=== PATIENT | female | born 1970 | race Caucasian/White ===

== ENCOUNTER 2017-05-09 02:25 | Emergency (ER) | payer MEDICAID, SELFPAY ==
[2017-05-09 02:26] VITALS: BP 106/59; PULSE 81; RESP 16; TEMP 36.8; O2SAT 98; BMI 51.7
[2017-05-09] MEDS: 0.9% Normal Saline 1,000 ML 1000 ML IV (02:54)
[2017-05-09] MEDS: Ketorolac 30 MG/ML Syringe IV (02:54)
[2017-05-09] MEDS: Ondansetron 4 MG/2 ML Vial IV (02:55)
[2017-05-09 03:08] LABS: Color, Urine Amber (Yellow); Glucose, Dipstick Normal (Normal); Ketone-Dipstick 5 mg/dl (Negative); Leukocyte Esterase-Dipstick 100 /ul (Negative); Nitrite-Dipstick Negative (Negative); Occult Blood-Urine 250 /ul (Negative); Protein-Dipstick 100 mg/dl (Negative); Specific Gravity, Urine 1.025 (1.002-1.030); Urine Bilirubin Dipstick Negative (Negative); Urine Clarity Sl. Cloudy (Clear); Urine Urobilinogen Normal (Normal)
[2017-05-09 03:10] LABS: Absolute Neutrophil Count 11.7 X10^3/uL (2.0-7.7); Basophil# 0.01 X10^3/uL; Basophil% 0.1 % (0-1); Eosinophil# 0.24 X10^3/uL; Eosinophils% 1.7 % (0-5); Hematocrit 42.5 % (37-47); Hemoglobin 14.4 g/dl (12.0-15.0); Lymphocyte % 9.3 % (19-41); Mean Corp Hgb Conc 33.9 g/gl (32-36); Mean Corpuscular Hgb 28.7 pg (27.0-32.0); Mean Corpuscular Volume 84.8 fL (81-99); Mean Platelet Vol. 9.8 fl (6.2-12.0); Monocyte# 0.74 X10^3/uL; Monocyte% 5.3 % (0-10); Neutrophil # 11.66 X10^3/uL (2.7-7.7); Neutrophil % 83.5 % (47-70); POSITIVE COUNT NO; POSITIVE DIFFERENTIAL NO; POSITIVE MORPHOLOGY NO; Platelet Count 286 K/mm3 (150-450); RBC Distribution Width CV 14.3 % (11.6-14.6); RBC Distribution Width SD 43.4 fl (35.1-43.9); Red Blood Count 5.01 M/mm3 (4.2-5.4)
[2017-05-09 03:14] LABS: Bacteria RARE /hpf (None Seen); Mucous, Urine 1+ /hpf (<or=2+); Red Blood Cells-Urine 10-25 SEEN /hpf (0-5); Squamous Epithelial Cells - UA 5-10 SEEN /hpf (5-10); White Blood Cells 5-10 SEEN /hpf (0-5)
[2017-05-09 03:21] LABS: BUN 17 mg/dL (7-18); Calcium,Total 8.7 mg/dL (8.5-10.1); Creatinine, Serum 0.71 mg/dL (0.55-1.02); EST Glomerular Filtration Rate 95 mL/min (>60); Est Glom Filt Rate - Afr Amer 114 mL/min (>60); Estimated Creatinine Clearance 93.67 ml/min; Glucose 110 mg/dL (74-106)
[2017-05-09 03:22] LABS: Anion Gap 7 (5-15); Chloride 107 mmol/L (98-107); Potassium 3.9 mmol/L (3.5-5.1); Sodium Level 136 mmol/L (136-145)
--- NOTE | 2017-05-09 03:41 | ED.VISSUMM ---
- ER Visit Summary Date of Service: 05/09/17 Chief Complaint: Abdominal pain History of Present Illness: The patient is a [address] Renae. She reports that she has abdominal pain began approximately 12 hours ago. Sick cramping pain Zeta 10 at worst and 7 out of 10 currently. Is worsened by nothing. It is relieved by rocking back and forth. She reports she has been nausea and vomited twice. No blood or emesis. She had approximately 10 episodes of diarrhea. No blood in her stools or black tarry stools. No dysuria or frequency. She is on her menstrual period now. Patient denies sick contacts. Has not been camping out of the country. No possible bad food exposure. Does not drink well water. She reports that she was on antibiotics a few months ago for pyelonephritis.. Physical Examination: Vitals: Stable. Afebrile. General: Well-nourished and well-developed. Head: Normocephalic atraumatic. Neck: Supple, no lymphadenopathy. No JVD. Nontender. Cardiovascular: Regular rate and rhythm. No murmurs. Respiratory: No respiratory distress. Clear to auscultation bilaterally. Abdominal: Soft, mild suprapubic tenderness to palpation, nondistended, normal bowel sounds. No guarding, rebound, or peritoneal signs. Back: Nontender. Extremities: Nontender, no edema. Skin: Normal color, no rash. Neurologic: Alert and oriented ?3. Cranial nerves II through XII are intact. Normal strength and sensation. Psych: Normal affect. Test Results: Urinalysis shows 10-25 red blood cells, 5-10 white blood cells, and 5-10 epithelial cells. She is on her menses. I do not think that this is consistent with infection. Chem-7 is more for glucose 110, BUN/creatinine ratio of 24. CBC is marked for white count of 14.0 with 84 segmented neutrophils and 9 lymphocytes. test was negative. Emergency Department Course and Treatment: Patient had an IV placed. She was given a liter bolus of normal saline. She was given Toradol and Zofran IV. She has had no further vomiting or diarrhea while here. Treatment Plan: The patient will be discharged with Zofran and Bentyl. Instructed to follow-up with her primary care physician 1-2 days if not improving. Disposition: To home in improved and stable condition. Impression: 1. Abdominal pain. 2. Vomiting/diarrhea. This note was generated with [employer] dictation software. It may contain incorrect words, spelling, and punctuation that were not noted in review of the chart prior to signing ED Disposition - Plan for ED Patient: Chief Complaint: Nausea/Vomiting/Diarrhea Instructions: ED Vomiting Diarrhea Nonspecific Ad Prescriptions: Ondansetron [Zofran Odt] 4 mg PO Q8H PRN PRN #10 tablet PRN Reason: Nausea Dicyclomine HCl [Bentyl] 20 mg PO TIDAC #20 capsule Referrals: Amari Renae DO [Primary Care Provider] - 1-2 Days if not improving
[2017-05-09 04:17] VITALS: BP 107/73; PULSE 70; RESP 17; O2SAT 95
[2017-05-09 04:19] LABS: Pregnancy, Serum, hCG Quali. NEGATIVE Negative (0-9 Nonpreg)
== END 2017-05-09 04:17 | disposition home or self-care (01) ==
LOC: ED 03:19
PROVIDERS: Emergency Provider Emergency Medicine; Family Provider Family Medicine; PCP Family Medicine
DX: R10.30 Lower abdominal pain, unspecified (principal); R11.2 Nausea with vomiting, unspecified; R19.7 Diarrhea, unspecified; R68.83 Chills (without fever); E11.9 Type 2 diabetes mellitus without complications; I10 Essential (primary) hypertension; Z86.39 Personal history of other endocrine, nutritional and metabolic disease; D86.9 Sarcoidosis, unspecified; Z87.448 Personal history of other diseases of urinary system; Z87.442 Personal history of urinary calculi; Z79.84 Long term (current) use of oral hypoglycemic drugs; Z79.899 Other long term (current) drug therapy
CPT/HCPCS: 80048; 81001; 84703; 85025; 87086; 87088; 96361; 96374; 96375; 99285; J7030; A4216; J2405

== ENCOUNTER → 2017-10-01 12:48 | Outpatient (CLI) | payer MEDICAID, SELFPAY ==
[2017-10-01 18:24] LABS: Probe Check PASS; Sample Adequacy Control PASS; Specimen Processing Control PASS; Trichomonas Vag DNA by PCR Negative (Negative)
[2017-10-01 18:57] LABS: Chlamydia Trachomatis by PCR Negative (Negative); Neisserai gonorrhoeae by PCR Negative (Negative); Probe Check PASS; Sample Adequacy Control PASS; Specimen Processing Control PASS
== END ==
PROVIDERS: Family Provider Family Medicine; PCP Family Medicine; Visit Provider Family Medicine
DX: N89.8 Other specified noninflammatory disorders of vagina (principal)
CPT/HCPCS: 87210; 87491; 87591; 87661

== ENCOUNTER 2018-01-14 07:00 | Emergency (ER) | payer MEDICAID, SELFPAY ==
[2018-01-14 07:02] VITALS: BP 153/87; PULSE 80; RESP 16; TEMP 36.5; O2SAT 95; BMI 38.2
--- NOTE | 2018-01-14 07:26 | ED.DCSUM_ITS ---
- ER Visit Summary Date of Service: 01/14/18 Chief Complaint: Cough headache History of Present Illness: The patient is a [address] Renae. She reports that she has a headache that began 2 days ago. Is gradually gotten worse. It is over both temples. She describes as an aching pain. It is 10 out of 10 at worst and 3 out of 10 currently. Is worsened by nothing. Is relieved by butalbital. She reports she been nauseated and vomited 3 times. No blood in her emesis. She also has photophobia. She denies any recent injury to her head. Patient reports that she has had a cough for the past 3-4 days that is productive clear sputum without blood. She has had subjective fever, chills, and sweats. She denies sore throat or difficulty breathing. She did get a flu shot this year. Patient reports that she has diffuse abdominal pain that began yesterday. It is an aching pain that is 6 out of 10 at worst and currently. She reports that she is also had 3 episodes of diarrhea. No blood in her stools or black tarry stools. Patient denies sick contacts. Has not been camping out of the country. No possible bad food exposure. Does not drink well water. No recent antibiotic use. Physical Examination: Vitals: Stable. Afebrile. General: Well-nourished and well-developed. Head: Normocephalic atraumatic. Neck: Supple, no lymphadenopathy. No JVD. Nontender. Cardiovascular: Regular rate and rhythm. No murmurs. Respiratory: No respiratory distress. Clear to auscultation bilaterally. Abdominal: Soft, mild diffuse tenderness to palpation, nondistended, normal bowel sounds. No guarding, rebound, or peritoneal signs. Back: Nontender. Extremities: Nontender, no edema. Skin: Normal color, no rash. Neurologic: Alert and oriented ?3. Cranial nerves II through XII are intact. Normal strength and sensation. Psych: Normal affect. Test Results: Chest x-ray shows no acute disease. Influenza is negative. Emergency Department Course and Treatment: Patient had an IV placed. She was treated with Toradol, Benadryl, and Reglan IV. She is resting comfortably. Treatment Plan: Patient will be discharged with Zofran for her nausea. Symptomatic care for her URI. Instructed to follow-up with her primary care physician in 3-5 days if not improving. Return to the emergency department for any worsening symptoms. Disposition: To home in improved and stable condition. Impression: 1. Cephalgia. 2. URI. 3. Vomiting/diarrhea. This note was generated with [employer] dictation software. It may contain incorrect words, spelling, and punctuation that were not noted in review of the chart prior to signing ED Disposition - Plan for ED Patient: Chief Complaint: Nausea/Vomiting/Diarrhea Instructions: ED Upper Resp Infec No Abx Tx Prescriptions: Ondansetron [Zofran Odt] 4 mg PO Q8H PRN PRN #10 tablet PRN Reason: Nausea Referrals: Amari Renae DO [Primary Care Provider] - 3-5 Days if not improving
[2018-01-14] MEDS: 0.9% Normal Saline 1,000 ML 1000 ML IV (07:35)
[2018-01-14] MEDS: DiphenhydrAMINE 50 MG/ML Syringe IV (07:35)
[2018-01-14] MEDS: Ketorolac 30 MG/ML Syringe IV (07:35)
[2018-01-14] MEDS: Metoclopramide 10 MG/2 ML Vial IV (07:35)
--- NOTE | 2018-01-14 07:41 | RAD_ITS ---
STUDY: X-RAY CHEST REASON FOR EXAM: Female, 47 years old. 3 day history of cough and headaches. TECHNIQUE: PA and lateral views of the chest. COMPARISON: Comparison is made with prior study dated January 18, 2016. FINDINGS: The lungs are clear and expanded. There is no demonstrated pleural abnormality. Normal size heart. Normal mediastinum and harlan. Normal visualized pulmonary arteries. Normal visualized aortic arch and descending thoracic aorta. Normal visualized thoracic spine. Normal visualized ribs, clavicles, and shoulders. There is no demonstrated abnormality of the visualized soft tissue structures of the upper abdomen. RAD/Chest PA and Lateral IMPRESSION: Normal x-ray examination of the chest. Electronically Signed: Malcolm Quarles MD at 8:24 EST Tel [phone], Service support ,
== END 2018-01-14 09:23 | disposition home or self-care (01) ==
PROVIDERS: Emergency Provider Emergency Medicine; Family Provider Family Medicine; PCP Family Medicine
DX: R51 Headache (principal); J06.9 Acute upper respiratory infection, unspecified; R11.10 Vomiting, unspecified; R19.7 Diarrhea, unspecified; H53.149 Visual discomfort, unspecified; J44.9 Chronic obstructive pulmonary disease, unspecified; G43.909 Migraine, unspecified, not intractable, without status migrainosus; D86.9 Sarcoidosis, unspecified; Z79.899 Other long term (current) drug therapy; F17.200 Nicotine dependence, unspecified, uncomplicated
CPT/HCPCS: 71046; 87804; J7030; A4216

== ENCOUNTER 2018-01-14 23:17 | Observation (INO) | payer MEDICAID, SELFPAY ==
[2018-01-14 23:18] VITALS: BP 159/81; PULSE 57; RESP 16; TEMP 36.6; O2SAT 99; BMI 34.6
[2018-01-15] VITALS (9 sets, daily range): BP systolic 131–163; BP diastolic 77–88; PULSE 50–70; RESP 16–20; TEMP 36.7–37; O2SAT 94–100; BMI 37.4
[2018-01-15] MEDS: proMETHazine 25 MG/ML Syringe 12.5 MG IV (00:09)
[2018-01-15] MEDS: 0.9% Normal Saline 1,000 ML 1000 ML IV (00:09)
[2018-01-15 00:24] LABS: Absolute Lymphocyte Count 1.75 X10^3/ul (0.83-4.51); Absolute Neutrophil Count 7.2 X10^3/uL (2.0-7.7); Basophil# 0.02 X10^3/uL; Basophil% 0.2 % (0-1); Eosinophil# 0.23 X10^3/uL; Eosinophils% 2.3 % (0-5); Hematocrit 43.2 % (37-47); Hemoglobin 14.8 g/dl (12.0-15.0); Lymphocyte # 1.75 X10^3/ul (4.0); Lymphocyte % 17.8 % (19-41); Mean Corp Hgb Conc 34.3 g/gl (32-36); Mean Corpuscular Volume 87.6 fL (81-99); Mean Platelet Vol. 10.8 fl (6.2-12.0); Monocyte# 0.59 X10^3/uL; Neutrophil # 7.22 X10^3/uL (2.7-7.7); Neutrophil % 73.5 % (47-70); Platelet Count 246 K/mm3 (150-450); RBC Distribution Width CV 12.9 % (11.6-14.6); RBC Distribution Width SD 40.7 fl (35.1-43.9); Red Blood Count 4.93 M/mm3 (4.2-5.4); White Blood Count 9.8 K/mm3 (4.4-11.0)
[2018-01-15 00:29] LABS: ALB/GLOB Ratio 0.9 RATIO (0.9-2.4); AST(SGOT) 11 U/L (15-37); Alanine Aminotransfer ALT/SGPT 17 U/L (13-56); Albumin, Serum 3.7 g/dL (3.2-5.0); Alkaline Phosphatase 102 U/L (45-117); Anion Gap 8 (5-15); BUN 10 mg/dL (7-18); BUN/Creat Ratio 15.1 RATIO (10-20); Chloride 103 mmol/L (98-107); Creatinine, Serum 0.66 mg/dL (0.55-1.02); EST Glomerular Filtration Rate 102 mL/min (>60); Est Glom Filt Rate - Afr Amer 123 mL/min (>60); Estimated Creatinine Clearance 99.71 ml/min; Globulin 4.2 g/dL (2.2-4.2); Glucose 113 mg/dL (74-106); Lipase 567 U/L (73-393); Potassium 3.8 mmol/L (3.5-5.1); Protein, Total 7.9 g/dL (6.4-8.2); Sodium Level 137 mmol/L (136-145)
[2018-01-15 00:31] LABS: POSITIVE COUNT NO; POSITIVE DIFFERENTIAL NO; POSITIVE MORPHOLOGY NO
[2018-01-15] MEDS: Ondansetron 4 MG/2 ML Vial IV ×2 (00:40→11:40)
[2018-01-15] MEDS: Ketorolac 30 MG/ML Syringe IV ×4 (01:01→22:05)
--- NOTE | 2018-01-15 01:07 | CT_ITS ---
STUDY: CT ABDOMEN AND PELVIS WITHOUT CONTRAST REASON FOR EXAM: Female, 47 years old. Right flank pain. Nausea, vomiting, cold for 3 days. RADIATION DOSAGE (If Supplied By Facility): CTDIvol = ( 20.77 ) mGy, DLP = ( 1115.83 ) mGycm TECHNIQUE: Transaxial images were obtained from the dome of the diaphragm to the symphysis pubis without oral contrast, and without intravenous contrast. Sagittal and coronal images were reconstructed. Individualized dose optimization techniques were used for this CT. COMPARISON: January 03, 2017. FINDINGS: The visualized lung bases are unremarkable. The visualized portions of the heart are within normal limits. Normal liver. Normal gallbladder and extrahepatic biliary system. Normal spleen. Normal pancreas. Normal bilateral adrenal glands. 4.3 cm simple cyst right kidney. Minimal scattered 1 to 2 mm bilateral nonobstructing renal calculi. Postoperative changes of gastric bypass surgery. Normal small intestine. Normal colon. There is non-visualization of the appendix. No secondary signs of acute appendicitis. Normal abdominal aorta. Normal inferior vena cava. Normal retroperitoneum. No intra-abdominal free air. Normal urinary bladder. Uterus grossly normal. No adnexal masses. There is a small umbilical hernia containing fat. Multilevel degenerative changes of the lower thoracic spine. Degenerative changes lumbar spine primarily at L5-S1 where there is disc space narrowing, vacuum disc, endplate sclerosis and small marginal osteophytes. Mild convex-right lumbar curvature. CT/Abdomen/Pelvis without Cont IMPRESSION: No acute findings in the abdomen or pelvis. Scattered very small nonobstructing bilateral renal calculi. Stable simple right renal cyst. No evidence of bowel obstruction. Electronically Signed: Filiberto Broussard MD at 2:00 EST , Service support ,
[2018-01-15 01:58] LABS: Red Blood Cells-Urine 0 SEEN /hpf (0-5)
[2018-01-15 01:59] LABS: Color, Urine Yellow (Yellow); Glucose, Dipstick Normal (Normal); Ketone-Dipstick 15 mg/dl (Negative); Leukocyte Esterase-Dipstick 100 /ul (Negative); Nitrite-Dipstick Negative (Negative); Occult Blood-Urine 10 /ul (Negative); Protein-Dipstick Negative (Negative); Urine Bilirubin Dipstick Negative (Negative); Urine Clarity Clear (Clear); Urine Urobilinogen Normal (Normal)
[2018-01-15 02:02] LABS: Internal QC Validated? YES +Cl - CLEAR BKGD; Pregnancy, Urine Negative Negative
[2018-01-15 02:07] LABS: Bacteria 1+ /hpf (None Seen); Mucous, Urine 1+ /hpf (<or=2+); Squamous Epithelial Cells - UA 0-5 SEEN /hpf (5-10); White Blood Cells 5-10 SEEN /hpf (0-5)
--- NOTE | 2018-01-15 02:28 | ED.DCSUM_ITS ---
- ER Visit Summary Date of Service: 01/15/18 Chief Complaint: Vomiting History of Present Illness: The patient is a 47 F who presents with vomiting. She was seen this morning for nausea vomiting and diarrhea. She reports loose stools yesterday. However she has not really eaten or drank anything today so has had no diarrhea today. She was seen this morning and also had some upper respiratory symptoms including congestion and rhinorrhea. She had a chest x-ray and a flu swab which were unremarkable and she was discharged home on Zofran. She states she is continued to vomit despite this and is also developed right flank pain. No fevers or chills. Physical Examination: Afebrile vitals are normal Moist mucous membranes Heart regular rate and rhythm Lungs clear Abdomen soft no reproducible tenderness She does have right CVA tenderness Alert Test Results: CBC BMP hepatic function unremarkable. Lipase mildly elevated at 557. Urinalysis shows 5-10 WBCs 1+ bacteria and 0-[address] is negative[address] the abdomen pelvis shows no acute findings Emergency Department Course and Treatment: Workup as above. Patient may have a mild UTI. She was given IV Rocephin. She has mild elevation of her lipase and may have mild pancreatitis. Her symptoms are treated with Toradol. We discussed outpatient management. However this is her second ER visit and she was vomiting despite antiemetics so the decision was made to admit her. I did speak to the hospitalist and patient admitted. Treatment Plan: [] Disposition: Admit Impression: Elevated lipase Vomiting UTI This note was generated with [employer] dictation software. It may contain incorrect words, spelling, and punctuation that were not noted in review of the chart prior to signing ED Disposition - Plan for ED Patient: Chief Complaint: Nausea/Vomiting Referrals: Amari Renae DO [Primary Care Provider] -
[2018-01-15] MEDS: Ceftriaxone 1 GM/50 ML BAG IV (02:45)
--- NOTE | 2018-01-15 02:47 | PCM.HP.STD ---
Problem List (1) Viral syndrome Status: Acute History of Present Illness Date of Admission: 01/15/18 Chief Complaint: nausea, vomiting and diarrhea. The patient is a 47 year old F with a previous history of major depression; hypertension; prediabetes; COPD; major depression; and gastric bypass surgery who presented at the emergency department for the second time in the same day with same persisting symptoms.. Patient reports nausea, vomiting and diarrhea that started 2-3 days ago. The last time she had loose stools was the morning of her presentation. She thinks that her bowels have stopped moving since she had not eaten anything. Also associated with her symptoms is abdominal pain. She rates her abdominal pain as 4 out of 10. At her first emergency department visit she had only abdominal pain. On her second emergency department her abdomen pain had reduced but she had more pain at her right lower back. She rated the pain at the right lower back as 6 -7 out of 10. Upon further investigation patient stated that she has chronic right lower back pain and has been taking tramadol at home for this. However she reports that her right lower back pain increased on the day of presentation to the ED. At the emergency department she was found to have mildly elevated lipase of 567. Her urinalysis showed 5-10 white blood cells, 1+ bacteria and [address] of the abdomen and pelvis showed scattered very small nonobstructing bilateral renal calculi; and stable simple right renal cyst. At her first emergency department visits she had unremarkable chest x-ray and negative flu swab; and she was discharged home on Zofran. Past Medical History Past Medical History (Chronic Problems): Chronic Problems (Last Reviewed 01/15/18 @ 03:15 by Renzo Birch MD) Previous section (Chronic) Essential hypertension (Chronic) Gastroesophageal reflux disease (Chronic) Major depression (Chronic) Sarcoidosis (Chronic) Fatigue (Chronic) Vitamin D deficiency (Chronic) Cigarette nicotine dependence (Chronic) Prediabetes (Chronic) Onychomycosis (Chronic) Alopecia (Chronic) Skin rash (Chronic) Anxiety (Chronic) Fatty liver disease, nonalcoholic (Chronic) Peripheral edema (Chronic) Stage 1 mild COPD by GOLD classification (Chronic) Benign essential HTN (Chronic) Morbid obesity (Chronic) Tobacco user (Chronic) Obstructive sleep apnea (Chronic) Nephrolithiasis (Chronic) Noted history of recent stent placement. Medical History: Medical History (Last Reviewed 01/15/18 @ 03:15 by Renzo Birch MD) H/O: hysterectomy (Resolved) Z98.890, Z90.710 Essential hypertension (Chronic) I10 Gastroesophageal reflux disease (Chronic) K21.9 Major depression (Chronic) F32.9 Sarcoidosis (Chronic) D86.9 Fatigue (Chronic) R53.83 Vitamin D deficiency (Chronic) E55.9 Cigarette nicotine dependence (Chronic) F17.210 Prediabetes (Chronic) R73.03 Dysfunctional uterine bleeding (Resolved) N93.8 Onychomycosis (Chronic) B35.1 Chest pain (Resolved) R07.9 Alopecia (Chronic) L65.9 Skin rash (Chronic) R21 Anxiety (Chronic) F41.9 Fatty liver disease, nonalcoholic (Chronic) K76.0 Peripheral edema (Chronic) R60.9 Stage 1 mild COPD by GOLD classification (Chronic) J44.9 Benign essential HTN (Chronic) I10 Morbid obesity (Chronic) E66.01 Tobacco user (Chronic) Z72.0 Obstructive sleep apnea (Chronic) G47.33 COPD (chronic obstructive pulmonary disease) (Suspected) J44.9 Nephrolithiasis (Chronic) Noted history of recent stent placement. Allergies latex Allergy (Verified 01/14/18 23:23) Hives povidone-iodine [From Betadine] Allergy (Verified 01/14/18 23:23) Rash soap [From Betadine] Allergy (Verified 01/14/18 23:23) Rash Home Medications: Ambulatory Orders Medication Instructions Recorded busPIRone [Buspar] 15 mg PO BID 06/06/15 Albuterol IH (ProAir) [Proair Hfa] 1 - 2 puff INHALATION Q4H PRN PRN 01/18/16 traMADol [Ultram] 50 mg PO Q4H PRN PRN 01/18/16 Cholecalciferol (Vitamin D3) 4,000 unit PO DAILY 11/15/16 [Vitamin D3] Cyclobenzaprine [Flexeril] 10 mg PO TID PRN PRN #15 tab 11/15/16 Acyclovir 200 mg PO BID 01/03/17 Ondansetron [Zofran Odt] 4 mg PO Q8H PRN PRN #10 tab 05/09/17 budesonide-formoterol HFA 160 2 puff INHALATION Q12H #10.2 g 06/18/17 mcg-4.5 mcg/actuation aerosol inhaler Surgical History: Surgical History (Last Reviewed 01/15/18 @ 03:15 by Renzo Birch MD) History of gastric bypass (Resolved) Z98.84 History of lithotripsy (Resolved) Z98.890 Previous section (Chronic) Z98.891 History of carpal tunnel release of both wrists (Resolved) Z98.890 Surgical History: - Psychiatric History: Anxiety, Depression 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 Smoking Status: Current every day smoker - *Family History Maternal Family History: Family History (Last Reviewed 01/15/18 @ 03:15 by Renzo Birch MD) Father Hypertension Heart disease Diabetes CVA (cerebral vascular accident) Blood clotting disorder Pneumonia Grandfather Cancer Brother Diabetes Sister Asthma Sister Depression Anxiety Paternal Family History: Family History (Last Reviewed 01/15/18 @ 03:15 by Renzo Birch MD) Father Hypertension Heart disease Diabetes CVA (cerebral vascular accident) Blood clotting disorder Pneumonia Grandfather Cancer Brother Diabetes Sister Asthma Sister Depression Anxiety History Items: Diabetes, Hypertension Review of Systems Constitutional: Denies: Chills, Fever, Weight Change HEENT: Reports: Sinus Drainage. Denies: Head Aches, Sinus Congestion Cardiovascular: Denies: Chest Pain, Palpitations Respiratory: Reports: Cough, Sputum production - clear. Denies: Shortness of breath at rest Gastrointestinal: Reports: Abdominal Pain, Nausea, Vomiting Genitourinary: Denies: Dysuria Musculoskeletal: Denies: Joint Pain, Joint Tenderness Skin: Denies: Rash, Wounds Neurological: Denies: Numbness, Tingling, Focal weakness Psychiatric: Denies: Anxiety, Depression, Homicidal Ideations, Suicidal Ideations Hematologic/ Lymphatic: Denies: Easy Bruising, Easy Bleeding VTE Information - Inpt Only VTE Present on Admission: No VTE Mechan Device Prophylaxis: None VTE Pharm Prophylaxis ordered?: Yes Patient Problems: Active and Suspected Problems (Last Reviewed 01/15/18 @ 03:15 by Renzo Birch MD) Viral syndrome (Acute) - Physical Exam General: Alert, Oriented x3, Cooperative HEENT: Atraumatic, PERRLA, EOMI, Normocephalic Neck: Supple, No JVD, Negative Carotid Bruits Lungs: Clear to auscultation, Normal air movement Cardiovascular: Regular rate, No murmurs Abdomen: Bowel Sounds Present, Soft, Tender - mild., - - No CVA tenderness. Extremities: No edema, Capillary Refill Less than 3 Seconds Skin: No rashes, No breakdown Musculoskeletal: No Tenderness to Palpation of Joints or Extremities Neurological: Cranial nerves II-XII grossly intact Psych/Mental Status: Normal Affect, Appropriate Vital Signs Temp Pulse Resp BP Pulse Ox 97.9 F 50 L 16 156/82 H 94 01/14/18 23:18 01/15/18 01:53 01/15/18 01:53 01/15/18 01:53 01/15/18 01:53 Oxygen Delivery Method Room Air Weight: 97.4 kg Body Mass Index (BMI) 34.6 Laboratory Tests Past 24 Hrs 01/15/18 01/15/18 01/15/18 00:06 00:06 01:45 WBC 9.8 RBC 4.93 Hgb 14.8 Hct 43.2 MCV 87.6 MCH 30.0 MCHC 34.3 RDW 12.9 RDW Differential 40.7 Plt Count 246 MPV 10.8 Immature Gran % (Auto) 0.200 Neut % (Auto) 73.5 H Lymph % (Auto) 17.8 L [place] % (Auto) 6.0 Eos % (Auto) 2.3 Baso % (Auto) 0.2 Absolute Neuts (auto) 7.2 Absolute Lymphs (auto) 1.75 Total Counted Not Reportable Sodium 137 Potassium 3.8 Chloride 103 Carbon Dioxide 26.0 Anion Gap 8 BUN 10 Creatinine 0.66 Estim Creat Clear Calc 99.71 Est GFR (MDRD) Af Amer 123 Est GFR (MDRD) Non-Af 102 BUN/Creatinine Ratio 15.1 Glucose 113 H Calcium 9.0 Total Bilirubin 0.50 AST 11 L ALT 17 Alkaline Phosphatase 102 Total Protein 7.9 Albumin 3.7 Globulin 4.2 Albumin/Globulin Ratio 0.9 Lipase 567 H Urine Color Urine Clarity Urine pH Ur Specific [place] Urine Protein Urine Glucose (UA) Urine Ketones Urine Occult Blood Urine Nitrite Urine Bilirubin Urine Urobilinogen Ur Leukocyte Esterase Urine RBC Urine WBC Ur Squamous Epith Cells Urine Bacteria Urine Mucus Urine Test Negative 01/15/18 01:45 WBC RBC Hgb Hct MCV MCH MCHC RDW RDW Differential Plt Count MPV Immature Gran % (Auto) Neut % (Auto) Lymph % (Auto) [place] % (Auto) Eos % (Auto) Baso % (Auto) Absolute Neuts (auto) Absolute Lymphs (auto) Total Counted Sodium Potassium Chloride Carbon Dioxide Anion Gap BUN Creatinine Estim Creat Clear Calc Est GFR (MDRD) Af Amer Est GFR (MDRD) Non-Af BUN/Creatinine Ratio Glucose Calcium Total Bilirubin AST ALT Alkaline Phosphatase Total Protein Albumin Globulin Albumin/Globulin Ratio Lipase Urine Color Yellow Urine Clarity Clear Urine pH 7.0 Ur Specific [place] 1.010 Urine Protein Negative Urine Glucose (UA) Normal Urine Ketones 15 H Urine Occult Blood 10 H Urine Nitrite Negative Urine Bilirubin Negative Urine Urobilinogen Normal Ur Leukocyte Esterase 100 H Urine RBC 0 SEEN Urine WBC 5-10 SEEN Ur Squamous Epith Cells 0-5 SEEN Urine Bacteria 1+ Urine Mucus 1+ Urine Test Assessment/Plan All Active Problems (Last Reviewed 01/15/18 @ 03:15 by Renzo Birch MD) Viral syndrome (Acute) History of gastric bypass (Resolved) H/O: hysterectomy (Resolved) History of lithotripsy (Resolved) History of carpal tunnel release of both wrists (Resolved) Dysfunctional uterine bleeding (Resolved) Chest pain (Resolved) The patient is a 47 year old F with a previous history of major depression; hypertension; prediabetes; COPD; major depression; and gastric bypass surgery with nausea, vomiting and diarrhea; sneezing and running nose that made her come to the ED twice in the same day. Gastroenteritis Probably representing a viral syndrome because of associated sneezing and runny nose. Supportive treatment with IV normal saline; antiemetics with Zofran; and IV Toradol. Patient does not think she needs anything for runny nose. Clear liquids ordered. Hypertension Patient stated that her hypertension and prediabetes resolved with gastric bypass surgery for which reason her previous antihypertensive medications were resolved. Her blood pressure at this presentation is not within goal. Labetalol prn ordered Consider re-starting patient on po blood pressure meds for discharge COPD Stable Symbicort continued Albuterol as needed. Back pain Flexeril as needed if patient can tolerate p.o. Since patient has nausea and vomiting, tramadol is on hold.Toradol as needed. Tobacco abuse Patient smokes half pack per day since she was a teenager. Declined nicotine patch. Counseled on the risk of tobacco use. Asymptomatic bacteruria Received Ceftriaxone at the ED Urine cultures are pending Ceftriaxone not re-ordered Major Depression Buspirone continued HSV Reports HSV on vaginal area Home acyclovir continued. DVT Prophylaxis Subcutaneous Lovenox. Code Visit OBSV E&M: [id number] Initial observation care L3
[2018-01-15] MEDS: 0.9% Normal Saline 1,000 ML 150 ML IV ×2 (05:02→15:38)
[2018-01-15 05:59] LABS: Absolute Lymphocyte Count 1.35 X10^3/ul (0.83-4.51); Absolute Neutrophil Count 6.4 X10^3/uL (2.0-7.7); Basophil# 0.01 X10^3/uL; Basophil% 0.1 % (0-1); Eosinophil# 0.14 X10^3/uL; Eosinophils% 1.7 % (0-5); Hematocrit 41.1 % (37-47); Hemoglobin 13.5 g/dl (12.0-15.0); Lymphocyte # 1.35 X10^3/ul (4.0); Lymphocyte % 16.2 % (19-41); Mean Corp Hgb Conc 32.8 g/gl (32-36); Mean Corpuscular Hgb 29.4 pg (27.0-32.0); Mean Corpuscular Volume 89.5 fL (81-99); Monocyte# 0.44 X10^3/uL; Monocyte% 5.3 % (0-10); Neutrophil # 6.41 X10^3/uL (2.7-7.7); Neutrophil % 76.7 % (47-70); Platelet Count 197 K/mm3 (150-450); RBC Distribution Width SD 42.4 fl (35.1-43.9); Red Blood Count 4.59 M/mm3 (4.2-5.4); White Blood Count 8.4 K/mm3 (4.4-11.0)
[2018-01-15 06:06] LABS: POSITIVE COUNT NO; POSITIVE DIFFERENTIAL NO; POSITIVE MORPHOLOGY NO
[2018-01-15 06:19] LABS: Anion Gap 8 (5-15); BUN 8 mg/dL (7-18); BUN/Creat Ratio 15.6 RATIO (10-20); Calcium,Total 8.4 mg/dL (8.5-10.1); Chloride 107 mmol/L (98-107); Creatinine, Serum 0.51 mg/dL (0.55-1.02); EST Glomerular Filtration Rate 137 mL/min (>60); Est Glom Filt Rate - Afr Amer 165 mL/min (>60); Estimated Creatinine Clearance 129.03 ml/min; Glucose 108 mg/dL (74-106); Potassium 3.9 mmol/L (3.5-5.1); Sodium Level 138 mmol/L (136-145)
[2018-01-15] MEDS: Budesonide Respules 0.5 MG/2 ML AMPUL.NEB. INHALATION ×2 (06:43→18:42)
[2018-01-15] MEDS: Albuterol 2.5 MG/3 ML VIAL.NEB. INHALATION ×3 (06:43→18:42)
[2018-01-15] MEDS: busPIRone 15 MG TABLET PO ×2 (10:15→22:01)
[2018-01-15] MEDS: Acyclovir 200 MG Capsule PO ×2 (10:15→22:01)
[2018-01-15] MEDS: Enoxaparin 40 MG/0.4 ML Syringe SC (10:18)
[2018-01-15] MEDS: Morphine 2 MG/ML Syringe IV (10:40)
--- NOTE | 2018-01-15 20:06 | PCM.HOSP.N ---
Hospitalist Note Patient seen and examined today, she does not have any more abdominal pain, IV fluids were discontinued and her diet was advanced. I will repeat the patient's lipase tomorrow. Hopefully patient will be placed on a regular diet in the morning
[2018-01-15] MEDS: MELATONIN 3 MG TABLET PO (22:01)
[2018-01-16] MEDS: Acetaminophen 325 MG Tablet 650 MG PO ×2 (00:02→13:42)
[2018-01-16 04:30] VITALS: BP 156/90; PULSE 71; RESP 18; TEMP 36.9; O2SAT 96
[2018-01-16] MEDS: Ketorolac 30 MG/ML Syringe IV (04:48)
[2018-01-16 05:54] LABS: Lipase 90 U/L (73-393)
[2018-01-16 07:36] VITALS: PULSE 73; RESP 18; O2SAT 96
[2018-01-16] MEDS: Budesonide Respules 0.5 MG/2 ML AMPUL.NEB. INHALATION (07:36)
[2018-01-16] MEDS: Albuterol 2.5 MG/3 ML VIAL.NEB. INHALATION ×2 (07:36→13:29)
[2018-01-16] MEDS: Enoxaparin 40 MG/0.4 ML Syringe SC (09:50)
[2018-01-16] MEDS: busPIRone 15 MG TABLET PO (09:50)
[2018-01-16] MEDS: Acyclovir 200 MG Capsule PO (09:50)
[2018-01-16 10:26] VITALS: BP 150/85; PULSE 74; RESP 18; TEMP 36.8; O2SAT 95
[2018-01-16 13:36] VITALS: BP 138/77; PULSE 84; RESP 18; TEMP 36.8; O2SAT 98
--- NOTE | 2018-01-16 15:28 | DCINST_ITS ---
- Discharge Diagnoses Current Active Problems: Current Active and Chronic Problems (Last Reviewed 01/15/18 @ 03:15 by Renzo Birch MD) Viral syndrome (Acute) You will use the following diet at home:: No restrictions Your food should be the consistency of: Regular Your liquids should be the consistency of: Regular/Thin Discharge Activity: Return to Normal Activity Weight Bearing Status: Full weight bearing Allergies/Adverse Reactions: Allergies latex Allergy (Verified 01/14/18 23:23) Hives povidone-iodine [From Betadine] Allergy (Verified 01/14/18 23:23) Rash soap [From Betadine] Allergy (Verified 01/14/18 23:23) Rash Medications to take at Discharge busPIRone [Buspar] 15 mg PO BID 06/06/15 Albuterol IH (ProAir) [Proair Hfa] 1 - 2 puff INHALATION Q4H PRN PRN 01/18/16 traMADol [Ultram] 50 mg PO Q4H PRN PRN 01/18/16 Cholecalciferol (Vitamin D3) [Vitamin D3] 4,000 unit PO DAILY 11/15/16 Cyclobenzaprine [Flexeril] 10 mg PO TID PRN PRN #15 tab 11/15/16 Acyclovir 200 mg PO BID 01/03/17 Ondansetron [Zofran Odt] 4 mg PO Q8H PRN PRN #10 tab 05/09/17 budesonide-formoterol HFA 160 mcg-4.5 mcg/actuation aerosol inhaler 2 puff INHALATION Q12H #10.2 g 06/18/17 Primary Care Physician: Amari Renae DO [Primary Care Provider] - Please follow up with your Primary Care Physician in: at next visit Test Results: Test results from this visit will be discussed in further detail at your follow- up appointment, if applicable.
--- NOTE | 2018-01-17 10:09 | PCM.DC.SUM ---
Discharge Date and Diagnosis Date of Admission: 01/15/18 Date of Discharge: 01/16/18 - Primary Discharge Diagnosis #1 viral gastroenteritis #2 anxiety disorder #3 chronic obstructive pulmonary disease #4 elevated lipase secondary to #1 - Secondary Discharge Diagnosis Chronic Problems (Last Reviewed 01/15/18 @ 03:15 by Renzo Birch MD) Previous section (Chronic) Essential hypertension (Chronic) Gastroesophageal reflux disease (Chronic) Major depression (Chronic) Sarcoidosis (Chronic) Fatigue (Chronic) Vitamin D deficiency (Chronic) Cigarette nicotine dependence (Chronic) Prediabetes (Chronic) Onychomycosis (Chronic) Alopecia (Chronic) Skin rash (Chronic) Anxiety (Chronic) Fatty liver disease, nonalcoholic (Chronic) Peripheral edema (Chronic) Stage 1 mild COPD by GOLD classification (Chronic) Benign essential HTN (Chronic) Morbid obesity (Chronic) Tobacco user (Chronic) Obstructive sleep apnea (Chronic) Nephrolithiasis (Chronic) Noted history of recent stent placement. Hospital Course and Treatment Operations: None Procedures: None Summary of Care Provided: The patient is a 47 year old F who was seen in the emergency room at [facility] with chief complaint of vomiting and nausea. Patient also had an episode of diarrhea. Workup in the emergency room included a CBC and a BMP and liver profile which all were unremarkable. Lipase is mildly elevated at 557 but the patient had no abdominal tenderness on palpation and was not felt to have pancreatitis. Patient had small numbers of white cells in her urine and +1 bacteria but she had no symptoms of dysuria or urinary frequency. Patient was given IV Rocephin in the emergency room due to suspected cystitis, patient was given anti-emetics but had vomiting and was not felt to be stable for discharge and was placed into observation status on MedSurg 3. She was not felt to have a urinary tract infection by the admitting hospitalist and I agreed with this and she was not continued on IV antibiotics. I also did not feel the patient had pancreatitis, repeat lipase was normal. Patient had no more episodes of nausea and vomiting in the hospital, on 01/16/18, she was seen and examined and felt to be in stable condition for discharge home. Physical exam: On examination she appeared in good health and spirits. Vital signs as documented. Skin warm and dry and without overt rashes. Neck without JVD. Lungs clear. Heart exam notable for regular rhythm, normal sounds and absence of murmurs, rubs or gallops. Abdomen unremarkable and without evidence of organomegaly, masses, or abdominal aortic enlargement. Extremities nonedematous. Neuro: Cranial nerves II through XII are grossly intact, no focal motor deficits were noted. Psych: Patient is alert and oriented x3 and in no distress, she did not appear anxious or depressed. - Physical Exam Vital Signs Temp Pulse Resp BP Pulse Ox 98.3 F 84 18 138/77 H 98 01/16/18 13:36 01/16/18 13:36 01/16/18 13:36 01/16/18 13:36 01/16/18 13:36 Oxygen Delivery Method Room Air Weight: 105.233 kg Body Mass Index (BMI) 37.4 Intake and Output for Last 24 Hours 01/15/18 01/16/18 01/17/18 23:59 23:59 23:59 Intake Total 2946 / 2946 1364 / 1364 Output Total 1600 / 1600 1000 / 1000 Balance 1346 / 1346 364 / 364 Microbiology Past 72 Hours 01/15/18 01:45 Urine Culture - Final Urine, Clean Catch Escherichia coli Discharge Activity: Return to Normal Activity Weight Bearing Status: Full weight bearing Home Medications: Medications to take at Discharge busPIRone [Buspar] 15 mg PO BID 06/06/15 Albuterol IH (ProAir) [Proair Hfa] 1 - 2 puff INHALATION Q4H PRN PRN 01/18/16 traMADol [Ultram] 50 mg PO Q4H PRN PRN 01/18/16 Cholecalciferol (Vitamin D3) [Vitamin D3] 4,000 unit PO DAILY 11/15/16 Cyclobenzaprine [Flexeril] 10 mg PO TID PRN PRN #15 tab 11/15/16 Acyclovir 200 mg PO BID 01/03/17 Ondansetron [Zofran Odt] 4 mg PO Q8H PRN PRN #10 tab 05/09/17 budesonide-formoterol HFA 160 mcg-4.5 mcg/actuation aerosol inhaler 2 puff INHALATION Q12H #10.2 g 06/18/17 Primary Care Physician: Amari Renae DO [Primary Care Provider] - Please follow up with your Primary Care Physician in: at next visit Disposition: Home Minutes spent on discharge:: 31 Patient Condition:: Stable Medical Necessity - Tobacco Use Smoking Status: Current every day smoker Meaningful Use Info Meaningful Use Diagnoses (Choose all that apply): None applicable Code Visit OBSV E&M: 13943 Observation care discharge
== END 2018-01-16 15:27 | disposition home or self-care (01) ==
LOC: ED 23:50 → MS3 01-15 02:44
PROVIDERS: Admitting Provider Hospitalist; Emergency Provider Emergency Medicine; Family Provider Family Medicine; PCP Family Medicine; Visit Provider Internal Medicine
DX: A08.4 Viral intestinal infection, unspecified (principal); R74.8 Abnormal levels of other serum enzymes; J44.9 Chronic obstructive pulmonary disease, unspecified; F41.9 Anxiety disorder, unspecified; I10 Essential (primary) hypertension; K21.9 Gastro-esophageal reflux disease without esophagitis; N39.0 Urinary tract infection, site not specified; Z98.84 Bariatric surgery status; F32.9 Major depressive disorder, single episode, unspecified; R73.03 Prediabetes; E66.01 Morbid (severe) obesity due to excess calories; Z68.37 Body mass index [BMI] 37.0-37.9, adult; Z71.3 Dietary counseling and surveillance; G47.33 Obstructive sleep apnea (adult) (pediatric); E55.9 Vitamin D deficiency, unspecified; Z79.899 Other long term (current) drug therapy; A60.04 Herpesviral vulvovaginitis; F17.200 Nicotine dependence, unspecified, uncomplicated; R51 Headache; J06.9 Acute upper respiratory infection, unspecified; H53.149 Visual discomfort, unspecified; G43.909 Migraine, unspecified, not intractable, without status migrainosus; D86.9 Sarcoidosis, unspecified
CPT/HCPCS: 36415; 71046; 74176; 80048; 80053; 81001; 81025; 83690; 85025; 87086; 87186; 87804; 94640; 96361; 96365; 96372; 96374; 96375; 96376; 97802; 99218; 99283; 99285; 99406; J7030; A4216; G0378; J2405

== ENCOUNTER 2018-01-22 21:30 | Emergency (ER) | payer MEDICAID, SELFPAY ==
[2018-01-22 21:32] VITALS: BP 156/76; PULSE 106; RESP 18; TEMP 35.6; O2SAT 100; BMI 37.1
--- NOTE | 2018-01-22 22:01 | CT_ITS ---
STUDY: CT ABDOMEN AND PELVIS WITH CONTRAST REASON FOR EXAM: Female, 47 years old. Left upper quadrant abdominal pain. Gastric bypass RADIATION DOSAGE (If Supplied By Facility): CTDIvol = ( 15.41 ) mGy, DLP = ( 1323.22 ) mGycm TECHNIQUE: Transaxial images were obtained from the dome of the diaphragm to the symphysis pubis without oral contrast. 100 ml of Isovue 300 contrast was administered. Sagittal and coronal images were reconstructed. Individualized dose optimization techniques were used for this CT. COMPARISON: January 15, 2018 CT abdomen. FINDINGS: The visualized lung bases are unremarkable. The visualized portions of the heart are within normal limits. Normal liver. Gallbladder appears somewhat distended. No radiodense stones or gallbladder wall thickening. There is no pericholecystic fluid. A small amount of pneumoperitoneum is noted in the upper abdomen anteriorly. Normal spleen. Normal pancreas. Normal bilateral adrenal glands. 5 cm simple right renal cortical cyst. Punctate nonobstructing nephrolith on the left. Postsurgical changes consistent with gastric bypass. There is local pneumoperitoneum. Normal small intestine. Normal colon. Appendix not identified. Normal abdominal aorta. Normal inferior vena cava. Normal retroperitoneum. Normal urinary bladder. Uterus normal. Normal abdominal wall. Normal osseous structures. CT/Abdomen/Pelvis W IV Cont ONLY IMPRESSION: Pneumoperitoneum presumably due to recent (?less than approximately 1 week) gastric surgery but clinical correlation and surgical consultation recommended. Distended gallbladder but no radiodense gallstones identified. Nonobstructing nephrolith left kidney. Electronically Signed: Josesito Staples MD at 23:34 EST , Service support ,
--- NOTE | 2018-01-22 22:01 | RAD_ITS ---
STUDY: X-RAY - UNILATERAL RIBS ( LEFT ) WITH CHEST REASON FOR EXAM: Female, 47 years old. Left axillary rib pain after injury TECHNIQUE - RIBS: 4 view(s) of the ribs. TECHNIQUE - CHEST: Single frontal view of the chest. COMPARISON: January 14, 2018 FINDINGS - RIBS: Normal visualized ribs without a demonstrated fracture. FINDINGS - CHEST: Bilateral subdiaphragmatic air is noted. The lungs are clear and expanded. There is no demonstrated pleural abnormality. Normal size heart. Normal mediastinum and harlan. Normal visualized pulmonary arteries. Normal visualized aortic arch and descending thoracic aorta. Normal visualized thoracic spine. Normal visualized ribs, clavicles, and shoulders. There is no demonstrated abnormality of the visualized soft tissue structures of the upper abdomen. IMPRESSION: Pneumoperitoneum presumably due to recent surgery although clinical correlation is required. RIBS: Normal x-ray examination of the ribs. CHEST: Normal x-ray examination of the chest. Electronically Signed: Josesito Staples MD at 23:40 EST , Service support , RAD/Ribs Uni Min 3V w/PA Chest
--- NOTE | 2018-01-22 22:12 | ED.DCSUM_ITS ---
- ER Visit Summary Date of Service: 01/22/18 Chief Complaint: Left side pain History of Present Illness: The patient is a 47 F presents with pain on her left side. Patient states she was sleeping this morning and her 6-year-old grandson jumped on the bed and fell landing on her left side. She has had pain throughout the day. She tried Percocet at home. She was recently admitted 01/15-01/16 for gastroenteritis. She has a history of gastric bypass surgery in June. She was seen at [facility] ED on 01/20 for abdominal pain. She was started on multiple medications for constipation. She did have a bowel movement yesterday. She denies fever or other complaints. Physical Examination: Vitals are stable. Patient is afebrile. Alert no acute distress. HEENT exam is unremarkable. Neck is supple. Lungs are clear and equal bilaterally. Heart is regular rate and rhythm. Abdomen is soft left upper quadrant tenderness with no rebound or guarding Extremities are unremarkable. Skin is warm and dry. No focal neurologic deficit. Remainder of exam is unremarkable. Emergency Department Course and Treatment: Patient given morphine, Zofran IV. Left rib series shows normal x-ray examination of the ribs. Normal x-ray examination of the chest. CT abdomen with IV only contrast shows pneumoperitoneum presumably due to recent (?less than approximately 1 week) gastric surgery but clinical correlation and surgical consultation recommended. Distended gallbladder but no radiodense gallstones identified. Patient had gastric bypass surgery in June 2017 at [facility]. She has had no surgical procedures since that time. Labs are pending at this time. Discussed with [facility] for transfer. Disposition: Transfer [facility] Impression: Pneumoperitoneum This note was generated with Q[employer] Xiao[employer]er dictation software. It may contain incorrect words, spelling, and punctuation that were not noted in review of the chart prior to signing ED Disposition - Plan for ED Patient: Chief Complaint: Other, Pain/Inj Referrals: Amari Renae DO [Primary Care Provider] -
[2018-01-22] MEDS: Ondansetron 4 MG/2 ML Vial IV (22:30)
[2018-01-22] MEDS: Morphine 4 MG/ML Syringe IV (22:30)
[2018-01-23 00:05] LABS: Basophil% 0.1 % (0-1); Eosinophils% 0.8 % (0-5); Hematocrit 42.8 % (37-47); Hemoglobin 14.3 g/dl (12.0-15.0); Lymphocyte % 10.6 % (19-41); Mean Corp Hgb Conc 33.4 g/gl (32-36); Mean Corpuscular Hgb 29.7 pg (27.0-32.0); Mean Platelet Vol. 10.9 fl (6.2-12.0); Monocyte% 6.5 % (0-10); Neutrophil % 81.8 % (47-70); POSITIVE COUNT NO; POSITIVE DIFFERENTIAL NO; POSITIVE MORPHOLOGY NO; Platelet Count 284 K/mm3 (150-450); RBC Distribution Width SD 42.2 fl (35.1-43.9); Red Blood Count 4.81 M/mm3 (4.2-5.4); White Blood Count 15.5 K/mm3 (4.4-11.0)
[2018-01-23 00:13] LABS: Absolute Lymphocyte Count 1.64 X10^3/ul (0.83-4.51); Absolute Neutrophil Count 12.7 X10^3/uL (2.0-7.7); Basophil# 0.01 X10^3/uL; Eosinophil# 0.12 X10^3/uL; Lymphocyte # 1.64 X10^3/ul (4.0); Monocyte# 1.01 X10^3/uL
--- NOTE | 2018-01-23 00:14 | NURSING ---
ACCEPTED AT [facility] IS TO GO TO THEIR ER [phone] VALLADARES ACCEPTING
[2018-01-23 00:17] LABS: ALB/GLOB Ratio 0.8 RATIO (0.9-2.4); AST(SGOT) 16 U/L (15-37); Alanine Aminotransfer ALT/SGPT 33 U/L (13-56); Albumin, Serum 3.5 g/dL (3.2-5.0); Alkaline Phosphatase 82 U/L (45-117); Anion Gap 4 (5-15); BUN 11 mg/dL (7-18); BUN/Creat Ratio 19.4 RATIO (10-20); Calcium,Total 9.2 mg/dL (8.5-10.1); Chloride 100 mmol/L (98-107); Creatinine, Serum 0.57 mg/dL (0.55-1.02); EST Glomerular Filtration Rate 122 mL/min (>60); Est Glom Filt Rate - Afr Amer 147 mL/min (>60); Estimated Creatinine Clearance 115.45 ml/min; Globulin 4.6 g/dL (2.2-4.2); Glucose 115 mg/dL (74-106); Potassium 3.6 mmol/L (3.5-5.1); Protein, Total 8.1 g/dL (6.4-8.2); Sodium Level 134 mmol/L (136-145)
[2018-01-23 01:39] VITALS: RESP 18
== END 2018-01-23 01:41 | disposition short-term general hospital (02) ==
LOC: ED 22:49
PROVIDERS: Emergency Provider Emergency Medicine; Family Provider Family Medicine; PCP Family Medicine
DX: K66.8 Other specified disorders of peritoneum (principal); W50.0XXA Accidental hit or strike by another person, initial encounter; Y93.9 Activity, unspecified; Y92.9 Unspecified place or not applicable; K59.00 Constipation, unspecified; N20.0 Calculus of kidney; J44.9 Chronic obstructive pulmonary disease, unspecified; K21.9 Gastro-esophageal reflux disease without esophagitis; F32.9 Major depressive disorder, single episode, unspecified; Z87.19 Personal history of other diseases of the digestive system; Z98.84 Bariatric surgery status; Z79.899 Other long term (current) drug therapy; Z72.0 Tobacco use
CPT/HCPCS: 71101; 74177; 80053; 85025; 96374; 96375; 99284; Q9967; A4216; J2405

== ENCOUNTER 2018-02-23 09:43 | Emergency (ER) | payer MEDICAID, SELFPAY ==
[2018-02-23] VITALS (7 sets, daily range): BP systolic 155–171; BP diastolic 84–99; PULSE 55–72; RESP 14–18; TEMP 36.3–37.3; O2SAT 96–100; BMI 35.3
--- NOTE | 2018-02-23 10:03 | CT_ITS ---
STUDY: CT ABDOMEN AND PELVIS WITH CONTRAST REASON FOR EXAM: Female, 47 years old. Diffuse abdominal pain RADIATION DOSAGE (If Supplied By Facility): CTDIvol = ( 17.05 ) mGy, DLP = ( 1322.90 ) mGycm TECHNIQUE: Transaxial images were obtained from the dome of the diaphragm to the symphysis pubis with oral contrast. 100 ml of Isovue 300 contrast was administered. Sagittal and coronal images were reconstructed. Individualized dose optimization techniques were used for this CT. COMPARISON: None. FINDINGS: The visualized lung bases are unremarkable. The visualized portions of the heart are within normal limits. Normal liver. Normal gallbladder and extrahepatic biliary system. Normal spleen. Normal pancreas. Normal bilateral adrenal glands. Simple right renal cyst is stable. Left renal calculus is stable. Gastric Sofia-en-Y procedure similar since the prior study. Free passage of ingested oral contrast into the bowel beyond the distal anastomosis. No dilated loops of small bowel. The pneumoperitoneum seen previously has resolved. No colon wall thickening. There is non-visualization of the appendix. Normal abdominal aorta. Normal inferior vena cava. Normal retroperitoneum. Normal urinary bladder. Normal abdominal wall. Similar degenerative changes of the lumbosacral spine. CT/Abdomen/Pelvis WITH Contrast IMPRESSION: 1. No bowel wall thickening or obstruction. Resolution of pneumoperitoneum seen previously. 2. Sofia-en-Y procedure. 3. Simple right renal cyst. 4. Nonobstructing left renal calculus. Electronically Signed: Petey Victor MD at 13:28 EST , Service support ,
--- NOTE | 2018-02-23 10:18 | ED.DCSUM_ITS ---
- ER Visit Summary Date of Service: 02/23/18 Chief Complaint: [] Left side abdominal pain since yesterday History of Present Illness: The patient is a 47 F [] gastric bypass surgery by Dr. Fontana of [facility], and having pain and indicates suffered an unspecified complication requiring additional surgery around 2017 also done in [place], [facility] since then she has basically had some pain but the pain seemed to intensify yesterday, she has been vomiting she has had normal bowel habits, no fever no cough, urinary habits unremarkable she points to the left lower quadrant as the focus of her pain Physical Examination: [] 155/86, afebrile General, no distress resting comfortably HEENT is generally unremarkable The neck is supple no adenopathy Cardiovascular, regular rate and rhythm Lungs, clear bilateral Abdomen, soft there is some very nonspecific discomfort subjectively to the left side of the abdomen there is no obvious rebound or guarding no fullness the rest of the abdominal exams unremarkable her backs unremarkable Extremities, no clubbing cyanosis or edema Neurologic, awake alert answering questions appropriately moving all 4 extremities Test Results: [] Emergency Department Course and Treatment: [] Given her complaints and all the above screening labs CT IV fluids pain management Patient's lab studies UA are all generally unremarkable see those reports, her CT abdomen shows nothing acute see those reports, reevaluation she is resting comfortably she is feeling better we discussed inpatient versus outpatient management we have also discussed the option that I would provide her all of her records and CAT scan findings today and she can follow-up with her surgeons either today by going directly to [facility] to be evaluated or through the outpatient process, she is feeling better she wants to go home to follow-up with them and return for change in symptoms, I further explained her her ongoing pain management needs to be determined by her outpatient providers Treatment Plan: [] Disposition: [] Home stable Impression: [] left Sided abdominal pain, history of gastric bypass procedure for weight loss with postsurgical complication This note was generated with [employer] dictation software. It may contain incorrect words, spelling, and punctuation that were not noted in review of the chart prior to signing ED Disposition - Plan for ED Patient: Chief Complaint: Nausea/Vomiting Referrals: Amari Renae DO [Primary Care Provider] -
--- NOTE | 2018-02-23 11:01 | NURSING ---
UNSUCCESSFUL IV ATTEMPT THIS RN X2, EMT X2 AND COOK ROOM SUPERVISOR X3. MD STACK NOTIFIED,
[2018-02-23] MEDS: Ondansetron 4 MG/2 ML Vial IV (11:09)
[2018-02-23] MEDS: 0.9% Normal Saline 1,000 ML 1000 ML IV (11:09)
[2018-02-23] MEDS: morphine 8 MG/ML Syringe IV (11:09)
[2018-02-23 11:20] LABS: Absolute Lymphocyte Count 1.17 X10^3/ul (0.83-4.51); Absolute Neutrophil Count 7.5 X10^3/uL (2.0-7.7); Basophil# 0.01 X10^3/uL; Basophil% 0.1 % (0-1); Eosinophil# 0.04 X10^3/uL; Eosinophils% 0.4 % (0-5); Hematocrit 38.7 % (37-47); Hemoglobin 12.9 g/dl (12.0-15.0); Lymphocyte # 1.17 X10^3/ul (4.0); Lymphocyte % 12.8 % (19-41); Mean Corp Hgb Conc 33.3 g/gl (32-36); Mean Corpuscular Hgb 28.7 pg (27.0-32.0); Mean Corpuscular Volume 86.2 fL (81-99); Mean Platelet Vol. 10.6 fl (6.2-12.0); Monocyte# 0.42 X10^3/uL; Monocyte% 4.6 % (0-10); POSITIVE COUNT NO; POSITIVE DIFFERENTIAL NO; POSITIVE MORPHOLOGY NO; Platelet Count 246 K/mm3 (150-450); RBC Distribution Width SD 41.1 fl (35.1-43.9); Red Blood Count 4.49 M/mm3 (4.2-5.4); White Blood Count 9.2 K/mm3 (4.4-11.0)
[2018-02-23 11:37] LABS: AST(SGOT) 11 U/L (15-37); Alanine Aminotransfer ALT/SGPT 13 U/L (13-56); Albumin, Serum 3.7 g/dL (3.2-5.0); Alkaline Phosphatase 90 U/L (45-117); Anion Gap 9 (5-15); BUN 9 mg/dL (7-18); BUN/Creat Ratio 15.9 RATIO (10-20); Bilirubin, Direct 0.17 mg/dL (0.00-0.30); Calcium,Total 9.2 mg/dL (8.5-10.1); Chloride 105 mmol/L (98-107); Creatinine, Serum 0.56 mg/dL (0.55-1.02); EST Glomerular Filtration Rate 122 mL/min (>60); Est Glom Filt Rate - Afr Amer 148 mL/min (>60); Estimated Creatinine Clearance 117.51 ml/min; Globulin 3.8 g/dL (2.2-4.2); Glucose 98 mg/dL (74-106); Lipase 56 U/L (73-393); Potassium 3.6 mmol/L (3.5-5.1); Protein, Total 7.5 g/dL (6.4-8.2); Sodium Level 138 mmol/L (136-145)
[2018-02-23 12:13] LABS: Bacteria 0 SEEN /hpf (None Seen); Color, Urine Yellow (Yellow); Glucose, Dipstick Normal (Normal); Ketone-Dipstick 50 mg/dl (Negative); Leukocyte Esterase-Dipstick Negative /ul (Negative); Mucous, Urine 0 SEEN /hpf (<or=2+); Nitrite-Dipstick Negative (Negative); Occult Blood-Urine Negative /ul (Negative); Protein-Dipstick Negative (Negative); Red Blood Cells-Urine 0 SEEN /hpf (0-5); Specific Gravity, Urine 1.015 (1.002-1.030); Squamous Epithelial Cells - UA 0 SEEN /hpf (5-10); Urine Bilirubin Dipstick Negative (Negative); Urine Clarity Sl. Cloudy (Clear); Urine Urobilinogen Normal (Normal); White Blood Cells 0 SEEN /hpf (0-5)
[2018-02-23 12:19] LABS: Amorphous Sediment 2+
--- NOTE | 2018-02-23 14:05 | ED.DEP ---
ED Disposition - Plan for ED Patient: Chief Complaint: Nausea/Vomiting Instructions: ED Abdominal Pain Unkn Cause Referrals: Amari Renae DO [Primary Care Provider] - Additional Instructions: Follow-up with your outpatient providers as soon as possible, if not improved you can go directly to [facility] to be seen by your surgical subspecialists
== END 2018-02-23 14:31 | disposition home or self-care (01) ==
PROVIDERS: Emergency Provider Emergency Medicine; Family Provider Family Medicine; PCP Family Medicine
DX: R10.32 Left lower quadrant pain (principal); R11.10 Vomiting, unspecified; Z98.84 Bariatric surgery status
CPT/HCPCS: 74177; 80048; 80076; 81001; 83605; 83690; 85025; 96361; 96374; 96375; 99285; J7030; Q9967; A4216; J2405

== ENCOUNTER → 2018-03-07 14:46 | Outpatient (CLI) | payer MEDICAID, SELFPAY ==
[2018-02-23 09:44] VITALS: BMI 35.3
[2018-03-11 08:39] LABS: H. PYLORI STOOL AG Negative (Negative)
== END ==
PROVIDERS: Family Provider Family Medicine; PCP Family Medicine; Referring Provider Surgery; Visit Provider Surgery
DX: K27.9 Peptic ulcer, site unspecified, unspecified as acute or chronic, without hemorrhage or perforation (principal); B96.81 Helicobacter pylori [H. pylori] as the cause of diseases classified elsewhere

== ENCOUNTER 2018-03-31 09:52 | Emergency (ER) | payer MEDICAID, SELFPAY ==
[2018-02-23 09:44] VITALS: BMI 35.3
[2018-03-31 09:53] VITALS: BP 163/101; PULSE 81; RESP 16; TEMP 36.4; O2SAT 100; BMI 32.8
--- NOTE | 2018-03-31 10:14 | ED.VISSUMM ---
- ER Visit Summary Date of Service: 03/31/18 Chief Complaint: Nausea and vomiting History of Present Illness: The patient is a 47 F gastric bypass done by Dr. Fontana at [facility]. She developed a gastric ulcer and had a perforation and had to have repair done by Dr. Charles. Since that time in January she has had intermittent episodes of nausea and vomiting. She denies any hematemesis. She denies any fever. No diarrhea. No melena. She has had multiple episodes like this before. She was previously treated for H. pylori. Physical Examination: Middle-aged female. No acute distress. Actively vomiting into an emesis bag. Vital signs are stable and afebrile. H EENT exam by mucous membranes otherwise unremarkable. Neck nontender no lymphadenopathy. Lungs clear to auscultation bilaterally. Heart regular rhythm no murmur rate about 80. Abdomen is soft. Nondistended. Normal bowel sounds. No signs of obstruction. No hernias or masses. Extremities moves all 4. No edema. Neurologically awake alert with no focal motor deficits. Test Results: CBC shows white count 11.8. Hemoglobin 14. No bands. BMP shows potassium of 3.2. Normal gap and creatinine is 0.6. Emergency Department Course and Treatment: Patient treated with IV Phenergan, liter normal saline and IV Ativan. Repeat exam at 1139 patient is doing well. Abdomen is benign and nontender. She is no longer vomiting. If she passes a p.o. challenge she will be discharged to home with nausea medication as needed. Treatment Plan: Fluids and rest. Increase diet slowly. She has Phenergan at home she also be given a prescription for Zofran as needed. Disposition: Discharge Impression: Acute nausea and vomiting Acute dehydration Status post gastric bypass This note was generated with Ch[employer] dictation software. It may contain incorrect words, spelling, and punctuation that were not noted in review of the chart prior to signing ED Disposition - Plan for ED Patient: Chief Complaint: Nausea/Vomiting Referrals: Amari Renae DO [Primary Care Provider] -
[2018-03-31] MEDS: proMETHazine 25 MG/ML Syringe 12.5 MG IV (10:58)
[2018-03-31] MEDS: LORazepam 2 MG/ML Syringe 1 MG IV (10:58)
[2018-03-31] MEDS: 0.9% Normal Saline 1,000 ML 1000 ML IV (10:58)
[2018-03-31 11:04] LABS: Absolute Lymphocyte Count 1.52 X10^3/ul (0.83-4.51); Absolute Neutrophil Count 9.6 X10^3/uL (2.0-7.7); Basophil# 0.01 X10^3/uL; Basophil% 0.1 % (0-1); Eosinophil# 0.02 X10^3/uL; Eosinophils% 0.2 % (0-5); Hematocrit 41.8 % (37-47); Lymphocyte # 1.52 X10^3/ul (4.0); Lymphocyte % 12.9 % (19-41); Mean Corp Hgb Conc 33.5 g/gl (32-36); Mean Corpuscular Hgb 27.5 pg (27.0-32.0); Mean Corpuscular Volume 82.1 fL (81-99); Mean Platelet Vol. 10.6 fl (6.2-12.0); Monocyte# 0.63 X10^3/uL; Monocyte% 5.3 % (0-10); Neutrophil % 81.3 % (47-70); Platelet Count 316 K/mm3 (150-450); RBC Distribution Width CV 13.6 % (11.6-14.6); RBC Distribution Width SD 39.8 fl (35.1-43.9); Red Blood Count 5.09 M/mm3 (4.2-5.4); White Blood Count 11.8 K/mm3 (4.4-11.0)
[2018-03-31 11:06] LABS: POSITIVE COUNT NO; POSITIVE DIFFERENTIAL NO; POSITIVE MORPHOLOGY NO
[2018-03-31 11:19] LABS: Anion Gap 12 (5-15); BUN 6 mg/dL (7-18); BUN/Creat Ratio 9.2 RATIO (10-20); Calcium,Total 9.6 mg/dL (8.5-10.1); Chloride 104 mmol/L (98-107); Creatinine, Serum 0.65 mg/dL (0.55-1.02); EST Glomerular Filtration Rate 104 mL/min (>60); Est Glom Filt Rate - Afr Amer 126 mL/min (>60); Estimated Creatinine Clearance 105.17 ml/min; Glucose 107 mg/dL (74-106); Potassium 3.2 mmol/L (3.5-5.1); Sodium Level 138 mmol/L (136-145)
--- NOTE | 2018-03-31 11:42 | ED.DEP ---
ED Disposition - Plan for ED Patient: Disposition: Home or Assisted Living Chief Complaint: Nausea/Vomiting Instructions: ED Nausea Vomiting Prescriptions: Ondansetron [Zofran Odt] 4 mg PO Q8H PRN PRN #10 tab PRN Reason: Nausea Referrals: Amari Renae DO [Primary Care Provider] - As Needed Additional Instructions: Phenergan and/or Zofran as needed for nausea. Plenty of fluids and rest. Very bland diet and increase slowly as tolerated. Follow-up with your doctor. Return if unable to keep fluids down.
[2018-03-31 11:59] VITALS: BP 168/84; PULSE 69; RESP 16; O2SAT 99
== END 2018-03-31 12:08 | disposition home or self-care (01) ==
PROVIDERS: Emergency Provider Emergency Medicine; Family Provider Family Medicine; PCP Family Medicine
DX: R11.2 Nausea with vomiting, unspecified (principal); E86.0 Dehydration; Z98.84 Bariatric surgery status; Z87.19 Personal history of other diseases of the digestive system; Z72.0 Tobacco use
CPT/HCPCS: 80048; 85025; 96374; 96375; 99283; J7030; A4216

== ENCOUNTER 2018-04-13 20:56 | Emergency (ER) | payer MEDICAID, SELFPAY ==
[2018-04-13 20:58] VITALS: BP 143/87; PULSE 84; RESP 24; TEMP 36.6; O2SAT 100; BMI 33.5
[2018-04-13 21:17] VITALS: BP 144/75; PULSE 72; RESP 30; O2SAT 100
--- NOTE | 2018-04-13 21:20 | EKG12_ITS ---
Test Reason : CP Blood Pressure : / mmHG Vent. Rate : 075 BPM Atrial Rate : 075 BPM P-R Int : 156 ms QRS Dur : 090 ms QT Int : 398 ms P-R-T Axes : 028 036 044 degrees QTc Int : 444 ms Sinus rhythm with marked sinus arrhythmia Otherwise normal ECG Confirmed by SANTIAGO ZEPEDA, FRANKLYN ([id number]), content editor LENNY MAGAÑA ([id number]) on 04/18/2018 9:01:13 AM Referred By: DR DOUGLAS Confirmed By:FRANKLYN HENDERSON MD
--- NOTE | 2018-04-13 21:20 | RAD_ITS ---
HISTORY: CPChest Pain EXAM: XR Chest 1 View: COMPARISON: 01/14/18 CXR FINDINGS: # of images incl. paperwork: 1 LINES/DEVICES: None. LUNGS: Radiographically clear. No consolidation, edema or effusion. No pneumothorax. MEDIASTINUM AND CARDIOVASCULAR STRUCTURES: Cardiac silhouette not enlarged. Central airways and mediastinal contour are unremarkable. BONES AND SOFT TISSUES: Unremarkable. RAD/Chest 1 View (Portable) IMPRESSION: No radiographic evidence of acute cardiopulmonary disease. at 2241 Reported and signed by: Cornelius Nichols MD Electronically Signed: Cornelius Nichols, at 22:40 EST Tel , Service support ,
--- NOTE | 2018-04-13 21:21 | CT_ITS ---
HISTORY: ABD PAIN TECHNIQUE: Helically acquired images were obtained of the abdomen and pelvis following 100 cc Isovue-300 IV contrast. No oral contrast was administered. A radiation dose optimization technique was used for this scan. COMPARISON: 02/23/18 CT abdomen and pelvis. FINDINGS: # of images incl. paperwork: 420 Small amount of simple density fluid in the pelvis. No free air. Status post antecolic Sofia-en-Y gastric bypass. No obstruction or inflammation of the bowel. Mild atherosclerosis. Systemic and mesenteric veins are patent. The gallbladder is distended. No radiopaque gallstones or adjacent inflammation. No biliary ductal dilation. Liver, pancreas, spleen, adrenal glands unremarkable. Single punctate nonobstructing right renal stone. Several punctate nonobstructing stones of the left kidney. Incidental 5.4 cm diameter cyst lower pole right kidney. Uterus, ovaries, and urinary bladder are unremarkable. Prominent degenerative changes lower lumbar spine. No acute osseous abnormality. Lung bases clear. CT/Abdomen/Pelvis W IV Cont ONLY IMPRESSION: No bowel obstruction, no acute findings. Sofia-en-Y gastric bypass. Small amount of simple density fluid in the pelvis which is not necessarily pathologic in a female patient of this age. Punctate bilateral nonobstructing renal stones. Individualized dose optimization techniques were used for this CT. at 0213 Reported and signed by: Cornelius Nichols MD Electronically Signed: Cornelius Nichols, at 23:52 EST Tel , Service support ,
[2018-04-13 22:05] LABS: Absolute Lymphocyte Count 0.84 X10^3/ul (0.83-4.51); Absolute Neutrophil Count 8.6 X10^3/uL (2.0-7.7); Basophil# 0.02 X10^3/uL; Basophil% 0.2 % (0-1); Eosinophil# 0.05 X10^3/uL; Eosinophils% 0.5 % (0-5); Hematocrit 42.9 % (37-47); Lymphocyte # 0.84 X10^3/ul (4.0); Lymphocyte % 8.6 % (19-41); Mean Corp Hgb Conc 32.6 g/gl (32-36); Mean Corpuscular Hgb 27.1 pg (27.0-32.0); Mean Corpuscular Volume 83.1 fL (81-99); Mean Platelet Vol. 10.8 fl (6.2-12.0); Monocyte# 0.25 X10^3/uL; Monocyte% 2.6 % (0-10); Neutrophil # 8.62 X10^3/uL (2.7-7.7); Neutrophil % 87.9 % (47-70); Platelet Count 304 K/mm3 (150-450); RBC Distribution Width CV 14.1 % (11.6-14.6); Red Blood Count 5.16 M/mm3 (4.2-5.4); White Blood Count 9.8 K/mm3 (4.4-11.0)
[2018-04-13 22:08] LABS: POSITIVE COUNT NO; POSITIVE DIFFERENTIAL NO; POSITIVE MORPHOLOGY NO
[2018-04-13 22:16] VITALS: PULSE 83; RESP 20; O2SAT 97
[2018-04-13 22:19] VITALS: BP 141/79; PULSE 75; RESP 27; TEMP 36.4; O2SAT 100
[2018-04-13] MEDS: 0.9% Normal Saline 1,000 ML 1000 ML IV (22:19)
[2018-04-13] MEDS: Ondansetron 4 MG/2 ML Vial IV ×2 (22:19→23:47)
[2018-04-13 22:20] LABS: ALB/GLOB Ratio 0.9 RATIO (0.9-2.4); AST(SGOT) 14 U/L (15-37); Alanine Aminotransfer ALT/SGPT 17 U/L (13-56); Albumin, Serum 3.7 g/dL (3.2-5.0); Alkaline Phosphatase 91 U/L (45-117); Anion Gap 10 (5-15); BUN 8 mg/dL (7-18); BUN/Creat Ratio 10.9 RATIO (10-20); Calcium,Total 9.1 mg/dL (8.5-10.1); Chloride 107 mmol/L (98-107); Creatinine, Serum 0.74 mg/dL (0.55-1.02); EST Glomerular Filtration Rate 90 mL/min (>60); Est Glom Filt Rate - Afr Amer 109 mL/min (>60); Estimated Creatinine Clearance 88.93 ml/min; Globulin 4.3 g/dL (2.2-4.2); Glucose 127 mg/dL (74-106); Lipase 48 U/L (73-393); Potassium 3.3 mmol/L (3.5-5.1); Sodium Level 138 mmol/L (136-145)
[2018-04-13 22:29] LABS: Pregnancy, Serum, hCG Quali. NEGATIVE Negative (0-9 Nonpreg)
[2018-04-13 23:04] LABS: Red Blood Cells-Urine 0 SEEN /hpf (0-5)
[2018-04-13 23:10] LABS: Color, Urine Yellow (Yellow); Glucose, Dipstick Normal (Normal); Ketone-Dipstick 50 mg/dl (Negative); Leukocyte Esterase-Dipstick Negative /ul (Negative); Nitrite-Dipstick Negative (Negative); Occult Blood-Urine Negative /ul (Negative); Protein-Dipstick Negative (Negative); Urine Bilirubin Dipstick Negative (Negative); Urine Clarity Sl. Cloudy (Clear); Urine Urobilinogen Normal (Normal)
[2018-04-13 23:27] LABS: Mucous, Urine 1+ /hpf (<or=2+)
[2018-04-13 23:28] LABS: Amorphous Sediment 1+; Squamous Epithelial Cells - UA 0-5 SEEN /hpf (5-10)
[2018-04-13 23:29] LABS: Bacteria RARE /hpf (None Seen); White Blood Cells 0-5 SEEN /hpf (0-5)
[2018-04-13 23:49] VITALS: BP 140/78; PULSE 65; RESP 17; RESP 28; TEMP 36.6; O2SAT 100; O2SAT 98
[2018-04-13 23:52] LABS: Amphetamine Urine VISTA NEGATIVE (<1000 ng/mL); Barbiturate Urine VISTA NEGATIVE (< 200 ng/mL); Benzodiazepine Urine VISTA NEGATIVE (< 200 ng/mL); Cocaine Urine VISTA NEGATIVE (< 300 ng/mL); Ecstacy Urine VISTA NEGATIVE (< 500 ng/mL); Methadone Urine VISTA NEGATIVE (< 300 ng/mL); PCP Urine VISTA NEGATIVE (< 25 ng/mL); THC Urine VISTA POSITIVE (< 50 ng/mL); Vista UDS pH Range 7
--- NOTE | 2018-04-14 00:05 | ED.VISSUMM ---
- ER Visit Summary Date of Service: 04/14/18 Chief Complaint: Abdominal pain History of Present Illness: The patient is a 47 F with upper abdominal pain. Symptoms started today. They came on gradually. The patient also reports nausea vomiting and fast breathing. Was triaged for chest pain and shortness of breath, but on my history, the patient is denying chest pain or shortness of breath. She denies any history of coronary disease, PE, or dissection. She does have a history of COPD. Denies any other respiratory symptoms. She has a history of gastric bypass and follows with Dr. Fontana. Physical Examination: Afebrile and vital signs unremarkable except for her respiratory rate of 27. Patient is somnolent but awakens to voice. She is oriented but exhibits psychomotor slowing and a depressed mood. Heart regular rate and rhythm. Lungs clear. Abdomen soft and nontender. Skin appears normal. Test Results: EKG shows sinus rhythm at a rate of 75. Chest x-ray normal. CT abdomen and pelvis shows no acute findings. She has postoperative changes in pelvic free fluid. CBC normal. Potassium 3.3 and glucose 127. AST 14 and lipase normal. Urinalysis unremarkable. test negative. Tox screen positive for marijuana. Emergency Department Course and Treatment: Patient complains of abdominal pain with nausea and vomiting. She is status post gastric bypass. CBC, CMP, lipase unremarkable. Urinalysis unremarkable. CT abdomen and pelvis unremarkable. Patient received fluids, Zofran, famotidine, and Bentyl. On further reevaluation, patient was improved. Vitals stable. Respiratory rate is 14 when she is resting in the room on her own, but when her significant other or hospital staff entered the room, her respiratory rate increases to the 20s and 30s. Pulse ox is normal. I suspect she may have some anxiety secondary to her abdominal pain. The patient plans to follow-up with her surgeon, Dr. Fontana later in the month for endoscopy. At this time, I believe the patient is appropriate for outpatient follow-up. Return for any new or worsening issues. Follow-up with Dr. Fontana. Treatment Plan: Continue home medications. Will prescribe Bentyl. Disposition: Discharge Impression: 1. Upper abdominal pain This note was generated with [employer]gl[employer] Vision[employer] software. It may contain incorrect words, spelling, and punctuation that were not noted in review of the chart prior to signing ED Disposition - Plan for ED Patient: Referrals: Amari Renae DO [Primary Care Provider] -
--- NOTE | 2018-04-14 00:10 | ED.DEP ---
ED Disposition - Plan for ED Patient: Instructions: ED Abdominal Pain Unkn Cause Prescriptions: Dicyclomine HCl [Bentyl] 20 mg PO TIDAC #20 cap Additional Instructions: Follow up with your surgeon, Dr. Fontana
[2018-04-14 00:21] VITALS: O2SAT 100
[2018-04-14 00:44] VITALS: BP 148/86; PULSE 79; RESP 16; O2SAT 98
== END 2018-04-14 00:46 | disposition home or self-care (01) ==
PROVIDERS: Emergency Provider Emergency Medicine; Family Provider Family Medicine; PCP Family Medicine
DX: R10.10 Upper abdominal pain, unspecified (principal); R11.2 Nausea with vomiting, unspecified; M54.9 Dorsalgia, unspecified; J44.9 Chronic obstructive pulmonary disease, unspecified; K21.9 Gastro-esophageal reflux disease without esophagitis; G47.33 Obstructive sleep apnea (adult) (pediatric); Z98.84 Bariatric surgery status; F12.90 Cannabis use, unspecified, uncomplicated; Z72.0 Tobacco use
CPT/HCPCS: 71045; 74177; 80053; 80307; 81001; 83690; 84703; 85025; 93005; 96361; 96374; 96376; 99285; J7030; Q9967; A4216; J2405; J3490

== ENCOUNTER → 2018-04-23 20:00 | Outpatient (CLI) | payer MEDICAID, SELFPAY ==
[2018-04-13 20:58] VITALS: BMI 33.5
== END ==
PROVIDERS: Family Provider Family Medicine; PCP Family Medicine; Referring Provider Internal Medicine Critical Care Medicine; Visit Provider Internal Medicine Critical Care Medicine
DX: G47.33 Obstructive sleep apnea (adult) (pediatric) (principal)
CPT/HCPCS: 95810

== ENCOUNTER 2018-04-26 06:57 | Emergency (ER) | payer MEDICAID, SELFPAY ==
[2018-04-26 06:58] VITALS: BP 154/103; PULSE 111; RESP 26; TEMP 37; O2SAT 100; BMI 31.3
--- NOTE | 2018-04-26 07:17 | EKG12_ITS ---
Test Reason : N/V Blood Pressure : / mmHG Vent. Rate : 095 BPM Atrial Rate : 095 BPM P-R Int : 138 ms QRS Dur : 090 ms QT Int : 372 ms P-R-T Axes : 030 025 045 degrees QTc Int : 467 ms Sinus rhythm with Premature atrial complexes Otherwise normal ECG Confirmed by SANTIAGO ZEPEDA, FRANKLYN ([id number]), publications editor GRACIA MITCHELL ([id number]) on 04/29/2018 4:48:48 PM Referred By: Shayan Robertson Confirmed By:FRANKLYN HENDERSON MD
--- NOTE | 2018-04-26 07:30 | RAD_ITS ---
STUDY: X-RAY CHEST REASON FOR EXAM: Female, 47 years old. Dyspnea. TECHNIQUE: PA and lateral chest COMPARISON: 04/13/2017 FINDINGS: The lungs are clear and expanded. Normal cardiomediastinal silhouette, harlan and pleural margins. No acute osseous or upper abdominal process. RAD/Chest PA and Lateral IMPRESSION: No acute cardiopulmonary process. Electronically Signed: Edenilson Tyson MD at 8:13 EST Tel , Service support ,
[2018-04-26] MEDS: 0.9% Normal Saline 1,000 ML 1000 ML IV (07:33)
[2018-04-26 07:34] LABS: Absolute Lymphocyte Count 2.31 X10^3/ul (0.83-4.51); Absolute Neutrophil Count 11.7 X10^3/uL (2.0-7.7); Basophil# 0.03 X10^3/uL; Basophil% 0.2 % (0-1); Eosinophil# 0.08 X10^3/uL; Eosinophils% 0.5 % (0-5); Hematocrit 40.4 % (37-47); Hemoglobin 13.2 g/dl (12.0-15.0); Lymphocyte # 2.31 X10^3/ul (4.0); Lymphocyte % 15.2 % (19-41); Mean Corp Hgb Conc 32.7 g/gl (32-36); Mean Corpuscular Hgb 26.7 pg (27.0-32.0); Mean Corpuscular Volume 81.8 fL (81-99); Mean Platelet Vol. 10.4 fl (6.2-12.0); Monocyte# 1.03 X10^3/uL; Monocyte% 6.8 % (0-10); Neutrophil # 11.72 X10^3/uL (2.7-7.7); POSITIVE COUNT NO; POSITIVE DIFFERENTIAL NO; POSITIVE MORPHOLOGY NO; Platelet Count 367 K/mm3 (150-450); RBC Distribution Width CV 14.5 % (11.6-14.6); RBC Distribution Width SD 43.3 fl (35.1-43.9); Red Blood Count 4.94 M/mm3 (4.2-5.4); White Blood Count 15.2 K/mm3 (4.4-11.0)
[2018-04-26] MEDS: proMETHazine 25 MG/ML Syringe 12.5 MG IV (07:34)
[2018-04-26 07:56] LABS: ALB/GLOB Ratio 0.9 RATIO (0.9-2.4); AST(SGOT) 12 U/L (15-37); Alanine Aminotransfer ALT/SGPT 14 U/L (13-56); Albumin, Serum 3.8 g/dL (3.2-5.0); Alkaline Phosphatase 88 U/L (45-117); Anion Gap 13 (5-15); BUN 17 mg/dL (7-18); BUN/Creat Ratio 20.1 RATIO (10-20); Calcium,Total 9.5 mg/dL (8.5-10.1); Chloride 100 mmol/L (98-107); Creatinine, Serum 0.84 mg/dL (0.55-1.02); EST Glomerular Filtration Rate 77 mL/min (>60); Est Glom Filt Rate - Afr Amer 93 mL/min (>60); Estimated Creatinine Clearance 78.34 ml/min; Globulin 4.4 g/dL (2.2-4.2); Glucose 112 mg/dL (74-106); Lipase 45 U/L (73-393); Potassium 3.1 mmol/L (3.5-5.1); Protein, Total 8.2 g/dL (6.4-8.2); Sodium Level 136 mmol/L (136-145)
--- NOTE | 2018-04-26 08:54 | RAD_ITS ---
STUDY: X-RAY -ABDOMINAL SERIES REASON FOR EXAM: Female, 47 years old. Nausea and vomiting. TECHNIQUE: Supine and upright views of the abdomen were obtained. COMPARISON: None. FINDINGS: The lungs are clear and expanded. There is residual contrast in the colon from previous contrast study. There are nonspecific gaseous bowel loops. There is no evidence of free air. The pelvic region is not entirely included on this examination. The soft tissues are unremarkable. There are degenerative changes of the visualized spine. RAD/Abd Inc Decub and/or Erect IMPRESSION: Residual contrast in the colon from previous contrast study. No evidence of small bowel obstruction. Electronically Signed: Nasir Licea MD at 9:47 EST Tel , Service support ,
[2018-04-26 09:21] VITALS: BP 180/104; PULSE 87; RESP 18; TEMP 36.8; O2SAT 100
[2018-04-26] MEDS: Ondansetron 4 MG/2 ML Vial IV (09:45)
[2018-04-26] MEDS: Ketorolac 30 MG/ML Syringe IV (09:45)
--- NOTE | 2018-04-26 09:47 | ED.VISSUMM ---
- ER Visit Summary Date of Service: 04/26/18 Chief Complaint: Vomiting History of Present Illness: The patient is a 47 F who presents to the emergency department with 3 days of vomiting and abdominal pain. Patient states that she has had this before. Yesterday she went to [facility] in [place] and had a barium swallow. Results of this were obtained by myself and demonstrated no evidence of obstruction or perforation. There is a small plication defect along the posterior wall of the gastric pouch. She has an EGD scheduled for Saturday at 063 0 hours. This was performed because she has a history of gastric ulcers. She has a history of Sofia-en-Y gastric bypass. Patient states she continues to vomit. She notes a slight cough and notes that she has shortness of breath. She states that she is having mouth and hand tingling. Patient is concerned that she cannot keep her promethazine down Physical Examination: Afebrile slightly tachycardic and tachypneic. 100% on room air. Gen: Well-nourished well-developed Head: Normocephalic atraumatic Eyes: Perrl EOMI ENT: TMs clear no rhinorrhea moist mucous membranes Neck: Supple no lymphadenopathy no JVD nontender CVS: Regular rate rhythm no murmurs normal S1-S2 Respiratory: No distress clear to auscultation bilaterally chest nontender patient is tachypneic Abdomen: Soft diffusely tender to palpation nondistended normal bowel sounds no masses Back: Nontender Extremity: Nontender no edema Skin: Normal color no rash Neuro: alert orientated ?3 CN II-XII intact normal strength sensation reflexes gait cerebellar Psych: Normal affect normal mood Test Results: EKG demonstrates a sinus rhythm with PAC. White count slightly elevated at 15. Liver enzymes without any evidence of obstruction. Lipase is normal. Potassium 3.1. Chest x-ray is negative. Acute abdominal films demonstrate no obvious obstruction or air-fluid levels. Emergency Department Course and Treatment: Patient had a CT scan approximately 2 months ago that did not demonstrate any cholelithiasis. Patient received IV fluids and Phenergan later Toradol and Zofran. She has not had any vomiting here in the department. I do not see evidence of perforation or obstruction. Patient will receive a dose of IV Pepcid. I will write for Zofran ODT. Return if worsening or concerns. Impression: 1. Acute abdominal pain 2. Vomiting This note was generated with [employer] dictation software. It may contain incorrect words, spelling, and punctuation that were not noted in review of the chart prior to signing ED Disposition - Plan for ED Patient: Disposition: Home or Assisted Living Instructions: ED Nausea Vomiting Prescriptions: Ondansetron [Zofran Odt] 4 mg PO Q4H PRN PRN #20 tablet PRN Reason: Nausea Additional Instructions: Please keep your appointment on Saturday morning for your EGD. Use the Zofran ODT as it will absorb without having to swallow the pill. Try to stay hydrated. If worsening please return the emergency department. If continued symptoms please contact your surgeon tomorrow.
--- NOTE | 2018-04-26 09:50 | ED.DCSUM_ITS ---
- ER Visit Summary Date of Service: 04/26/18 Chief Complaint: Vomiting History of Present Illness: The patient is a 47 F who presents to the emergency department with 3 days of vomiting and abdominal pain. Patient states that she has had this before. Yesterday she went to [facility] in [place] and had a barium swallow. Results of this were obtained by myself and demonstrated no evidence of obstruction or perforation. There is a small plication defect along the posterior wall of the gastric pouch. She has an EGD scheduled for Saturday at 063 0 hours. This was performed because she has a history of gastric ulcers. She has a history of Sfoia-en-Y gastric bypass. Patient states she continues to vomit. She notes a slight cough and notes that she has shortness of breath. She states that she is having mouth and hand tingling. Patient is concerned that she cannot keep her promethazine down Physical Examination: Afebrile slightly tachycardic and tachypneic. 100% on room air. Gen: Well-nourished well-developed Head: Normocephalic atraumatic Eyes: Perrl EOMI ENT: TMs clear no rhinorrhea moist mucous membranes Neck: Supple no lymphadenopathy no JVD nontender CVS: Regular rate rhythm no murmurs normal S1-S2 Respiratory: No distress clear to auscultation bilaterally chest nontender patient is tachypneic Abdomen: Soft diffusely tender to palpation nondistended normal bowel sounds no masses Back: Nontender Extremity: Nontender no edema Skin: Normal color no rash Neuro: alert orientated ?3 CN II-XII intact normal strength sensation reflexes gait cerebellar Psych: Normal affect normal mood Test Results: EKG demonstrates a sinus rhythm with PAC. White count slightly elevated at 15. Liver enzymes without any evidence of obstruction. Lipase is normal. Potassium 3.1. Chest x-ray is negative. Acute abdominal films demonstrate no obvious obstruction or air-fluid levels. Emergency Department Course and Treatment: Patient had a CT scan approximately 2 months ago that did not demonstrate any cholelithiasis. Patient received IV fluids and Phenergan later Toradol and Zofran. She has not had any vomiting here in the department. I do not see evidence of perforation or obstruction. Patient will receive a dose of IV Pepcid. I will write for Zofran ODT. Return if worsening or concerns. Impression: 1. Acute abdominal pain 2. Vomiting This note was generated with [employer] dictation software. It may contain incorrect words, spelling, and punctuation that were not noted in review of the chart prior to signing ED Disposition - Plan for ED Patient: Disposition: Home or Assisted Living Instructions: ED Nausea Vomiting Prescriptions: Ondansetron [Zofran Odt] 4 mg PO Q4H PRN PRN #20 tablet PRN Reason: Nausea Additional Instructions: Please keep your appointment on Saturday morning for your EGD. Use the Zofran ODT as it will absorb without having to swallow the pill. Try to stay hydrated. If worsening please return the emergency department. If continued symptoms please contact your surgeon tomorrow.
[2018-04-26 11:41] VITALS: PULSE 86; RESP 14; O2SAT 100
== END 2018-04-26 11:46 | disposition home or self-care (01) ==
PROVIDERS: Emergency Provider Emergency Medicine; Family Provider Family Medicine; PCP Family Medicine
DX: R10.84 Generalized abdominal pain (principal); R11.10 Vomiting, unspecified; Z98.84 Bariatric surgery status
CPT/HCPCS: 71046; 74019; 80053; 83690; 84484; 85025; 93005; 96361; 96365; 96375; 99284; J7030; A4216; J2405

== ENCOUNTER 2018-05-23 08:00 | Emergency (ER) | payer MEDICAID, SELFPAY ==
[2018-05-23 08:01] VITALS: BP 117/60; PULSE 59; RESP 30; TEMP 36.5; O2SAT 100; BMI 31.3
--- NOTE | 2018-05-23 08:23 | ED.VISSUMM ---
- ER Visit Summary Date of Service: 05/23/18 Chief Complaint: Abdominal pain, vomiting History of Present Illness: The patient is a 48 F who presents with nausea and body aches started yesterday. Overnight she started vomiting. She had gastric bypass last January at [facility] with Dr. Fontana. She states she had problems with pain and vomiting since that time. She denies diarrhea or constipation. Physical Examination: Vital signs significant for tachypnea with respiratory rate of 30. Patient sitting upright in bed. Head neck examination grossly unremarkable. Heart is regular rate and rhythm. Lung sounds are clear. She is tachypneic. Abdomen is soft with tenderness in the epigastric and suprapubic region. Hypoactive but present bowel sounds are noted. Test Results: CBC is unremarkable. Chemistry studies reveal potassium 3.3 which appears to be consistent with her prior values. Bicarb is 19. LFTs and lipase normal. Urinalysis shows 15 ketones but no sign of infection. Emergency Department Course and Treatment: Patient was initially given morphine, Zofran, and IV fluids. On repeat evaluation she felt improved. She is active bowel sounds. Respiratory rate was 18. Patient was given ice chips. When I went back to recheck her she stated that she got nauseated again after the ice chips. She was given Phenergan and famotidine IV. At this time patient is resting comfortably. She does feel improved. 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 I will also write her for some Phenergan suppositories she is unable to keep pills down. Patient has had multiple previous workups for similar. I did review her prior CAT scans. Treatment Plan: [] Disposition: Discharge Impression: Vomiting, improved This note was generated with [employer] dictation software. It may contain incorrect words, spelling, and punctuation that were not noted in review of the chart prior to signing ED Disposition - Plan for ED Patient: Referrals: Amari Renae DO [Primary Care Provider] -
--- NOTE | 2018-05-23 08:26 | ED.DCSUM_ITS ---
- ER Visit Summary Date of Service: 05/23/18 Chief Complaint: Abdominal pain, vomiting History of Present Illness: The patient is a 48 F who presents with nausea and body aches started yesterday. Overnight she started vomiting. She had gastric bypass last January at [facility] with Dr. Fontana. She states she had problems with pain and vomiting since that time. She denies diarrhea or constipation. Physical Examination: Vital signs significant for tachypnea with respiratory rate of 30. Patient sitting upright in bed. Head neck examination grossly unremarkable. Heart is regular rate and rhythm. Lung sounds are clear. She is tachypneic. Abdomen is soft with tenderness in the epigastric and suprapubic region. Hypoactive but present bowel sounds are noted. Test Results: CBC is unremarkable. Chemistry studies reveal potassium 3.3 which appears to be consistent with her prior values. Bicarb is 19. LFTs and lipase normal. Urinalysis shows 15 ketones but no sign of infection. Emergency Department Course and Treatment: Patient was initially given morphine, Zofran, and IV fluids. On repeat evaluation she felt improved. She is active bowel sounds. Respiratory rate was 18. Patient was given ice chips. When I went back to recheck her she stated that she got nauseated again after the ice chips. She was given Phenergan and famotidine IV. At this time patient is resting comfortably. She does feel improved. 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 I will also write her for some Phenergan suppositories she is unable to keep pills down. Patient has had multiple previous workups for similar. I did review her prior CAT scans. Treatment Plan: [] Disposition: Discharge Impression: Vomiting, improved This note was generated with [employer] dictation software. It may contain incorrect words, spelling, and punctuation that were not noted in review of the chart prior to signing ED Disposition - Plan for ED Patient: Referrals: Amari Renae DO [Primary Care Provider] -
[2018-05-23 08:33] VITALS: PULSE 69; RESP 32; O2SAT 100
[2018-05-23 08:42] LABS: Bacteria 0 SEEN /hpf (None Seen); Red Blood Cells-Urine 0 SEEN /hpf (0-5); White Blood Cells 0 SEEN /hpf (0-5)
[2018-05-23 08:44] LABS: Color, Urine Yellow (Yellow); Glucose, Dipstick Normal (Normal); Ketone-Dipstick 15 mg/dl (Negative); Leukocyte Esterase-Dipstick 25 /ul (Negative); Nitrite-Dipstick Negative (Negative); Occult Blood-Urine Negative /ul (Negative); Protein-Dipstick 15 mg/dl (Negative); Specific Gravity, Urine 1.015 (1.002-1.030); Urine Bilirubin Dipstick Negative (Negative); Urine Clarity Clear (Clear); Urine Urobilinogen Normal (Normal)
[2018-05-23 08:52] LABS: Mucous, Urine 1+ /hpf (<or=2+); Squamous Epithelial Cells - UA 5-10 SEEN /hpf (5-10)
[2018-05-23 08:53] LABS: Amorphous Sediment 1+
[2018-05-23] MEDS: 0.9% Normal Saline 1,000 ML 1000 ML IV (08:58)
[2018-05-23] MEDS: Morphine 4 MG/ML Syringe IV (08:58)
[2018-05-23] MEDS: Ondansetron 4 MG/2 ML Vial IV (08:58)
[2018-05-23 09:30] VITALS: BP 142/84; PULSE 68
[2018-05-23 09:33] LABS: Absolute Neutrophil Count 5.7 X10^3/uL (2.0-7.7); Basophil# 0.02 X10^3/uL; Basophil% 0.3 % (0-1); Eosinophil# 0.08 X10^3/uL; Eosinophils% 1.1 % (0-5); Hematocrit 39.9 % (37-47); Hemoglobin 12.7 g/dl (12.0-15.0); Lymphocyte % 13.9 % (19-41); Mean Corp Hgb Conc 31.8 g/gl (32-36); Mean Corpuscular Volume 78.7 fL (81-99); Mean Platelet Vol. 11.4 fl (6.2-12.0); Monocyte# 0.35 X10^3/uL; Monocyte% 4.8 % (0-10); Neutrophil # 5.74 X10^3/uL (2.7-7.7); Neutrophil % 79.5 % (47-70); Platelet Count 231 K/mm3 (150-450); RBC Distribution Width CV 14.4 % (11.6-14.6); RBC Distribution Width SD 40.7 fl (35.1-43.9); Red Blood Count 5.07 M/mm3 (4.2-5.4); White Blood Count 7.2 K/mm3 (4.4-11.0)
[2018-05-23 09:37] LABS: POSITIVE COUNT NO; POSITIVE DIFFERENTIAL NO; POSITIVE MORPHOLOGY NO
[2018-05-23 09:39] LABS: AST(SGOT) 13 U/L (15-37); Alanine Aminotransfer ALT/SGPT 14 U/L (13-56); Albumin, Serum 3.8 g/dL (3.2-5.0); Alkaline Phosphatase 91 U/L (45-117); Anion Gap 11 (5-15); BUN 9 mg/dL (7-18); BUN/Creat Ratio 10.5 RATIO (10-20); Bilirubin, Direct 0.21 mg/dL (0.00-0.30); Calcium,Total 8.9 mg/dL (8.5-10.1); Chloride 105 mmol/L (98-107); Creatinine, Serum 0.86 mg/dL (0.55-1.02); EST Glomerular Filtration Rate 75 mL/min (>60); Est Glom Filt Rate - Afr Amer 91 mL/min (>60); Estimated Creatinine Clearance 75.71 ml/min; Globulin 4.2 g/dL (2.2-4.2); Glucose 88 mg/dL (74-106); Lipase 124 U/L (73-393); Potassium 3.3 mmol/L (3.5-5.1); Sodium Level 135 mmol/L (136-145)
[2018-05-23] MEDS: proMETHazine 25 MG/ML Syringe 12.5 MG IV (11:02)
[2018-05-23 11:14] VITALS: BP 154/77; PULSE 72; RESP 16; O2SAT 99
[2018-05-23 11:47] VITALS: BP 120/73; PULSE 73; RESP 15; O2SAT 100
--- NOTE | 2018-05-23 12:31 | ED.DEP ---
ED Disposition - Plan for ED Patient: Disposition: Home or Assisted Living Instructions: ED Nausea Vomiting Prescriptions: proMETHazine suppository [Phenergan] 25 mg RECTAL Q6H PRN PRN #10 suppos. PRN Reason: Nausea Referrals: Amari Renae DO [Primary Care Provider] - 5-7 Days
[2018-05-23 13:19] VITALS: BP 123/70; PULSE 70; RESP 16; O2SAT 98
== END 2018-05-23 13:20 | disposition home or self-care (01) ==
PROVIDERS: Emergency Provider Emergency Medicine; Family Provider Family Medicine; PCP Family Medicine
DX: R11.2 Nausea with vomiting, unspecified (principal); R10.13 Epigastric pain; I10 Essential (primary) hypertension; J44.9 Chronic obstructive pulmonary disease, unspecified; K21.9 Gastro-esophageal reflux disease without esophagitis; Z72.0 Tobacco use; Z79.899 Other long term (current) drug therapy
CPT/HCPCS: 36415; 80048; 80076; 81001; 83690; 85025; 96361; 96374; 96375; 99285; J7030; A4216; J2405; J3490

== ENCOUNTER 2018-05-30 07:51 | Emergency (ER) | payer MEDICAID, SELFPAY ==
[2018-05-30 07:53] VITALS: BP 140/71; PULSE 73; RESP 20; TEMP 36.8; O2SAT 100; BMI 30.9
--- NOTE | 2018-05-30 08:14 | ED.DCSUM_ITS ---
- ER Visit Summary Date of Service: 05/30/18 Chief Complaint: Abdominal pain History of Present Illness: The patient is a 48 F with chronic nausea, vomiting, diarrhea, and abdominal pain since having gastric bypass surgery 1 year ago. She was seen in the ED last week for the same. She states she was improved until 2 days ago when symptoms recurred. She states her oral Zofran is not helping. She started to develop diarrhea last evening was not able to use Phenergan suppositories. She is scheduled for repeat endoscopy in late June. Patient has had extensive workups for the same over the past year with no definitive cause. Physical Examination: Vital signs unremarkable. Patient is lying in bed. She appears uncomfortable but no distress. Head neck examination reveals moist mucous membranes. Heart is regular rate and rhythm. Lung sounds are clear. Abdomen is soft with epigastric and suprapubic tenderness. No guarding or rebound. Hypoactive bowel sounds are present. Test Results: CBC was a normal white count with hemoglobin 11.3. Chemistry st udies significant for potassium slightly low at 3.4. LFTs and lipase normal. Urinalysis shows 50 ketones but no sign of infection. Emergency Department Course and Treatment: Patient was initially given morphine, Phenergan, and IV fluids. On repeat evaluation she was resting comfortably and feels somewhat improved. She was ordered a dose of Protonix and when nurse took that and she was complaining of increased pain. She received 0.5 mg of Dilaudid. At this time patient feels improved. She has not had further vomiting here. She has Zofran as well as Phenergan suppositories at home. She will be given 10 tabs of [place] for breakthrough pain. She is to follow-up with her surgeon in [place]. Treatment Plan: [] Disposition: Discharge Impression: 1. Acute on chronic abdominal pain 2. Vomiting, improved This note was generated with [employer] dictation software. It may contain incorrect words, spelling, and punctuation that were not noted in review of the chart prior to signing ED Disposition - Plan for ED Patient: Referrals: Amari Renae DO [Primary Care Provider] -
[2018-05-30] MEDS: 0.9% Normal Saline 1,000 ML 150 ML IV (08:17)
[2018-05-30] MEDS: proMETHazine 25 MG/ML Syringe 12.5 MG IV (08:17)
[2018-05-30] MEDS: Morphine 4 MG/ML Syringe IV (08:17)
[2018-05-30] MEDS: 0.9% Normal Saline 1,000 ML 1000 ML IV (08:17)
[2018-05-30 08:41] LABS: Red Blood Cells-Urine 0 SEEN /hpf (0-5); White Blood Cells 0 SEEN /hpf (0-5)
[2018-05-30 08:42] LABS: Absolute Lymphocyte Count 1.82 X10^3/ul (0.83-4.51); Absolute Neutrophil Count 5.6 X10^3/uL (2.0-7.7); Basophil# 0.02 X10^3/uL; Basophil% 0.2 % (0-1); Eosinophil# 0.07 X10^3/uL; Eosinophils% 0.9 % (0-5); Hematocrit 34.7 % (37-47); Hemoglobin 11.3 g/dl (12.0-15.0); Lymphocyte # 1.82 X10^3/ul (4.0); Lymphocyte % 22.6 % (19-41); Mean Corp Hgb Conc 32.6 g/gl (32-36); Mean Corpuscular Hgb 25.2 pg (27.0-32.0); Mean Corpuscular Volume 77.5 fL (81-99); Mean Platelet Vol. 10.6 fl (6.2-12.0); Monocyte# 0.51 X10^3/uL; Monocyte% 6.3 % (0-10); Neutrophil # 5.63 X10^3/uL (2.7-7.7); Neutrophil % 69.9 % (47-70); POSITIVE COUNT NO; POSITIVE DIFFERENTIAL NO; POSITIVE MORPHOLOGY NO; Platelet Count 352 K/mm3 (150-450); RBC Distribution Width CV 14.2 % (11.6-14.6); RBC Distribution Width SD 39.6 fl (35.1-43.9); Red Blood Count 4.48 M/mm3 (4.2-5.4); White Blood Count 8.1 K/mm3 (4.4-11.0)
[2018-05-30 08:43] LABS: Color, Urine Yellow (Yellow); Glucose, Dipstick Normal (Normal); Ketone-Dipstick 50 mg/dl (Negative); Leukocyte Esterase-Dipstick Negative /ul (Negative); Nitrite-Dipstick Negative (Negative); Occult Blood-Urine Negative /ul (Negative); Protein-Dipstick 15 mg/dl (Negative); Urine Bilirubin Dipstick Negative (Negative); Urine Clarity Sl. Cloudy (Clear); Urine Urobilinogen Normal (Normal)
[2018-05-30 08:50] LABS: Bacteria 1+ /hpf (None Seen); Mucous, Urine 1+ /hpf (<or=2+); Squamous Epithelial Cells - UA 0-5 SEEN /hpf (5-10)
[2018-05-30 08:52] LABS: AST(SGOT) 13 U/L (15-37); Alanine Aminotransfer ALT/SGPT 16 U/L (13-56); Albumin, Serum 3.9 g/dL (3.2-5.0); Alkaline Phosphatase 85 U/L (45-117); Anion Gap 8 (5-15); BUN 6 mg/dL (7-18); BUN/Creat Ratio 7.4 RATIO (10-20); Bilirubin, Direct 0.14 mg/dL (0.00-0.30); Calcium,Total 9.1 mg/dL (8.5-10.1); Chloride 106 mmol/L (98-107); Creatinine, Serum 0.81 mg/dL (0.55-1.02); EST Glomerular Filtration Rate 80 mL/min (>60); Est Glom Filt Rate - Afr Amer 97 mL/min (>60); Estimated Creatinine Clearance 80.38 ml/min; Globulin 3.7 g/dL (2.2-4.2); Glucose 100 mg/dL (74-106); Lipase 39 U/L (73-393); Potassium 3.4 mmol/L (3.5-5.1); Protein, Total 7.6 g/dL (6.4-8.2); Sodium Level 137 mmol/L (136-145)
[2018-05-30] MEDS: Ondansetron 4 MG/2 ML Vial IV (10:59)
[2018-05-30] MEDS: HYDROmorphone 0.5 MG/0.5 ML SYRINGE IV (10:59)
[2018-05-30 11:01] VITALS: BP 148/76; PULSE 84; RESP 16; O2SAT 99
--- NOTE | 2018-05-30 11:42 | ED.DEP ---
ED Disposition - Plan for ED Patient: Disposition: Home or Assisted Living Instructions: ED Abdominal Pain Unkn Cause Prescriptions: Hydrocodone Bitart/Apap 5-325 [[place] 5MG-325MG] 1 tablet PO Q6H PRN PRN 3 Days #10 tablet PRN Reason: Pain Referrals: Amari Renae DO [Primary Care Provider] - Additional Instructions: Follow-up with Dr Fontana.
[2018-05-30 11:49] VITALS: BP 148/76; PULSE 84; RESP 18; O2SAT 97
== END 2018-05-30 11:58 | disposition home or self-care (01) ==
PROVIDERS: Emergency Provider Emergency Medicine; Family Provider Family Medicine; PCP Family Medicine
DX: R10.9 Unspecified abdominal pain (principal); G89.29 Other chronic pain; R11.2 Nausea with vomiting, unspecified; R19.7 Diarrhea, unspecified; I10 Essential (primary) hypertension; J44.9 Chronic obstructive pulmonary disease, unspecified; K21.9 Gastro-esophageal reflux disease without esophagitis; Z87.891 Personal history of nicotine dependence; Z98.84 Bariatric surgery status; Z87.442 Personal history of urinary calculi
CPT/HCPCS: 80048; 80076; 81001; 83690; 85025; 96361; 96365; 96375; 99283; J7030; J2405

== ENCOUNTER 2018-06-05 23:22 | Emergency (ER) | payer MEDICAID, SELFPAY ==
[2018-06-05 23:23] VITALS: BP 134/85; PULSE 71; RESP 20; TEMP 36.7; O2SAT 100; BMI 30.9
--- NOTE | 2018-06-05 23:46 | ED.VIS.GEN ---
History of Present Illness Chief Complaint: Abd Pain Informant: Patient Onset: Today - all day, about 14 hrs or so Context: Sudden Onset - after drinking water this AM Timing: Continuous Quality: nonbilious vomiting Location: LUQ pain Current Severity: Moderate Maximum Severity: Moderate Worsened by: trying to drink Relieved by: nothing despite taking Zofran Associated Symptoms: blood streaks Narrative: Patient states she had a gastric bypass in January and ever since she has had episodes just like this 1 about weekly, consisting of left upper abdominal pain, intractable vomiting, occasionally blood streaks like she has seen tonight after vomiting all day. Initially when this started after gastric bypass, she was diagnosed with some ulcers in her stomach that resulted in a perforation and requiring another surgery. She follows with Dr. Fontana in [place] for this, and is scheduled to have another scope here soon. These episodes have been going on for the last 6 months and she states this is just like all of the others. She does not eat. She drinks fluids, protein drinks, etc. She has had no bowel movement in 3 or 4 days, which is not uncommon for her, the last one she had was normal otherwise without any melena or bright red blood. She denies any fevers. No radiation into her back or shoulders. - Past Medical History (1) Anxiety Status: Chronic (2) Essential hypertension Status: Chronic (3) Fatty liver disease, nonalcoholic Status: Chronic (4) Major depression Status: Chronic (5) Nephrolithiasis Status: Chronic Comment: Noted history of recent stent placement. (6) Obstructive sleep apnea Status: Chronic (7) Onychomycosis Status: Chronic (8) Peripheral edema Status: Chronic (9) Prediabetes Status: Chronic (10) Sarcoidosis Status: Chronic (11) Vitamin D deficiency Status: Chronic (12) COPD (chronic obstructive pulmonary disease) Status: Chronic (13) Periodic limb movement disorder (PLMD) Status: Chronic (14) Dysfunctional uterine bleeding Status: Resolved Past Medical History - Allergies and Home Meds Allergies/Adverse Reactions: Allergies latex Allergy (Verified 06/05/18 23:25) Hives povidone-iodine [From Betadine] Allergy (Verified 06/05/18 23:25) Rash Primary Care Physician: Julián Fontana [Other] (as scheduled, or sooner if able) Amari Renae DO [Primary Care Provider] - Surgical History: - Smoking Status: Former smoker Drugs: None - Family History Maternal Family History: Family History (Last Reviewed 01/15/18 @ 03:15 by Renzo Birch MD) Father Hypertension Heart disease Diabetes CVA (cerebral vascular accident) Blood clotting disorder Pneumonia Grandfather Cancer Brother Diabetes Sister Asthma Sister Depression Anxiety Family History: Reports: No pertinent history Paternal Family History: Family History (Last Reviewed 01/15/18 @ 03:15 by Renzo Birch MD) Father Hypertension Heart disease Diabetes CVA (cerebral vascular accident) Blood clotting disorder Pneumonia Grandfather Cancer Brother Diabetes Sister Asthma Sister Depression Anxiety Family History: Reports: Diabetes, Hypertension Review of Systems General: Denies: Chills, Fever, Sweats Eyes: Denies: Visual changes - bilaterally, Diplopia ENT: Denies: Rhinorrhea, Sore throat Cardiovascular: Denies: Chest pain, Palpitations Respiratory: Denies: Dyspnea, Cough, Dyspnea on exertion Gastrointestinal: Reports: Abdominal pain, Nausea, Vomiting. Denies: Diarrhea, Melena, Hematochezia Genitourinary: Denies: Dysuria, Hematuria, Frequency Musculoskeletal: Denies: Neck pain, Back pain, Swelling, Extremity Pain Skin: Denies: Rash, Wounds Neurological: Denies: Headache, Weakness, Numbness Psych: Reports: Anxiety. Denies: Suicidal thoughts Physical Exam Vital Signs/Narrative: Vital Signs Temp Pulse Resp BP Pulse Ox 06/05/18 23:23 98.0 F 71 20 H 134/85 H 100 Inital Vital Signs reviewed: Yes General: Well nourished, Well developed, No Acute Distress Head: Normocephalic, Atraumatic Eyes: Perrl, EOMI ENT: Moist mucous membranes, No rhinorrhea Neck: Supple, Nontender Cardiovascular: Regular rate, Regular rhythm, No murmurs Respiratory: No distress, CTA bilaterally, Chest nontender Abdomen: Soft, Nondistended, Normal bowel sounds, Tender - diffuse, mostly LUQ, Guarding - voluntary diffusely. Negative for: Rebound tenderness Back: Nontender, Normal Inspection Extremities: Nontender, No edema. Negative for: Calf Tenderness Skin: Normal color, No rash Neurological: Alert, Oriented x3, Cranial nerves II-XII grossly intact, Normal Strength, Normal Sensation Psychological: Normal Mood, - - anxious Diagnostic/Tx/Re-eval Impressions Chest X-Ray 06/06/18 00:00 IMPRESSION: No radiographic evidence of acute cardiopulmonary disease. at 0102 Reported and signed by: Cornelius Nichols MD Electronically Signed: Cornelius Nichols, at 1:01 EDT Tel , Service support , 06/06/18 00:00 Chest 1 View (Portable) [RAD] Stat Laboratory Results 06/06/18 01:10 Sodium 137 Potassium 3.2 L Chloride 105 Carbon Dioxide 20.0 L Anion Gap 12 BUN 8 Creatinine 0.76 Estim Creat Clear Calc 85.67 Est GFR (MDRD) Af Amer 105 Est GFR (MDRD) Non-Af 87 BUN/Creatinine Ratio 10.5 Glucose 104 Calcium 9.0 Lipase 41 L - Medical Decision Making Chest x-ray shows no free air or signs of perforation, electrolytes show hypokalemia and otherwise unremarkable. Hypokalemia may be a combination of GI losses and acute respiratory alkalosis from her anxiety. Regardless, she is relatively asymptomatic from that, gradual replacement as able is indicated. We were unable to obtain an IV on her. Lab came and was able to get blood for her chemistry panel. Therefore we gave her Phenergan intramuscular, that did help her nausea, and she was able to tolerate some oral fluids. She wanted something for pain, she was given an injection of morphine once we determined that she was not going to be driving herself home, she said that helped too. Since she is keeping down oral fluids, will prescribe her some potassium to take when she is feeling better, as well as some Phenergan suppositories to use in addition to her oral Zofran she has at home. Her vital signs are unremarkable, and she has had only minor streaks of blood. I am not concerned about any significant blood loss here, and I do not think she needs any further emergent workup given her history of these recurrent symptoms week after week for the last several months. She is following up for definitive care. ED Disposition - Plan for ED Patient: Disposition: Home or Assisted Living Diagnosis: Acute gastritis with bleeding, Hypokalemia due to loss of potassium Instructions: ED PUD Vs Gastritis Prescriptions: proMETHazine suppository [Phenergan] 25 mg RECTAL Q6H PRN PRN #12 suppos. PRN Reason: Nausea/Vomiting Potassium Chloride [Klor-Con] 20 meq PO BID #8 packet Referrals: Amari Renae DO [Primary Care Provider] - Julián Fontana [Other] (as scheduled, or sooner if able)
--- NOTE | 2018-06-06 | RAD_ITS ---
HISTORY: abdomen pain, vomiting, blood in vomit, evaluation for free air EXAM: XR Chest 1 View COMPARISON: 04/26/18 CXR FINDINGS: LINES/DEVICES: None. LUNGS: Radiographically clear. No consolidation, edema or effusion. No pneumothorax. MEDIASTINUM AND CARDIOVASCULAR STRUCTURES: Cardiac silhouette not enlarged. Central airways and mediastinal contour are unremarkable. BONES AND SOFT TISSUES: Unremarkable. No apparent free air under the hemidiaphragms. RAD/Chest 1 View (Portable) IMPRESSION: No radiographic evidence of acute cardiopulmonary disease. at 0102 Reported and signed by: Cornelius Nichols MD Electronically Signed: Cornelius Nichols, at 1:01 EDT Tel , Service support ,
[2018-06-06] MEDS: proMETHazine 25 MG/ML Syringe 12.5 MG IM (00:19)
[2018-06-06] MEDS: Morphine 4 MG/ML Syringe IM (01:17)
[2018-06-06 01:26] LABS: Anion Gap 12 (5-15); BUN 8 mg/dL (7-18); BUN/Creat Ratio 10.5 RATIO (10-20); Chloride 105 mmol/L (98-107); Creatinine, Serum 0.76 mg/dL (0.55-1.02); EST Glomerular Filtration Rate 87 mL/min (>60); Est Glom Filt Rate - Afr Amer 105 mL/min (>60); Estimated Creatinine Clearance 85.67 ml/min; Glucose 104 mg/dL (74-106); Lipase 41 U/L (73-393); Potassium 3.2 mmol/L (3.5-5.1); Sodium Level 137 mmol/L (136-145)
[2018-06-06 02:41] VITALS: BP 138/86; PULSE 87; RESP 16; O2SAT 98
== END 2018-06-06 02:43 | disposition home or self-care (01) ==
PROVIDERS: Emergency Provider Emergency Medicine; Family Provider Family Medicine; PCP Family Medicine
DX: K29.01 Acute gastritis with bleeding (principal); E87.6 Hypokalemia; Z98.84 Bariatric surgery status; F41.9 Anxiety disorder, unspecified; I10 Essential (primary) hypertension; K76.0 Fatty (change of) liver, not elsewhere classified; F32.9 Major depressive disorder, single episode, unspecified; G47.33 Obstructive sleep apnea (adult) (pediatric); B35.1 Tinea unguium; R60.9 Edema, unspecified; R73.03 Prediabetes; D86.9 Sarcoidosis, unspecified; E55.9 Vitamin D deficiency, unspecified; J44.9 Chronic obstructive pulmonary disease, unspecified; G47.61 Periodic limb movement disorder; Z87.891 Personal history of nicotine dependence; Z79.899 Other long term (current) drug therapy
CPT/HCPCS: 36415; 71045; 80048; 83690; 96372; 99282; J7030; A4216

== ENCOUNTER → 2018-06-13 10:12 | Outpatient (CLI) | payer MEDICAID, SELFPAY ==
[2018-06-05 23:23] VITALS: BMI 30.9
[2018-06-13 10:43] LABS: Hematocrit 28.9 % (37-47); Hemoglobin 9.5 g/dl (12.0-15.0); Mean Corp Hgb Conc 32.9 g/gl (32-36); Mean Corpuscular Hgb 26.7 pg (27.0-32.0); Mean Corpuscular Volume 81.2 fL (81-99); Mean Platelet Vol. 9.6 fl (6.2-12.0); Platelet Count 300 K/mm3 (150-450); RBC Distribution Width CV 16.2 % (11.6-14.6); Red Blood Count 3.56 M/mm3 (4.2-5.4); White Blood Count 5.8 K/mm3 (4.4-11.0)
[2018-06-13 10:44] LABS: Scan Indicated on CBC? Y/N NO
== END ==
PROVIDERS: Family Provider Family Medicine; PCP Family Medicine; Referring Provider Registered Nurse Nephrology; Visit Provider Registered Nurse Nephrology
DX: D64.9 Anemia, unspecified (principal)
CPT/HCPCS: 36415; 85027; 86850; 86900

== ENCOUNTER 2018-06-30 18:11 | Emergency (ER) | payer MEDICAID, SELFPAY ==
[2018-06-30 18:12] VITALS: BP 143/89; PULSE 87; RESP 26; TEMP 36.6; O2SAT 99; BMI 31.4
--- NOTE | 2018-06-30 19:07 | EKG12_ITS ---
Test Reason : ABD PAIN Blood Pressure : / mmHG Vent. Rate : 075 BPM Atrial Rate : 075 BPM P-R Int : 164 ms QRS Dur : 086 ms QT Int : 414 ms P-R-T Axes : 000 022 035 degrees QTc Int : 462 ms Sinus rhythm with Premature atrial complexes Nonspecific ST and T wave abnormality Abnormal ECG Confirmed by ESME ZEPEDA, ANISHA ([id number]), editor in chief JERMAINE WORLEY ([id number]) on 07/03/2018 9:09:50 AM Referred By: MISAEL Confirmed By:ANISHA VICTORIA MD
[2018-06-30 19:57] VITALS: BP 157/75; PULSE 75; RESP 20; O2SAT 100
[2018-06-30 20:00] VITALS: PULSE 77; RESP 20; O2SAT 100
[2018-06-30 20:04] LABS: Absolute Lymphocyte Count 1.05 X10^3/ul (0.83-4.51); Absolute Neutrophil Count 9.4 X10^3/uL (2.0-7.7); Basophil# 0.02 X10^3/uL; Basophil% 0.2 % (0-1); Eosinophil# 0.04 X10^3/uL; Eosinophils% 0.4 % (0-5); Hematocrit 34.1 % (37-47); Lymphocyte # 1.05 X10^3/ul (4.0); Lymphocyte % 9.7 % (19-41); Mean Corp Hgb Conc 32.3 g/gl (32-36); Mean Corpuscular Hgb 24.3 pg (27.0-32.0); Mean Corpuscular Volume 75.4 fL (81-99); Mean Platelet Vol. 9.9 fl (6.2-12.0); Monocyte# 0.33 X10^3/uL; Monocyte% 3.1 % (0-10); Neutrophil # 9.36 X10^3/uL (2.7-7.7); Neutrophil % 86.5 % (47-70); POSITIVE COUNT NO; POSITIVE DIFFERENTIAL NO; POSITIVE MORPHOLOGY NO; Platelet Count 465 K/mm3 (150-450); RBC Distribution Width CV 15.7 % (11.6-14.6); RBC Distribution Width SD 43.1 fl (35.1-43.9); Red Blood Count 4.52 M/mm3 (4.2-5.4); White Blood Count 10.8 K/mm3 (4.4-11.0)
[2018-06-30 20:05] LABS: Anion Gap 11 (5-15); BUN 13 mg/dL (7-18); BUN/Creat Ratio 15.8 RATIO (10-20); Calcium,Total 9.7 mg/dL (8.5-10.1); Chloride 102 mmol/L (98-107); Creatinine, Serum 0.82 mg/dL (0.55-1.02); EST Glomerular Filtration Rate 79 mL/min (>60); Est Glom Filt Rate - Afr Amer 96 mL/min (>60); Glucose 112 mg/dL (74-106); Potassium 3.9 mmol/L (3.5-5.1); Sodium Level 136 mmol/L (136-145)
[2018-06-30 20:12] LABS: Internal QC Validated? YES +Cl - CLEAR BKGD; Pregnancy, Serum, hCG Quali. NEGATIVE Negative
--- NOTE | 2018-06-30 20:15 | CT_ITS ---
STUDY: CT ABDOMEN AND PELVIS WITHOUT CONTRAST REASON FOR EXAM: Female, 48 years old. Abdominal pain RADIATION DOSAGE (If Supplied By Facility): CTDIvol = ( 17.04 ) mGy, DLP = ( 1133.31 ) mGycm TECHNIQUE: Transaxial images were obtained from the dome of the diaphragm to the symphysis pubis without oral contrast, and without intravenous contrast. Sagittal and coronal images were reconstructed. Individualized dose optimization techniques were used for this CT. COMPARISON: February 23, 2018 FINDINGS: The visualized lung bases are unremarkable. The visualized portions of the heart are within normal limits. Normal liver. Normal gallbladder and extrahepatic biliary system. Normal spleen. Normal pancreas. Normal bilateral adrenal glands. There is a right renal cyst. There are bilateral nonobstructing renal calculi measuring up to 6.3 mm on the left. There is evidence of a prior Sofia-en-Y gastric bypass. Normal small intestine. Normal colon. There is non-visualization of the appendix. There are scattered few peripheral calcifications of the abdominal aorta consistent with atherosclerosis. Normal inferior vena cava. Normal retroperitoneum. Normal urinary bladder. There is a minimal amount of free fluid within the pelvis that is likely physiologic. Normal abdominal wall. There are diffuse degenerative changes of the visualized lumbar spine. CT/Abdomen/Pelvis W IV Cont ONLY IMPRESSION: No acute intra-abdominal process. Bilateral nonobstructing renal calculi measuring up to 6.3 mm on the left. Atherosclerosis. Right renal cyst. Electronically Signed: Carol Salgado MD at 22:02 EDT Tel , Service support ,
[2018-06-30 20:16] LABS: Lactic Acid 1.8 mmol/L (0.4-2.0)
--- NOTE | 2018-06-30 20:17 | ED.DCSUM_ITS ---
- ER Visit Summary Date of Service: 06/30/18 Chief Complaint: Abdominal pain History of Present Illness: The patient is a 48 F who presents for abdominal pain that started yesterday. Patient has intermittent issues with abdominal pain but states she has been having severe continuous pain since yesterday. It is burning and sharp and diffuse. She has associated nausea and vomiting. No diarrhea. No fever. Last bowel movement was today and was normal. No urinary symptoms. Patient has been taking hot baths to try to control her symptoms. She has a history of ulcers with perforation, gastric bypass. She is not on blood thinners. She denies alcohol or tobacco use. She does smoke marijuana but denies smoking it daily. She also uses CBD oil. Physical Examination: Vital signs: afebrile, hemodynamically stable, no hypoxia on room air General: well nourished, well developed, appears uncomfortable Skin: warm, dry, face is flushed HEENT: normocephalic and atraumatic; PERRL, EOMI, moist mucous membranes Cardiovascular: regular rate and rhythm without murmurs, no peripheral edema, 2+ pulses all distal extremities Respiratory: No increased work of breathing, lungs are clear to auscultation bilaterally, no rales, rhonchi or wheezing Abdominal: Abdomen is soft, tender in the epigastrium and upper quadrants, with normoactive bowel sounds, no guarding or rebound, no masses MSK: Moves all extremities, no deformities, normal strength Neuro: Awake and alert, oriented ?4. No facial droop, sensation and motor function intact and symmetric Test Results: Abnormal Lab Results 06/30/18 06/30/18 06/30/18 19:40 19:40 19:40 WBC 10.8 RBC 4.52 Hgb 11.0 L Hct 34.1 L MCV 75.4 L MCH 24.3 L MCHC 32.3 RDW 15.7 H RDW Differential 43.1 Plt Count 465 H MPV 9.9 Immature Gran % (Auto) 0.100 Neut % (Auto) 86.5 H Lymph % (Auto) 9.7 L Dubois % (Auto) 3.1 Eos % (Auto) 0.4 Baso % (Auto) 0.2 Absolute Neuts (auto) 9.4 H Absolute Lymphs (auto) 1.05 Total Counted Not Reportable Sodium 136 Potassium 3.9 Chloride 102 Carbon Dioxide 23.0 Anion Gap 11 BUN 13 Creatinine 0.82 Estim Creat Clear Calc 79.40 Est GFR (MDRD) Af Amer 96 Est GFR (MDRD) Non-Af 79 BUN/Creatinine Ratio 15.8 Glucose 112 H Lactic Acid Calcium 9.7 Total Bilirubin Direct Bilirubin AST ALT Alkaline Phosphatase Total Protein Albumin Globulin Albumin/Globulin Ratio Lipase Serum , Qual NEGATIVE Urine Color Urine Clarity Urine pH Ur Specific Clarks Urine Protein Urine Glucose (UA) Urine Ketones Urine Occult Blood Urine Nitrite Urine Bilirubin Urine Urobilinogen Ur Leukocyte Esterase Urine RBC Urine WBC Ur Squamous Epith Cells Urine Bacteria Urine Mucus Urine Test 06/30/18 06/30/18 06/30/18 19:40 19:40 21:13 WBC RBC Hgb Hct MCV MCH MCHC RDW RDW Differential Plt Count MPV Immature Gran % (Auto) Neut % (Auto) Lymph % (Auto) Dubois % (Auto) Eos % (Auto) Baso % (Auto) Absolute Neuts (auto) Absolute Lymphs (auto) Total Counted Sodium Cancelled Potassium Cancelled Chloride Cancelled Carbon Dioxide Cancelled Anion Gap Cancelled BUN Cancelled Creatinine Cancelled Estim Creat Clear Calc Est GFR (MDRD) Af Amer Cancelled Est GFR (MDRD) Non-Af Cancelled BUN/Creatinine Ratio Cancelled Glucose Cancelled Lactic Acid 1.8 Calcium Cancelled Total Bilirubin 0.70 Direct Bilirubin 0.22 AST 14 L ALT 13 Alkaline Phosphatase 96 Total Protein 8.3 H Albumin 4.1 Globulin 4.2 Albumin/Globulin Ratio Cancelled Lipase 48 L Serum , Qual Urine Color Yellow Urine Clarity Clear Urine pH 9.0 Ur Specific Clarks 1.015 Urine Protein 30 H Urine Glucose (UA) Normal Urine Ketones 150 H Urine Occult Blood Negative Urine Nitrite Negative Urine Bilirubin Negative Urine Urobilinogen Normal Ur Leukocyte Esterase 500 H Urine RBC 0 SEEN Urine WBC 10-25 SEEN Ur Squamous Epith Cells 0-5 SEEN Urine Bacteria 1+ Urine Mucus 0 SEEN Urine Test Negative Clinical Impression(s) from Imaging Studies Abdomen/Pelvis CT 06/30/18 20:15 IMPRESSION: No acute intra-abdominal process. Bilateral nonobstructing renal calculi measuring up to 6.3 mm on the left. Atherosclerosis. Right renal cyst. Electronically Signed: Carol Salgado MD at 22:02 EDT Tel , Service support , Medications Given Discontinued Medications Hydrocodone Bitart/Acetaminophen (Sagamore 5mg-325mg) 1 tablet PO X1 ONE Stop: 06/30/18 22:15 Last Admin: 06/30/18 23:00 Dose: 1 tablet Sodium Chloride () 1,000 mls @ 1,000 mls/hr IV .Q1H ONE Stop: 06/30/18 21:14 Last Admin: 06/30/18 20:47 Dose: 1,000 mls/hr Metoclopramide HCl (Reglan) 5 mg IV X1 ONE Stop: 06/30/18 22:15 Last Admin: 06/30/18 23:00 Dose: 5 mg Morphine Sulfate () 8 mg IV X1 ONE Stop: 06/30/18 20:16 Last Admin: 06/30/18 20:47 Dose: 8 mg Ondansetron HCl (Zofran) 4 mg IV X1 ONE Stop: 06/30/18 20:16 Last Admin: 06/30/18 20:47 Dose: 4 mg Emergency Department Course and Treatment: When patient presented to triage, she looked very uncomfortable and thus nursing protocol was initiated. At time of evaluation, patient appears uncomfortable. She has tenderness but nonsurgical abdomen. She was given morphine and Zofran for symptomatic relief as well as IV fluids for hydration. Labs showed no leukocytosis and no electrolyte or hepatic derangements. Urine was positive for pyuria with positive leukoesterase. Lactate was normal at 1.8. negative. EKG showed sinus rhythm without ischemic changes. CT abdomen and pelvis showed no acute process. Patient was feeling better upon reevaluation, with resolution of the nausea and improvement of her pain. She continued to have some pain and was given Sagamore. She was also given a small dose of Reglan. Patient was discharged home with Keflex for treatment of the urine infection and Zofran and Sagamore for further symptom relief of her abdominal complaints. Treatment Plan: [] Disposition: [] Impression: UTI, abdominal pain, history of gastric bypass surgery, history of peptic ulcer disease This note was generated with [employer] software. It may contain incorrect words, spelling, and punctuation that were not noted in review of the chart prior to signing ED Disposition - Plan for ED Patient: Disposition: Home or Assisted Living Instructions: ED Abdominal Pain Unkn Cause, ED UTI Cystitis Female Prescriptions: Hydrocodone Bitart/Apap 5-325 [Sagamore 5MG-325MG] 1 tab PO Q6H PRN PRN 3 Days #10 tab PRN Reason: Pain Ondansetron [Zofran Odt] 4 mg PO Q8H PRN PRN #10 tab PRN Reason: Nausea Cephalexin [Keflex] 500 mg PO Q12 #14 cap Referrals: Amari Renae DO [Primary Care Provider] - 3-5 Days if not improving Additional Instructions: If you have any worsening of your condition or any new concerning symptoms, please return immediately to the emergency department for another evaluation.
[2018-06-30 20:44] LABS: AST(SGOT) 14 U/L (15-37); Alanine Aminotransfer ALT/SGPT 13 U/L (13-56); Albumin, Serum 4.1 g/dL (3.2-5.0); Alkaline Phosphatase 96 U/L (45-117); Bilirubin, Direct 0.22 mg/dL (0.00-0.30); Globulin 4.2 g/dL (2.2-4.2); Lipase 48 U/L (73-393); Protein, Total 8.3 g/dL (6.4-8.2)
[2018-06-30] MEDS: Ondansetron 4 MG/2 ML Vial IV (20:47)
[2018-06-30] MEDS: 0.9% Normal Saline 1,000 ML 1000 ML IV (20:47)
[2018-06-30] MEDS: morphine 8 MG/ML Syringe IV (20:47)
[2018-06-30 21:17] LABS: Mucous, Urine 0 SEEN /hpf (<or=2+); Red Blood Cells-Urine 0 SEEN /hpf (0-5)
[2018-06-30 21:30] LABS: Color, Urine Yellow (Yellow); Glucose, Dipstick Normal (Normal); Leukocyte Esterase-Dipstick 500 /ul (Negative); Nitrite-Dipstick Negative (Negative); Occult Blood-Urine Negative /ul (Negative); Protein-Dipstick 30 mg/dl (Negative); Specific Gravity, Urine 1.015 (1.002-1.030); Urine Bilirubin Dipstick Negative (Negative); Urine Clarity Clear (Clear); Urine Urobilinogen Normal (Normal)
[2018-06-30 21:33] LABS: Internal QC Validated? YES +Cl - CLEAR BKGD; Pregnancy, Urine Negative Negative
[2018-06-30 21:38] LABS: Bacteria 1+ /hpf (None Seen); Squamous Epithelial Cells - UA 0-5 SEEN /hpf (5-10); White Blood Cells 10-25 SEEN /hpf (0-5)
[2018-06-30 21:39] LABS: Ketone-Dipstick 150 mg/dl (Negative)
--- NOTE | 2018-06-30 22:11 | ED.RN ---
lab called with critical lab results. urine ketones 150. Dr. Velasquez made aware. no new orders at this time
[2018-06-30 22:59] VITALS: BP 163/99; PULSE 101; RESP 17; O2SAT 99
[2018-06-30] MEDS: Metoclopramide 10 MG/2 ML Vial 5 MG IV (23:00)
[2018-06-30] MEDS: HYDROcodone Bitartrate/Apap 5/325 Tablet PO (23:00)
[2018-06-30 23:16] VITALS: BP 163/99; PULSE 101; RESP 17; O2SAT 99
== END 2018-06-30 23:26 | disposition home or self-care (01) ==
PROVIDERS: Emergency Provider Emergency Medicine; Family Provider Family Medicine; PCP Family Medicine
DX: N39.0 Urinary tract infection, site not specified (principal); R10.9 Unspecified abdominal pain; Z98.84 Bariatric surgery status; K27.9 Peptic ulcer, site unspecified, unspecified as acute or chronic, without hemorrhage or perforation; E66.9 Obesity, unspecified; N28.1 Cyst of kidney, acquired; N20.0 Calculus of kidney; Z79.899 Other long term (current) drug therapy; F12.90 Cannabis use, unspecified, uncomplicated
CPT/HCPCS: 74177; 80048; 80076; 81001; 81025; 83605; 83690; 84703; 85025; 93005; 96361; 96374; 96375; 99284; J7030; A4216; J2405

== ENCOUNTER → 2018-09-24 | Outpatient (CLI) | payer MEDICAID, SELFPAY ==
--- NOTE | 2018-09-24 08:16 | US_ITS ---
STUDY: ULTRASOUND OF THE FEMALE PELVIS - COMPLETE REASON FOR EXAM: Female, 48 years old. Pelvic pain and fullness LMP: 04/21/17 TECHNIQUE: Transabdominal and Transvaginal TECHNICAL QUALITY: Adequate. COMPARISON: None. FINDINGS: The uterus is anteverted and is in a midline position. The uterus measures 7.1 x 4.2 x 3.4 cm. Normal uterine cervix. The endometrium measures 3 mm in thickness, and is hyperechoic. There is no demonstrated endometrial mass. There is no demonstrated myometrial mass. I.U.D. - The patient does not have an I.U.D. The right ovary is visualized. The right ovary measures 2.3 x 1.7 x 1.0 cm. There is no right ovarian cyst or ovarian mass. There is no visualized right adnexal mass or complex lesion. There is normal arterial and normal venous vascularity. The left ovary is visualized. The left ovary measures 1.9 x 1.6 x 1.1 cm. There is no left ovarian cyst or ovarian mass. There is no visualized left adnexal mass or complex lesion. There is normal arterial and normal venous vascularity. There is no fluid in the cul-de-sac. The bladder is incompletely distended US/Transvaginal Non- IMPRESSION: No suspicious sonographic findings Electronically Signed: Evans Rosas MD at 9:46 EDT , Service support ,
== END | disposition home or self-care (01) ==
LOC: OPUS 08:13
PROVIDERS: Family Provider Family Medicine; PCP Family Medicine
DX: N83.201 Unspecified ovarian cyst, right side (principal)
CPT/HCPCS: 76830; 93976

== ENCOUNTER 2018-10-26 09:06 | Emergency (ER) | payer MEDICAID, SELFPAY ==
[2018-10-26 09:08] VITALS: BP 139/77; PULSE 61; RESP 18; TEMP 36.4; O2SAT 100; BMI 25.2
[2018-10-26] MEDS: Morphine 4 MG/ML Syringe IV (09:46)
[2018-10-26] MEDS: Ondansetron 4 MG/2 ML Vial IV (09:46)
[2018-10-26] MEDS: 0.9% Normal Saline 1,000 ML 1000 ML IV (09:47)
[2018-10-26 09:53] LABS: Absolute Lymphocyte Count 0.87 X10^3/uL (0.83-4.51); Absolute Neutrophil Count 5.6 X10^3/uL (2.0-7.7); Basophil# 0.01 X10^3/uL; Basophil% 0.1 % (0-1); Eosinophil# 0.01 X10^3/uL; Eosinophils% 0.1 % (0-5); Hematocrit 39.7 % (37-47); Hemoglobin 12.4 g/dL (12.0-15.0); Lymphocyte # 0.87 X10^3/ul (4.0); Lymphocyte % 12.9 % (19-41); Mean Corp Hgb Conc 31.2 g/dL (32-36); Mean Corpuscular Hgb 22.1 pg (27.0-32.0); Mean Corpuscular Volume 70.6 fL (81-99); Mean Platelet Vol. 10.4 fl (6.2-12.0); Monocyte# 0.24 X10^3/uL; Monocyte% 3.6 % (0-10); NRBC Flagged by Analyzer 0 % (0-5); Neutrophil % 82.9 % (47-70); POSITIVE MORPHOLOGY YES; Platelet Count 342 K/mm3 (150-450); RBC Distribution Width CV 22.6 % (11.6-14.6); RBC Distribution Width SD 54.1 fl (35.1-43.9); Red Blood Count 5.62 M/mm3 (4.2-5.4); White Blood Count 6.8 K/mm3 (4.4-11.0)
[2018-10-26 09:54] LABS: Differential Indicated SCAN CRITERIA MET
[2018-10-26 10:16] LABS: AST(SGOT) 33 U/L (15-37); Alanine Aminotransfer ALT/SGPT 26 U/L (13-56); Albumin, Serum 3.6 g/dL (3.2-5.0); Alkaline Phosphatase 87 U/L (45-117); Anion Gap 7 (5-15); BUN 7 mg/dL (7-18); BUN/Creat Ratio 8.5 RATIO (10-20); Calcium,Total 8.9 mg/dL (8.5-10.1); Chloride 105 mmol/L (98-107); Creatinine, Serum 0.82 mg/dL (0.55-1.02); EST Glomerular Filtration Rate 79 mL/min (>60); Est Glom Filt Rate - Afr Amer 95 mL/min (>60); Globulin 3.7 g/dL (2.2-4.2); Glucose 126 mg/dL (74-106); Lipase 28 U/L (73-393); Potassium 4.2 mmol/L (3.5-5.1); Protein, Total 7.3 g/dL (6.4-8.2); Sodium Level 139 mmol/L (136-145)
--- NOTE | 2018-10-26 10:18 | ED.DCSUM_ITS ---
History of Present Illness <Belle Arzate - Last Filed: 10/26/18 10:47> Informant: Patient - Abdominal Pain/Flank Pain Onset: Yesterday Context: Gradual Onset Timing: Continuous Quality: Burning, Sharp Location: Epigastric Current Severity: Severe Maximum Severity: Severe Worsened by: Food Relieved by: Remaining Still - Nausea/Vomiting/Emesis GI Symptom: Nausea, Vomiting Onset: Today Quality: Blood streaks Severity: Severe - Diarrhea/Melena/Hematochezia GI Symptom: Negative for: Diarrhea, Melena, Hematochezia Associated Symptoms: Negative for: Dysuria, Frequency, Hematuria, Urgency Narrative: 48-year-old female history of bariatric surgery at [facility] by Dr. Fontana 18 months ago with subsequent revision [address] Oneal presents to the emergency department with sharp stabbing epigastric pain that began yesterday with nausea and vomiting with streaks of blood in her vomit today. No taras hematemesis. No coffee-ground emesis. She had a bowel movement this morning. No melena or hematochezia. She has not had a fever. She has no chest pain or shortness of breath. She had an endoscopy 3 or 4 months ago and she states that she was diagnosed with a stomach ulcer. Prior similar symptoms: Yes Recent Illness/Hospitalization: No <Manuel Gore - Last Filed: 10/26/18 13:26> Chief Complaint: Abd Pain Past Medical History - Family History Maternal Family History: Family History (Last Reviewed 01/15/18 @ 03:15 by Renzo Birch MD) Father Hypertension Heart disease Diabetes CVA (cerebral vascular accident) Blood clotting disorder Pneumonia Grandfather Cancer Brother Diabetes Sister Asthma Sister Depression Anxiety Paternal Family History: Family History (Last Reviewed 01/15/18 @ 03:15 by Renzo Birch MD) Father Hypertension Heart disease Diabetes CVA (cerebral vascular accident) Blood clotting disorder Pneumonia Grandfather Cancer Brother Diabetes Sister Asthma Sister Depression Anxiety <Belle Arzate - Last Filed: 10/26/18 10:47> Past Medical History: - - GERD, PUD Surgical History: - - bariatric surgery Lives: With Family Smoking Status: Former smoker - Family History Maternal Family History: Family History (Last Reviewed 01/15/18 @ 03:15 by Renzo Birch MD) Father Hypertension Heart disease Diabetes CVA (cerebral vascular accident) Blood clotting disorder Pneumonia Grandfather Cancer Brother Diabetes Sister Asthma Sister Depression Anxiety Family History: Reports: No pertinent history Paternal Family History: Family History (Last Reviewed 01/15/18 @ 03:15 by Renzo Brich MD) Father Hypertension Heart disease Diabetes CVA (cerebral vascular accident) Blood clotting disorder Pneumonia Grandfather Cancer Brother Diabetes Sister Asthma Sister Depression Anxiety Family History: Reports: Diabetes, Hypertension <Manuel Gore - Last Filed: 10/26/18 13:26> - Allergies and Home Meds Allergies/Adverse Reactions: Allergies latex Allergy (Verified 10/26/18 09:07) Hives povidone-iodine [From Betadine] Allergy (Verified 10/26/18 09:07) Rash Primary Care Physician: Amari Renae DO [Primary Care Provider] - Review of Systems All systems negative except as indicated Gastrointestinal: Reports: Abdominal pain, Nausea, Vomiting <Manuel Gore - Last Filed: 10/26/18 13:26> Physical Exam Vital Signs/Narrative: Vital Signs Temp Pulse Resp BP Pulse Ox 10/26/18 09:08 97.5 F L 61 18 139/77 H 100 <Belle Arzate - Last Filed: 10/26/18 10:47> Vital Signs/Narrative: Vital Signs Temp Pulse Resp BP Pulse Ox 10/26/18 09:08 97.5 F L 61 18 139/77 H 100 Inital Vital Signs reviewed: Yes General: Well nourished, Well developed, No Acute Distress Head: Normocephalic, Atraumatic Eyes: Perrl, EOMI ENT: Moist mucous membranes Neck: Supple, Nontender Cardiovascular: Regular rate, Regular rhythm Respiratory: No distress, CTA bilaterally, Chest nontender Abdomen: Soft, Nondistended, Normal bowel sounds, No masses, Tender - Epigastric pain on palpation without guarding or rebound and without peritoneal signs. Negative for: Guarding, Rebound tenderness Back: Nontender, Normal Inspection Extremities: Nontender, No edema Skin: Normal color, No rash Neurological: Alert, Oriented x3 <Manuel Gore - Last Filed: 10/26/18 13:26> Diagnostic/Tx/Re-eval - Medical Decision Making Patient seen with Manuel agree with the above history of Sofia-en-Y gastric bypass procedure in 2018 Intermittent episodes of upper abdominal epigastric pain since that procedure she indicates she has ulcers recent scope showed no acute disease developed discomfort the last day or so comes in for evaluation Vital signs are unremarkable she has some very vague epigastric pain or guarding organomegaly screening lab CT see chart for full treatment plan <Belle Arzate - Last Filed: 10/26/18 10:47> CT: Abdomen and Pelvis - Medical Decision Making Patient was given IV fluids IV morphine IV Zofran. Patient's laboratory work-up was unremarkable. CT scan of the abdomen and pelvis with oral and IV contrast was obtained secondary to history of gastric bypass. This showed no acute findings. Repeat evaluation, repeat abdominal exam was soft, and nontender. Patient is able to tolerate by mouth. She has an active tramadol prescription. She will take this for pain. She will continue her Protonix and Carafate. She will be discharged home with a prescription for Phenergan. Advised to follow-up with her physician Dr. Fontana at [facility] or return to the emergency department for worsening symptoms which we discussed. <Manuel Gore - Last Filed: 10/26/18 13:26> ED Disposition <Belle Arzate - Last Filed: 10/26/18 10:47> <Manuel Gore - Last Filed: 10/26/18 13:26> - Plan for ED Patient: Disposition: Home or Assisted Living Diagnosis: Abdominal pain, Nausea and vomiting, History of gastric bypass Instructions: ABDOMINAL PAIN, Unknown Cause, (Female) Prescriptions: proMETHazine tablet [Phenergan] 25 mg PO Q6H PRN PRN #10 tab PRN Reason: Nausea Prescription Printed Referrals: Amari Renae DO [Primary Care Provider] -
--- NOTE | 2018-10-26 10:18 | CT_ITS ---
STUDY: CT ABDOMEN AND PELVIS WITHOUT CONTRAST REASON FOR EXAM: Female, 48 years old. Abdominal pain RADIATION DOSAGE (If Supplied By Facility): CTDIvol = ( 8 ) mGy, DLP = ( 377 ) mGycm TECHNIQUE: Transaxial images were obtained from the dome of the diaphragm to the symphysis pubis with oral contrast, and without intravenous contrast. Sagittal and coronal images were reconstructed. Individualized dose optimization techniques were used for this CT. COMPARISON: 06/30/2018 FINDINGS: Evaluation of the abdominal viscera is limited in the absence of intravenous contrast. The visualized lung bases are clear. The visualized portions of the heart and pericardium are within normal limits. There are no calcified gallstones present. The liver demonstrates an unremarkable unenhanced appearance. The spleen is normal in size. The pancreas demonstrates an unremarkable unenhanced appearance. The adrenal glands are within normal limits. There are stable bilateral subcentimeter nonobstructing renal collecting system stones, measuring up to 5 mm on the left. There are no ureteral stones. There is no hydronephrosis. There is a stable simple cyst in the right kidney. The patient is status post gastric bypass. There is no bowel obstruction or inflammation. The appendix is not visualized, but there are no findings to suggest acute appendicitis. The aorta is normal in caliber. There is a small amount of pelvic free fluid. There is no free air, fluid collection or lymphadenopathy. There are no destructive osseous lesions. There are stable degenerative changes in the spine. CT/Abdomen/Pel W ORAL Cont Only IMPRESSION: Stable subcentimeter nonobstructing renal collecting system stones. No ureteral stones. No hydronephrosis. No bowel obstruction or inflammation. Stable postsurgical changes from prior gastric bypass. Small amount of pelvic free fluid. Electronically Signed: Jefferson Little, at 13:05 EDT Tel , Service support ,
[2018-10-26 10:19] LABS: Anisocytosis 1+; Hypochromasia 1+; Microcytosis 1+; Platelet Estimate ADEQUATE (ADEQ)
[2018-10-26] MEDS: proMETHazine 25 MG/ML Syringe 12.5 MG IV (11:04)
[2018-10-26 11:08] VITALS: BP 174/86; PULSE 65; O2SAT 100
[2018-10-26 13:51] VITALS: BP 134/84; RESP 14; O2SAT 99
[2018-10-26 14:06] VITALS: BP 134/84; PULSE 65; O2SAT 100
== END 2018-10-26 14:07 | disposition home or self-care (01) ==
PROVIDERS: Emergency Provider Physician Assistant Medical; Family Provider Family Medicine; PCP Family Medicine
DX: R10.13 Epigastric pain (principal); R11.2 Nausea with vomiting, unspecified; Z98.84 Bariatric surgery status; K21.9 Gastro-esophageal reflux disease without esophagitis; Z87.11 Personal history of peptic ulcer disease; Z79.899 Other long term (current) drug therapy; Z87.891 Personal history of nicotine dependence
CPT/HCPCS: 74176; 80053; 83690; 85025; 96361; 96365; 96375; 99283; J7030; A4216; J2405

== ENCOUNTER 2018-11-17 08:36 | Emergency (ER) | payer MEDICAID, SELFPAY ==
[2018-11-17 08:37] VITALS: BP 127/81; PULSE 66; RESP 35; TEMP 36.6; O2SAT 100; BMI 27.4
--- NOTE | 2018-11-17 08:49 | EKG12_ITS ---
Test Reason : SOB Blood Pressure : / mmHG Vent. Rate : 066 BPM Atrial Rate : 066 BPM P-R Int : 158 ms QRS Dur : 088 ms QT Int : 408 ms P-R-T Axes : -12 038 060 degrees QTc Int : 427 ms Normal sinus rhythm Low voltage QRS (Limb Leads) Borderline ECG Confirmed by ESME ZEPEDA, ANISHA ([id number]), video news editor JILLIAN KURTZ ([id number]) on 11/19/2018 2:17:12 PM Referred By: SARY/CLARENCE Confirmed By:ANISHA VICTORIA MD
--- NOTE | 2018-11-17 08:49 | RAD_ITS ---
STUDY: X-RAY CHEST REASON FOR EXAM: Female, 48 years old. Sudden onset of shortness of breath. TECHNIQUE: Single AP portable view of the chest. COMPARISON: Comparison is made with prior study dated June 06, 2018. FINDINGS: EKG electrodes are seen. The lungs are clear and expanded. There is no demonstrated pleural abnormality. Normal size heart. Normal mediastinum and harlan. Normal visualized pulmonary arteries. Normal visualized aortic arch and descending thoracic aorta. Normal visualized thoracic spine. Normal visualized ribs, clavicles, and shoulders. There is no demonstrated abnormality of the visualized soft tissue structures of the upper abdomen. RAD/Chest 1 View (Portable) IMPRESSION: Normal x-ray examination of the chest. Electronically Signed: Malcolm Quarles, at 9:25 EDT , Service support ,
[2018-11-17 08:57] VITALS: BP 139/93; PULSE 65; RESP 44; O2SAT 100
[2018-11-17 08:58] VITALS: O2SAT 100
--- NOTE | 2018-11-17 08:58 | ED.VISSUMM ---
- ER Visit Summary Date of Service: 11/17/18 Chief Complaint: Shortness of breath History of Present Illness: The patient is a 48 F who presents with shortness of breath. Started an hour and a half ago suddenly. She was getting her grandson on the schoolbus when the symptoms started. She feels very short of breath. Denies any cough. No rhinorrhea. She does not have a fever or sinus drainage. She denies any chest pain. She does have nausea vomiting and diarrhea. She states she always has abdominal pain that this feels different. She took nothing for this at home. She is a smoker. She also has a history of anxiety. Physical Examination: Vital signs reviewed. HEENT exam unremarkable. Heart is regular rate and rhythm without murmurs. Lungs are clear to auscultation, however the patient is hyperventilating. abdomen is soft and nontender. Extremities reveal no edema. Skin exam normal. Neurologic exam normal. Test Results: EKG normal. Laboratory studies normal. D-dimer is normal as well. Emergency Department Course and Treatment: Patient was given albuterol with no effect on her dyspnea. She was nauseous I gave her Tylenol and Zofran. I do not see any acute causes of her pain or dyspnea. She states she always has abdominal pain but today it is worse. It could be due to anxiety. I do not feel she needs any further work-up or testing. Patient will be discharged with Bentyl and Phenergan for home. She will follow-up with her PCP Treatment Plan: [] Disposition: Discharge Impression: Dyspnea, abdominal pain, anxiety This note was generated with [employer] dictation software. It may contain incorrect words, spelling, and punctuation that were not noted in review of the chart prior to signing ED Disposition - Plan for ED Patient: Referrals: Amari Renae DO [Primary Care Provider] -
[2018-11-17 09:01] VITALS: PULSE 66; RESP 33; O2SAT 100
[2018-11-17] MEDS: Albuterol 2.5 MG/3 ML VIAL.NEB. INHALATION (09:01)
[2018-11-17 10:04] LABS: AST(SGOT) 21 U/L (15-37); Alanine Aminotransfer ALT/SGPT 30 U/L (13-56); Albumin, Serum 3.3 g/dL (3.2-5.0); Alkaline Phosphatase 101 U/L (45-117); Anion Gap 10 (5-15); BUN 9 mg/dL (7-18); BUN/Creat Ratio 10.5 RATIO (10-20); Bilirubin, Direct 0.35 mg/dL (0.00-0.30); Calcium,Total 8.8 mg/dL (8.5-10.1); Chloride 104 mmol/L (98-107); Creatinine, Serum 0.86 mg/dL (0.55-1.02); EST Glomerular Filtration Rate 75 mL/min (>60); Est Glom Filt Rate - Afr Amer 91 mL/min (>60); Estimated Creatinine Clearance 75.71 ml/min; Globulin 3.7 g/dL (2.2-4.2); Glucose 94 mg/dL (74-106); Lipase 28 U/L (73-393); Potassium 3.6 mmol/L (3.5-5.1); Sodium Level 139 mmol/L (136-145)
[2018-11-17 10:18] LABS: Absolute Lymphocyte Count 1.25 X10^3/uL (0.83-4.51); Absolute Neutrophil Count 5.3 X10^3/uL (2.0-7.7); Basophil# 0.04 X10^3/uL; Basophil% 0.6 % (0-1); Eosinophil# 0.03 X10^3/uL; Eosinophils% 0.4 % (0-5); Hematocrit 44.4 % (37-47); Hemoglobin 13.7 g/dL (12.0-15.0); Lymphocyte # 1.25 X10^3/ul (4.0); Mean Corp Hgb Conc 30.9 g/dL (32-36); Mean Corpuscular Hgb 23.2 pg (27.0-32.0); Mean Corpuscular Volume 75.1 fL (81-99); Mean Platelet Vol. 9.5 fl (6.2-12.0); Monocyte# 0.33 X10^3/uL; Monocyte% 4.7 % (0-10); NRBC Flagged by Analyzer 0 % (0-5); Neutrophil # 5.27 X10^3/uL (2.7-7.7); Neutrophil % 75.9 % (47-70); POSITIVE MORPHOLOGY YES; Platelet Count 263 K/mm3 (150-450); RBC Distribution Width CV 24.5 % (11.6-14.6); RBC Distribution Width SD 64.5 fl (35.1-43.9); Red Blood Count 5.91 M/mm3 (4.2-5.4)
[2018-11-17 10:20] LABS: Differential Indicated SCAN CRITERIA MET
[2018-11-17 10:25] LABS: D-Dimer Quantitative (DVT/PE) 0.27 FEU/ug/m (0.27-0.49)
[2018-11-17 10:38] LABS: Anisocytosis 1+; Microcytosis 1+; Platelet Estimate ADEQUATE (ADEQ)
--- NOTE | 2018-11-17 10:38 | DCINST.ED_ITS ---
ED Disposition - Plan for ED Patient: Disposition: Home or Assisted Living Instructions: ED Dyspnea Prescriptions: Dicyclomine HCl [Bentyl] 20 mg PO TIDAC #20 cap Transmission Status: Pending to [facility] #30 proMETHazine tablet [Phenergan] 25 mg PO Q6H PRN PRN #10 tab PRN Reason: Nausea Transmission Status: Pending to [facility] #30 Referrals: Amari Renae DO [Primary Care Provider] - Additional Instructions: Your prescriptions were electronically transmitted to [facility] in [place]
[2018-11-17 10:47] VITALS: BP 120/73; PULSE 54; RESP 20
[2018-11-17] MEDS: Acetaminophen 500 MG Tablet 1000 MG PO (10:50)
[2018-11-17] MEDS: Ondansetron ODT 4 MG Tablet 8 MG PO (10:50)
== END 2018-11-17 11:10 | disposition home or self-care (01) ==
PROVIDERS: Emergency Provider Emergency Medicine; Family Provider Family Medicine; PCP Family Medicine
DX: R06.00 Dyspnea, unspecified (principal); R10.9 Unspecified abdominal pain; F41.9 Anxiety disorder, unspecified; R19.7 Diarrhea, unspecified; R11.2 Nausea with vomiting, unspecified; Z79.899 Other long term (current) drug therapy; F17.200 Nicotine dependence, unspecified, uncomplicated
CPT/HCPCS: 36415; 71045; 80048; 80076; 83690; 84484; 85025; 85379; 93005; 94640; 99285; A4216

== ENCOUNTER → 2018-11-28 16:34 | Outpatient (CLI) | payer MEDICAID, SELFPAY ==
[2018-11-17 08:37] VITALS: BMI 27.4
[2018-11-28 17:44] LABS: Prealbumin 8.8 mg/dL (20.0-40.0); Thyroid Stim Hormone (TSH) 1.82 uIU/mL (0.358-3.74)
== END ==
PROVIDERS: Family Provider Family Medicine; PCP Family Medicine; Referring Provider Family Medicine; Visit Provider Family Medicine
DX: R63.4 Abnormal weight loss (principal)
CPT/HCPCS: 36415; 84134; 84443

== ENCOUNTER → 2018-12-15 06:54 | Outpatient (CLI) | payer MEDICAID, SELFPAY ==
[2018-11-17 08:37] VITALS: BMI 27.4
[2018-12-15 07:42] LABS: Hematocrit 40.8 % (37-47); Mean Corp Hgb Conc 31.9 g/dL (32-36); Mean Corpuscular Hgb 24.6 pg (27.0-32.0); Mean Corpuscular Volume 77.1 fL (81-99); Mean Platelet Vol. 9.1 fl (6.2-12.0); POSITIVE MORPHOLOGY YES; Platelet Count 379 K/mm3 (150-450); RBC Distribution Width CV 23.3 % (11.6-14.6); RBC Distribution Width SD 64.3 fl (35.1-43.9); Red Blood Count 5.29 M/mm3 (4.2-5.4)
[2018-12-15 07:43] LABS: Scan Indicated on CBC? Y/N YES- FLAGS NOTED
[2018-12-15 08:23] LABS: ALB/GLOB Ratio 0.8 RATIO (0.9-2.4); AST(SGOT) 26 U/L (15-37); Alanine Aminotransfer ALT/SGPT 27 U/L (13-56); Albumin, Serum 3.3 g/dL (3.2-5.0); Alkaline Phosphatase 86 U/L (45-117); Anion Gap 6 (5-15); BUN 10 mg/dL (7-18); BUN/Creat Ratio 14.4 RATIO (10-20); Calcium,Total 9.1 mg/dL (8.5-10.1); Chloride 104 mmol/L (98-107); Cholesterol 132 mg/dL (200); Creatinine, Serum 0.69 mg/dL (0.55-1.02); EST Glomerular Filtration Rate 96 mL/min (>60); Est Glom Filt Rate - Afr Amer 116 mL/min (>60); Ferritin 11 ng/mL (8-252); Glucose 72 mg/dL (74-106); High Density Lipoprotein 72 mg/dL; Iron 35 ug/dL (50-170); Magnesium 2.2 mg/dL (1.6-2.6); Potassium 3.7 mmol/L (3.5-5.1); Protein, Total 7.3 g/dL (6.4-8.2); Sodium Level 138 mmol/L (136-145); Triglycerides 62 mg/dL; Very Low Density Lipoprotein 12 mg/dL (5-40)
[2018-12-15 09:18] LABS: Vitamin B12 1415 pg/mL (211-911)
[2018-12-17 16:07] LABS: Vitamin B1, Thiamine 115.6 nmol/L (66.5-200.0)
[2018-12-17 16:25] LABS: Zinc, Plasma or Serum 62 ug/dL (56-134)
== END ==
PROVIDERS: Family Provider Family Medicine; PCP Family Medicine; Referring Provider Registered Nurse Nephrology; Visit Provider Registered Nurse Nephrology
DX: E61.7 Deficiency of multiple nutrient elements (principal); I10 Essential (primary) hypertension; K90.9 Intestinal malabsorption, unspecified; K21.0 Gastro-esophageal reflux disease with esophagitis; E66.01 Morbid (severe) obesity due to excess calories
CPT/HCPCS: 36415; 80053; 80061; 82306; 82607; 82728; 82746; 83540; 83735; 84425; 84630; 85027

== ENCOUNTER 2019-01-12 18:10 | Emergency (ER) | payer MEDICAID, SELFPAY ==
[2018-12-22 14:56] VITALS: BMI 27.4
[2019-01-12 18:12] VITALS: BP 129/86; PULSE 66; RESP 14; TEMP 37.2; O2SAT 100; BMI 23.1
--- NOTE | 2019-01-12 18:20 | CT_ITS ---
STUDY: CT ABDOMEN AND PELVIS WITHOUT CONTRAST REASON FOR EXAM: Female, 48 years old. The superior, sarcoidosis RADIATION DOSAGE (If Supplied By Facility): CTDIvol = ( 6.85 ) mGy, DLP = ( 308.72 ) mGycm TECHNIQUE: Transaxial images were obtained from the dome of the diaphragm to the symphysis pubis without oral contrast, and without intravenous contrast. Sagittal and coronal images were reconstructed. Individualized dose optimization techniques were used for this CT. COMPARISON: 26 October 2018, 30 June 2018, 13 April 2018 FINDINGS: Evaluation is limited due to lack of IV contrast. Diagnostic information is available. Lung bases are clear. Inferior mediastinal structures are normal. There is gastric bypass surgery. There is no intestinal obstruction. Surgical suture line is present in the left lower quadrant small bowel. Appendix is not seen as a separate structure. Liver, spleen adrenals and pancreas are unremarkable. There is no hydronephrosis. There is a 5 cm right renal cortical inferior cyst. There is a punctate, 1 mm right lower calyceal stone. There are clusters of small calculi in the left kidney upper calyces measuring 2-3 mm each. This can be related to calcified necrotic papilla. Bladder is decompressed and cannot be seen. There are degenerative changes in the spine. Appearance is similar to priors. CT/Abdomen/Pelvis without Cont IMPRESSION: 1. No acute findings or change since prior. 2. Anasarca. This does not require dedicated imaging and is systemic/metabolic diffuse condition. Laboratory assessment is advised. 3. Multiple small nonobstructing left renal calculi. Electronically Signed: Kushal De Leon, at 19:56 EST Tel , Service support ,
--- NOTE | 2019-01-12 18:51 | ED.VIS.GEN ---
History of Present Illness Chief Complaint: Abd Pain Informant: Patient Onset: Today Context: Gradual Onset Timing: Intermittent Current Severity: Moderate Maximum Severity: Moderate Narrative: The patient presents to the emergency department abdominal pain. The patient has been in her normal state of health. She states that she had history of prior gastric bypass. Today, she had a sharp, stabbing pain in her left lower quadrant. She states that she had some difficulty urinating. It did not radiate to her back. She states it would come in waves. She does have a history of kidney stones and states it feels similar. She denies any other systemic symptoms. Prior similar symptoms: No Recent Illness/Hospitalization: No Past Medical History - Allergies and Home Meds Allergies/Adverse Reactions: Allergies latex Allergy (Verified 01/12/19 18:12) Hives povidone-iodine [From Betadine] Allergy (Verified 01/12/19 18:12) Rash Primary Care Physician: Amari Renae DO [Primary Care Provider] - Prior records reviewed: Yes Past Medical History: - Surgical History: - - bariatric surgery Smoking Status: Former smoker - Family History Maternal Family History: Family History (Last Reviewed 12/22/18 @ 14:53 by Ysabel Luna) Father Hypertension Heart disease Diabetes CVA (cerebral vascular accident) Blood clotting disorder Pneumonia Grandfather Cancer Brother Diabetes Sister Asthma Sister Depression Anxiety Family History: Reports: No pertinent history Paternal Family History: Family History (Last Reviewed 12/22/18 @ 14:53 by Ysabel Luna) Father Hypertension Heart disease Diabetes CVA (cerebral vascular accident) Blood clotting disorder Pneumonia Grandfather Cancer Brother Diabetes Sister Asthma Sister Depression Anxiety Family History: Reports: Diabetes, Hypertension Review of Systems General: Denies: Chills, Fever, Sweats Eyes: Denies: Visual changes - bilaterally, Diplopia ENT: Denies: Rhinorrhea, Sore throat Cardiovascular: Denies: Chest pain, Palpitations Respiratory: Denies: Dyspnea, Cough, Dyspnea on exertion Gastrointestinal: Reports: Abdominal pain. Denies: Nausea, Vomiting, Diarrhea, Melena, Hematochezia Genitourinary: Denies: Dysuria, Hematuria, Frequency Musculoskeletal: Denies: Back pain, Extremity Pain Skin: Denies: Rash, Wounds Neurological: Denies: Headache, Weakness, Numbness Physical Exam Vital Signs/Narrative: Vital Signs Temp Pulse Resp BP Pulse Ox 01/12/19 18:12 98.9 F 66 14 129/86 H 100 Inital Vital Signs reviewed: Yes General: Well nourished, Well developed, No Acute Distress Head: Normocephalic, Atraumatic Eyes: Perrl, EOMI ENT: Moist mucous membranes, No rhinorrhea Neck: Supple, Nontender Cardiovascular: Regular rate, Regular rhythm, No murmurs Respiratory: No distress, CTA bilaterally, Chest nontender Abdomen: Soft, Nontender, Nondistended, Normal bowel sounds Back: Nontender, Normal Inspection Extremities: Nontender, No edema Skin: Normal color, No rash Neurological: Alert, Oriented x3, Cranial nerves II-XII grossly intact, Normal Strength, Normal Sensation Psychological: Normal affect, Normal Mood Diagnostic/Tx/Re-eval Clinical Impression(s) from Imaging Studies Abdomen/Pelvis CT 01/12/19 18:20 IMPRESSION: 1. No acute findings or change since prior. 2. Anasarca. This does not require dedicated imaging and is systemic/metabolic diffuse condition. Laboratory assessment is advised. 3. Multiple small nonobstructing left renal calculi. Electronically Signed: Kushal Haley, at 19:56 EST Tel , Service support , Abnormal Lab Results 01/12/19 01/12/19 01/12/19 18:54 18:54 19:08 WBC 6.5 RBC 4.38 Hgb 11.0 L Hct 35.6 L MCV 81.3 MCH 25.1 L MCHC 30.9 L RDW Std Deviation 56.0 H RDW Coeff of Donis 18.8 H Plt Count 270 MPV 10.3 Immature Gran % (Auto) 0.300 Neut % (Auto) 67.9 Lymph % (Auto) 20.9 [place] % (Auto) 7.8 Eos % (Auto) 2.6 Baso % (Auto) 0.5 Absolute Neuts (auto) 4.4 Absolute Lymphs (auto) 1.35 Nucleated RBC % 0 Sodium 136 Potassium 3.6 Chloride 103 Carbon Dioxide 29.0 Anion Gap 4 L BUN 10 Creatinine 0.76 Estim Creat Clear Calc 85.67 Est GFR (MDRD) Af Amer 104 Est GFR (MDRD) Non-Af 86 BUN/Creatinine Ratio 13.1 Glucose 107 H Calcium 9.1 Urine Color Yellow Urine Clarity Clear Urine pH 5.0 Ur Specific [place] 1.025 Urine Protein 15 H Urine Glucose (UA) Normal Urine Ketones 15 H Urine Occult Blood Negative Urine Nitrite Negative Urine Bilirubin Negative Urine Urobilinogen Normal Ur Leukocyte Esterase 25 H Urine RBC 0 SEEN Urine WBC 0 SEEN Ur Squamous Epith Cells 0-5 SEEN Calcium Oxalate Crystal 1+ Urine Bacteria 0 SEEN Urine Mucus 1+ - Medical Decision Making The patient symptoms do seem consistent with kidney stone. She has had these in the past. IV was established. She was given analgesics and antiemetics. She had total resolution of her pain. There was some small oxalate crystals on her urine but no evidence of infection. CT shows no evidence of obstructing stone. On reevaluation, the patient is pain-free. At this point, I do feel that she is safe for outpatient therapy. She is comfortable with this plan of care. She will be discharged home. Impression 1. Kidney stone ED Disposition - Plan for ED Patient: Instructions: KIDNEY STONE, Passed Referrals: Amari Renae DO [Primary Care Provider] -
[2019-01-12] MEDS: Ketorolac 30 MG/ML Syringe IV (19:03)
[2019-01-12] MEDS: 0.9% Normal Saline 1,000 ML 250 ML IV (19:03)
[2019-01-12] MEDS: Morphine 4 MG/ML Syringe IV (19:03)
[2019-01-12] MEDS: Ondansetron 4 MG/2 ML Vial IV (19:03)
[2019-01-12 19:12] LABS: Bacteria 0 SEEN /hpf (None Seen); Red Blood Cells-Urine 0 SEEN /hpf (0-5); White Blood Cells 0 SEEN /hpf (0-5)
[2019-01-12 19:21] LABS: Color, Urine Yellow (Yellow); Glucose, Dipstick Normal (Normal); Ketone-Dipstick 15 mg/dl (Negative); Leukocyte Esterase-Dipstick 25 /ul (Negative); Nitrite-Dipstick Negative (Negative); Occult Blood-Urine Negative /ul (Negative); Protein-Dipstick 15 mg/dl (Negative); Specific Gravity, Urine 1.025 (1.002-1.030); Urine Bilirubin Dipstick Negative (Negative); Urine Clarity Clear (Clear); Urine Urobilinogen Normal (Normal)
[2019-01-12 19:25] LABS: Absolute Lymphocyte Count 1.35 X10^3/uL (0.83-4.51); Absolute Neutrophil Count 4.4 X10^3/uL (2.0-7.7); Basophil# 0.03 X10^3/uL; Basophil% 0.5 % (0-1); Eosinophil# 0.17 X10^3/uL; Eosinophils% 2.6 % (0-5); Hematocrit 35.6 % (37-47); Lymphocyte # 1.35 X10^3/ul (4.0); Lymphocyte % 20.9 % (19-41); Mean Corp Hgb Conc 30.9 g/dL (32-36); Mean Corpuscular Hgb 25.1 pg (27.0-32.0); Mean Corpuscular Volume 81.3 fL (81-99); Mean Platelet Vol. 10.3 fl (6.2-12.0); Monocyte% 7.8 % (0-10); NRBC Flagged by Analyzer 0 % (0-5); Neutrophil # 4.38 X10^3/uL (2.7-7.7); Neutrophil % 67.9 % (47-70); Platelet Count 270 K/mm3 (150-450); RBC Distribution Width CV 18.8 % (11.6-14.6); Red Blood Count 4.38 M/mm3 (4.2-5.4); White Blood Count 6.5 K/mm3 (4.4-11.0)
[2019-01-12 19:26] LABS: Anion Gap 4 (5-15); BUN 10 mg/dL (7-18); BUN/Creat Ratio 13.1 RATIO (10-20); Calcium,Total 9.1 mg/dL (8.5-10.1); Chloride 103 mmol/L (98-107); Creatinine, Serum 0.76 mg/dL (0.55-1.02); EST Glomerular Filtration Rate 86 mL/min (>60); Est Glom Filt Rate - Afr Amer 104 mL/min (>60); Estimated Creatinine Clearance 85.67 ml/min; Glucose 107 mg/dL (74-106); Potassium 3.6 mmol/L (3.5-5.1); Sodium Level 136 mmol/L (136-145)
[2019-01-12 19:28] LABS: Calcium Oxalate Crystals Ur 1+ /hpf (<or=2+); Mucous, Urine 1+ /hpf (<or=2+); Squamous Epithelial Cells - UA 0-5 SEEN /hpf (5-10)
[2019-01-12 19:52] VITALS: BP 117/69; PULSE 51; RESP 17; TEMP 36.7; O2SAT 100
[2019-01-12 20:17] VITALS: BP 141/74; PULSE 56; RESP 17; O2SAT 100
== END 2019-01-12 20:18 | disposition home or self-care (01) ==
LOC: ED 18:46
PROVIDERS: Emergency Provider Emergency Medicine; Family Provider Family Medicine; PCP Family Medicine
DX: N20.0 Calculus of kidney (principal); Z87.442 Personal history of urinary calculi; Z98.84 Bariatric surgery status; Z87.891 Personal history of nicotine dependence
CPT/HCPCS: 74176; 80048; 81001; 85025; 96361; 96374; 96375; 99282; J7030; A4216; J2405

== ENCOUNTER → 2019-02-07 10:37 | Outpatient (CLI) | payer MEDICAID, SELFPAY ==
[2018-12-22 14:56] VITALS: BMI 27.4
[2019-01-12 18:12] VITALS: BMI 23.1
--- NOTE | 2019-02-07 10:39 | BI_ITS ---
MAMMOGRAPHY - BILATERAL SCREENING REASON FOR EXAM: Female, 48 years old. Routine annual screening examination. PERTINENT HISTORY: Non-contributory. TECHNIQUE: Digital bilateral breast eli (3D mammographic acquisition) in the CC and MLO projections. 2-D mediolateral oblique (MLO) and craniocaudad (CC) views of both breasts were obtained. CAD: Full Field Digital Mammography with Computer Added Detection was performed. COMPARISON: Comparison is made with prior examination dated May 20, 2013. FINDINGS: Breast Composition: There are scattered areas of fibroglandular density. There are no dominant masses or suspicious calcifications. No other significant abnormalities are identified. There has been no significant change since the prior study. BI/SCREEN MAMM (CAD) W/ELI BILAT IMPRESSION: Stable bilateral screening mammogram. Yearly follow-up mammogram recommended. (A) ASSESSMENT CATEGORY: BIRADS Category 1: Negative. A letter regarding these results will be sent to the patient by the facility within 30 days. Approximately 10% of breast cancers are not detected by mammography. A normal mammogram should not delay biopsy of a clinically suspicious abnormality. [id number] Electronically Signed: Malcolm Quarles, at 9:12 EST , Service support ,
== END ==
PROVIDERS: Family Provider Family Medicine; PCP Family Medicine; Referring Provider Family Medicine; Visit Provider Family Medicine
DX: Z12.31 Encounter for screening mammogram for malignant neoplasm of breast (principal)
CPT/HCPCS: 77063; 77067

== ENCOUNTER 2019-02-07 11:17 | Emergency (ER) | payer MEDICAID, SELFPAY ==
[2019-02-07 11:18] VITALS: BP 122/77; PULSE 60; RESP 18; TEMP 36.3; O2SAT 94; BMI 21.9
--- NOTE | 2019-02-07 11:30 | RAD_ITS ---
STUDY: X-RAY CHEST REASON FOR EXAM: Female, 48 years old. Cough TECHNIQUE: PA and lateral views of the chest. COMPARISON: 11/17/18 FINDINGS: Cardiac silhouette unremarkable. Pulmonary vascularity unremarkable. Aorta unremarkable. No focal airspace opacities. No pleural effusions. Upper abdomen unremarkable. Osseous structures intact. No pneumothorax. RAD/Chest PA and Lateral IMPRESSION: No acute cardiopulmonary findings Electronically Signed: Ferny Rivera, at 13:28 EST Tel , Service support ,
--- NOTE | 2019-02-07 11:31 | EKG12_ITS ---
Test Reason : DYSRHYTHMIA Blood Pressure : / mmHG Vent. Rate : 053 BPM Atrial Rate : 053 BPM P-R Int : 164 ms QRS Dur : 088 ms QT Int : 428 ms P-R-T Axes : 040 041 039 degrees QTc Int : 401 ms Sinus bradycardia Otherwise normal ECG Confirmed by CARLOS ZEPEDA, JOHANN ([id number]), city editor LENNY MAGAÑA ([id number]) on 02/08/2019 12:02:46 PM Referred By: DERRICK Confirmed By:AWAIS GONZALEZ MD
[2019-02-07] MEDS: 0.9% Normal Saline 1,000 ML 150 ML IV (11:45)
[2019-02-07] MEDS: MethylPREDNISolone 125 MG/2 ML Vial IV (11:45)
[2019-02-07 11:56] VITALS: PULSE 62; RESP 20
[2019-02-07] MEDS: Ipratropium/Albuterol Sulfate 3 ML AMPUL.NEB INHALATION (11:56)
[2019-02-07 12:03] LABS: Absolute Lymphocyte Count 1.25 X10^3/uL (0.83-4.51); Absolute Neutrophil Count 5.9 X10^3/uL (2.0-7.7); Basophil# 0.03 X10^3/uL; Basophil% 0.4 % (0-1); Eosinophils% 2.5 % (0-5); Hematocrit 37.8 % (37-47); Hemoglobin 12.1 g/dL (12.0-15.0); Lymphocyte # 1.25 X10^3/ul (4.0); Lymphocyte % 15.8 % (19-41); Mean Corpuscular Hgb 25.6 pg (27.0-32.0); Mean Corpuscular Volume 79.9 fL (81-99); Mean Platelet Vol. 9.4 fl (6.2-12.0); Monocyte% 6.3 % (0-10); NRBC Flagged by Analyzer 0 % (0-5); Neutrophil # 5.88 X10^3/uL (2.7-7.7); Neutrophil % 74.6 % (47-70); Platelet Count 334 K/mm3 (150-450); RBC Distribution Width CV 15.9 % (11.6-14.6); RBC Distribution Width SD 45.7 fl (35.1-43.9); Red Blood Count 4.73 M/mm3 (4.2-5.4); White Blood Count 7.9 K/mm3 (4.4-11.0)
[2019-02-07 12:16] LABS: Anion Gap 3 (5-15); BUN 13 mg/dL (7-18); BUN/Creat Ratio 20.6 RATIO (10-20); Calcium,Total 8.4 mg/dL (8.5-10.1); Chloride 108 mmol/L (98-107); Creatinine, Serum 0.63 mg/dL (0.55-1.02); EST Glomerular Filtration Rate 107 mL/min (>60); Est Glom Filt Rate - Afr Amer 129 mL/min (>60); Estimated Creatinine Clearance 103.34 ml/min; Glucose 68 mg/dL (74-106); Potassium 4.1 mmol/L (3.5-5.1); Sodium Level 138 mmol/L (136-145)
--- NOTE | 2019-02-07 13:55 | ED.VISSUMM ---
- ER Visit Summary Date of Service: 02/07/19 Chief Complaint: [Cough] History of Present Illness: The patient is a 48 F [presents the emergency department with a cough that started a month ago. Patient states that she was on Zithromax couple weeks ago and she felt she got better at least initially but did not completely resolve and then the cough came back. Patient coughing up some yellow sputum. She denies any fever. Although she has had some sweats. Patient does have history of hypertension, COPD, sarcoidosis, GERD, and depression. Patient does see a molded frames assembler Dr. Robertson. Patient denies recent travel or surgery. He describes chest discomfort but only with cough.] States that she cannot take p.o. prednisone because she is had gastric bypass and was told not to take it. Physical Examination: [HEENT-PERRLA, EOMI. Cranial nerves II through XII grossly intact. TMs clear. Mucous membranes moist. No adenopathy. Cardiovascular-regular rate and rhythm without murmur or ectopy Lungs-good aeration bilaterally. Patient has some rhonchi and expiratory wheezes noted throughout. No significant tachypnea. No accessory muscle use or retractions. No conversational dyspnea. Abdomen-normoactive bowel sounds, soft, nontender, no rebound or rigidity, no peritoneal signs. Extremities-intact ?4, normal range of motion, normal pulses, atraumatic] Test Results: [CBC with differential obtained showed a white count of 7.9, hemoglobin 12, hematocrit 30, platelets 334. Chemistries unremarkable. Influenza screen was negative. Chest x-ray showed nothing acute. EKG on arrival showed a sinus rhythm with a ventricular rate of 53 bpm with no acute ST segment changes.] Emergency Department Course and Treatment: Patient had a sputum culture ordered. Patient was given a DuoNeb aerosol and given Solu-Medrol 125 mg IV. [] Treatment Plan: [Patient will be started on Levaquin and Tessalon Perles. Patient will be given albuterol aerosol prescription.] Patient to follow-up with her molded frames assembler in 3 to 5 days. Disposition: [Discharged home in stable condition] Impression: [Bronchitis] This note was generated with [employer] software. It may contain incorrect words, spelling, and punctuation that were not noted in review of the chart prior to signing ED Disposition - Plan for ED Patient: Referrals: Amari Renae DO [Primary Care Provider] -
--- NOTE | 2019-02-07 13:57 | ED.DEP ---
ED Disposition - Plan for ED Patient: Instructions: BRONCHITIS with Wheezing (Adult) Prescriptions: levoFLOXacin tablet [Levaquin tablet] 750 mg PO DAILY #6 tab Prescription Printed Benzonatate [Tessalon Perle] 200 mg PO TID PRN PRN #20 cap PRN Reason: Cough Prescription Printed Albuterol Aerosols [Ventolin Aerosols] 2.5 mg INHALATION Q4H PRN PRN #25 vial PRN Reason: Wheezing Prescription Printed Referrals: Amari Renae DO [Primary Care Provider] - Shayan Robertson MD [STAFF PHYSICIAN] - 3-5 Days
[2019-02-07] MEDS: levoFLOXacin 750 MG Tablet PO (14:04)
[2019-02-07 14:10] VITALS: BP 151/83; PULSE 68; RESP 19; O2SAT 98
== END 2019-02-07 14:11 | disposition home or self-care (01) ==
LOC: ED 11:40
PROVIDERS: Emergency Provider Emergency Medicine; Family Provider Family Medicine; PCP Family Medicine
DX: J40 Bronchitis, not specified as acute or chronic (principal); I10 Essential (primary) hypertension; J44.9 Chronic obstructive pulmonary disease, unspecified; D86.9 Sarcoidosis, unspecified; K21.9 Gastro-esophageal reflux disease without esophagitis; F32.9 Major depressive disorder, single episode, unspecified; Z98.84 Bariatric surgery status; Z79.899 Other long term (current) drug therapy; Z72.0 Tobacco use
CPT/HCPCS: 71046; 80048; 85025; 87070; 87205; 87804; 93005; 94640; 96361; 96374; 99285; J7030; A4216

== ENCOUNTER 2019-02-14 13:21 | Emergency (ER) | payer MEDICAID, SELFPAY ==
[2019-02-14 13:23] VITALS: BP 118/72; PULSE 86; RESP 16; TEMP 36.4; O2SAT 99; BMI 20.3
--- NOTE | 2019-02-14 13:42 | ED.DCSUM_ITS ---
History of Present Illness Chief Complaint: Abd Pain Detail of Chief Complaint: Abdominal pain, nausea, vomiting Informant: Patient Onset: Weeks - 1 week Context: Gradual Onset Current Severity: Moderate Maximum Severity: Moderate Narrative: Patient was seen in the emergency room 1 week ago with cough and upper respiratory symptoms. She states as those symptoms improved she developed increased abdominal pain with nausea and vomiting. She has undergone gastric bypass surgery and a revision through [facility] in [place]. Patient has had episodes with abdominal pain and vomiting that are difficult to control. She denies having fever. She denies dysuria. Stools are soft but no overt diarrhea. - Past Medical History (1) Benign essential HTN Status: Chronic (2) COPD (chronic obstructive pulmonary disease) Status: Chronic (3) Gastroesophageal reflux disease Status: Chronic (4) Nephrolithiasis Status: Chronic Comment: Noted history of recent stent placement. (5) Obstructive sleep apnea Status: Chronic (6) Sarcoidosis Status: Chronic (7) Stage 1 mild COPD by GOLD classification Status: Chronic (8) H/O: hysterectomy Status: Resolved (9) History of carpal tunnel release of both wrists Status: Resolved (10) History of gastric bypass Status: Resolved (11) History of lithotripsy Status: Resolved Past Medical History - Allergies and Home Meds Allergies/Adverse Reactions: Allergies latex Allergy (Verified 02/14/19 13:23) Hives povidone-iodine [From Betadine] Allergy (Verified 02/14/19 13:23) Rash Primary Care Physician: Amari Renae DO [Primary Care Provider] - Prior records reviewed: Yes Surgical History: gastric bypass, - - bariatric surgery Smoking Status: Current every day smoker - Family History Maternal Family History: Family History (Last Reviewed 12/22/18 @ 14:53 by Ysabel Luna) Father Hypertension Heart disease Diabetes CVA (cerebral vascular accident) Blood clotting disorder Pneumonia Grandfather Cancer Brother Diabetes Sister Asthma Sister Depression Anxiety Family History: Reports: No pertinent history Paternal Family History: Family History (Last Reviewed 12/22/18 @ 14:53 by Ysabel Luna) Father Hypertension Heart disease Diabetes CVA (cerebral vascular accident) Blood clotting disorder Pneumonia Grandfather Cancer Brother Diabetes Sister Asthma Sister Depression Anxiety Family History: Reports: Diabetes, Hypertension Review of Systems General: Denies: Chills, Fever Eyes: Denies: Visual changes - bilaterally ENT: Denies: Bilateral ear pain Cardiovascular: Denies: Chest pain Respiratory: Denies: Dyspnea, Cough Gastrointestinal: Reports: Abdominal pain, Nausea, Vomiting, Diarrhea Genitourinary: Denies: Dysuria Musculoskeletal: Denies: Swelling, Extremity Pain Skin: Denies: Rash Neurological: Denies: Headache Endocrine: Denies: Polyuria, Polydipsia Allergy: Denies: Uticaria Physical Exam Vital Signs/Narrative: Vital Signs Temp Pulse Resp BP Pulse Ox 02/14/19 13:23 97.6 F L 86 16 118/72 99 Inital Vital Signs reviewed: Yes General: Well nourished, Well developed Head: Normocephalic ENT: Moist mucous membranes Cardiovascular: Regular rate, Regular rhythm Respiratory: No distress, CTA bilaterally Abdomen: Soft, Tender - Mild suprapubic tenderness., Hypoactive bowel sounds. Negative for: Guarding, Rebound tenderness Extremities: Nontender Skin: Normal color Neurological: Alert, Oriented x3 Psychological: Normal affect Diagnostic/Tx/Re-eval Laboratory Results 02/14/19 02/14/19 02/14/19 13:45 13:45 14:45 WBC 6.1 RBC 4.44 Hgb 11.3 L Hct 35.4 L MCV 79.7 L MCH 25.5 L MCHC 31.9 L RDW Std Deviation 44.4 H RDW Coeff of Donis 15.4 H Plt Count 276 MPV 9.4 Immature Gran % (Auto) 0.500 Neut % (Auto) 78.7 H Lymph % (Auto) 13.0 L [place] % (Auto) 6.1 Eos % (Auto) 1.2 Baso % (Auto) 0.5 Absolute Neuts (auto) 4.8 Absolute Lymphs (auto) 0.79 L Nucleated RBC % 0 Sodium 137 Potassium 4.1 Chloride 105 Carbon Dioxide 28.0 Anion Gap 4 L BUN 9 Creatinine 0.76 Estim Creat Clear Calc 82.56 Est GFR (MDRD) Af Amer 105 Est GFR (MDRD) Non-Af 86 BUN/Creatinine Ratio 11.8 Glucose 95 Calcium 8.5 Total Bilirubin 0.40 Direct Bilirubin 0.15 AST 14 L ALT 18 Alkaline Phosphatase 70 Total Protein 6.8 Albumin 3.3 Globulin 3.5 Lipase 42 L Urine Color Yellow Urine Clarity Sl. Cloudy Urine pH 8.0 Ur Specific [place] 1.015 Urine Protein Negative Urine Glucose (UA) Normal Urine Ketones Negative Urine Occult Blood Negative Urine Nitrite Negative Urine Bilirubin Negative Urine Urobilinogen Normal Ur Leukocyte Esterase Negative Urine RBC 0 SEEN Urine WBC 0-5 SEEN Ur Squamous Epith Cells 0-5 SEEN Amorphous Sediment 1+ Urine Bacteria RARE Urine Mucus 0 SEEN - Medical Decision Making Patient is given IV fluids, pain, Phenergan. On repeat evaluation she does report feeling somewhat improved. She is able to tolerate p.o. Advised her that her labs look good at this time. She has mild anemia but has had the same in the past. She already has Zofran at home but I will write her for Phenergan solution. She has tramadol at home that she takes. She is encouraged to follow-up with her surgeon. ED Disposition - Plan for ED Patient: Disposition: Home or Assisted Living Diagnosis: Vomiting Instructions: VOMITING (7y-Adult) Prescriptions: proMETHazine soln (6.25mg/5mL) [Phenergan oral solution (6.25 mg/5 mL)] 10 ml PO Q6H PRN PRN #120 ml PRN Reason: Nausea/Vomiting Referrals: Amari Renae DO [Primary Care Provider] - Additional Instructions: Follow-up with your surgeon as soon as possible.
[2019-02-14] MEDS: Morphine 4 MG/ML Syringe IV (13:51)
[2019-02-14] MEDS: proMETHazine 25 MG/ML Syringe 12.5 MG IV (13:51)
[2019-02-14] MEDS: 0.9% Normal Saline 1,000 ML 1000 ML IV (13:51)
[2019-02-14 14:05] LABS: Absolute Lymphocyte Count 0.79 X10^3/uL (0.83-4.51); Absolute Neutrophil Count 4.8 X10^3/uL (2.0-7.7); Basophil# 0.03 X10^3/uL; Basophil% 0.5 % (0-1); Eosinophil# 0.07 X10^3/uL; Eosinophils% 1.2 % (0-5); Hematocrit 35.4 % (37-47); Hemoglobin 11.3 g/dL (12.0-15.0); Lymphocyte # 0.79 X10^3/ul (4.0); Mean Corp Hgb Conc 31.9 g/dL (32-36); Mean Corpuscular Hgb 25.5 pg (27.0-32.0); Mean Corpuscular Volume 79.7 fL (81-99); Mean Platelet Vol. 9.4 fl (6.2-12.0); Monocyte# 0.37 X10^3/uL; Monocyte% 6.1 % (0-10); NRBC Flagged by Analyzer 0 % (0-5); Neutrophil # 4.78 X10^3/uL (2.7-7.7); Neutrophil % 78.7 % (47-70); Platelet Count 276 K/mm3 (150-450); RBC Distribution Width CV 15.4 % (11.6-14.6); RBC Distribution Width SD 44.4 fl (35.1-43.9); Red Blood Count 4.44 M/mm3 (4.2-5.4); White Blood Count 6.1 K/mm3 (4.4-11.0)
[2019-02-14 14:29] LABS: AST(SGOT) 14 U/L (15-37); Alanine Aminotransfer ALT/SGPT 18 U/L (13-56); Albumin, Serum 3.3 g/dL (3.2-5.0); Alkaline Phosphatase 70 U/L (45-117); Anion Gap 4 (5-15); BUN 9 mg/dL (7-18); BUN/Creat Ratio 11.8 RATIO (10-20); Bilirubin, Direct 0.15 mg/dL (0.00-0.30); Calcium,Total 8.5 mg/dL (8.5-10.1); Chloride 105 mmol/L (98-107); Creatinine, Serum 0.76 mg/dL (0.55-1.02); EST Glomerular Filtration Rate 86 mL/min (>60); Est Glom Filt Rate - Afr Amer 105 mL/min (>60); Estimated Creatinine Clearance 82.56 ml/min; Globulin 3.5 g/dL (2.2-4.2); Glucose 95 mg/dL (74-106); Lipase 42 U/L (73-393); Potassium 4.1 mmol/L (3.5-5.1); Protein, Total 6.8 g/dL (6.4-8.2); Sodium Level 137 mmol/L (136-145)
[2019-02-14] MEDS: 0.9% Normal Saline 1,000 ML 150 ML IV (14:46)
[2019-02-14 14:54] LABS: Mucous, Urine 0 SEEN /hpf (<or=2+); Red Blood Cells-Urine 0 SEEN /hpf (0-5)
[2019-02-14 15:00] LABS: Color, Urine Yellow (Yellow); Glucose, Dipstick Normal (Normal); Ketone-Dipstick Negative (Negative); Leukocyte Esterase-Dipstick Negative /ul (Negative); Nitrite-Dipstick Negative (Negative); Occult Blood-Urine Negative /ul (Negative); Protein-Dipstick Negative (Negative); Specific Gravity, Urine 1.015 (1.002-1.030); Urine Bilirubin Dipstick Negative (Negative); Urine Clarity Sl. Cloudy (Clear); Urine Urobilinogen Normal (Normal)
[2019-02-14 15:21] LABS: Amorphous Sediment 1+; Bacteria RARE /hpf (None Seen); Squamous Epithelial Cells - UA 0-5 SEEN /hpf (5-10); White Blood Cells 0-5 SEEN /hpf (0-5)
[2019-02-14 15:24] VITALS: RESP 16
== END 2019-02-14 15:58 | disposition home or self-care (01) ==
PROVIDERS: Emergency Provider Emergency Medicine; Family Provider Family Medicine; PCP Family Medicine
DX: R11.2 Nausea with vomiting, unspecified (principal); R10.9 Unspecified abdominal pain; R19.7 Diarrhea, unspecified; D64.9 Anemia, unspecified; Z98.84 Bariatric surgery status; I10 Essential (primary) hypertension; J44.9 Chronic obstructive pulmonary disease, unspecified; K21.9 Gastro-esophageal reflux disease without esophagitis; G47.33 Obstructive sleep apnea (adult) (pediatric); D86.9 Sarcoidosis, unspecified; Z87.442 Personal history of urinary calculi; Z79.899 Other long term (current) drug therapy; F17.200 Nicotine dependence, unspecified, uncomplicated
CPT/HCPCS: 80048; 80076; 81001; 83690; 85025; 96361; 96374; 96375; 99283; J7030; A4216

== ENCOUNTER 2019-03-21 15:06 | Emergency (ER) | payer MEDICAID, SELFPAY ==
[2019-03-21 15:06] VITALS: BP 178/89; PULSE 56; RESP 18; TEMP 36.7; O2SAT 100; BMI 20.5
--- NOTE | 2019-03-21 15:20 | CT_ITS ---
STUDY: CT ABDOMEN AND PELVIS WITH CONTRAST REASON FOR EXAM: Female, 48 years old. Mid abdomen pain intermittent x 1 year, worse since yesterday, nausea/vomiting. Prior gastric bypass, hysterectomy, lithotripsy, hypertension, COPD. RADIATION DOSAGE (If Supplied By Facility): CTDIvol = ( 14.05 ) mGy, DLP = ( 436.87 ) mGycm TECHNIQUE: Transaxial images were obtained from the dome of the diaphragm to the symphysis pubis without oral contrast. Oral and amp; IV Gastrografin and amp; 100mL Isovue-300 was administered. Sagittal and coronal images were reconstructed. Individualized dose optimization techniques were used for this CT. COMPARISON: 03/14/2018 FINDINGS: The visualized lung bases are unremarkable. The visualized portions of the heart are within normal limits. Normal liver. Normal gallbladder and extrahepatic biliary system. Normal spleen. Normal pancreas. Normal bilateral adrenal glands. No obstructive uropathy, multiple punctate nonobstructing left renal stones. There is a stable 5 cm right renal cyst. Stable postsurgical changes in the stomach from previous gastric bypass. Normal small intestine. Normal colon. There is non-visualization of the appendix. Normal abdominal aorta. Normal inferior vena cava. There is nonspecific induration of the mesenteric and retroperitoneal fat. There is also induration of the subcutaneous fat which suggests anasarca. Scattered subcentimeter inguinal lymphadenopathy Normal urinary bladder. Normal visualized uterus. Normal abdominal wall. Normal osseous structures. CT/Abdomen/Pelvis WITH Contrast IMPRESSION: Stable nonobstructing left nephrolithiasis, stable right renal cyst. Other solid organs are unremarkable There is been previous gastric bypass Nonspecific induration of the mesenteric and retroperitoneal fat along with induration of the subcutaneous fat suggesting anasarca Electronically Signed: Evans Rosas MD at 17:22 EST , Service support ,
--- NOTE | 2019-03-21 15:21 | EKG12_ITS ---
Test Reason : N/V Blood Pressure : / mmHG Vent. Rate : 063 BPM Atrial Rate : 063 BPM P-R Int : 150 ms QRS Dur : 086 ms QT Int : 422 ms P-R-T Axes : 000 055 055 degrees QTc Int : 431 ms Normal sinus rhythm Normal ECG Confirmed by SANTIAGO ZEPEDA, FRANKLYN ([id number]), video editor JILLIAN KURTZ ([id number]) on 03/24/2019 9:59:24 AM Referred By: SARY Confirmed By:FRANKLYN HENDERSON MD
--- NOTE | 2019-03-21 15:22 | ED.VISSUMM ---
- ER Visit Summary Date of Service: 03/21/19 Chief Complaint: [Abdominal pain] History of Present Illness: The patient is a 48 F [presents with abdominal pain that started yesterday. Patient states the pains been relatively continuous. She describes it is diffuse to the mid abdomen. Patient states that she had a hard time eating because she cannot tolerate food. She is vomited multiple times. She denies any diarrhea. Patient did have a bowel movement this morning but she states that she had to use a suppository to get going. Patient's last bowel movement before that was 3 days ago. Patient does have history of prior gastric bypass as well as COPD, hypertension, sarcoidosis, and anxiety.] Patient tells me she has had similar pain ever since her surgery in 2017 off and on. Physical Examination: [HEENT-PERRLA, EOMI. Cranial nerves II through XII grossly intact. TMs clear. Mucous membranes moist. No adenopathy. Cardiovascular-regular rate and rhythm without murmur or ectopy Lungs-clear to auscultation, chest wall stable without crepitus or subcu emphysema Abdomen-normoactive bowel sounds, soft. Patient has some diffuse tenderness to palpation. There is guarding. There is no rebound or rigidity noted. No masses palpated. Extremities-intact ?4, normal range of motion, normal pulses, atraumatic] Test Results: [CBC with differential count of 8.3, hemoglobin 11.8, hematocrit 38, platelets 303. Chemistries unremarkable. LFTs unremarkable. Lipase 195. Urinalysis normal. Troponin is less than 0.015. Lactate was slightly elevated 2.3. CT scan of the abdomen and pelvis essentially showed nothing acute.] Emergency Department Course and Treatment: She was medicated with morphine and Zofran. Patient continued complaint of nausea and was given Phenergan 12.5 mg IV. Patient also was given a second dose of morphine 4 mg IV. [] Treatment Plan: [I discussed with patient results and plan as far as we discussed admission for symptom control versus discharge to home with follow-up with her surgeons and patient would prefer to go home. Patient states this is the same pain she has had since 2017 off and on.] Disposition: [Discharged home in stable condition.] Impression: [ abdominal pain-etiology uncertain] Vomiting This note was generated with [employer]ation software. It may contain incorrect words, spelling, and punctuation that were not noted in review of the chart prior to signing ED Disposition - Plan for ED Patient: Referrals: Amari Renae DO [Primary Care Provider] -
[2019-03-21] MEDS: Morphine 4 MG/ML Syringe IV ×2 (15:37→18:59)
[2019-03-21] MEDS: Ondansetron 4 MG/2 ML Vial IV (15:37)
[2019-03-21] MEDS: 0.9% Normal Saline 1,000 ML 125 ML IV (15:42)
[2019-03-21 16:12] LABS: Absolute Lymphocyte Count 1.12 X10^3/uL (0.83-4.51); Absolute Neutrophil Count 6.8 X10^3/uL (2.0-7.7); Basophil# 0.03 X10^3/uL; Basophil% 0.4 % (0-1); Eosinophil# 0.02 X10^3/uL; Eosinophils% 0.2 % (0-5); Hematocrit 38.1 % (37-47); Hemoglobin 11.8 g/dL (12.0-15.0); Lymphocyte # 1.12 X10^3/ul (4.0); Lymphocyte % 13.4 % (19-41); Mean Corpuscular Hgb 24.7 pg (27.0-32.0); Mean Corpuscular Volume 79.7 fL (81-99); Mean Platelet Vol. 10.1 fl (6.2-12.0); Monocyte# 0.32 X10^3/uL; Monocyte% 3.8 % (0-10); NRBC Flagged by Analyzer 0 % (0-5); Neutrophil # 6.81 X10^3/uL (2.7-7.7); Neutrophil % 81.7 % (47-70); Platelet Count 303 K/mm3 (150-450); RBC Distribution Width CV 15.1 % (11.6-14.6); RBC Distribution Width SD 43.8 fl (35.1-43.9); Red Blood Count 4.78 M/mm3 (4.2-5.4); White Blood Count 8.3 K/mm3 (4.4-11.0)
[2019-03-21] MEDS: proMETHazine 25 MG/ML Syringe 12.5 MG IV (16:30)
[2019-03-21 16:32] LABS: AST(SGOT) 12 U/L (15-37); Alanine Aminotransfer ALT/SGPT 21 U/L (13-56); Alkaline Phosphatase 80 U/L (45-117); Anion Gap 8 (5-15); BUN 7 mg/dL (7-18); BUN/Creat Ratio 8.7 RATIO (10-20); Calcium,Total 9.3 mg/dL (8.5-10.1); Chloride 106 mmol/L (98-107); EST Glomerular Filtration Rate 81 mL/min (>60); Est Glom Filt Rate - Afr Amer 98 mL/min (>60); Estimated Creatinine Clearance 79.06 ml/min; Globulin 4.1 g/dL (2.2-4.2); Glucose 95 mg/dL (74-106); Lipase 195 U/L (73-393); Potassium 3.7 mmol/L (3.5-5.1); Protein, Total 8.1 g/dL (6.4-8.2); Sodium Level 137 mmol/L (136-145)
[2019-03-21 16:46] LABS: Lactic Acid 2.3 mmol/L (0.4-1.9)
[2019-03-21 18:06] LABS: Bacteria 0 SEEN /hpf (None Seen); Mucous, Urine 0 SEEN /hpf (<or=2+); Red Blood Cells-Urine 0 SEEN /hpf (0-5); White Blood Cells 0 SEEN /hpf (0-5)
[2019-03-21 18:12] LABS: Color, Urine Yellow (Yellow); Glucose, Dipstick Normal (Normal); Ketone-Dipstick 5 mg/dl (Negative); Leukocyte Esterase-Dipstick Negative /ul (Negative); Nitrite-Dipstick Negative (Negative); Occult Blood-Urine Negative /ul (Negative); Protein-Dipstick Negative (Negative); Urine Bilirubin Dipstick Negative (Negative); Urine Clarity Sl. Cloudy (Clear); Urine Urobilinogen Normal (Normal)
[2019-03-21 18:37] LABS: Amorphous Sediment 1+ PHOS; Squamous Epithelial Cells - UA 0-5 SEEN /hpf (5-10)
--- NOTE | 2019-03-21 18:47 | ED.DEP ---
ED Disposition - Plan for ED Patient: Instructions: ABDOMINAL PAIN, Unknown Cause, (Female) Prescriptions: Hydrocodone Bitart/Apap 5-325 [[place] 5MG-325MG] 1 tab PO Q4H PRN PRN 2 Days #10 tab PRN Reason: Pain Prescription Printed proMETHazine tablet [Phenergan] 25 mg PO Q6H PRN PRN #10 tab PRN Reason: Nausea Prescription Printed Referrals: Amari Renae DO [Primary Care Provider] - 3-5 Days
[2019-03-21 20:09] LABS: Reflex Lactate? Y
== END 2019-03-21 19:07 | disposition home or self-care (01) ==
LOC: ED 15:37
PROVIDERS: Emergency Provider Emergency Medicine; PCP Family Medicine
DX: R10.9 Unspecified abdominal pain (principal); R11.2 Nausea with vomiting, unspecified; J44.9 Chronic obstructive pulmonary disease, unspecified; I10 Essential (primary) hypertension; D86.9 Sarcoidosis, unspecified; F41.9 Anxiety disorder, unspecified; Z98.84 Bariatric surgery status; Z79.899 Other long term (current) drug therapy; Z72.0 Tobacco use
CPT/HCPCS: 74177; 80053; 81001; 83605; 83690; 84484; 85025; 93005; 96361; 96374; 96375; 96376; 99285; J7030; Q9967; A4216; J2405

== ENCOUNTER 2019-03-22 23:14 | Inpatient (IN) | payer MEDICAID, SELFPAY ==
[2019-03-21 15:06] VITALS: BMI 20.5
[2019-03-22 23:14] VITALS: BP 142/95; PULSE 137; RESP 15; TEMP 37.2; O2SAT 100; BMI 19.0
[2019-03-22] MEDS: proMETHazine 25 MG/ML Syringe 12.5 MG IV (23:57)
[2019-03-22] MEDS: 0.9% Normal Saline 1,000 ML 125 ML IV (23:57)
[2019-03-23] VITALS (38 sets, daily range): BP systolic 65–177; BP diastolic 34–115; PULSE 71–155; RESP 14–29; TEMP 36.3–38.3; O2SAT 84–120; BMI 19.2
[2019-03-23 00:15] LABS: Absolute Lymphocyte Count 1.26 X10^3/uL (0.83-4.51); Absolute Neutrophil Count 5.8 X10^3/uL (2.0-7.7); Basophil# 0.04 X10^3/uL; Basophil% 0.5 % (0-1); Eosinophil# 0.16 X10^3/uL; Hematocrit 40.4 % (37-47); Hemoglobin 12.5 g/dL (12.0-15.0); Lymphocyte # 1.26 X10^3/ul (4.0); Lymphocyte % 15.9 % (19-41); Mean Corp Hgb Conc 30.9 g/dL (32-36); Mean Corpuscular Hgb 24.4 pg (27.0-32.0); Mean Corpuscular Volume 78.8 fL (81-99); Mean Platelet Vol. 9.7 fl (6.2-12.0); Monocyte% 7.6 % (0-10); NRBC Flagged by Analyzer 0 % (0-5); Neutrophil # 5.81 X10^3/uL (2.7-7.7); Neutrophil % 73.6 % (47-70); Platelet Count 352 K/mm3 (150-450); RBC Distribution Width CV 15.1 % (11.6-14.6); Red Blood Count 5.13 M/mm3 (4.2-5.4); White Blood Count 7.9 K/mm3 (4.4-11.0)
[2019-03-23 00:29] LABS: Anion Gap 5 (5-15); BUN 10 mg/dL (7-18); Calcium,Total 9.6 mg/dL (8.5-10.1); Chloride 102 mmol/L (98-107); Creatinine, Serum 0.77 mg/dL (0.55-1.02); EST Glomerular Filtration Rate 85 mL/min (>60); Est Glom Filt Rate - Afr Amer 103 mL/min (>60); Estimated Creatinine Clearance 76.32 ml/min; Glucose 106 mg/dL (74-106); Potassium 3.5 mmol/L (3.5-5.1); Sodium Level 137 mmol/L (136-145)
--- NOTE | 2019-03-23 00:33 | ED.DCSUM_ITS ---
- ER Visit Summary Date of Service: 03/23/19 Chief Complaint: [Nausea and vomiting and hematemesis] History of Present Illness: The patient is a 48 F [presents to the emergency department with complaint of abdominal pain and vomiting that she is had for several days. Patient was seen in the emergency department last evening by myself and had a complete lab work-up including CT scan of the abdomen and pelvis. Patient was offered admission for symptom control versus outpatient treatment and she elected to go home. Patient states that her abdominal pain is much improved compared to yesterday and she had slept most of the day today without significant vomiting. This evening she did have an episode of emesis and noted that it was bloody so she presents for evaluation. Patient has had prior history of bleeding ulcer.] Physical Examination: [HEENT-PERRLA, EOMI. Cranial nerves II through XII grossly intact. TMs clear. Mucous membranes moist. No adenopathy. Cardiovascular-regular rate and rhythm without murmur or ectopy Lungs-clear to auscultation, chest wall stable without crepitus or subcu emphysema Abdomen-normoactive bowel sounds, soft. Patient has some tenderness over the epigastric region without rebound, rigidity, or pedal signs. Patient has an emesis basin that has bloody sputum in it and gastric content. Clots noted Extremities-intact ?4, normal range of motion, normal pulses, atraumatic] Test Results: [CBC with differential obtained showed a white count of 7.9, hemoglobin 12.5, hematocrit 40, platelets 352. Chemistries were unremarkable. BUN was normal. Type and screen ordered.] Emergency Department Course and Treatment: Patient was given normal saline and Phenergan 12.5 mg IV. Patient was started on Protonix drip.] Treatment Plan: [Admit] Disposition: [Admit] Impression: [Vomiting Upper GI bleed Abdominal pain] This note was generated with [employer] dictation software. It may contain incorrect words, spelling, and punctuation that were not noted in review of the chart prior to signing ED Disposition - Plan for ED Patient: Referrals: Amari Renae DO [Primary Care Provider] -
--- NOTE | 2019-03-23 00:48 | PCM.HP.STD ---
Problem List (1) Intractable abdominal pain Status: Acute (2) Hematemesis Status: Acute Qualifiers: Nausea presence: with nausea Qualified Code(s): K92.0 - Hematemesis (3) Hyperlipidemia Status: Chronic Qualifiers: Hyperlipidemia type: unspecified Qualified Code(s): E78.5 - Hyperlipidemia, unspecified (4) Protein calorie malnutrition Status: Chronic Qualifiers: Protein-calorie malnutrition severity: severe Qualified Code(s): E43 - Unspecified severe protein-calorie malnutrition (5) Benign essential HTN Status: Chronic (6) Tobacco user Status: Chronic (7) COPD (chronic obstructive pulmonary disease) Status: Chronic Qualifiers: COPD type: unspecified COPD Qualified Code(s): J44.9 - Chronic obstructive pulmonary disease, unspecified History of Present Illness Date of Admission: 03/23/19 Chief Complaint: Hematemesis with intractable nausea and emesis. The patient is a 48 y/o F w/ PMHx: Chronic COPD, Tobacco use, HTN, HLD, Anxiety and Depression, GERD w/ Hx Bleeding Ulcer, Hx morbid obesity s/p gastric bypass status who presents to the [facility] ED on 03/23/19 with history of evaluation the day prior converted ongoing chronic epigastric abdominal pain, dull aching as well as sharp intermittent stabbing, rated 5-6 out of 10 in severity which has been ongoing for several years with unremarkable lab evaluation as well as CT A/P at that time w/ stable nonobstructing left nephrolithiasis, stable right renal cyst, evidence previous gastric bypass, nonspecific induration of the mesenteric and retroperitoneal fat along with induration of the subcutaneous fat suggesting anasarca treated with pain regimen and antiemetics with clinical improvement with discharge to home however patient now re-presents to the [facility] ED on 03/23/19 with history of having slept most of the day, with initially improvement of reported chronic pain but had onset of intractable nausea with several bouts of emesis with bright red blood prompting her return for evaluation. Work-up in the ED included T 98.9, heart rate 137, BP 142/95, respiratory rate 15, 100% room air, + orthostatics, CBC with WC 7.9, hemoglobin 12.5, platelet 352 without market left shift, unremarkable BMP, type and screen pending per ED. in the ED patient administered Phenergan 12.5 mg IV x1, normal saline as well as Protonix bolus. Past Medical History Past Medical History (Chronic Problems): Chronic Problems (Last Reviewed 12/22/18 @ 14:53 by Ysabel Luna) Hyperlipidemia (Chronic) Protein calorie malnutrition (Chronic) Periodic limb movement disorder (PLMD) (Chronic) Previous section (Chronic) Essential hypertension (Chronic) Gastroesophageal reflux disease (Chronic) Major depression (Chronic) Sarcoidosis (Chronic) Fatigue (Chronic) Vitamin D deficiency (Chronic) Cigarette nicotine dependence (Chronic) Prediabetes (Chronic) Onychomycosis (Chronic) Alopecia (Chronic) Skin rash (Chronic) Anxiety (Chronic) Fatty liver disease, nonalcoholic (Chronic) Peripheral edema (Chronic) Stage 1 mild COPD by GOLD classification (Chronic) Benign essential HTN (Chronic) Morbid obesity (Chronic) Tobacco user (Chronic) Obstructive sleep apnea (Chronic) COPD (chronic obstructive pulmonary disease) (Chronic) Nephrolithiasis (Chronic) Noted history of recent stent placement. Medical History: Medical History (Last Reviewed 12/22/18 @ 14:53 by Ysabel Luna) Essential hypertension (Chronic) I10 Gastroesophageal reflux disease (Chronic) K21.9 Major depression (Chronic) F32.9 Sarcoidosis (Chronic) D86.9 Fatigue (Chronic) R53.83 Vitamin D deficiency (Chronic) E55.9 Cigarette nicotine dependence (Chronic) F17.210 Prediabetes (Chronic) R73.03 Dysfunctional uterine bleeding (Resolved) N93.8 Onychomycosis (Chronic) B35.1 Chest pain (Resolved) R07.9 Alopecia (Chronic) L65.9 Skin rash (Chronic) R21 Anxiety (Chronic) F41.9 Fatty liver disease, nonalcoholic (Chronic) K76.0 Peripheral edema (Chronic) R60.9 Stage 1 mild COPD by GOLD classification (Chronic) J44.9 Benign essential HTN (Chronic) I10 Morbid obesity (Chronic) E66.01 Tobacco user (Chronic) Z72.0 Obstructive sleep apnea (Chronic) G47.33 COPD (chronic obstructive pulmonary disease) (Chronic) J44.9 Nephrolithiasis (Chronic) Noted history of recent stent placement. Allergies latex Allergy (Verified 03/22/19 23:18) Hives povidone-iodine [From Betadine] Allergy (Verified 03/22/19 23:18) Rash Home Medications: Ambulatory Orders Medication Instructions Recorded Acyclovir 400 mg PO BID 05/23/18 Omeprazole 40 mg PO DAILY 05/23/18 busPIRone [Buspar] 15 mg PO BID 05/23/18 proMETHazine suppository 25 mg RECTAL Q6H PRN PRN #12 06/06/18 [Phenergan] suppos. biotin 10 mg tablet 10 mg PO DAILY 12/22/18 calcium citrate 250 mg PO BID 12/22/18 docusate sodium 100 mg capsule 100 mg PO TID PRN cap 12/22/18 uuhbnowp-nvsh-gzfse acid 200 4 tab PO DAILY tab 12/22/18 mcg-herbal no.293 37.5 mg chewable tablet polyethylene glycol 3350 17 17 g PO PRN PRN 12/22/18 gram/dose oral powder Ondansetron [Zofran Odt] 8 mg PO Q6H PRN PRN 01/12/19 Albuterol Aerosols [Ventolin 2.5 mg INHALATION Q4H PRN PRN #25 02/07/19 Aerosols] vial traMADol [Ultram (G)] 1 - 2 tab PO Q8H PRN 02/14/19 Cholecalciferol (Vitamin D3) 4,000 unit PO DAILY 03/21/19 [Vitamin D3] Hydrocodone Bitart/Apap 5-325 1 tab PO Q4H PRN PRN 2 Days #10 tab 03/21/19 [[place] 5MG-325MG] proMETHazine tablet [Phenergan] 25 mg PO Q6H PRN PRN #10 tab 03/21/19 Surgical History: Surgical History (Last Reviewed 12/22/18 @ 14:53 by Ysabel Luna) History of gastric bypass (Resolved) Z98.84 H/O: hysterectomy (Resolved) Z98.890, Z90.710 History of lithotripsy (Resolved) Z98.890 Previous section (Chronic) Z98.891 History of carpal tunnel release of both wrists (Resolved) Z98.890 Surgical History: gastric bypass, - - Gastric bypass with Sofia-en-Y in 2017, x1. 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 Smoking Status: Current every day smoker Tobacco Use: Cigarettes - Patient notes ongoing less than half pack per day cigarette tobacco usage. Alcohol: None Drugs: None, Marijuana - Patient uses occasional cannabis, CBD oils. - *Family History Maternal Family History: Family History (Last Reviewed 12/22/18 @ 14:53 by Ysabel Luna) Father Hypertension Heart disease Diabetes CVA (cerebral vascular accident) Blood clotting disorder Pneumonia Grandfather Cancer Brother Diabetes Sister Asthma Sister Depression Anxiety History Items: Diabetes, High Cholesterol, Heart Disease, Hypertension Paternal Family History: Family History (Last Reviewed 12/22/18 @ 14:53 by Ysabel Luna) Father Hypertension Heart disease Diabetes CVA (cerebral vascular accident) Blood clotting disorder Pneumonia Grandfather Cancer Brother Diabetes Sister Asthma Sister Depression Anxiety History Items: Diabetes, Hypertension Review of Systems Constitutional: Reports: Anorexia, Malaise, Weakness, Fatigue. Denies: Chills, Fever, Weight Change HEENT: Denies: Head Aches, Sinus Congestion, Sinus Drainage Cardiovascular: Denies: Chest Pain, Palpitations Respiratory: Denies: Cough, Shortness of breath at rest, Sputum production Gastrointestinal: Reports: Abdominal Pain, Constipation, Hematemesis, Nausea, Vomiting Genitourinary: Denies: Dysuria Musculoskeletal: Reports: Joint Pain. Denies: Joint Tenderness Skin: Denies: Rash, Wounds Neurological: Denies: Numbness, Tingling, Focal weakness Psychiatric: Reports: Anxiety, Depression. Denies: Homicidal Ideations, Suicidal Ideations Hematologic/ Lymphatic: Reports: Anemia. Denies: Easy Bruising, Easy Bleeding VTE Information - Inpt Only VTE Present on Admission: No VTE Mechan Device Prophylaxis: SCD's VTE Pharm Prophylaxis ordered?: No Reason prophylaxis not ordered:: Medical Contraindication Patient Problems: Active and Suspected Problems (Last Reviewed 12/22/18 @ 14:53 by Ysabel Luna) Intractable abdominal pain (Acute) Hematemesis (Acute) Subjective: Laying in the bed, fatigued appearing, ongoing abdominal pain complaint. Objective: Physical Examination: General: awake, alert, oriented x 3 and cooperative, in the bed, fatigued appearance, notes ongoing abdominal discomfort. Skin: normal color, turgor, no icterus, cyanosis. HEENT: AT/NC, EOMI, PERRLA, dry MM, no carotid bruits or JVD noted. Lungs: Breath sounds bilaterally, greater bases, no obvious rales, ronchi or wheezing. Heart: Regular rate and rhythm; no gallop, rub audible. Abdomen: soft, cachectic habitus, discomfort palpation of the epigastric region, severe, voluntary guarding noted, ND, decreased BS, no HSM. Extremities: no cyanosis, clubbing, or edema. Neurological: patient awake, alert, oriented x 3; cognitive function intact; pupils equally reactive to light and accomodation; cranial nerves II-XII grossly normal, moving all 4 extremities, no focal deficits, strength moderately globally Crystal secondary to acute presentation and ongoing complaints of abdominal pain. Psychiatric: affect appears fatigued, anxious, no acute evidence of depressive feelings. - Physical Exam Vitals/I&O's: Vital Signs Temp Pulse Resp BP Pulse Ox 98.9 F 75 15 177/97 H 100 03/22/19 23:14 03/23/19 00:35 03/22/19 23:14 03/23/19 00:35 03/22/19 23:14 Oxygen Delivery Method Room Air Weight: 118 lb Body Mass Index (BMI) 19.0 Intake and Output for Last 24 Hours 03/21/19 03/22/19 03/23/19 23:59 23:59 23:59 Intake Total 110 / 110 Balance 110 / 110 Laboratory Results 03/23/19 00:00: WBC 7.9, RBC 5.13, Hgb 12.5, Hct 40.4, MCV 78.8 L, MCH 24.4 L, MCHC 30.9 L, RDW Std Deviation 43.0, RDW Coeff of Donis 15.1 H, Plt Count 352, MPV 9.7, Immature Gran % (Auto) 0.400, Neut % (Auto) 73.6 H, Lymph % (Auto) 15.9 L, [place] % (Auto) 7.6, Eos % (Auto) 2.0, Baso % (Auto) 0.5, Absolute Neuts (auto) 5.8, Absolute Lymphs (auto) 1.26, Nucleated RBC % 0 03/23/19 00:00: Sodium 137, Potassium 3.5, Chloride 102, Carbon Dioxide 30.0, Anion Gap 5, BUN 10, Creatinine 0.77, Estim Creat Clear Calc 76.32, Est GFR (MDRD) Af Amer 103, Est GFR (MDRD) Non-Af 85, BUN/Creatinine Ratio 13.0, Glucose 106, Calcium 9.6 03/23/19 00:00: Blood Type Pending, Antibody Screen Pending Current Medications Sodium Chloride () 1,000 mls @ 125 mls/hr IV .Q8H KIAH Last Admin: 03/22/19 23:57 Dose: 125 mls/hr Documented by: Assessment/Plan All Active Problems (Last Reviewed 12/22/18 @ 14:53 by Ysabel Luna) Viral syndrome (Acute) Intractable abdominal pain (Acute) Hematemesis (Acute) History of gastric bypass (Resolved) H/O: hysterectomy (Resolved) History of lithotripsy (Resolved) History of carpal tunnel release of both wrists (Resolved) Dysfunctional uterine bleeding (Resolved) Chest pain (Resolved) The patient is a 48 y/o F w/ PMHx: Chronic COPD, Tobacco use, HTN, HLD, Anxiety and Depression, GERD w/ Hx Bleeding Ulcer, Hx morbid obesity s/p gastric bypass status who presents to the [facility] ED on 03/23/19 with history of evaluation the day prior converted ongoing chronic epigastric abdominal pain, dull aching as well as sharp intermittent stabbing, rated 5-6 out of 10 in severity ongoing for several years however had onset of intractable nausea and emesis with hematemesis onset x1 approximately 20 minutes prior to ED presentation. 1. Epigastric abdominal pain with episode hematemesis concerning for acute GI Bleed w/ Hx prior bleeding ulcer, unclear type: Admission Hgb 12.5, will admit to [facility], maintain on IVFs, obtain serial H+H q 4 hours, obtain T+S w/ cross for PRBC administration if appropriate, maintain on IV PPI, PRN oral and IV pain regimen, antiemetics PRN, general surgery consulted for consideration of endoscopy, maintained NPO status. 2. Severe protein calorie malnutrition: Evidenced per habitus, reduced BMI, status post gastric bypass with Sofia-en-Y following morbidly obese habitus, now malnourished appearance, denies any anorexic or bulimic behaviors, nutrition consulted. 3. Chronic COPD: ATC duonebs, PRN albuterol, HOB, IS parameters. 4. Tobacco Abuse: Encouraged cessation, inpatient consultation per RT, NR if desired. 5. Anxiety and depression: We will continue patient home BuSpar regimen however would benefit from consideration of SNRI versus SSRI addition. Patient's psychiatric underlying issues may be contributing to her chronic pain as well. 6. Chronic constipation: From review of records patient on chronic constipation regimen, holding temporarily pending evaluation as noted #1. May benefit from lower endoscopy as well in the future. 7. Hypertension: Not on regimen per current list, likely reduced medication load following gastric bypass with weight reduction, elevated BP during admission although could be related to acute pain, will have PRN IV hydralazine in interim but oral addition may be necessary. 8. Hyperlipidemia: Not on regimen, defer to outpatient. 9. GERD: Maintained on IV PPI as noted. 10. DVT prophylaxis: SCDs, defer chemoprophylaxis given acute presentation as noted. Code Visit OBSV E&M: [id number] Initial observation care L3
[2019-03-23] MEDS: HYDROmorphone 0.5 MG/0.5 ML SYRINGE IV (01:21)
[2019-03-23] MEDS: proMETHazine 25 MG/ML Syringe 6.25 MG IV ×2 (03:40→13:02)
[2019-03-23] MEDS: Morphine 2 MG/ML Syringe IV ×5 (03:42→16:35)
[2019-03-23 04:10] LABS: Partial Thromboplast Time 29.8 Seconds (24.1-36.2)
[2019-03-23 04:29] LABS: Absolute Lymphocyte Count 1.12 X10^3/uL (0.83-4.51); Absolute Neutrophil Count 5.5 X10^3/uL (2.0-7.7); Basophil# 0.02 X10^3/uL; Basophil% 0.3 % (0-1); Eosinophil# 0.07 X10^3/uL; Hematocrit 34.6 % (37-47); Hemoglobin 10.7 g/dL (12.0-15.0); Lymphocyte # 1.12 X10^3/ul (4.0); Lymphocyte % 15.6 % (19-41); Mean Corp Hgb Conc 30.9 g/dL (32-36); Mean Corpuscular Hgb 23.9 pg (27.0-32.0); Mean Corpuscular Volume 77.2 fL (81-99); Mean Platelet Vol. 9.7 fl (6.2-12.0); Monocyte# 0.43 X10^3/uL; NRBC Flagged by Analyzer 0 % (0-5); Neutrophil # 5.54 X10^3/uL (2.7-7.7); Platelet Count 278 K/mm3 (150-450); RBC Distribution Width CV 15.1 % (11.6-14.6); RBC Distribution Width SD 41.9 fl (35.1-43.9); Red Blood Count 4.48 M/mm3 (4.2-5.4); White Blood Count 7.2 K/mm3 (4.4-11.0)
[2019-03-23 04:31] LABS: Anion Gap 6 (5-15); BUN 8 mg/dL (7-18); BUN/Creat Ratio 16.7 RATIO (10-20); Calcium,Total 8.7 mg/dL (8.5-10.1); Chloride 104 mmol/L (98-107); Creatinine, Serum 0.48 mg/dL (0.55-1.02); EST Glomerular Filtration Rate 147 mL/min (>60); Est Glom Filt Rate - Afr Amer 178 mL/min (>60); Estimated Creatinine Clearance 123.52 ml/min; Glucose 99 mg/dL (74-106); International Normalized Ratio 1.2; Prothrombin Time (Protime)PT. 14.6 SECONDS (11.7-14.9); Sodium Level 136 mmol/L (136-145)
[2019-03-23] MEDS: 0.9% Normal Saline 1,000 ML 125 ML IV ×3 (06:28→13:05)
[2019-03-23] MEDS: Ondansetron 4 MG/2 ML Vial IV (06:40)
[2019-03-23] MEDS: hydrALAZINE 20 MG/ML Vial 10 MG IV (06:58)
[2019-03-23] MEDS: Ipratropium/Albuterol Sulfate 3 ML AMPUL.NEB INHALATION ×2 (08:12→13:29)
[2019-03-23 08:35] LABS: Hemoglobin 10.8 g/dL (12.0-15.0)
--- NOTE | 2019-03-23 08:40 | CON.PCM_ITS ---
Problem List (1) Bloody vomitus Status: Acute Qualifiers: Nausea presence: with nausea Qualified Code(s): K92.0 - Hematemesis Reason for Consult Date of Consultation: 03/23/19 History of Present Illness: The patient is a 48 year old F who presents after spitting up blood for the last 2 days. She is having epigastric pain as well. She has a history of gastric bypass and she is still smoking. She says this has happened before. She said that she has vomited blood before and she has had epigastric pain which usually goes away. Past Medical History Past Medical History (Chronic Problems): Chronic Problems (Last Reviewed 12/22/18 @ 14:53 by Ysabel Luna) Hyperlipidemia (Chronic) Protein calorie malnutrition (Chronic) Periodic limb movement disorder (PLMD) (Chronic) Previous section (Chronic) Essential hypertension (Chronic) Gastroesophageal reflux disease (Chronic) Major depression (Chronic) Sarcoidosis (Chronic) Fatigue (Chronic) Vitamin D deficiency (Chronic) Cigarette nicotine dependence (Chronic) Prediabetes (Chronic) Onychomycosis (Chronic) Alopecia (Chronic) Skin rash (Chronic) Anxiety (Chronic) Fatty liver disease, nonalcoholic (Chronic) Peripheral edema (Chronic) Stage 1 mild COPD by GOLD classification (Chronic) Benign essential HTN (Chronic) Morbid obesity (Chronic) Tobacco user (Chronic) Obstructive sleep apnea (Chronic) COPD (chronic obstructive pulmonary disease) (Chronic) Nephrolithiasis (Chronic) Noted history of recent stent placement. Medical History: Medical History (Last Reviewed 12/22/18 @ 14:53 by Ysabel Luna) Essential hypertension (Chronic) I10 Gastroesophageal reflux disease (Chronic) K21.9 Major depression (Chronic) F32.9 Sarcoidosis (Chronic) D86.9 Fatigue (Chronic) R53.83 Vitamin D deficiency (Chronic) E55.9 Cigarette nicotine dependence (Chronic) F17.210 Prediabetes (Chronic) R73.03 Dysfunctional uterine bleeding (Resolved) N93.8 Onychomycosis (Chronic) B35.1 Chest pain (Resolved) R07.9 Alopecia (Chronic) L65.9 Skin rash (Chronic) R21 Anxiety (Chronic) F41.9 Fatty liver disease, nonalcoholic (Chronic) K76.0 Peripheral edema (Chronic) R60.9 Stage 1 mild COPD by GOLD classification (Chronic) J44.9 Benign essential HTN (Chronic) I10 Morbid obesity (Chronic) E66.01 Tobacco user (Chronic) Z72.0 Obstructive sleep apnea (Chronic) G47.33 COPD (chronic obstructive pulmonary disease) (Chronic) J44.9 Nephrolithiasis (Chronic) Noted history of recent stent placement. Allergies latex Allergy (Verified 03/22/19 23:18) Hives povidone-iodine [From Betadine] Allergy (Verified 03/22/19 23:18) Rash Home Medications: Ambulatory Orders Medication Instructions Recorded Acyclovir 400 mg PO BID 05/23/18 Omeprazole 40 mg PO DAILY 05/23/18 busPIRone [Buspar] 15 mg PO BID 05/23/18 proMETHazine suppository 25 mg RECTAL Q6H PRN PRN #12 06/06/18 [Phenergan] suppos. biotin 10 mg tablet 10 mg PO DAILY 12/22/18 calcium citrate 250 mg PO BID 12/22/18 docusate sodium 100 mg capsule 100 mg PO TID PRN cap 12/22/18 xbuuxspi-qusy-xbynd acid 200 4 tab PO DAILY tab 12/22/18 mcg-herbal no.293 37.5 mg chewable tablet polyethylene glycol 3350 17 17 g PO PRN PRN 12/22/18 gram/dose oral powder Ondansetron [Zofran Odt] 8 mg PO Q6H PRN PRN 01/12/19 Albuterol Aerosols [Ventolin 2.5 mg INHALATION Q4H PRN PRN #25 02/07/19 Aerosols] vial traMADol [Ultram (G)] 1 - 2 tab PO Q8H PRN 02/14/19 Cholecalciferol (Vitamin D3) 4,000 unit PO DAILY 03/21/19 [Vitamin D3] Hydrocodone Bitart/Apap 5-325 1 tab PO Q4H PRN PRN 2 Days #10 tab 03/21/19 [[place] 5MG-325MG] proMETHazine tablet [Phenergan] 25 mg PO Q6H PRN PRN #10 tab 03/21/19 Surgical History: Surgical History (Last Reviewed 12/22/18 @ 14:53 by Ysabel Luna) History of gastric bypass (Resolved) Z98.84 H/O: hysterectomy (Resolved) Z98.890, Z90.710 History of lithotripsy (Resolved) Z98.890 Previous section (Chronic) Z98.891 History of carpal tunnel release of both wrists (Resolved) Z98.890 Surgical History: gastric bypass, - - Gastric bypass with Sofia-en-Y in 2017, C- section x1. 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 Smoking Status: Current every day smoker Tobacco Use: Cigarettes Alcohol: None Drugs: None, Marijuana - Patient uses occasional cannabis, CBD oils. - *Family History Maternal Family History: Family History (Last Reviewed 12/22/18 @ 14:53 by Ysabel Lnua) Father Hypertension Heart disease Diabetes CVA (cerebral vascular accident) Blood clotting disorder Pneumonia Grandfather Cancer Brother Diabetes Sister Asthma Sister Depression Anxiety History Items: Diabetes, High Cholesterol, Heart Disease, Hypertension Paternal Family History: Family History (Last Reviewed 12/22/18 @ 14:53 by Ysabel Luan) Father Hypertension Heart disease Diabetes CVA (cerebral vascular accident) Blood clotting disorder Pneumonia Grandfather Cancer Brother Diabetes Sister Asthma Sister Depression Anxiety History Items: Diabetes, Hypertension Review of Systems Constitutional: Denies: Anorexia, Fever HEENT: Denies: Difficulty Swallowing Cardiovascular: Denies: Chest Pain Respiratory: Denies: Cough, Shortness of Breath Gastrointestinal: Reports: Abdominal Pain, Hematemesis, Nausea Genitourinary: Denies: Dysuria Musculoskeletal: Denies: Joint Pain Skin: Denies: Dryness Patient Problems: Active and Suspected Problems (Last Reviewed 12/22/18 @ 14:53 by Ysabel Luna) Intractable abdominal pain (Acute) Hematemesis (Acute) Bloody vomitus (Acute) - Physical Exam Vitals/I&O's: Vital Signs Temp Pulse Resp BP Pulse Ox 98.1 F 89 15 159/100 H 97 03/23/19 06:53 03/23/19 06:58 03/23/19 06:53 03/23/19 06:58 03/23/19 06:53 Oxygen Delivery Method Room Air Weight: 119 lb 0.794 oz Body Mass Index (BMI) 19.2 Intake and Output for Last 24 Hours 03/21/19 03/22/19 03/23/19 23:59 23:59 23:59 Intake Total 1110 / 1110 Balance 1110 / 1110 General: Alert, Oriented x3 Neck: No JVD Lungs: Normal air movement Cardiovascular: Regular rate, Regular Rhythm Abdomen: Soft, Non-Distended, Tender - Epigastric tenderness Laboratory Results 03/23/19 00:00: WBC 7.9, RBC 5.13, Hgb 12.5, Hct 40.4, MCV 78.8 L, MCH 24.4 L, MCHC 30.9 L, RDW Std Deviation 43.0, RDW Coeff of Donis 15.1 H, Plt Count 352, MPV 9.7, Immature Gran % (Auto) 0.400, Neut % (Auto) 73.6 H, Lymph % (Auto) 15.9 L, [place] % (Auto) 7.6, Eos % (Auto) 2.0, Baso % (Auto) 0.5, Absolute Neuts (auto) 5.8, Absolute Lymphs (auto) 1.26, Nucleated RBC % 0 03/23/19 00:00: Sodium 137, Potassium 3.5, Chloride 102, Carbon Dioxide 30.0, Anion Gap 5, BUN 10, Creatinine 0.77, Estim Creat Clear Calc 76.32, Est GFR (MDRD) Af Amer 103, Est GFR (MDRD) Non-Af 85, BUN/Creatinine Ratio 13.0, Glucose 106, Calcium 9.6 03/23/19 00:00: Blood Type O POSITIVE, Antibody Screen NEGATIVE 03/23/19 03:52: APTT 29.8 03/23/19 03:52: WBC 7.2, RBC 4.48, Hgb 10.7 L, Hct 34.6 L, MCV 77.2 L, MCH 23.9 L, MCHC 30.9 L, RDW Std Deviation 41.9, RDW Coeff of Donis 15.1 H, Plt Count 278, MPV 9.7, Immature Gran % (Auto) 0.100, Neut % (Auto) 77.0 H, Lymph % (Auto) 15.6 L, [place] % (Auto) 6.0, Eos % (Auto) 1.0, Baso % (Auto) 0.3, Absolute Neuts (auto) 5.5, Absolute Lymphs (auto) 1.12, Nucleated RBC % 0 03/23/19 03:52: PT 14.6, INR 1.2 03/23/19 03:52: Sodium 136, Potassium 4.0, Chloride 104, Carbon Dioxide 26.0, Anion Gap 6, BUN 8, Creatinine 0.48 L, Estim Creat Clear Calc 123.52, Est GFR (MDRD) Af Amer 178, Est GFR (MDRD) Non-Af 147, BUN/Creatinine Ratio 16.7, Glucose 99, Calcium 8.7 03/23/19 08:12: Hgb 10.8 L, Hct 35.0 L Current Medications Acetaminophen (Tylenol) 650 mg PO Q6H PRN PRN PRN Reason: Pain Score 1-3/Temp > 100.7 F Albuterol/Ipratropium (Duoneb) 3 ml INHALATION Q6HWA.RT KIAH Last Admin: 03/23/19 08:12 Dose: 3 ml Documented by: Buspirone HCl (Buspar) 15 mg PO BID KAIH Glucagon () 1 mg IM .X1 PRN PRN Reason: Hypoglycemia Guaifenesin (Robitussin) 20 ml PO Q4H PRN PRN PRN Reason: COUGH Hydralazine HCl (Apresoline Iv) 10 mg IV Q4H PRN PRN PRN Reason: SBP > 160, DBP > 90 Last Admin: 03/23/19 06:58 Dose: 10 mg Documented by: Sodium Chloride () 1,000 mls @ 125 mls/hr IV .Q8H KIAH Last Admin: 03/23/19 06:28 Dose: 125 mls/hr Documented by: Pantoprazole Sodium 40 mg/ (Sodium Chloride) 110 mls @ 330 mls/hr IV Q12 [facility] Dextrose (Dextrose 10%-Water) 250 mls @ 999 mls/hr IV .Q16M PRN; Protocol PRN Reason: HYPOGLYCEMIA Melatonin (Melatonin) 3 mg PO QHS PRN PRN PRN Reason: INSOMNIA Morphine Sulfate () 2 mg IV Q3H PRN PRN PRN Reason: Pain Score 6-10/10 Last Admin: 03/23/19 06:40 Dose: 2 mg Documented by: Nicotine (Nicoderm Cq (Pbkc)) 21 mg TRANSDERM. DAILY [facility] Ondansetron HCl (Zofran) 4 mg IV Q8H PRN PRN PRN Reason: NAUSEA/VOMITING Last Admin: 03/23/19 06:40 Dose: 4 mg Documented by: Oxycodone HCl (Oxyir) 5 mg PO Q4H PRN PRN PRN Reason: Pain Score 4-5/10 Promethazine HCl (Phenergan) 6.25 mg IV Q4H PRN PRN PRN Reason: NAUSEA/VOMITING Last Admin: 03/23/19 03:40 Dose: 6.25 mg Documented by: Sodium Chloride () 10 - 40 ml IV UD PRN PRN Reason: SALINE FLUSH Throat Lozenges (Cepacol Sore Throat Lozenge) 1 lozenge MUCOUS MEM Q2H PRN PRN PRN Reason: Sore throat or cough Assessment/Plan All Active Problems (Last Reviewed 12/22/18 @ 14:53 by Ysabel Luna) Viral syndrome (Acute) Intractable abdominal pain (Acute) Hematemesis (Acute) Bloody vomitus (Acute) History of gastric bypass (Resolved) H/O: hysterectomy (Resolved) History of lithotripsy (Resolved) History of carpal tunnel release of both wrists (Resolved) Dysfunctional uterine bleeding (Resolved) Chest pain (Resolved) 48-year-old female the epigastric pain and bloody vomiting 1. The patient likely has bleeding marginal ulcer due to the fact that she had a gastric bypass and she is still continues to smoke. She is on a PPI. I will keep her n.p.o. and plan for an EGD this afternoon. I discussed EGD with her and the fact that if it is bleeding I may be able to inject some epinephrine but it is unlikely that I would be able to stop any real active bleeding from a marginal ulcer. Continue PPI and I encouraged smoking cessation. 2. I explained endoscopy in detail to the patient. I explained the risks including but not limited to stroke or heart attack with anesthesia, perforation of the GI tract, bleeding, infection. I explained that any of these could necessitate further emergency surgery. The patient understands and all questions were answered sufficiently. The patient wishes to proceed with procedure. Manuel Schuster MD Pager: [facility] [address] [place] [address], [address] [place] [address] Office:
[2019-03-23] MEDS: 0.9% Saline Lock 10 ML Syringe IV ×3 (09:51→16:35)
--- NOTE | 2019-03-23 11:48 | PN_ITS ---
Progress Note I performed an EGD on the patient this morning. The patient has a marginal ulcer which had been bleeding. There is an adherent clot. I did not dislodge the clot attached to the ulcer. It was only slowly oozing at this time. I recommend PPI and liquid Carafate if possible. I also recommend only starting clear liquids for today. I also have recommended smoking cessation again. Manuel Schuster MD Pager: [facility] [address] [place] [address], [address] [place] [id number] Office: [facility]OKE Vital Signs/Narrative: Vital Signs Temp Pulse Resp BP Pulse Ox 03/23/19 09:16 98.3 F 109 H 18 137/90 H 100 03/23/19 08:12 105 H 20 H 100
[2019-03-23 12:27] LABS: Hematocrit 31.4 % (37-47); Hemoglobin 9.7 g/dL (12.0-15.0)
[2019-03-23] MEDS: Sucralfate 1 GM Tablet PO ×2 (13:02→16:35)
--- NOTE | 2019-03-23 13:50 | CASEMGMT ---
RN CM NOTE: Introduced self and role of of RN CM. Pt resting in bed. Visitors at bedside. Pt denies having any discharge needs or concerns with going home when medically ready. Pt instructed to ask for CM if any needs/concerns arise. She voices understanding. Delio BSN RN CM
--- NOTE | 2019-03-23 14:19 | OP.EGD_ITS ---
Patient Name: Venessa Cohen Procedure Date: 03/23/2019 11:31 AM Date of : 1970 Age: 48 Procedure: Upper GI endoscopy Indications: Hematemesis Providers: Manuel Schuster MD Medicines: Monitored Anesthesia Care Patient Profile: This is a 48 year old female. Refer to note in patient chart for documentation of history and physical. Complications: No immediate complications. Estimated blood loss: Minimal. Procedure: Pre-Anesthesia Assessment: - Prior to the procedure, a History and Physical was performed, and patient medications and allergies were reviewed. The patient's tolerance of previous anesthesia was also reviewed. The risks and benefits of the procedure and the sedation options and risks were discussed with the patient. All questions were answered, and informed consent was obtained. Prior Anticoagulants: The patient has taken no previous anticoagulant or antiplatelet agents. After reviewing the risks and benefits, the patient was deemed in satisfactory condition to undergo the procedure. After obtaining informed consent, the endoscope was passed under direct vision. Throughout the procedure, the patient's blood pressure, pulse, and oxygen saturations were monitored continuously. The gastroscope was introduced through the mouth, and advanced to the efferent jejunal loop. The upper GI endoscopy was accomplished without difficulty. The patient tolerated the procedure well. Scope In: 11:40:06 AM Scope Out: 11:42:54 AM Total Procedure Duration Time 0 hours 2 minutes 48 seconds Findings: One oozing cratered gastric ulcer with adherent clot was found at the anastomosis. Impression: - Oozing gastric ulcer with adherent clot. - No specimens collected. Recommendation: - Return patient to [facility] for [facility] care. - Clear liquid diet. - Continue present medications. Procedure Code(s): --- Professional --- 73423, Esophagogastroduodenoscopy, flexible, transoral; diagnostic, including collection of specimen(s) by brushing or washing, when performed (separate procedure) Diagnosis Code(s): --- Professional --- K25.4, Chronic or unspecified gastric ulcer with hemorrhage K92.0, Hematemesis CPT copyright 2017 [employer]. All rights reserved. The codes documented in this report are preliminary and upon pulling unit operator review may be revised to meet current compliance requirements. Manuel Schuster MD 03/23/2019 11:51:39 AM This report has been signed electronically. Number of Addenda: 0 Note Initiated On: 03/23/2019 11:31 AM
--- NOTE | 2019-03-23 14:19 | OP.CCLET_ITS ---
03/23/2019 Amari Renae [address] [place] [address] Re : Upper GI endoscopy procedure for [facility] Dear Dr. Renae This procedure was performed on Saturday, March 23, 2019. My impressions and recommendations are as follows: Impressions : - Oozing gastric ulcer with adherent clot. - No specimens collected. Recommendations : - Return patient to [facility] care. - Clear liquid diet. - Continue present medications. My findings are described in the full procedure note, which is enclosed. If I can be of further assistance, please feel free to contact me at Doctor phone number(s): , Work: . Sincerely, Manuel Schuster MD 03/23/2019 11:51:39 AM This report has been signed electronically.
--- NOTE | 2019-03-23 15:16 | PN_ITS ---
Patient Problems: Active and Suspected Problems (Last Reviewed 12/22/18 @ 14:53 by Ysabel Luna) Intractable abdominal pain (Acute) Hematemesis (Acute) Bloody vomitus (Acute) Vitals/I&O's: Vital Signs Temp Pulse Resp BP Pulse Ox 99.1 F 109 H 16 144/94 H 100 03/23/19 12:54 03/23/19 13:29 03/23/19 13:29 03/23/19 12:54 03/23/19 12:54 Oxygen Flow Rate (L/min) 2 Oxygen Delivery Method Room Air Weight: 54 kg Body Mass Index (BMI) 19.2 Intake and Output for Last 24 Hours 03/21/19 03/22/19 03/23/19 23:59 23:59 23:59 Intake Total 2351.25 / 2351.25 Balance 2351.25 / 2351.25 Laboratory Results 03/23/19 00:00: WBC 7.9, RBC 5.13, Hgb 12.5, Hct 40.4, MCV 78.8 L, MCH 24.4 L, MCHC 30.9 L, RDW Std Deviation 43.0, RDW Coeff of Donis 15.1 H, Plt Count 352, MPV 9.7, Immature Gran % (Auto) 0.400, Neut % (Auto) 73.6 H, Lymph % (Auto) 15.9 L, Major % (Auto) 7.6, Eos % (Auto) 2.0, Baso % (Auto) 0.5, Absolute Neuts (auto) 5.8, Absolute Lymphs (auto) 1.26, Nucleated RBC % 0 03/23/19 00:00: Sodium 137, Potassium 3.5, Chloride 102, Carbon Dioxide 30.0, Anion Gap 5, BUN 10, Creatinine 0.77, Estim Creat Clear Calc 76.32, Est GFR (MDRD) Af Amer 103, Est GFR (MDRD) Non-Af 85, BUN/Creatinine Ratio 13.0, Glucose 106, Calcium 9.6 03/23/19 00:00: Blood Type O POSITIVE, Antibody Screen NEGATIVE 03/23/19 03:52: APTT 29.8 03/23/19 03:52: WBC 7.2, RBC 4.48, Hgb 10.7 L, Hct 34.6 L, MCV 77.2 L, MCH 23.9 L, MCHC 30.9 L, RDW Std Deviation 41.9, RDW Coeff of Donis 15.1 H, Plt Count 278, MPV 9.7, Immature Gran % (Auto) 0.100, Neut % (Auto) 77.0 H, Lymph % (Auto) 15.6 L, Major % (Auto) 6.0, Eos % (Auto) 1.0, Baso % (Auto) 0.3, Absolute Neuts (auto) 5.5, Absolute Lymphs (auto) 1.12, Nucleated RBC % 0 03/23/19 03:52: PT 14.6, INR 1.2 03/23/19 03:52: Sodium 136, Potassium 4.0, Chloride 104, Carbon Dioxide 26.0, Anion Gap 6, BUN 8, Creatinine 0.48 L, Estim Creat Clear Calc 123.52, Est GFR (MDRD) Af Amer 178, Est GFR (MDRD) Non-Af 147, BUN/Creatinine Ratio 16.7, Glucose 99, Calcium 8.7 03/23/19 08:12: Hgb 10.8 L, Hct 35.0 L 03/23/19 12:15: Hgb 9.7 L, Hct 31.4 L Current Medications Acetaminophen (Tylenol) 650 mg PO Q6H PRN PRN PRN Reason: Pain Score 1-3/Temp > 100.7 F Albuterol/Ipratropium (Duoneb) 3 ml INHALATION Q6HWA.RT [facility] Last Admin: 03/23/19 13:29 Dose: 3 ml Documented by: Buspirone HCl (Buspar) 15 mg PO BID [facility] Last Admin: 03/23/19 14:50 Dose: Not Given Documented by: Glucagon () 1 mg IM .X1 PRN PRN Reason: Hypoglycemia Guaifenesin (Robitussin) 20 ml PO Q4H PRN PRN PRN Reason: COUGH Hydralazine HCl (Apresoline Iv) 10 mg IV Q4H PRN PRN PRN Reason: SBP > 160, DBP > 90 Last Admin: 03/23/19 06:58 Dose: 10 mg Documented by: Sodium Chloride () 1,000 mls @ 125 mls/hr IV .Q8H [facility] Last Admin: 03/23/19 13:05 Dose: 125 mls/hr Documented by: Pantoprazole Sodium 40 mg/ (Sodium Chloride) 110 mls @ 330 mls/hr IV Q12 [facility] Last Infusion: 03/23/19 10:11 Dose: Infused Documented by: Dextrose (Dextrose 10%-Water) 250 mls @ 999 mls/hr IV .Q16M PRN; Protocol PRN Reason: HYPOGLYCEMIA Melatonin (Melatonin) 3 mg PO QHS PRN PRN PRN Reason: INSOMNIA Morphine Sulfate () 2 mg IV Q3H PRN PRN PRN Reason: Pain Score 6-10/10 Last Admin: 03/23/19 13:02 Dose: 2 mg Documented by: Nicotine (Nicoderm Cq (Pbkc)) 21 mg TRANSDERM. DAILY [facility] Last Admin: 03/23/19 13:08 Dose: 21 mg Documented by: Ondansetron HCl (Zofran) 4 mg IV Q8H PRN PRN PRN Reason: NAUSEA/VOMITING Last Admin: 03/23/19 06:40 Dose: 4 mg Documented by: Oxycodone HCl (Oxyir) 5 mg PO Q4H PRN PRN PRN Reason: Pain Score 4-5/10 Promethazine HCl (Phenergan) 6.25 mg IV Q4H PRN PRN PRN Reason: NAUSEA/VOMITING Last Admin: 03/23/19 13:02 Dose: 6.25 mg Documented by: Sodium Chloride () 10 - 40 ml IV UD PRN PRN Reason: SALINE FLUSH Last Admin: 03/23/19 13:02 Dose: 10 ml Documented by: Sucralfate (Carafate) 1 gm PO 1HR_ACHS [facility] Last Admin: 03/23/19 13:02 Dose: 1 gm Documented by: Throat Lozenges (Cepacol Sore Throat Lozenge) 1 lozenge MUCOUS MEM Q2H PRN PRN PRN Reason: Sore throat or cough [facility] Vital Signs/Narrative: Vital Signs Temp Pulse Resp BP Pulse Ox 03/23/19 13:29 109 H 16 03/23/19 12:54 99.1 F 101 H 14 144/94 H 100 03/23/19 12:33 101.0 F H 95 16 156/98 H 100 03/23/19 12:20 94 16 155/97 H 100 01/20/20 12:14 98 16 140/98 H 100 03/23/19 12:00 120 H 20 H 124/84 H 120 03/23/19 11:55 137 H 20 H 111/80 98 03/23/19 11:52 147 H 24 H 74/54 L 100 03/23/19 11:47 99.0 F 139 H 24 H 79/55 L 98 Medical Necessity - Tobacco Use Smoking Status: Current every day smoker Tobacco Use: Cigarettes Assessment/Plan All Active Problems (Last Reviewed 12/22/18 @ 14:53 by Ysabel Luna) Viral syndrome (Acute) Intractable abdominal pain (Acute) Hematemesis (Acute) Bloody vomitus (Acute) History of gastric bypass (Resolved) H/O: hysterectomy (Resolved) History of lithotripsy (Resolved) History of carpal tunnel release of both wrists (Resolved) Dysfunctional uterine bleeding (Resolved) Chest pain (Resolved)
--- NOTE | 2019-03-23 17:52 | EKG12_ITS ---
Test Reason : HYTHM Blood Pressure : / mmHG Vent. Rate : 144 BPM Atrial Rate : 144 BPM P-R Int : 128 ms QRS Dur : 076 ms QT Int : 278 ms P-R-T Axes : 078 048 062 degrees QTc Int : 430 ms Sinus tachycardia Otherwise normal ECG When compared with ECG of 21-MAR-2019 15:42, MANUAL COMPARISON REQUIRED, DATA IS UNCONFIRMED Confirmed by CARLOS ZEPEDA, JOHANN ([id number]), design editor JILLIAN KURTZ ([id number]) on 03/27/2019 2:43:43 PM Referred By: NAYELI Confirmed By:AWAIS GONZALEZ MD
--- NOTE | 2019-03-23 18:38 | PCM.PN.BLA ---
Progress Note Patient had EGD done today that showed a clot on a marginal ulcer. Patient started on a clear liquid diet and sucralfate, continued on PPI drip Called about 5pm that patient was tachycardic, EKG showed sinus tachycardia, fluid bolus given Informed shortly that patient had gone to the bathroom, felt lightheaded and had passed lots of taras blood Discussed with Dr. Schuster who recommended transfer to tertiary facility Will obtain stat HH, IVF, transfuse 2 units of pRBC, transfer to ICU, [facility] line called, awaiting response... [facility] Vital Signs/Narrative: Vital Signs Temp Pulse Resp BP BP Pulse Ox 03/23/19 18:33 110 H 105/69 100 03/23/19 18:25 97.3 F L 107 H 18 95/64 100 03/23/19 18:20 110 H 87/58 L 03/23/19 18:15 120 H 18 84/49 L 100 03/23/19 18:10 155 H 20 H 65/34 L 84 03/23/19 17:54 151 H 03/23/19 17:53 143 H 122/85 H 03/23/19 17:47 140 H 03/23/19 16:57 112 H 03/23/19 16:37 98.9 F 120 H 16 128/91 H 100
[2019-03-23 18:48] LABS: Hematocrit 24.2 % (37-47); Hemoglobin 7.1 g/dL (12.0-15.0)
--- NOTE | 2019-03-23 19:00 | NURSING ---
face to face report given at bedside to ROSALIO Kimball and ROSALIO Josue.
--- NOTE | 2019-03-23 19:08 | DS.PCM_ITS ---
Discharge Date and Diagnosis Date of Admission: 03/23/19 Date of Discharge: 03/23/19 - Primary Discharge Diagnosis Active Problems (Last Reviewed 12/22/18 @ 14:53 by Ysabel Luna) Intractable abdominal pain (Acute) Acute upper GI bleed secondary to acute marginal bleeding ulcer Hypotension secondary to Acute GI bleed Severe malnutrition due to suboptimal energy intake - Secondary Discharge Diagnosis Chronic Problems (Last Reviewed 12/22/18 @ 14:53 by Ysabel Luna) Hyperlipidemia (Chronic) Protein calorie malnutrition (Chronic) Periodic limb movement disorder (PLMD) (Chronic) Previous section (Chronic) Essential hypertension (Chronic) Gastroesophageal reflux disease (Chronic) Major depression (Chronic) Sarcoidosis (Chronic) Fatigue (Chronic) Vitamin D deficiency (Chronic) Cigarette nicotine dependence (Chronic) Prediabetes (Chronic) Onychomycosis (Chronic) Alopecia (Chronic) Skin rash (Chronic) Anxiety (Chronic) Fatty liver disease, nonalcoholic (Chronic) Peripheral edema (Chronic) Stage 1 mild COPD by GOLD classification (Chronic) Benign essential HTN (Chronic) Morbid obesity (Chronic) Tobacco user (Chronic) Obstructive sleep apnea (Chronic) COPD (chronic obstructive pulmonary disease) (Chronic) Nephrolithiasis (Chronic) Noted history of recent stent placement. Hospital Course and Treatment General surgery Operations: None Procedures: EGD Summary of Care Provided: The patient is a 48 year old F with past medical history of gastric bypass surgery, chronic smoker, hypertension, hyperlipidemia who presented to the ED with epigastric pain. She had presented to the ED a day before and work-up at that time showed nonobstructing left nephrolithiasis, nonspecific intubation mesenteric and retroperitoneal fat. She was treated with antiemetics and pain medications and sent home. Patient presented back to the emergency department the next day after having slept most of the previous day. She had acute onset of intractable nausea with bouts of emesis which later became bright red. Admitted to PCU manage her acute GI bleed. She has a history of previous GI bleed from marginal ulcer. She was started on IV fluids, typed and crossmatched, IV PPI. General surgery was consulted on patient. Patient underwent EGD that showed a marginal bleed with an adherent clot and slight oo zing. Patient was managed subsequently in PCU on clear liquid diet, and her H&H trended. On in the day, patient was found to be tachycardic, EKG shows normal sinus rhythm. Her BP was that time was stable. She received IV fluid bolus. She later on was found to have a massive bleeding per rectum. This happened again. Drop her blood pressures to the systolic of 60s. This improved with IV fluid hydration. Upon discussing with the general surgeon, was recommended the patient be transferred to tertiary institution. Patient was transferred to ICU pending acceptance to [facility]. She received IV fluid boluses, IV fluids, was typed and crossmatched for 2 units of packed RBC. Patient was accepted to the medical ICU of [facility]. - Physical Exam Vitals/I&O's: Vital Signs Temp Pulse Resp BP Pulse Ox 97.3 F L 110 H 18 105/69 100 03/23/19 18:25 03/23/19 18:33 03/23/19 18:25 03/23/19 18:33 03/23/19 18:33 Oxygen Flow Rate (L/min) 2 Oxygen Delivery Method Nasal Cannula Weight: 54 kg Body Mass Index (BMI) 19.2 Intake and Output for Last 24 Hours 03/21/19 03/22/19 03/23/19 23:59 23:59 23:59 Intake Total 3344.17 / 3344.17 Balance 3344.17 / 3344.17 General: Alert, Oriented x3, Cooperative, - HEENT: Atraumatic, PERRLA, EOMI, Normocephalic Oral: Dry Mucosa Neck: Supple Lungs: Clear to auscultation, Normal air movement Cardiovascular: Regular rate, Regular Rhythm, Normal S1, Normal S2, Tachycardic Abdomen: Bowel Sounds Present, Soft, Non-Distended, No Hepato-splenomegaly, Tender - epigastric discomfort Extremities: No edema Skin: No rashes, No breakdown Musculoskeletal: No Tenderness to Palpation of Joints or Extremities Lymphatic: No Cervical, Supraclavicular, or Inguinal Adenopathy Neurological: Cranial nerves II-XII grossly intact, Neuro grossly intact Psych/Mental Status: Normal Affect, Appropriate Laboratory Results 03/23/19 00:00: WBC 7.9, RBC 5.13, Hgb 12.5, Hct 40.4, MCV 78.8 L, MCH 24.4 L, MCHC 30.9 L, RDW Std Deviation 43.0, RDW Coeff of Donis 15.1 H, Plt Count 352, MPV 9.7, Immature Gran % (Auto) 0.400, Neut % (Auto) 73.6 H, Lymph % (Auto) 15.9 L, Porter % (Auto) 7.6, Eos % (Auto) 2.0, Baso % (Auto) 0.5, Absolute Neuts (auto) 5.8, Absolute Lymphs (auto) 1.26, Nucleated RBC % 0 03/23/19 00:00: Sodium 137, Potassium 3.5, Chloride 102, Carbon Dioxide 30.0, Anion Gap 5, BUN 10, Creatinine 0.77, Estim Creat Clear Calc 76.32, Est GFR (MDRD) Af Amer 103, Est GFR (MDRD) Non-Af 85, BUN/Creatinine Ratio 13.0, Glucose 106, Calcium 9.6 03/23/19 00:00: Blood Type O POSITIVE, Antibody Screen NEGATIVE 03/23/19 00:00: Crossmatch See Detail 03/23/19 03:52: APTT 29.8 03/23/19 03:52: WBC 7.2, RBC 4.48, Hgb 10.7 L, Hct 34.6 L, MCV 77.2 L, MCH 23.9 L, MCHC 30.9 L, RDW Std Deviation 41.9, RDW Coeff of Donis 15.1 H, Plt Count 278, MPV 9.7, Immature Gran % (Auto) 0.100, Neut % (Auto) 77.0 H, Lymph % (Auto) 15.6 L, Porter % (Auto) 6.0, Eos % (Auto) 1.0, Baso % (Auto) 0.3, Absolute Neuts (auto) 5.5, Absolute Lymphs (auto) 1.12, Nucleated RBC % 0 03/23/19 03:52: PT 14.6, INR 1.2 03/23/19 03:52: Sodium 136, Potassium 4.0, Chloride 104, Carbon Dioxide 26.0, Anion Gap 6, BUN 8, Creatinine 0.48 L, Estim Creat Clear Calc 123.52, Est GFR (MDRD) Af Amer 178, Est GFR (MDRD) Non-Af 147, BUN/Creatinine Ratio 16.7, Glucose 99, Calcium 8.7 03/23/19 08:12: Hgb 10.8 L, Hct 35.0 L 01/20/20 12:15: Hgb 9.7 L, Hct 31.4 L 03/23/19 18:42: Hgb 7.1 L, Hct 24.2 L 03/23/19 18:42: Hgb Pending, Hct Pending Current Medications Acetaminophen (Tylenol) 650 mg PO Q6H PRN PRN PRN Reason: Pain Score 1-3/Temp > 100.7 F Albuterol/Ipratropium (Duoneb) 3 ml INHALATION Q6HWA.RT [facility] Last Admin: 03/23/19 13:29 Dose: 3 ml Documented by: Buspirone HCl (Buspar) 15 mg PO BID [facility] Last Admin: 03/23/19 14:50 Dose: Not Given Documented by: Glucagon () 1 mg IM .X1 PRN PRN Reason: Hypoglycemia Guaifenesin (Robitussin) 20 ml PO Q4H PRN PRN PRN Reason: COUGH Hydralazine HCl (Apresoline Iv) 10 mg IV Q4H PRN PRN PRN Reason: SBP > 160, DBP > 90 Last Admin: 03/23/19 06:58 Dose: 10 mg Documented by: Sodium Chloride () 1,000 mls @ 125 mls/hr IV .Q8H [facility] Last Infusion: 03/23/19 18:28 Dose: 0 mls/hr Documented by: Pantoprazole Sodium 40 mg/ (Sodium Chloride) 110 mls @ 330 mls/hr IV Q12 [facility] Last Infusion: 03/23/19 10:11 Dose: Infused Documented by: Dextrose (Dextrose 10%-Water) 250 mls @ 999 mls/hr IV .Q16M PRN; Protocol PRN Reason: HYPOGLYCEMIA Melatonin (Melatonin) 3 mg PO QHS PRN PRN PRN Reason: INSOMNIA Morphine Sulfate () 2 mg IV Q3H PRN PRN PRN Reason: Pain Score 6-10/10 Last Admin: 03/23/19 16:35 Dose: 2 mg Documented by: Nicotine (Nicoderm Cq (Pbkc)) 21 mg TRANSDERM. DAILY [facility] Last Admin: 03/23/19 13:08 Dose: 21 mg Documented by: Ondansetron HCl (Zofran) 4 mg IV Q8H PRN PRN PRN Reason: NAUSEA/VOMITING Last Admin: 03/23/19 06:40 Dose: 4 mg Documented by: Oxycodone HCl (Oxyir) 5 mg PO Q4H PRN PRN PRN Reason: Pain Score 4-5/10 Promethazine HCl (Phenergan) 6.25 mg IV Q4H PRN PRN PRN Reason: NAUSEA/VOMITING Last Admin: 03/23/19 13:02 Dose: 6.25 mg Documented by: Sodium Chloride () 10 - 40 ml IV UD PRN PRN Reason: SALINE FLUSH Last Admin: 03/23/19 16:35 Dose: 10 ml Documented by: Sucralfate (Carafate) 1 gm PO 1HR_ACHS [facility] Last Admin: 03/23/19 16:35 Dose: 1 gm Documented by: Throat Lozenges (Cepacol Sore Throat Lozenge) 1 lozenge MUCOUS MEM Q2H PRN PRN PRN Reason: Sore throat or cough Discharge Diet: No Restrictions Home Medications: Medications to take at Discharge Acyclovir 400 mg PO BID 05/23/18 Omeprazole 40 mg PO DAILY 05/23/18 busPIRone [Buspar] 15 mg PO BID 05/23/18 proMETHazine suppository [Phenergan] 25 mg RECTAL Q6H PRN PRN #12 suppos. 06/06/18 biotin 10 mg tablet 10 mg PO DAILY 12/22/18 calcium citrate 250 mg PO BID 12/22/18 docusate sodium 100 mg capsule 100 mg PO TID PRN cap 12/22/18 [id number] acid 200 mcg-herbal no.293 37.5 mg chewable tablet 4 tab PO DAILY tab 12/22/18 polyethylene glycol 3350 17 gram/dose oral powder 17 g PO PRN PRN 12/22/18 Ondansetron [Zofran Odt] 8 mg PO Q6H PRN PRN 01/12/19 Albuterol Aerosols [Ventolin Aerosols] 2.5 mg INHALATION Q4H PRN PRN #25 vial 02/07/19 traMADol [Ultram (G)] 1 - 2 tab PO Q8H PRN 02/14/19 Cholecalciferol (Vitamin D3) [Vitamin D3] 4,000 unit PO DAILY 03/21/19 proMETHazine tablet [Phenergan] 25 mg PO Q6H PRN PRN #10 tab 03/21/19 Primary Care Physician: Amari Renae DO [Primary Care Provider] - Disposition: Acute care Hospital Minutes spent on discharge:: 50 Patient Condition:: Stable Medical Necessity - Tobacco Use Smoking Status: Current every day smoker Tobacco Use: Cigarettes Meaningful Use Info Meaningful Use Diagnoses (Choose all that apply): None applicable Code Visit Inpatient E&M: 21599 Disch Hosp
--- NOTE | 2019-03-23 19:50 | NURSING ---
Report called to Candace in MICU at [facility].
--- NOTE | 2019-03-23 20:00 | NURSING ---
Pt. DC'd via stretcher with [facility] mobile ICU to [facility]. 1 Unit PRBC infusing for transport.
== END 2019-03-23 20:00 | disposition short-term general hospital (02) | DRG 241 ==
LOC: ED 23:42 → PCU 03-23 01:15 → ICU 03-25 14:13 → PCU 03-25 14:13
PROVIDERS: Surgery; Admitting Provider Family Medicine; Emergency Provider Emergency Medicine; PCP Family Medicine; Visit Provider Internal Medicine
PROC: 0DJ08ZZ Inspection of Upper Intestinal Tract, Via Natural or Artificial Opening Endoscopic (ICD-10-PCS; CPT 43235; principal; 2019-03-23 15:25)
DX: K28.0 Acute gastrojejunal ulcer with hemorrhage (principal); D62 Acute posthemorrhagic anemia; E43 Unspecified severe protein-calorie malnutrition; Z68.1 Body mass index [BMI] 19.9 or less, adult; I95.9 Hypotension, unspecified; E78.5 Hyperlipidemia, unspecified; I10 Essential (primary) hypertension; J44.9 Chronic obstructive pulmonary disease, unspecified; K21.9 Gastro-esophageal reflux disease without esophagitis; G89.29 Other chronic pain; F32.9 Major depressive disorder, single episode, unspecified; F41.9 Anxiety disorder, unspecified; F17.210 Nicotine dependence, cigarettes, uncomplicated; G47.33 Obstructive sleep apnea (adult) (pediatric); K59.09 Other constipation; N20.0 Calculus of kidney; Z98.84 Bariatric surgery status; D86.9 Sarcoidosis, unspecified
CPT/HCPCS: 36415; 74177; 80048; 80053; 81001; 83605; 83690; 84484; 85014; 85018; 85025; 85610; 85730; 86850; 86900; 86901; 86920; 86922; 93005; 94640; 96361; 96374; 96375; 96376; 97802; 99251; 99285; 99406; J7030; J7040; P9016; Q9967; A4216; G0463; J2405

== ENCOUNTER → 2019-04-03 13:12 | Outpatient (CLI) | payer MEDICAID, SELFPAY ==
[2019-03-31 06:17] VITALS: BMI 21.9
--- NOTE | 2019-04-04 06:41 | PFT ---
INTRODUCTION: The patient is a 48-year-old female that presents for pulmonary function studies secondary to a diagnosis of COPD. Respiratory therapy reports good patient effort. Bronchodilators were used during testing. INTERPRETATION: Forced expiration spirometry demonstrates no evidence of a large airways obstructive ventilatory defect. There was no significant response to aerosolized bronchodilators. Spirograms are of good quality and plateau normally. The respiratory flow volume loop appears normal. Body plethysmography was performed and reveals an elevated TLC and RV, of unclear significance. Diffusing capacity by single breath CO was within normal limits. IMPRESSION: Grossly normal pulmonary function studies
== END ==
PROVIDERS: PCP Family Medicine; Referring Provider Internal Medicine Critical Care Medicine; Visit Provider Internal Medicine Critical Care Medicine
DX: J44.9 Chronic obstructive pulmonary disease, unspecified (principal)
CPT/HCPCS: 94060; 94726; 94729

== ENCOUNTER → 2019-04-10 20:52 | Outpatient (CLI) | payer MEDICAID, SELFPAY ==
[2019-03-31 06:17] VITALS: BMI 21.9
== END ==
PROVIDERS: PCP Family Medicine; Referring Provider Internal Medicine Critical Care Medicine; Visit Provider Internal Medicine Critical Care Medicine
DX: G47.33 Obstructive sleep apnea (adult) (pediatric) (principal)
CPT/HCPCS: 95810

== ENCOUNTER → 2019-04-24 15:17 | Outpatient (CLI) | payer MEDICAID, SELFPAY ==
[2019-03-31 06:17] VITALS: BMI 21.9
[2019-04-24 15:52] VITALS: BP 89/48; PULSE 61; RESP 16; TEMP 37.1; O2SAT 100; BMI 21.7
== END ==
PROVIDERS: PCP Family Medicine; Referring Provider Family Medicine; Visit Provider Family Medicine
DX: K90.9 Intestinal malabsorption, unspecified (principal); D50.9 Iron deficiency anemia, unspecified; Z98.84 Bariatric surgery status
CPT/HCPCS: 96365; J1756; J7050; A4216

== ENCOUNTER → 2019-05-01 15:13 | Outpatient (CLI) | payer MEDICAID, SELFPAY ==
[2019-03-31 06:17] VITALS: BMI 21.9
[2019-04-24 15:52] VITALS: BMI 21.7
[2019-05-01 15:27] VITALS: BP 106/62; PULSE 79; RESP 16; TEMP 36.3; O2SAT 99; BMI 21.7
== END ==
PROVIDERS: PCP Family Medicine; Referring Provider Family Medicine; Visit Provider Family Medicine
DX: K90.9 Intestinal malabsorption, unspecified (principal); D50.9 Iron deficiency anemia, unspecified; Z98.84 Bariatric surgery status
CPT/HCPCS: 96365; J1756; J7050; A4216

== ENCOUNTER → 2019-05-07 15:12 | Outpatient (CLI) | payer MEDICAID, SELFPAY ==
[2019-04-24 15:52] VITALS: BMI 21.7
[2019-05-01 15:27] VITALS: BMI 21.7
[2019-05-07 15:19] VITALS: BP 125/65; PULSE 86; RESP 18; TEMP 36.6; O2SAT 100; BMI 22.4
== END ==
PROVIDERS: PCP Family Medicine; Referring Provider Family Medicine; Visit Provider Family Medicine
DX: K90.9 Intestinal malabsorption, unspecified (principal); D50.9 Iron deficiency anemia, unspecified; Z98.84 Bariatric surgery status
CPT/HCPCS: 96365; J1756; J7050; A4216

== ENCOUNTER → 2019-05-14 15:18 | Outpatient (CLI) | payer MEDICAID, SELFPAY ==
[2019-05-01 15:27] VITALS: BMI 21.7
[2019-05-07 15:19] VITALS: BMI 22.4
[2019-05-14 15:28] VITALS: BP 120/68; PULSE 80; RESP 16; O2SAT 99; BMI 22.7
== END ==
PROVIDERS: PCP Family Medicine; Referring Provider Family Medicine; Visit Provider Family Medicine
DX: K90.9 Intestinal malabsorption, unspecified (principal); D50.9 Iron deficiency anemia, unspecified; Z98.84 Bariatric surgery status
CPT/HCPCS: 96365; J1756; J7050; A4216

== ENCOUNTER → 2019-05-21 14:59 | Outpatient (CLI) | payer MEDICAID, SELFPAY ==
[2019-05-14 15:28] VITALS: BMI 22.7
[2019-05-21] MEDS: 0.9% NaCl Peripheral Flush Adult/Peds IV (15:16)
[2019-05-21 15:20] VITALS: BP 146/87; PULSE 62; RESP 16; TEMP 36.9; O2SAT 100; BMI 21.7
[2019-05-21 15:55] LABS: Absolute Neutrophil Count 4.2 X10^3/uL (2.0-7.7); Basophil# 0.02 X10^3/uL; Basophil% 0.3 % (0-1); Eosinophil# 0.14 X10^3/uL; Eosinophils% 2.3 % (0-5); Hematocrit 36.4 % (37-47); Lymphocyte % 21.7 % (19-41); Mean Corp Hgb Conc 30.2 g/dL (32-36); Mean Corpuscular Hgb 24.9 pg (27.0-32.0); Mean Corpuscular Volume 82.4 fL (81-99); Mean Platelet Vol. 10.9 fl (6.2-12.0); Monocyte# 0.32 X10^3/uL; Monocyte% 5.4 % (0-10); NRBC Flagged by Analyzer 0 % (0-5); Neutrophil # 4.19 X10^3/uL (2.7-7.7); Neutrophil % 70.1 % (47-70); POSITIVE MORPHOLOGY YES; Platelet Count 253 K/mm3 (150-450); RBC Distribution Width CV 22.4 % (11.6-14.6); RBC Distribution Width SD 67.3 fl (35.1-43.9); Red Blood Count 4.42 M/mm3 (4.2-5.4)
[2019-05-21 16:05] LABS: Ferritin 56 ng/mL (8-252); Iron 35 ug/dL (50-170)
[2019-05-21 16:09] LABS: Differential Indicated SCAN CRITERIA MET
[2019-05-21 17:01] LABS: Differential Comment SCANNED; Platelet Estimate ADEQUATE (ADEQ)
[2019-05-21 17:02] LABS: Anisocytosis 4+; Hypochromasia 1+; Ovalocyte RARE; Tear Drop Cell RARE
== END ==
PROVIDERS: PCP Family Medicine; Referring Provider Family Medicine; Visit Provider Family Medicine
DX: K90.9 Intestinal malabsorption, unspecified (principal); D50.9 Iron deficiency anemia, unspecified; Z98.84 Bariatric surgery status
CPT/HCPCS: 96365; 82728; 83540; 85025; J1756; J7050; A4216

== ENCOUNTER → 2019-06-25 | Outpatient (CLI) | payer MEDICAID, SELFPAY ==
[2019-05-21 15:20] VITALS: BMI 21.7
== END | disposition home or self-care (01) ==
LOC: MTDU 11:38 → LABSPEC 11:46
PROVIDERS: PCP Family Medicine; Referring Provider Family Medicine; Visit Provider Family Medicine
DX: Z03.818 Encounter for observation for suspected exposure to other biological agents ruled out (principal)
CPT/HCPCS: 87635; G2023; U0004

== ENCOUNTER → 2019-10-22 16:07 | Outpatient (CLI) | payer MEDICAID, SELFPAY ==
[2019-05-21 15:20] VITALS: BMI 21.7
[2019-10-22 17:18] LABS: Absolute Lymphocyte Count 1.51 X10^3/uL (0.83-4.51); Absolute Neutrophil Count 3.8 X10^3/uL (2.0-7.7); Basophil# 0.03 X10^3/uL; Basophil% 0.5 % (0-1); Eosinophil# 0.31 X10^3/uL; Eosinophils% 5.1 % (0-5); Hematocrit 37.6 % (37-47); Hemoglobin 12.2 g/dL (12.0-15.0); Lymphocyte # 1.51 X10^3/ul (4.0); Lymphocyte % 24.8 % (19-41); Mean Corp Hgb Conc 32.4 g/dL (32-36); Mean Corpuscular Hgb 28.9 pg (27.0-32.0); Mean Corpuscular Volume 89.1 fL (81-99); Mean Platelet Vol. 10.4 fl (6.2-12.0); Monocyte% 6.6 % (0-10); NRBC Flagged by Analyzer 0 % (0-5); Neutrophil # 3.82 X10^3/uL (2.7-7.7); Neutrophil % 62.7 % (47-70); Platelet Count 218 K/mm3 (150-450); RBC Distribution Width CV 14.1 % (11.6-14.6); RBC Distribution Width SD 45.8 fl (35.1-43.9); Red Blood Count 4.22 M/mm3 (4.2-5.4); White Blood Count 6.1 K/mm3 (4.4-11.0)
[2019-10-22 18:24] LABS: Vitamin B12 1254 pg/mL (211-911); Vitamin D,25 Hydroxy 72.9 ng/mL
[2019-10-22 18:31] LABS: Ferritin 23 ng/mL (8-252); Iron 35 ug/dL (50-170); T4 Free Direct 1.06 ng/dL (0.76-1.46); Thyroid Stim Hormone (TSH) 1.52 uIU/mL (0.358-3.74)
== END ==
PROVIDERS: PCP Family Medicine; Visit Provider Family Medicine
DX: D64.9 Anemia, unspecified (principal); Z98.84 Bariatric surgery status; E55.9 Vitamin D deficiency, unspecified; R00.1 Bradycardia, unspecified
CPT/HCPCS: 36415; 82306; 82607; 82728; 83540; 84439; 84443; 85025

== ENCOUNTER 2019-10-29 10:45 | Emergency (ER) | payer MEDICAID, SELFPAY ==
[2019-05-21 15:20] VITALS: BMI 21.7
[2019-10-29] VITALS (7 sets, daily range): BP systolic 114–169; BP diastolic 54–95; PULSE 55–65; RESP 14–30; TEMP 36.4–37.2; O2SAT 96–100; BMI 21.4
--- NOTE | 2019-10-29 11:11 | EKG12_ITS ---
Test Reason : SOB Blood Pressure : / mmHG Vent. Rate : 062 BPM Atrial Rate : 062 BPM P-R Int : 156 ms QRS Dur : 090 ms QT Int : 446 ms P-R-T Axes : -20 046 056 degrees QTc Int : 452 ms Normal sinus rhythm Nonspecific ST abnormality Abnormal ECG Confirmed by CARLOS ZEPEDA, JOHANN ([id number]), index editor JERMAINE WORLEY ([id number]) on 10/30/2019 11:33:39 A M Referred By: JHONY Confirmed By:AWAIS GONZALEZ MD
[2019-10-29] MEDS: Ipratropium/Albuterol Sulfate 3 ML AMPUL.NEB INHALATION (11:29)
[2019-10-29] MEDS: Ondansetron 4 MG/2 ML Vial IV (11:37)
[2019-10-29] MEDS: 0.9% Normal Saline 1,000 ML 1000 ML IV (11:38)
[2019-10-29] MEDS: Morphine 4 MG/ML Syringe IV (11:38)
--- NOTE | 2019-10-29 11:42 | RAD_ITS ---
STUDY: X-RAY CHEST REASON FOR EXAM: Female, 49 years old. Tested for covid on tue. Worse sob and [place]. TECHNIQUE: Single AP portable view of the chest. COMPARISON: Comparison is made with prior study dated 02/07/2019. FINDINGS: EKG lines are seen. The lungs are clear and expanded. There is no demonstrated pleural abnormality. Normal size heart. Normal mediastinum and harlan. Normal visualized pulmonary arteries. Normal visualized aortic arch and descending thoracic aorta. There are diffuse degenerative changes of the visualized thoracic spine. Normal visualized ribs, clavicles, and shoulders. There is no demonstrated abnormality of the visualized soft tissue structures of the upper abdomen. RAD/Chest 1 View (Portable) IMPRESSION: Normal x-ray examination of the chest. Electronically Signed: Malcolm Quarles, at 12:24 EDT , Service support ,
--- NOTE | 2019-10-29 11:49 | ED.DCSUM_ITS ---
- ER Visit Summary Date of Service: 10/29/19 Chief Complaint: Shortness of breath History of Present Illness: The patient is a 49 F who presents with shortness of breath that has gradually gotten worse today. Patient states she has been having subjective fevers and chills at home for the past several days. Patient had an outpatient COVID test done 2 days ago but she does not know the results of this. Patient admits to a cough but denies any sputum production. Patient admits to rhinorrhea. Patient admits to some aching type pain in her chest. Patient states it is over the substernal area. Patient admits to nausea and vomiting. Patient also admits to a headache and neck pain. Physical Examination: Vital signs are stable. Patient is afebrile here. Patient is in no acute distress. Oral mucosa is pink and moist. Neck is supple. Trachea is midline. There is no JVD. Heart was regular rate and rhythm. Lungs are clear and equal bilaterally. Abdomen is soft. Bowel sounds are normal. There is diffuse tenderness. There is no rebound or guarding noted. Cranial nerves II through XII are intact. There are no focal motor or sensory deficits. Extremities are intact. There is no calf tenderness or edema. Test Results: EKG showed normal sinus rhythm with a rate of 62. There are no acute ST or T wave changes. Portable chest x-ray was obtained and was normal. This was interpreted by the radiologist and reviewed by myself. CBC, basic metabolic profile, and troponin were obtained and were within normal limits. Urinalysis does not show any evidence of urinary tract infection. Emergency Department Course and Treatment: Patient was given IV fluids, morphine, and Zofran. Patient was given a DuoNeb aerosol. Patient was feeling better on reevaluation. Patient was instructed to follow-up with her primary care physician in 3 to 5 days. Patient was advised that her COVID results should be back by then. Patient was instructed to continue Tylenol and ibuprofen as needed for fevers or pain. Patient was instructed to drink plenty of fluids. Patient understood and was agreeable with the plan. All questions were answered. Disposition: Discharge home Impression: Viral illness This note was generated with [employer] dictation software. It may contain incorrect words, spelling, and punctuation that were not noted in review of the chart erico r to signing ED Disposition - Plan for ED Patient: Disposition: Home or Assisted Living Diagnosis: Viral illness Instructions: ED Viral Syndrome Referrals: Amari Renae DO [Primary Care Provider] - 3-5 Days
[2019-10-29 11:50] LABS: Absolute Lymphocyte Count 1.73 X10^3/uL (0.83-4.51); Absolute Neutrophil Count 4.8 X10^3/uL (2.0-7.7); Basophil# 0.03 X10^3/uL; Basophil% 0.4 % (0-1); Eosinophil# 0.17 X10^3/uL; Eosinophils% 2.4 % (0-5); Hematocrit 43.5 % (37-47); Hemoglobin 15.1 g/dL (12.0-15.0); Lymphocyte # 1.73 X10^3/ul (4.0); Lymphocyte % 24.1 % (19-41); Mean Corp Hgb Conc 34.7 g/dL (32-36); Mean Corpuscular Hgb 29.7 pg (27.0-32.0); Mean Corpuscular Volume 85.6 fL (81-99); Mean Platelet Vol. 10.6 fl (6.2-12.0); Monocyte# 0.41 X10^3/uL; Monocyte% 5.7 % (0-10); NRBC Flagged by Analyzer 0 % (0-5); Neutrophil # 4.82 X10^3/uL (2.7-7.7); Neutrophil % 67.1 % (47-70); Platelet Count 276 K/mm3 (150-450); RBC Distribution Width CV 13.2 % (11.6-14.6); RBC Distribution Width SD 41.4 fl (35.1-43.9); Red Blood Count 5.08 M/mm3 (4.2-5.4); White Blood Count 7.2 K/mm3 (4.4-11.0)
[2019-10-29] MEDS: proMETHazine 25 MG/ML Syringe 6.25 MG IM (13:06)
[2019-10-29] MEDS: HYDROmorphone 0.5 MG/0.5 ML SYRINGE IV (13:10)
[2019-10-29 13:17] LABS: Bacteria 0 SEEN /hpf (None Seen); Mucous, Urine 0 SEEN /hpf (<or=2+); Red Blood Cells-Urine 0 SEEN /hpf (0-5)
[2019-10-29 13:19] LABS: Color, Urine Yellow (Yellow); Glucose, Dipstick Normal (Normal); Ketone-Dipstick 50 mg/dl (Negative); Leukocyte Esterase-Dipstick 25 /ul (Negative); Nitrite-Dipstick Negative (Negative); Occult Blood-Urine Negative /ul (Negative); Protein-Dipstick Negative (Negative); Specific Gravity, Urine 1.015 (1.002-1.030); Urine Bilirubin Dipstick Negative (Negative); Urine Clarity Clear (Clear); Urine Urobilinogen Normal (Normal)
[2019-10-29 13:25] LABS: ALB/GLOB Ratio 1.1 RATIO (0.9-2.4); AST(SGOT) 17 U/L (15-37); Alanine Aminotransfer ALT/SGPT 14 U/L (13-56); Albumin, Serum 3.9 g/dL (3.2-5.0); Alkaline Phosphatase 89 U/L (45-117); Anion Gap 11 (5-15); BUN 11 mg/dL (7-18); BUN/Creat Ratio 14.3 RATIO (10-20); Calcium,Total 8.6 mg/dL (8.5-10.1); Chloride 107 mmol/L (98-107); Creatinine, Serum 0.77 mg/dL (0.55-1.02); EST Glomerular Filtration Rate 85 mL/min (>60); Est Glom Filt Rate - Afr Amer 103 mL/min (>60); Estimated Creatinine Clearance 83.64 ml/min; Globulin 3.6 g/dL (2.2-4.2); Glucose 122 mg/dL (74-106); Lipase 61 U/L (73-393); Potassium 3.1 mmol/L (3.5-5.1); Protein, Total 7.5 g/dL (6.4-8.2); Sodium Level 140 mmol/L (136-145)
[2019-10-29 13:26] LABS: Squamous Epithelial Cells - UA 5-10 SEEN /hpf (5-10); White Blood Cells 0-5 SEEN /hpf (0-5)
== END 2019-10-29 14:44 | disposition home or self-care (01) ==
PROVIDERS: Emergency Provider Emergency Medicine; PCP Family Medicine
DX: B34.9 Viral infection, unspecified (principal); R68.83 Chills (without fever); R07.89 Other chest pain; R05 Cough; R11.2 Nausea with vomiting, unspecified; M54.2 Cervicalgia; R51 Headache; R06.00 Dyspnea, unspecified; J34.89 Other specified disorders of nose and nasal sinuses; F41.9 Anxiety disorder, unspecified; F32.9 Major depressive disorder, single episode, unspecified; Z79.899 Other long term (current) drug therapy
CPT/HCPCS: 71045; 80053; 81001; 83690; 84484; 85025; 93005; 94640; 96361; 96372; 96374; 96375; 99284; J7030; J2405

== ENCOUNTER 2019-10-31 15:24 | Inpatient (IN) | payer MEDICAID, SELFPAY ==
[2019-10-29 10:46] VITALS: BMI 21.4
[2019-10-31] VITALS (12 sets, daily range): BP systolic 135–203; BP diastolic 92–117; PULSE 76–105; RESP 16–32; TEMP 36.4–38.3; O2SAT 98–100; BMI 21.7
--- NOTE | 2019-10-31 15:42 | RAD_ITS ---
STUDY: X-RAY CHEST REASON FOR EXAM: Female, 49 years old. Shortness of breath, headache, abdomen pain, cough. TECHNIQUE: Frontal view of the chest COMPARISON: None. FINDINGS: There are bilateral scattered ill-defined opacities, which can be due to underlying lung disease versus shadow superimposition. There is no pneumothorax, pulmonary edema, cardiac megaly or pleural effusions. Osseous structures are intact. RAD/Chest 1 View (Portable) IMPRESSION: Questionable findings in the lungs, refer to confirmatory CT to evaluate for possible acute viral pneumonia. Electronically Signed: Kushal De Leon, at 17:58 EDT Tel , Service support ,
--- NOTE | 2019-10-31 15:43 | CT_ITS ---
STUDY: CT ABDOMEN AND PELVIS WITHOUT CONTRAST REASON FOR EXAM: Female, 49 years old. ABD PAIN, SOB, MARTINEZ, PENDING COVID TEST, GASTRIC BYPASS IN 2018, HX-KS, HTN, COPD, SARCOIDOSIS, RADIATION DOSAGE (If Supplied By Facility): CTDIvol = ( 7.82 ) mGy, DLP = ( 376.93 ) mGycm TECHNIQUE: Transaxial images were obtained from the dome of the diaphragm to the symphysis pubis without oral contrast, and without intravenous contrast. Sagittal and coronal images were reconstructed. Individualized dose optimization techniques were used for this CT. COMPARISON: March 21 2019 FINDINGS: The visualized lung bases are unremarkable. The visualized portions of the heart are within normal limits. There is gastric bypass. There is no intestinal obstruction. Liver, gallbladder, spleen, adrenals and pancreas are intact. There is a right renal cyst. There are bilateral left greater than right renal calcifications, likely fragmented stone burden after lithotripsy in the left upper pole calyces. There are no ureteral or bladder stones. Uterus is removed. There is anasarca. Osseous structures are intact. Appearance is stable since prior. CT/Abdomen/Pelvis without Cont IMPRESSION: 1. No acute findings or change since prior. 2. Left renal fragmented stone burden after lithotripsy. No obstruction. Electronically Signed: Kushal De Leon, at 18:25 EDT Tel , Service support ,
--- NOTE | 2019-10-31 15:44 | EKG12_ITS ---
Test Reason : Blood Pressure : / mmHG Vent. Rate : 088 BPM Atrial Rate : 088 BPM P-R Int : 160 ms QRS Dur : 084 ms QT Int : 358 ms P-R-T Axes : 000 045 057 degrees QTc Int : 433 ms Normal sinus rhythm vs ectopic atrial rhythm Normal ECG Confirmed by ESME ZEPEDA, ANISHA ([id number]), video effects editor JERMAINE WORLEY ([id number]) on 11/03/2019 7:49:02 AM Referred By: Fly Zamora Confirmed By:ANISHA VICTORIA MD
--- NOTE | 2019-10-31 15:51 | ED.VISSUMM ---
- ER Visit Summary Date of Service: 10/31/19 Chief Complaint: Abdominal pain History of Present Illness: The patient is a 49 F presenting with abdominal pain, nausea, vomiting, diarrhea. She states these symptoms have been ongoing for the past week. She also complains of cough and shortness of breath. She was tested for COVID last week and it was negative per patient. She complains of chills, denies fever. She has had a productive cough. She denies urinary complaints. Denies chest pain. She was seen in the ED 2 days ago for similar complaints. Physical Examination: Vitals are stable. Patient is afebrile. Alert no acute distress. HEENT exam is unremarkable. Neck is supple. Lungs are wheezing bilaterally. Heart is regular and tachycardic Abdomen is soft suprapubic tenderness with no guarding or rebound Extremities are unremarkable. Skin is warm and dry. No focal neurologic deficit. Remainder of exam is unremarkable. Emergency Department Course and Treatment: Patient was given IV fluids, morphine, Zofran. She was given DuoNeb aerosol. Chest xray shows questionable findings in the lungs, refer to confirmatory CT to evaluate for possible acute viral pneumonia. CT abdomen pelvis shows no acute findings or change since prior. Left renal fragmented stone burden after lithotripsy. No obstruction. CBC, chemistries unremarkable other than potassium 3.0. Liver lipase are normal. Troponin is negative. Patient developed a fever while in the emergency department up to 101. She was given Tylenol. She continues to have vomiting and was given repeat dose of Zofran. CT chest shows no acute findings. Moderate emphysema. Moderate coronary artery disease. On reevaluation, patient continues to feel short of breath at rest. With ambulation in her room her heart rate went to 140 with walking. COVID test is pending. Discussed with hospitalist for observation. Disposition: Observation Impression: Viral illness, rule out COVID This note was generated with [employer] dictation software. It may contain incorrect words, spelling, and punctuation that were not noted in review of the chart prior to signing ED Disposition - Plan for ED Patient: Referrals: Amari Renae DO [Primary Care Provider] -
[2019-10-31] MEDS: Ipratropium/Albuterol Sulfate 3 ML AMPUL.NEB INHALATION ×2 (16:08→23:11)
[2019-10-31] MEDS: Ondansetron 4 MG/2 ML Vial IV ×2 (17:09→18:39)
[2019-10-31] MEDS: 0.9% Normal Saline 1,000 ML 1000 ML IV (17:09)
[2019-10-31] MEDS: Morphine 4 MG/ML Syringe IV ×2 (17:09→18:29)
[2019-10-31 17:23] LABS: Absolute Lymphocyte Count 1.57 X10^3/uL (0.83-4.51); Absolute Neutrophil Count 7.3 X10^3/uL (2.0-7.7); Basophil# 0.02 X10^3/uL; Basophil% 0.2 % (0-1); Eosinophil# 0.04 X10^3/uL; Eosinophils% 0.4 % (0-5); Hematocrit 45.4 % (37-47); Hemoglobin 15.6 g/dL (12.0-15.0); Lymphocyte # 1.57 X10^3/ul (4.0); Mean Corp Hgb Conc 34.4 g/dL (32-36); Mean Corpuscular Hgb 29.2 pg (27.0-32.0); Mean Corpuscular Volume 84.9 fL (81-99); Mean Platelet Vol. 9.8 fl (6.2-12.0); Monocyte# 0.79 X10^3/uL; Monocyte% 8.1 % (0-10); NRBC Flagged by Analyzer 0 % (0-5); Neutrophil # 7.34 X10^3/uL (2.7-7.7); Neutrophil % 74.9 % (47-70); Platelet Count 275 K/mm3 (150-450); RBC Distribution Width CV 13.4 % (11.6-14.6); RBC Distribution Width SD 41.6 fl (35.1-43.9); Red Blood Count 5.35 M/mm3 (4.2-5.4); White Blood Count 9.8 K/mm3 (4.4-11.0)
[2019-10-31 17:35] LABS: ALB/GLOB Ratio 1.1 RATIO (0.9-2.4); AST(SGOT) 13 U/L (15-37); Alanine Aminotransfer ALT/SGPT 16 U/L (13-56); Albumin, Serum 4.4 g/dL (3.2-5.0); Alkaline Phosphatase 92 U/L (45-117); Anion Gap 8 (5-15); BUN 13 mg/dL (7-18); BUN/Creat Ratio 18.3 RATIO (10-20); Calcium,Total 9.5 mg/dL (8.5-10.1); Chloride 105 mmol/L (98-107); Creatinine, Serum 0.71 mg/dL (0.55-1.02); EST Glomerular Filtration Rate 93 mL/min (>60); Est Glom Filt Rate - Afr Amer 112 mL/min (>60); Estimated Creatinine Clearance 90.71 ml/min; Globulin 3.9 g/dL (2.2-4.2); Glucose 117 mg/dL (74-106); Lipase 37 U/L (73-393); Protein, Total 8.3 g/dL (6.4-8.2); Sodium Level 138 mmol/L (136-145)
[2019-10-31] MEDS: Acetaminophen 500 MG Tablet 1000 MG PO (18:29)
--- NOTE | 2019-10-31 18:39 | CT_ITS ---
STUDY: CT CHEST WITHOUT CONTRAST REASON FOR EXAM: Female, 49 years old. SOB, MARTINEZ, STOMACH PAIN, CONCERN FOR VIRAL PNEUMONIA, HX BARIATRIC SX, HTN, LITHOTRIPSY RADIATION DOSAGE (If Supplied By Facility): CTDIvol = ( 7.27 ) mGy, DLP = ( 267.18 ) mGycm TECHNIQUE: Transaxial imaging was performed without the administration of intravenous contrast material. Individualized dose optimization techniques were used for this CT. COMPARISON: 31 October 2019 FINDINGS: Lungs are clear and moderately emphysematous. Central airways are patent. Pleural surfaces are intact. Mediastinal contents are normal. Cardiac chamber is normal in size and shape. Aorta and pulmonary artery are unremarkable. There is moderate coronary artery disease. Osseous structures are intact. The appearance on plain films is related to artifact. CT/Chest without Contrast IMPRESSION: 1. No acute findings. 2. Moderate emphysema. 3. Moderate coronary artery disease. Electronically Signed: Kushal De Leon, at 19:27 EDT Tel , Service support ,
[2019-10-31] MEDS: HYDROmorphone 0.5 MG/0.5 ML SYRINGE IV (19:50)
--- NOTE | 2019-10-31 21:09 | HP.PCM_ITS ---
Problem List (1) COPD exacerbation Status: Acute (2) Acute blood loss anemia Status: Inactive (3) Viral syndrome Status: Acute (4) Intractable abdominal pain Status: Acute (5) Hyperlipidemia Status: Chronic Qualifiers: Hyperlipidemia type: unspecified Qualified Code(s): E78.5 - Hyperlipidemia, unspecified (6) Protein calorie malnutrition Status: Chronic Qualifiers: Protein-calorie malnutrition severity: severe Qualified Code(s): E43 - Unspecified severe protein-calorie malnutrition (7) History of gastric bypass Status: Resolved (8) Periodic limb movement disorder (PLMD) Status: Chronic (9) H/O: hysterectomy Status: Resolved (10) History of lithotripsy Status: Resolved (11) Previous section Status: Resolved (12) History of carpal tunnel release of both wrists Status: Resolved (13) Essential hypertension Status: Chronic (14) Gastroesophageal reflux disease Status: Chronic (15) Major depression Status: Chronic (16) Sarcoidosis Status: Chronic (17) Fatigue Status: Chronic (18) Vitamin D deficiency Status: Chronic (19) Cigarette nicotine dependence Status: Chronic (20) Prediabetes Status: Chronic (21) Dysfunctional uterine bleeding Status: Resolved (22) Onychomycosis Status: Chronic (23) Chest pain Status: Resolved (24) Alopecia Status: Chronic (25) Skin rash Status: Chronic (26) Anxiety Status: Chronic (27) Fatty liver disease, nonalcoholic Status: Chronic (28) Peripheral edema Status: Chronic (29) Stage 1 mild COPD by GOLD classification Status: Chronic (30) Benign essential HTN Status: Chronic (31) Morbid obesity Status: Chronic (32) Tobacco user Status: Chronic (33) Obstructive sleep apnea Status: Chronic (34) COPD (chronic obstructive pulmonary disease) Status: Chronic Qualifiers: COPD type: unspecified COPD Qualified Code(s): J44.9 - Chronic obstructive pulmonary disease, unspecified (35) Nephrolithiasis Status: Chronic Comment: Noted history of recent stent placement. History of Present Illness Date of Admission: 10/31/19 Chief Complaint: Multiple symptoms including nausea, vomiting, diarrhea, shortness of breath and cough for 7 to 8 days. The patient is a 49 year old F with multiple comorbidities including COPD/emphysema, recent GI bleed in March 2019 from marginal ulcer status post gastric bypass about 3 years ago came to ER with multiple symptoms including cough, fever with chills, mild shortness of breath, nausea, vomiting and diarrhea ongoing for 7 to 8 days. As per the patient, she was tested negative for COVID-19 on October 27, 2019 in urgent care. She came to ER for shortness of breath on and was discharged home after conservative management. Her cough is mainly dry. She is not able to keep any liquids or food down. Abdominal pain is non-focus, diffuse, intermittent 3-5/10 intensity. In ED, she had chest x-ray, chest CT and abdominal CT which did not show any acute findings. Chest CT shows moderate emphysema. Abdominal CT left renal fragmented stone burden after lithotripsy but no obstruction. [] In ED, she had mild fever temperature 101 Fahrenheit, heart rate in 90s which increased to 140s on walking although she does not drop oxygen saturation. She has tachypnea to 32/min. She denies lower urinary tract symptoms. Abnormal lab findings in ED, K3.0, glucose 117. Hemoglobin 15.6 but no leukocytosis. EKG shows normal sinus rhythm at 88 bpm. Past Medical History Past Medical History (Chronic Problems): Chronic Problems (Last Reviewed 03/31/19 @ 12:51 by Emelyn Santoyo) Hyperlipidemia (Chronic) Protein calorie malnutrition (Chronic) Periodic limb movement disorder (PLMD) (Chronic) Essential hypertension (Chronic) Gastroesophageal reflux disease (Chronic) Major depression (Chronic) Sarcoidosis (Chronic) Fatigue (Chronic) Vitamin D deficiency (Chronic) Cigarette nicotine dependence (Chronic) Prediabetes (Chronic) Onychomycosis (Chronic) Alopecia (Chronic) Skin rash (Chronic) Anxiety (Chronic) Fatty liver disease, nonalcoholic (Chronic) Peripheral edema (Chronic) Stage 1 mild COPD by GOLD classification (Chronic) Benign essential HTN (Chronic) Morbid obesity (Chronic) Tobacco user (Chronic) Obstructive sleep apnea (Chronic) COPD (chronic obstructive pulmonary disease) (Chronic) Nephrolithiasis (Chronic) Noted history of recent stent placement. Medical History: Medical History (Last Reviewed 03/31/19 @ 12:51 by Emelyn Santoyo) Essential hypertension (Chronic) I10 Gastroesophageal reflux disease (Chronic) K21.9 Major depression (Chronic) F32.9 Sarcoidosis (Chronic) D86.9 Fatigue (Chronic) R53.83 Vitamin D deficiency (Chronic) E55.9 Cigarette nicotine dependence (Chronic) F17.210 Prediabetes (Chronic) R73.03 Dysfunctional uterine bleeding (Resolved) N93.8 Onychomycosis (Chronic) B35.1 Chest pain (Resolved) R07.9 Alopecia (Chronic) L65.9 Skin rash (Chronic) R21 Anxiety (Chronic) F41.9 Fatty liver disease, nonalcoholic (Chronic) K76.0 Peripheral edema (Chronic) R60.9 Stage 1 mild COPD by GOLD classification (Chronic) J44.9 Benign essential HTN (Chronic) I10 Morbid obesity (Chronic) E66.01 Tobacco user (Chronic) Z72.0 Obstructive sleep apnea (Chronic) G47.33 COPD (chronic obstructive pulmonary disease) (Chronic) J44.9 Nephrolithiasis (Chronic) Noted history of recent stent placement. Allergies latex Allergy (Verified 10/31/19 15:25) Hives povidone-iodine [From Betadine] Allergy (Verified 10/31/19 15:25) Rash Home Medications: Ambulatory Orders Medication Instructions Recorded Acyclovir 400 mg PO BID 05/23/18 biotin 10 mg tablet 10 mg PO DAILY 12/22/18 calcium citrate 250 mg PO BID 12/22/18 docusate sodium 100 mg capsule 100 mg PO TID PRN cap 12/22/18 kanyvqgf-wvyd-ofndl acid 200 4 tab PO DAILY tab 12/22/18 mcg-herbal no.293 37.5 mg chewable tablet polyethylene glycol 3350 17 17 g PO PRN PRN 12/22/18 gram/dose oral powder Ondansetron [Zofran Odt] 8 mg PO Q6H PRN PRN 01/12/19 traMADol [Ultram (G)] 1 - 2 tab PO Q8H PRN 02/14/19 Cholecalciferol (Vitamin D3) 4,000 unit PO DAILY 03/21/19 [Vitamin D3] Diazepam [Valium] 2.5 mg PO 4X/DAY 10/29/19 Pantoprazole Sodium [Protonix] 40 mg PO BID 10/29/19 Sucralfate [Carafate] 1 gm PO 4X/DAY 10/29/19 Surgical History: Surgical History (Last Reviewed 03/31/19 @ 12:52 by Emelyn Santoyo) History of gastric bypass (Resolved) Z98.84 H/O: hysterectomy (Resolved) Z98.890, Z90.710 History of lithotripsy (Resolved) Z98.890 Previous section (Resolved) Z98.891 History of carpal tunnel release of both wrists (Resolved) Z98.890 Surgical History: gastric bypass, - - Gastric bypass with Sofia-en-Y in 2017, C- section x1. Psychiatric History: Anxiety, Depression BUSINESS ASSOCIATE History: No pertinent BUSINESS ASSOCIATE history Smoking Status: Former smoker - *Family History Maternal Family History: Family History (Last Reviewed 03/31/19 @ 12:52 by Emelyn Santoyo) Father Hypertension Heart disease Diabetes CVA (cerebral vascular accident) Blood clotting disorder Pneumonia Grandfather Cancer Brother Diabetes Sister Asthma Sister Depression Anxiety History Items: Diabetes, High Cholesterol, Heart Disease, Hypertension Paternal Family History: Family History (Last Reviewed 03/31/19 @ 12:52 by Emelyn Santoyo) Father Hypertension Heart disease Diabetes CVA (cerebral vascular accident) Blood clotting disorder Pneumonia Grandfather Cancer Brother Diabetes Sister Asthma Sister Depression Anxiety History Items: Diabetes, Hypertension Review of Systems Constitutional: Reports: Anorexia, Chills, Fever, Malaise, Weakness, Fatigue HEENT: Denies: Head Aches, Sinus Congestion, Sinus Drainage Cardiovascular: Denies: Chest Pain, Palpitations Respiratory: Reports: Cough, Shortness of Breath, Shortness of breath upon exertion. Denies: Hemoptysis, Shortness of breath at rest, Sputum production Gastrointestinal: Reports: Abdominal Pain, Diarrhea, Nausea, Vomiting. Denies: Hematemesis, Hematochezia, Melena Genitourinary: Denies: Dysuria, Frequency, Hematuria, Hesitancy Musculoskeletal: Denies: Joint Pain, Joint Tenderness Skin: Denies: Rash, Wounds Neurological: Denies: Numbness, Tingling, Focal weakness Psychiatric: Reports: Anxiety, Depression. Denies: Homicidal Ideations, Suicidal Ideations Hematologic/ Lymphatic: Denies: Easy Bruising, Easy Bleeding VTE Information - Inpt Only VTE Present on Admission: No VTE Mechan Device Prophylaxis: SCD's VTE Pharm Prophylaxis ordered?: Yes Patient Problems: Active and Suspected Problems (Last Reviewed 03/31/19 @ 12:51 by Emelyn Sanotyo) COPD exacerbation (Acute) - Physical Exam Vitals/I&O's: Vital Signs Temp Pulse Resp BP Pulse Ox 99.5 F H 94 20 H 176/95 H 98 10/31/19 21:02 10/31/19 21:02 10/31/19 21:02 10/31/19 21:02 10/31/19 21:02 Oxygen Delivery Method Room Air Weight: 135 lb Body Mass Index (BMI) 21.7 Intake and Output for Last 24 Hours 10/29/19 10/30/19 10/31/19 23:59 23:59 23:59 Intake Total 1000 / 1000 Balance 1000 / 1000 General: Alert, Oriented x3, Cooperative HEENT: Atraumatic, PERRLA, EOMI, Normocephalic Oral: No Gingival or Mucosal Lesions/ Ulcerations, Dry Mucosa Neck: Supple, No JVD, Negative Carotid Bruits Lungs: Clear to auscultation, No rhonchi, No wheeze, No rales, Diminished Cardiovascular: Regular rate, Regular Rhythm, Normal S1, Normal S2, No murmurs Abdomen: Bowel Sounds Present, Soft, Non Tender, Non-Distended Extremities: No edema, Capillary Refill Less than 3 Seconds Skin: No rashes, No breakdown Musculoskeletal: No Tenderness to Palpation of Joints or Extremities Neurological: Cranial nerves II-XII grossly intact, Deep Tendon Reflexes 2+/4 and Symmetrical, Neuro grossly intact, Motor Exam 5/5 strength throughout Psych/Mental Status: Normal Affect, Appropriate Laboratory Results 10/31/19 17:10: WBC 9.8, RBC 5.35, Hgb 15.6 H, Hct 45.4, MCV 84.9, MCH 29.2, MCHC 34.4, RDW Std Deviation 41.6, RDW Coeff of Donis 13.4, Plt Count 275, MPV 9.8, Immature Gran % (Auto) 0.400, Neut % (Auto) 74.9 H, Lymph % (Auto) 16.0 L, Dawson % (Auto) 8.1, Eos % (Auto) 0.4, Baso % (Auto) 0.2, Absolute Neuts (auto) 7.3, Absolute Lymphs (auto) 1.57, Nucleated RBC % 0 10/31/19 17:10: Sodium 138, Potassium 3.0 L, Chloride 105, Carbon Dioxide 25.0, Anion Gap 8, BUN 13, Creatinine 0.71, Estim Creat Clear Calc 90.71, Est GFR (MDRD) Af Amer 112, Est GFR (MDRD) Non-Af 93, BUN/Creatinine Ratio 18.3, Glucose 117 H, Calcium 9.5, Total Bilirubin 0.70, AST 13 L, ALT 16, Alkaline Phosphatase 92, Troponin I < 0.015, Total Protein 8.3 H, Albumin 4.4, Globulin 3.9, Albumin/Globulin Ratio 1.1, Lipase 37 L 10/31/19 20:13: COVID-19 ([facility]) Pending Current Medications Iopamidol (Contrast Allergy Check) 0 ml IV X1 KIAH Last Admin: 10/31/19 16:59 Dose: Not Given Documented by: Assessment/Plan All Active Problems (Last Reviewed 03/31/19 @ 12:51 by Emelyn Santoyo) COPD exacerbation (Acute) Viral syndrome (Acute) Intractable abdominal pain (Acute) History of gastric bypass (Resolved) H/O: hysterectomy (Resolved) History of lithotripsy (Resolved) Previous section (Resolved) History of carpal tunnel release of both wrists (Resolved) Dysfunctional uterine bleeding (Resolved) Chest pain (Resolved) The patient is a 49 year old F with multiple comorbidities including COPD/emphysema, recent GI bleed in March 2019 from marginal ulcer status post gastric bypass about 3 years ago came to ER with multiple symptoms including cough, fever with chills, mild shortness of breath, nausea, vomiting and diarrhea ongoing for 7 to 8 days suggestive of COPD exacerbation probably secondary to viral bronchitis. 1. SIRS (fever, tachycardia, tachypnea ) with COPD exacerbation probably secondary to viral bronchitis: Patient is being admitted on COVID called floor. COVID-19 tests ordered. Respiratory panel, sputum culture and blood culture ordered. I have low suspicion for COVID-19 as she was recently tested negative on 26 October. Bronchodilator, IV Solu-Medrol, incentive spirometry, Mucinex and pep. 2. Acute viral gastroenteritis: On EGD in March 2019, she was found oozing cratered gastric ulcer with adherent clot at anastomosis site. Patient is on c hronic PPI and Carafate after she had upper GI bleed from marginal ulcer in March 2019 for which she was transferred to [facility]. Will test for stool for occult blood, leukocytes, C. difficile and enteric bacteriology panel. 3. COPD/emphysema: Never had PFT. Patient has 30-grrl-ifxy history of smoking. She started smoking at the age of 14 and recently quit in May 2019. Advised to maintain sobriety. 4. Multiple other comorbidities include anxiety and depression, hypertension, dyslipidemia, GERD, history of gastric bypass surgery. She has insulin resistance prior to gastric bypass which got resolved. VTE prophylaxis: Lovenox 40 mg subcu daily and bilateral SCDs. Has to be watchful as she has history of recent GI bleed and if she drops H&H are thrombocytopenia, discontinue Lovenox. Discontinue if platelet count drops less than 50,000 or hemoglobin less than 8 g% Clinical Impression(s) from Imaging Studies Chest X-Ray 10/31/19 15:42 IMPRESSION: Questionable findings in the lungs, refer to confirmatory CT to evaluate for possible acute viral pneumonia. Abdomen/Pelvis CT 10/31/19 15:43 IMPRESSION: 1. No acute findings or change since prior. 2. Left renal fragmented stone burden after lithotripsy. No obstruction. Chest CT 10/31/19 18:39 IMPRESSION: 1. No acute findings. 2. Moderate emphysema. 3. Moderate coronary artery disease. OBSV E&M: [id number] Initial observation care L3
[2019-10-31 22:01] LABS: Probe Check PASS; Specimen Processing Control PASS
[2019-10-31 22:04] LABS: Magnesium 2.2 mg/dL (1.6-2.6)
[2019-10-31 22:20] LABS: CPK Total, Creatine Kinase 62 U/L (26-192); CRP < 2.90 mg/L (0.0-3.0); LDH 201 U/L (84-246)
[2019-10-31 23:05] LABS: International Normalized Ratio 1.1; Prothrombin Time (Protime)PT. 14.1 SECONDS (11.7-14.9)
[2019-10-31 23:06] LABS: Fibrinogen 264 mg/dl (203-444)
[2019-10-31 23:17] LABS: Lactic Acid 0.7 mmol/L (0.4-1.9)
[2019-10-31 23:20] LABS: D-Dimer Quantitative (DVT/PE) <= 0.27 FEU/ug/m (0.27-0.49); Procalcitonin 0.12 ng/mL (0.00-0.09)
[2019-10-31] MEDS: guaiFENesin 1,200 MG Tablet 1200 MG PO (23:35)
[2019-10-31] MEDS: proCHLORPERazine 10 MG/2 ML Vial 5 MG IV (23:35)
[2019-10-31] MEDS: Sucralfate 1 GM Tablet PO (23:36)
[2019-10-31] MEDS: Pantoprazole Sodium 40 MG Tablet PO (23:36)
[2019-10-31] MEDS: diazePAM 5 MG Tablet 2.5 MG PO (23:36)
[2019-10-31] MEDS: Morphine 2 MG/ML Syringe IV (23:36)
[2019-10-31] MEDS: Acyclovir 200 MG Capsule 400 MG PO (23:36)
[2019-10-31] MEDS: 0.9% Normal Saline 1,000 ML 100 ML IV (23:48)
[2019-11-01] VITALS (41 sets, daily range): BP systolic 133–204; BP diastolic 59–119; PULSE 72–129; RESP 14–22; TEMP 36.5–37.1; O2SAT 96–100
[2019-11-01] MEDS: Labetalol (Prefilled) 20 MG/4 ML IV (00:56)
[2019-11-01] MEDS: hydrALAZINE 20 MG/ML Vial 10 MG IV (02:05)
[2019-11-01] MEDS: Morphine 2 MG/ML Syringe IV ×5 (03:38→21:55)
[2019-11-01] MEDS: oxyCODONE 5 MG Tablet PO (05:13)
[2019-11-01 05:38] LABS: Absolute Lymphocyte Count 0.95 X10^3/uL (0.83-4.51); Absolute Neutrophil Count 8.4 X10^3/uL (2.0-7.7); Basophil# 0.02 X10^3/uL; Basophil% 0.2 % (0-1); Hematocrit 44.9 % (37-47); Hemoglobin 15.1 g/dL (12.0-15.0); Lymphocyte # 0.95 X10^3/ul (4.0); Lymphocyte % 9.9 % (19-41); Mean Corp Hgb Conc 33.6 g/dL (32-36); Mean Corpuscular Hgb 29.3 pg (27.0-32.0); Mean Platelet Vol. 9.8 fl (6.2-12.0); Monocyte# 0.25 X10^3/uL; Monocyte% 2.6 % (0-10); NRBC Flagged by Analyzer 0 % (0-5); Neutrophil # 8.37 X10^3/uL (2.7-7.7); Neutrophil % 86.9 % (47-70); Platelet Count 263 K/mm3 (150-450); RBC Distribution Width CV 13.8 % (11.6-14.6); RBC Distribution Width SD 43.6 fl (35.1-43.9); Red Blood Count 5.16 M/mm3 (4.2-5.4); White Blood Count 9.6 K/mm3 (4.4-11.0)
[2019-11-01 06:06] LABS: Anion Gap 7 (5-15); BUN 13 mg/dL (7-18); BUN/Creat Ratio 26.7 RATIO (10-20); Calcium,Total 9.1 mg/dL (8.5-10.1); Chloride 103 mmol/L (98-107); Creatinine, Serum 0.49 mg/dL (0.55-1.02); EST Glomerular Filtration Rate 144 mL/min (>60); Est Glom Filt Rate - Afr Amer 174 mL/min (>60); Estimated Creatinine Clearance 131.44 ml/min; Glucose 119 mg/dL (74-106); Potassium 3.4 mmol/L (3.5-5.1); Sodium Level 135 mmol/L (136-145); Thyroid Stim Hormone (TSH) 1.44 uIU/mL (0.358-3.74)
[2019-11-01] MEDS: Ipratropium/Albuterol Sulfate 3 ML AMPUL.NEB INHALATION (07:02)
[2019-11-01] MEDS: Budesonide Respules 0.5 MG/2 ML AMPUL.NEB. INHALATION ×2 (07:02→18:42)
--- NOTE | 2019-11-01 07:23 | PN_ITS ---
Patient Problems: Active and Suspected Problems (Last Reviewed 03/31/19 @ 12:51 by Emelyn Santoyo) COPD exacerbation (Acute) Reason for Visit: Follow-up on chest, abdominal pain, SOB Subjective: Patient seen and examined. She complains of lower abdominal pain that radiates from the back. Her chest pain is resolved. She denies any shortness of breath or palpitation. She is not on oxygen. Has not required oxygen overnight. She remains tachycardic, EKG shows sinus tachycardia. Her blood pressure is also elevated. She was started on nicardipine drip which has since been switched off. Objective: Physical exam: General: Alert, Oriented x3, Cooperative, appears anxious, in mild distress from pain HEENT: Atraumatic, PERRLA, EOMI, Normocephalic Oral: No Gingival or Mucosal Lesions/ Ulcerations, Dry Mucosa Neck: Supple, No JVD, Negative Carotid Bruits Lungs: Clear to auscultation, No rhonchi, No wheeze, No rales, Diminished Cardiovascular: Regular rate, Regular Rhythm, Normal S1, Normal S2, No murmurs Abdomen: Bowel Sounds Present, Soft, Non Tender, Non-Distended Extremities: No edema, Capillary Refill Less than 3 Seconds Skin: No rashes, No breakdown Musculoskeletal: No Tenderness to Palpation of Joints or Extremities Neurological: Cranial nerves II-XII grossly intact, Deep Tendon Reflexes 2+/4 and Symmetrical, Neuro grossly intact, Motor Exam 5/5 strength throughout Psych/Mental Status: Normal Affect, Appropriate Vitals/I&O's: Vital Signs Temp Pulse Resp BP Pulse Ox 98.5 F 123 H 18 145/82 H 99 11/01/19 04:00 11/01/19 07:03 11/01/19 07:03 11/01/19 07:00 11/01/19 07:03 Oxygen Delivery Method Room Air Weight: 61 kg Body Mass Index (BMI) 21.7 Intake and Output for Last 24 Hours 10/30/19 10/31/19 11/01/19 23:59 23:59 23:59 Intake Total 1001.67 / 1001.67 492.5 / 492.5 Balance 1001.67 / 1001.67 492.5 / 492.5 Microbiology Past 72 Hours 11/01/19 03:30 Urine, Clean Catch Legionella Antigen - Final 11/01/19 03:30 Urine, Clean Catch Streptococcus pneumoniae Antigen (M - Final 10/31/19 22:21 Mucosa - Nasopharyngeal Respiratory Panel (PCR) - Final Laboratory Results 10/31/19 05:10: Magnesium 2.2 10/31/19 17:10: WBC 9.8, RBC 5.35, Hgb 15.6 H, Hct 45.4, MCV 84.9, MCH 29.2, MCHC 34.4, RDW Std Deviation 41.6, RDW Coeff of Donis 13.4, Plt Count 275, MPV 9.8, Immature Gran % (Auto) 0.400, Neut % (Auto) 74.9 H, Lymph % (Auto) 16.0 L, [place] % (Auto) 8.1, Eos % (Auto) 0.4, Baso % (Auto) 0.2, Absolute Neuts (auto) 7.3, Absolute Lymphs (auto) 1.57, Nucleated RBC % 0 10/31/19 17:10: Sodium 138, Potassium 3.0 L, Chloride 105, Carbon Dioxide 25.0, Anion Gap 8, BUN 13, Creatinine 0.71, Estim Creat Clear Calc 90.71, Est GFR (MDRD) Af Amer 112, Est GFR (MDRD) Non-Af 93, BUN/Creatinine Ratio 18.3, Glucose 117 H, Calcium 9.5, Total Bilirubin 0.70, AST 13 L, ALT 16, Alkaline Phosphatase 92, Troponin I < 0.015, Total Protein 8.3 H, Albumin 4.4, Globulin 3.9, A lbumin/Globulin Ratio 1.1, Lipase 37 L 10/31/19 17:10: Lactate Dehydrogenase 201, Total Creatine Kinase 62, C-React Prot Ext Range < 2.90 10/31/19 20:13: COVID-19 ([facility]) Negative 10/31/19 22:40: PT 14.1, INR 1.1, Fibrinogen 264, D-Dimer Quant (PE/DVT) <= 0.27 10/31/19 22:40: Lactic Acid 0.7 10/31/19 22:40: Procalcitonin 0.12 H 11/01/19 05:00: WBC 9.6, RBC 5.16, Hgb 15.1 H, Hct 44.9, MCV 87.0, MCH 29.3, MCHC 33.6, RDW Std Deviation 43.6, RDW Coeff of Donis 13.8, Plt Count 263, MPV 9.8, Immature Gran % (Auto) 0.400, Neut % (Auto) 86.9 H, Lymph % (Auto) 9.9 L, [place] % (Auto) 2.6, Eos % (Auto) 0.0, Baso % (Auto) 0.2, Absolute Neuts (auto) 8.4 H, Absolute Lymphs (auto) 0.95, Nucleated RBC % 0 11/01/19 05:00: Sodium Cancelled, Potassium Cancelled, Chloride Cancelled, Carbon Dioxide Cancelled, Anion Gap Cancelled, BUN Cancelled, Creatinine Cancelled, Estim Creat Clear Calc Cancelled, Est GFR (MDRD) Af Amer Cancelled, Est GFR (MDRD) Non-Af Cancelled, BUN/Creatinine Ratio Cancelled, Glucose Cancelled, Calcium Cancelled, TSH Cancelled 11/01/19 05:00: Troponin I Cancelled 11/01/19 05:30: Sodium 135 L, Potassium 3.4 L, Chloride 103, Carbon Dioxide 25.0, Anion Gap 7, BUN 13, Creatinine 0.49 L, Estim Creat Clear Calc 131.44, Est GFR (MDRD) Af Amer 174, Est GFR (MDRD) Non-Af 144, BUN/Creatinine Ratio 26.7 H, Glucose 119 H, Calcium 9.1, Troponin I < 0.015, TSH 1.44 Current Medications Acetaminophen (Tylenol) 650 mg PO Q6H PRN PRN PRN Reason: Pain Score 1-10/Temp > 100.7 F Acyclovir (Zovirax) 400 mg PO BID [facility] Last Admin: 10/31/19 23:36 Dose: 400 mg Documented by: Al Hydroxide/Mg Hydroxide (Mylanta Ii) 30 ml PO Q6H PRN PRN PRN Reason: Gastric Burning Albuterol Sulfate (Ventolin Aerosols) 2.5 mg INHALATION Q2H PRN PRN PRN Reason: SHORTNESS OF BREATH Albuterol/Ipratropium (Duoneb) 3 ml INHALATION Q4H.RT [facility] Last Admin: 11/01/19 07:02 Dose: 3 ml Documented by: Budesonide (Pulmicort Aerosol) 0.5 mg INHALATION BID.RT [facility] Last Admin: 11/01/19 07:02 Dose: 0.5 mg Documented by: Cholecalciferol (Vitamin D (25mcg)) 4,000 unit PO DAILY [facility] Diazepam (Valium) 2.5 mg PO 4X/DAY [facility] Last Admin: 10/31/19 23:36 Dose: 2.5 mg Documented by: Docusate Sodium (Colace) 100 mg PO TID PRN PRN PRN Reason: Constipation Enoxaparin Sodium (Lovenox) 40 mg SC DAILY [facility] Guaifenesin (Mucinex) 1,200 mg PO BID [facility] Last Admin: 10/31/19 23:35 Dose: 1,200 mg Documented by: Hydralazine HCl (Apresoline Iv) 10 mg IV Q4H PRN PRN PRN Reason: SBP more than 180 mmHg Last Admin: 11/01/19 02:05 Dose: 10 mg Documented by: Hydrochlorothiazide (Hctz) 25 mg PO DAILY [facility] Azithromycin 500 mg/ Dextrose 255 mls @ 250 mls/hr IV Q24H [facility] Last Infusion: 11/01/19 01:03 Dose: Infused Documented by: Sodium Chloride () 250 mls @ 15 mls/hr IV .[id number] PRN PRN Reason: Saline Flush Sodium Chloride () 250 mls @ 15 mls/hr IV .[id number] PRN PRN Reason: Additional IVPB Infusion Nicardipine HCl 25 mg/ Sodium (Chloride) 250 mls @ 50 mls/hr CONT INF .Q5H [facility]; Protocol Last Titration: 11/01/19 05:45 Dose: 5 mg/hr, 50 mls/hr Documented by: Iopamidol (Contrast Allergy Check) 0 ml IV X1 [facility] Last Admin: 10/31/19 16:59 Dose: Not Given Documented by: Morphine Sulfate () 2 mg IV Q3H PRN PRN PRN Reason: Pain Score 6-10/10 Last Admin: 11/01/19 03:38 Dose: 2 mg Documented by: Nitroglycerin (Nitrostat) 0.4 mg SUBLINGUAL Q5M PRN PRN Reason: CARDIAC/CHEST PAIN Oxycodone HCl (Oxyir) 5 mg PO Q4H PRN PRN PRN Reason: Pain Score 4-5/10 Last Admin: 11/01/19 05:13 Dose: 5 mg Documented by: Pantoprazole Sodium (Protonix) 40 mg PO BID [facility] Last Admin: 10/31/19 23:36 Dose: 40 mg Documented by: Potassium Chloride (K-Dur) 60 meq PO X1 ONE Stop: 11/01/19 08:01 Prochlorperazine Edisylate (Compazine Iv) 5 mg IV Q4H PRN PRN PRN Reason: Breakthrough nausea/vomiting Last Admin: 10/31/19 23:35 Dose: 5 mg Documented by: Sodium Chloride () 10 - 40 ml IV UD PRN PRN Reason: SALINE FLUSH Sucralfate (Carafate) 1 gm PO 1HR_ACHS [facility] Last Admin: 10/31/19 23:36 Dose: 1 gm Documented by: STROKE Vital Signs/Narrative: Vital Signs Temp Pulse Resp BP BP Pulse Ox 11/01/19 07:03 123 H 18 99 11/01/19 07:00 121 H 21 H 145/82 H 98 11/01/19 06:00 118 H 20 H 164/88 H 98 11/01/19 05:45 117 H 20 H 142/66 H 98 11/01/19 05:30 106 H 19 H 146/68 H 98 11/01/19 05:15 108 H 21 H 162/68 H 99 11/01/19 05:00 91 17 195/103 H 98 11/01/19 04:00 98.5 F 85 17 179/95 H 98 11/01/19 03:59 87 11/01/19 03:45 84 159/77 H Medical Necessity - Tobacco Use Smoking Status: Former smoker Assessment/Plan All Active Problems (Last Reviewed 03/31/19 @ 12:51 by Emelyn Santoyo) COPD exacerbation (Acute) Viral syndrome (Acute) Intractable abdominal pain (Acute) History of gastric bypass (Resolved) H/O: hysterectomy (Resolved) History of lithotripsy (Resolved) Previous section (Resolved) History of carpal tunnel release of both wrists (Resolved) Dysfunctional uterine bleeding (Resolved) Chest pain (Resolved) 1. Tachycardia, cyanosis likely related to anxiety versus pain TSH is normal. Will continue to monitor on pain medicines and anxiolytics Will also continue on IV fluids. 2. Elevated blood pressure without history of hypertension, likely related to pain Received nicardipine drip overnight We will continue to monitor with pain control 3. Possible acute COPD exacerbation, patient appears stable, no wheezes heard on exam CT of the chest showed moderate emphysema COVID-19 test was negative. He is COVID-19 test was also negative on 10/27/19 We will continue with scheduled ipratropium. Avoid albuterol on account of tachycardia 4. Anxiety/depression, continue on Valium 5. Chronic abdominal pain, will continue on oxycodone, morphine 6. History of gastric bypass, with recent history of marginal ulcer, continue on pantoprazole and sucralfate. 7. DVT prophylaxis with Lovenox subcu Inpatient E&M: [id number] [facility] Hosp L3
[2019-11-01 07:39] LABS: Magnesium 2.2 mg/dL (1.6-2.6)
[2019-11-01] MEDS: hydroCHLOROthiazide 25 MG Tablet PO (08:29)
[2019-11-01] MEDS: Acyclovir 200 MG Capsule 400 MG PO ×2 (08:29→21:38)
[2019-11-01] MEDS: diazePAM 5 MG Tablet 2.5 MG PO ×4 (08:29→21:40)
[2019-11-01] MEDS: Pantoprazole Sodium 40 MG Tablet PO ×2 (08:29→21:40)
[2019-11-01] MEDS: guaiFENesin 1,200 MG Tablet 1200 MG PO ×2 (08:29→21:40)
[2019-11-01] MEDS: Sucralfate 1 GM Tablet PO ×3 (08:30→21:39)
[2019-11-01] MEDS: Enoxaparin 40 MG/0.4 ML Syringe SC (08:30)
[2019-11-01] MEDS: proCHLORPERazine 10 MG/2 ML Vial 5 MG IV ×3 (08:46→21:54)
--- NOTE | 2019-11-01 09:03 | EKG12_ITS ---
Test Reason : CHEST PAIN Blood Pressure : / mmHG Vent. Rate : 106 BPM Atrial Rate : 106 BPM P-R Int : 158 ms QRS Dur : 084 ms QT Int : 330 ms P-R-T Axes : 059 038 054 degrees QTc Int : 438 ms Sinus tachycardia Low voltage QRS (Limb Leads) Confirmed by ESME ZEPEDA, ANISHA ([id number]), visual effects editor JERMAINE WORLEY ([id number]) on 11/05/2019 11:39:51 AM Referred By: Fly Zamora Confirmed By:ANISHA VICTORIA MD
[2019-11-01] MEDS: 0.9% Normal Saline 1,000 ML 100 ML IV ×2 (09:19→20:29)
[2019-11-01] MEDS: LORazepam 2 MG/ML Syringe IV (10:32)
[2019-11-01] MEDS: hydrALAZINE 20 MG/ML Vial 5 MG IV (10:32)
[2019-11-01] MEDS: 0.9% Saline Lock 10 ML Syringe IV ×2 (10:34→21:59)
[2019-11-01] MEDS: Ipratropium 0.5 MG/2.5 ML SOLUTION INHALATION ×3 (11:15→18:42)
--- NOTE | 2019-11-01 13:24 | RAD_ITS ---
STUDY: X-RAY - LUMBAR SPINE REASON FOR EXAM: Female, 49 years old. PAIN IN LOWER BACK RADIATING DOWN LEFT LEG FOR A COUPLE OF DAYS. HX OF A FALL ABOUT 1 MONTH AGO PER PATIENT. TECHNIQUE: 3 view(s) of the lumbar spine were obtained. COMPARISON: October [address] FINDINGS: Normal lumbar lordosis. There is no substantial scoliosis. There is a normal alignment of the vertebrae. Normal vertebral bodies and endplates. Normal disc space heights. The soft tissue structures are unremarkable. RAD/Lumbar Spine 2 or 3 Views IMPRESSION: Normal x-ray examination of the lumbar spine. Electronically Signed: Kushal De Leon, at 17:00 EDT Tel , Service support ,
[2019-11-01] MEDS: Metoprolol(XL)Succ 25 MG Tablet 12.5 MG PO (13:44)
--- NOTE | 2019-11-01 17:23 | ECHOD_ITS ---
Reason For Study: Arrhythmia Procedure This was a 2D Doppler, Color Flow transthoracic echocardiogram. Exam performed portable in patient room. Left Ventricle Normal LV size. Moderate concentric left ventricular hypertrophy. Left ventricular systolic function is normal. The estimated ejection fraction is 65 %. Stage 1 diastolic dysfunction. No regional wall motion abnormalities noted. Right Ventricle Normal RV size. Normal systolic function. Atria Normal left atrium. Normal right atrium. Mitral Valve Normal mitral valve. Tricuspid Valve Normal tricuspid valve. Aortic Valve Normal aortic valve. Pulmonic Valve Normal pulmonic valve. Great Vessels Normal aortic root. Pericardium/Pleural No pericardial effusion. MMode/2D Measurements & Calculations LVIDd: 2.9 cm IVSd: 1.6 cm LA dimension: 2.6 cm LVIDs: 1.6 cm LVPWd: 1.3 cm FS: 43.3 % LAV(MOD-bp): 30.6 ml LA A4 area: 10.8 cm2 RA A4 area: 9.3 cm2 LAV(MOD-bp) Indexed: 18.6 ml/m2 LAV(MOD-sp2): 37.5 ml LAV(MOD-sp4): 22.1 ml Time Measurements MV dec time: 0.12 sec Doppler Measurements & Calculations MV E max bj: 63.1 cm/sec Lat Peak E' Bj: 10.6 cm/sec Med Peak E' Bj: 5.7 cm/sec MV A max bj: 96.0 cm/sec E/E' lat: 5.9 E/E' med: 11.0 MV E/A: 0.66 Ao V2 max: 137.8 cm/sec LV V1 max: 141.4 cm/sec PA V2 max: 136.4 cm/sec Ao max P.6 mmHg LV V1 max P.0 mmHg Interpretation Summary Normal LV size. Moderate concentric left ventricular hypertrophy. Left ventricular systolic function is normal. The estimated ejection fraction is 65 %. Stage 1 diastolic dysfunction. Ordering Physician: Annabella Blue Referring Physician: Fly Zamora Performed By: Albert Guadarrama RCS
[2019-11-02] VITALS (16 sets, daily range): BP systolic 104–185; BP diastolic 67–96; PULSE 64–117; RESP 16–20; TEMP 36.6–37.3; O2SAT 96–100
--- NOTE | 2019-11-02 | CT_ITS ---
STUDY: CTA CHEST REASON FOR EXAM: Female, 49 years old. TACHYCARDIA, ORDERING PHYS WISHES TO RULE OUT PE RADIATION DOSAGE (If Supplied By Facility): CTDIvol = ( 4.08 ) mGy, DLP = ( 185.33 ) mGycm TECHNIQUE: The examination was performed with the intravenous administration of IV 100mL Isovue-370. Post-processing of the angiographic images was performed, with multiplanar reformation and 3D reconstruction. Individualized dose optimization techniques were used for this CT. COMPARISON: Comparison is made with prior study dated 10/31/2019. FINDINGS: Normal enhancement of the main pulmonary artery and right and left pulmonary arteries. Normal enhancement of the bilateral peripheral pulmonary arteries. There is no demonstrated pulmonary embolism. Normal thoracic aorta and visualized great vessels. There is no demonstrated aortic dissection. Small pericardial effusion. There are calcifications of the coronary arteries. Normal mediastinum. Normal hilar regions. Normal visualized trachea and bronchi. The lungs are well expanded. Normal pulmonary parenchyma. Normal pleura. Normal chest wall structures. There are degenerative changes of thoracic spine. Tiny nonobstructive calculi are seen in the upper pole calyx of the left kidney. CT/CTA Chest W/WO Contrast IMPRESSION: Small pericardial effusion. Electronically Signed: Malcolm Quarles, at 12:16 EDT , Service support ,
[2019-11-02] MEDS: hydrALAZINE 20 MG/ML Vial 10 MG IV (04:33)
[2019-11-02] MEDS: Morphine 2 MG/ML Syringe IV ×2 (04:39→09:55)
[2019-11-02] MEDS: 0.9% Normal Saline 1,000 ML 100 ML IV ×2 (04:41→18:08)
[2019-11-02] MEDS: Sucralfate 1 GM Tablet PO ×4 (05:48→21:35)
[2019-11-02 06:13] LABS: Absolute Lymphocyte Count 1.44 X10^3/uL (0.83-4.51); Absolute Neutrophil Count 5.6 X10^3/uL (2.0-7.7); Basophil# 0.03 X10^3/uL; Basophil% 0.4 % (0-1); Eosinophil# 0.31 X10^3/uL; Eosinophils% 3.9 % (0-5); Hematocrit 41.5 % (37-47); Hemoglobin 14.1 g/dL (12.0-15.0); Lymphocyte # 1.44 X10^3/ul (4.0); Lymphocyte % 18.2 % (19-41); Mean Corpuscular Hgb 30.2 pg (27.0-32.0); Mean Corpuscular Volume 88.9 fL (81-99); Mean Platelet Vol. 9.8 fl (6.2-12.0); Monocyte% 6.3 % (0-10); NRBC Flagged by Analyzer 0 % (0-5); Neutrophil # 5.62 X10^3/uL (2.7-7.7); Neutrophil % 70.8 % (47-70); Platelet Count 215 K/mm3 (150-450); RBC Distribution Width SD 44.9 fl (35.1-43.9); Red Blood Count 4.67 M/mm3 (4.2-5.4); White Blood Count 7.9 K/mm3 (4.4-11.0)
[2019-11-02] MEDS: Ipratropium 0.5 MG/2.5 ML SOLUTION INHALATION ×2 (06:35→21:50)
[2019-11-02] MEDS: Budesonide Respules 0.5 MG/2 ML AMPUL.NEB. INHALATION ×2 (06:35→21:50)
[2019-11-02 06:42] LABS: ALB/GLOB Ratio 1.2 RATIO (0.9-2.4); AST(SGOT) 12 U/L (15-37); Alanine Aminotransfer ALT/SGPT 16 U/L (13-56); Albumin, Serum 3.7 g/dL (3.2-5.0); Alkaline Phosphatase 83 U/L (45-117); Anion Gap 5 (5-15); BUN 12 mg/dL (7-18); BUN/Creat Ratio 23.9 RATIO (10-20); Calcium,Total 9.1 mg/dL (8.5-10.1); Chloride 107 mmol/L (98-107); EST Glomerular Filtration Rate 139 mL/min (>60); Est Glom Filt Rate - Afr Amer 168 mL/min (>60); Globulin 3.1 g/dL (2.2-4.2); Glucose 95 mg/dL (74-106); Potassium 3.9 mmol/L (3.5-5.1); Protein, Total 6.8 g/dL (6.4-8.2); Sodium Level 139 mmol/L (136-145)
[2019-11-02] MEDS: diazePAM 5 MG Tablet 2.5 MG PO ×4 (09:51→23:00)
[2019-11-02] MEDS: Pantoprazole Sodium 40 MG Tablet PO ×2 (09:52→21:35)
[2019-11-02] MEDS: hydroCHLOROthiazide 25 MG Tablet PO (09:52)
[2019-11-02] MEDS: Enoxaparin 40 MG/0.4 ML Syringe SC (09:52)
[2019-11-02] MEDS: guaiFENesin 1,200 MG Tablet 1200 MG PO ×2 (09:53→21:35)
[2019-11-02] MEDS: Acyclovir 200 MG Capsule 400 MG PO ×2 (09:53→21:35)
[2019-11-02] MEDS: Metoprolol(XL)Succ 25 MG Tablet 12.5 MG PO (09:55)
--- NOTE | 2019-11-02 12:01 | CASEMGMT ---
ROSALIO EGAN assessment: Face to Face with patient for initial transition planning/care coordination assessment. ROSALIO EGAN introduced self and role at [facility], pt voices understanding and consents to assessment at this time. Pt is lying in bed in no distress at this time. Pt is A/Ox4 at this time and answers all questions appropriately at this time. Care providers, pharmacy, and demographics verified at this time. Pt states was supposed to get holter monitor placed tomorrow and she states they called to register her then they cancelled appt at that time. Pt's RNChristina aware at this time, voices understanding. Presentation: Pt arrives with SOB, MARTINEZ, abd pain and pending COVID test-states COVID collected 10/29/19 Admitting dx: Possible COVID 19 PCP: [facility] Specialists: Anuel Fontana bariatric; rubi Robertson Pref[facility]acy: [facility] Insurance: [employer] Prescription Benefit: [employer] Living Will/HPOA: Pt states does not have LW/HPOA but would like to complete at this time. Arcelia NEWELL aware, voices understanding. LNOK: Lizet Myers, mother; Dariana Dixon, daughter Living Arrangements: Pt states lives with her daughter and grandson in 3 story home with no steps in and states no concerns at home at this time. Pt states is independent with ADL's. Transportation: Pt states drives self and states no transportation concerns at this time. DME/HHC: Pt states has a nebulizer thru [facility] and states no need for any further DME at this time. Pt states no hx of HHC or SNF in the past. Pt states no concerns with going home at time of discharge. 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 Pt states quit smoking cigarettes in April 2019. Pt states drinks ETOH occasionally. Pt states no further concerns/needs at this time. CM to follow for any further discharge planning/needs. Advised pt to ask for CM if any further questions/concerns/needs arise, voices understanding. Pt Goal: Home Plan: [place] ROSALIO EAGN
--- NOTE | 2019-11-02 13:01 | CASEMGMT ---
Per RN CM patient wanted to complete Healthcare Power of Certified Mortician and a Healthcare Living Will. SW met with patient and completed documents. Copies were made and given to patient along with originals. SW also placed a copy of each in her chart. Stephanie MADERA MSW
[2019-11-02] MEDS: Ensure Clear 120 ML Liquid PO ×3 (14:37→21:34)
[2019-11-02] MEDS: oxyCODONE 5 MG Tablet PO ×2 (14:44→21:34)
[2019-11-02] MEDS: proCHLORPERazine 10 MG/2 ML Vial 5 MG IV (14:45)
--- NOTE | 2019-11-02 15:44 | PCM.PN.HOSP ---
Patient Problems: Active and Suspected Problems (Last Reviewed 03/31/19 @ 12:51 by Emelyn Santoyo) COPD exacerbation (Acute) Reason for Visit: Follow-up on chest, abdominal pain, SOB, tachycardia Subjective: Patient was seen and examined. Still tachycardic, CTA of chest is negative. She denies any fever or chills. Objective: Physical exam: General: Alert, Oriented x3, Cooperative, appears anxious, in mild distress from pain HEENT: Atraumatic, PERRLA, EOMI, Normocephalic Oral: No Gingival or Mucosal Lesions/ Ulcerations, Dry Mucosa Neck: Supple, No JVD, Negative Carotid Bruits Lungs: Clear to auscultation, No rhonchi, No wheeze, No rales, Diminished Cardiovascular: Regular rate, Regular Rhythm, Normal S1, Normal S2, No murmurs Abdomen: Bowel Sounds Present, Soft, Non Tender, Non-Distended Extremities: No edema, Capillary Refill Less than 3 Seconds Skin: No rashes, No breakdown Musculoskeletal: No Tenderness to Palpation of Joints or Extremities Neurological: Cranial nerves II-XII grossly intact, Deep Tendon Reflexes 2+/4 and Symmetrical, Neuro grossly intact, Motor Exam 5/5 strength throughout Psych/Mental Status: Normal Affect, Appropriate Vitals/I&O's: Vital Signs Temp Pulse Resp BP Pulse Ox 97.8 F 111 H 18 147/87 H 100 11/02/19 10:00 11/02/19 14:00 11/02/19 10:00 11/02/19 10:00 11/02/19 10:00 Oxygen Delivery Method Room Air Weight: 57.5 kg Body Mass Index (BMI) 21.7 Intake and Output for Last 24 Hours 10/31/19 11/01/19 11/02/19 23:59 23:59 23:59 Intake Total 1001.67 / 1001.67 2630.00 / 2630.00 1820 / 1820 Output Total 1250 / 1750 1700 / 1700 Balance 1001.67 / 1001.67 1380.00 / 880.00 120 / 120 Microbiology Past 72 Hours 11/01/19 03:30 Urine, Clean Catch Legionella Antigen - Final 11/01/19 03:30 Urine, Clean Catch Streptococcus pneumoniae Antigen (M - Final 10/31/19 22:21 Mucosa - Nasopharyngeal Respiratory Panel (PCR) - Final Laboratory Results 11/02/19 05:50: Sodium 139, Potassium 3.9, Chloride 107, Carbon Dioxide 27.0, Anion Gap 5, BUN 12, Creatinine 0.50 L, Estim Creat Clear Calc 124.90, Est GFR (MDRD) Af Amer 168, Est GFR (MDRD) Non-Af 139, BUN/Creatinine Ratio 23.9 H, Glucose 95, Calcium 9.1, Total Bilirubin 0.70, AST 12 L, ALT 16, Alkaline Phosphatase 83, Total Protein 6.8, Albumin 3.7, Globulin 3.1, Albumin/Globulin Ratio 1.2 11/02/19 05:50: WBC 7.9, RBC 4.67, Hgb 14.1, Hct 41.5, MCV 88.9, MCH 30.2, MCHC 34.0, RDW Std Deviation 44.9 H, RDW Coeff of Donis 14.0, Plt Count 215, MPV 9.8, Immature Gran % (Auto) 0.400, Neut % (Auto) 70.8 H, Lymph % (Auto) 18.2 L, [place] % (Auto) 6.3, Eos % (Auto) 3.9, Baso % (Auto) 0.4, Absolute Neuts (auto) 5.6, Absolute Lymphs (auto) 1.44, Nucleated RBC % 0 Current Medications Acetaminophen (Tylenol) 650 mg PO Q6H PRN PRN PRN Reason: Pain Score 1-10/Temp > 100.7 F Acyclovir (Zovirax) 400 mg PO BID [facility] Last Admin: 11/02/19 09:53 Dose: 400 mg Documented by: Al Hydroxide/Mg Hydroxide (Mylanta Ii) 30 ml PO Q6H PRN PRN PRN Reason: Gastric Burning Budesonide (Pulmicort Aerosol) 0.5 mg INHALATION BID.RT [facility] Last Admin: 11/02/19 06:35 Dose: 0.5 mg Documented by: Cholecalciferol (Vitamin D (25mcg)) 4,000 unit PO DAILY [facility] Last Admin: 11/02/19 09:53 Dose: 4,000 unit Documented by: Diazepam (Valium) 2.5 mg PO 4X/DAY [facility] Last Admin: 11/02/19 14:37 Dose: 2.5 mg Documented by: Docusate Sodium (Colace) 100 mg PO TID PRN PRN PRN Reason: Constipation Enoxaparin Sodium (Lovenox) 40 mg SC DAILY [facility] Last Admin: 11/02/19 09:52 Dose: 40 mg Documented by: Guaifenesin (Mucinex) 1,200 mg PO BID [facility] Last Admin: 11/02/19 09:53 Dose: 1,200 mg Documented by: Hydralazine HCl (Apresoline Iv) 10 mg IV Q4H PRN PRN PRN Reason: SBP more than 180 mmHg Last Admin: 11/02/19 04:33 Dose: 10 mg Documented by: Hydrochlorothiazide (Hctz) 25 mg PO DAILY [facility] Last Admin: 11/02/19 09:52 Dose: 25 mg Documented by: Sodium Chloride () 250 mls @ 15 mls/hr IV .[id number] PRN PRN Reason: Saline Flush Sodium Chloride () 250 mls @ 15 mls/hr IV .[id number] PRN PRN Reason: Additional IVPB Infusion Sodium Chloride () 1,000 mls @ 100 mls/hr IV .Q10H [facility] Last Admin: 11/02/19 04:41 Dose: 100 mls/hr Documented by: Ipratropium [place] (Atrovent) 0.5 mg INHALATION Q6HWA.RT [facility] Last Admin: 11/02/19 12:42 Dose: Not Given Documented by: Metoprolol Succinate (Toprol Xl (Beta Chago)) 12.5 mg PO DAILY [facility] Last Admin: 11/02/19 09:55 Dose: 12.5 mg Documented by: Metoprolol Tartrate (Lopressor (Beta Chago)) 25 mg PO BID [facility] Morphine Sulfate () 2 mg IV Q3H PRN PRN PRN Reason: Pain Score 6-10/10 Last Admin: 11/02/19 09:55 Dose: 2 mg Documented by: Nitroglycerin (Nitrostat) 0.4 mg SUBLINGUAL Q5M PRN PRN Reason: CARDIAC/CHEST PAIN Nutritional Formula (Lactose Free) (Ensure Clear) 120 ml PO 4X/DAY [facility] Last Admin: 11/02/19 14:41 Dose: Not Given Documented by: Oxycodone HCl (Oxyir) 5 mg PO Q4H PRN PRN PRN Reason: Pain Score 4-5/10 Last Admin: 11/02/19 14:44 Dose: 5 mg Documented by: Pantoprazole Sodium (Protonix) 40 mg PO BID [facility] Last Admin: 11/02/19 09:52 Dose: 40 mg Documented by: Prochlorperazine Edisylate (Compazine Iv) 5 mg IV Q4H PRN PRN PRN Reason: Breakthrough nausea/vomiting Last Admin: 11/02/19 14:45 Dose: 5 mg Documented by: Sodium Chloride () 10 - 40 ml IV UD PRN PRN Reason: SALINE FLUSH Last Admin: 11/01/19 21:59 Dose: 10 ml Documented by: Sucralfate (Carafate) 1 gm PO 1HR_ACHS [facility] Last Admin: 11/02/19 10:54 Dose: 1 gm Documented by: STROKE Vital Signs/Narrative: Vital Signs Pulse 11/02/19 14:00 111 H Medical Necessity - Tobacco Use Smoking Status: Former smoker Assessment/Plan All Active Problems (Last Reviewed 03/31/19 @ 12:51 by Emelyn Santoyo) COPD exacerbation (Acute) Viral syndrome (Acute) Intractable abdominal pain (Acute) History of gastric bypass (Resolved) H/O: hysterectomy (Resolved) History of lithotripsy (Resolved) Previous section (Resolved) History of carpal tunnel release of both wrists (Resolved) Dysfunctional uterine bleeding (Resolved) Chest pain (Resolved) 1. Tachycardia, sinus, persistent TSH is normal. Will continue to monitor on pain medicines and anxiolytics Continue on IV fluids. 2. Elevated blood pressure without history of hypertension, likely related to pain Started on metoprolol XL 12.5mg daily Will switch to metoprolol tartrate 25mg bid for better HR and BP control 3. COPD, doubt acute exacerbation but patient has appeared stable CT of the chest showed moderate emphysema COVID-19 test was negative. Previous COVID-19 test was also negative on 10/27/19 We will continue with scheduled ipratropium. Avoid albuterol on account of tachycardia 4. Anxiety/depression, continue on Valium 5. Chronic abdominal pain, will continue on oxycodone, morphine 6. History of gastric bypass, with recent history of marginal ulcer, continue on pantoprazole and sucralfate. 7. DVT prophylaxis with Lovenox subcu Inpatient E&M: [id number] [facility] Hosp L2
[2019-11-02] MEDS: Docusate Sodium 100 MG Capsule PO ×2 (16:25→21:35)
[2019-11-02] MEDS: Metoprolol Tartrate 25 MG Tablet PO (21:37)
[2019-11-03 02:59] VITALS: PULSE 79
[2019-11-03 03:50] VITALS: BP 109/64; PULSE 76; RESP 16; TEMP 37.4; O2SAT 98
[2019-11-03] MEDS: 0.9% Normal Saline 1,000 ML 100 ML IV (03:52)
[2019-11-03] MEDS: Sucralfate 1 GM Tablet PO (06:24)
[2019-11-03 07:00] VITALS: PULSE 78
[2019-11-03] MEDS: oxyCODONE 5 MG Tablet PO (07:28)
[2019-11-03] MEDS: Budesonide Respules 0.5 MG/2 ML AMPUL.NEB. INHALATION (07:30)
[2019-11-03] MEDS: Ipratropium 0.5 MG/2.5 ML SOLUTION INHALATION (07:30)
[2019-11-03 07:31] VITALS: PULSE 85; RESP 24; O2SAT 98
--- NOTE | 2019-11-03 07:31 | CPS ---
PEP NOT DONE AT THIS TIME, PATIENT HAVING PAIN.
--- NOTE | 2019-11-03 08:51 | PCM.DC ---
- Discharge Diagnoses Current Active Problems: Current Active and Chronic Problems (Last Reviewed 03/31/19 @ 12:51 by Emelyn Santoyo) COPD exacerbation (Acute) Reason(s) for Visit for Discharge Instructions: Chest pain, SOB You will use the following diet at home:: Cardiac Your food should be the consistency of: Regular Your liquids should be the consistency of: Regular/Thin Discharge Activity: Return to Normal Activity Additional Instructions: Continue your medications. 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 Continue to keep yourself hydrated. Allergies/Adverse Reactions: Allergies latex Allergy (Verified 10/31/19 15:25) Hives povidone-iodine [From Betadine] Allergy (Verified 10/31/19 15:25) Rash Medications to take at Discharge Acyclovir 400 mg PO BID 05/23/18 biotin 10 mg tablet 10 mg PO DAILY 12/22/18 calcium citrate 250 mg PO BID 12/22/18 docusate sodium 100 mg capsule 100 mg PO TID PRN cap 12/22/18 nbyxblzy-hkyf-vnrnf acid 200 mcg-herbal no.293 37.5 mg chewable tablet 4 tab PO DAILY tab 12/22/18 polyethylene glycol 3350 17 gram/dose oral powder 17 g PO PRN PRN 12/22/18 Ondansetron [Zofran Odt] 8 mg PO Q6H PRN PRN 01/12/19 traMADol [Ultram] 1 - 2 tab PO Q8H PRN 02/14/19 Cholecalciferol (Vitamin D3) [Vitamin D3] 4,000 unit PO DAILY 03/21/19 Diazepam [Valium] 2.5 mg PO 4X/DAY 10/29/19 Pantoprazole Sodium [Protonix] 40 mg PO BID 10/29/19 Sucralfate [Carafate] 1 gm PO 4X/DAY 10/29/19 Acetaminophen [Tylenol Tablet] 650 mg PO Q6H PRN PRN tab 11/03/19 Ensure Clear 120 ml PO 4X/DAY 30 Days #120 liquid 11/03/19 Guaifenesin [Mucinex] 1,200 mg PO BID 5 Days #10 tab 11/03/19 Hydrochlorothiazide [Hctz] 25 mg PO DAILY 30 Days #30 tab 11/03/19 Metoprolol Tartrate [Lopressor (beta kartik)] 25 mg PO BID 30 Days #60 tab 11/03/19 The following prescriptions were given: Ensure Clear 120 ml PO 4X/DAY 30 Days #120 liquid Transmission Status: Received by [facility] Hydrochlorothiazide [Hctz] 25 mg PO DAILY 30 Days #30 tab Transmission Status: Received by [facility] Metoprolol Tartrate [Lopressor (beta kartik)] 25 mg PO BID 30 Days #60 tab Transmission Status: Received by [facility] Guaifenesin [Mucinex] 1,200 mg PO BID 5 Days #10 tab Transmission Status: Received by [facility] Primary Care Physician: Amari Renae DO [Primary Care Provider] - Please follow up with your Primary Care Physician in: within 1-2 weeks Test Results: Test results from this visit will be discussed in further detail at your follow-up appointment, if applicable. Please Follow Up With: Rosendo Raman MD When: as scheduled Proposed Discharge Date: 11/03/19
[2019-11-03 09:26] VITALS: BP 162/83; PULSE 87; RESP 16; TEMP 36.9; O2SAT 100
[2019-11-03] MEDS: guaiFENesin 1,200 MG Tablet 1200 MG PO (09:28)
[2019-11-03] MEDS: Pantoprazole Sodium 40 MG Tablet PO (09:28)
[2019-11-03] MEDS: Acyclovir 200 MG Capsule 400 MG PO (09:28)
[2019-11-03 09:29] VITALS: PULSE 87
[2019-11-03] MEDS: Enoxaparin 40 MG/0.4 ML Syringe SC (09:29)
[2019-11-03] MEDS: Ensure Clear 120 ML Liquid PO (09:29)
[2019-11-03] MEDS: hydroCHLOROthiazide 25 MG Tablet PO (09:29)
[2019-11-03] MEDS: Metoprolol Tartrate 25 MG Tablet PO (09:29)
[2019-11-03] MEDS: diazePAM 5 MG Tablet 2.5 MG PO (09:32)
--- NOTE | 2019-11-03 09:55 | NURSING ---
Pt had 100ml emesis consisting of bile. Some pills noted in emesis. See MAR for PRN given.
[2019-11-03] MEDS: proCHLORPERazine 10 MG/2 ML Vial 5 MG IV (10:08)
--- NOTE | 2019-11-03 10:11 | CASEMGMT ---
Venecia is requesting a paper copy of script for Ensure clear 120ml po four times daily rather than the script that was e-scribed. Script obtained, signed and faxed to Venecia Mays at this time per request. Script also to be sent with pt at discharge. Amada SANTAMARIA CM
--- NOTE | 2019-11-03 11:06 | DS.PCM_ITS ---
Discharge Date and Diagnosis Date of Admission: 10/31/19 Date of Discharge: 11/03/19 - Primary Discharge Diagnosis Acute Problems: Active Problems (Last Reviewed 03/31/19 @ 12:51 by Emelyn Santoyo) Tachycardia Hypertension, uncontrolled Acute COPD exacerbation ruled out Hypokalemia Acute gastro enteritis, viral - Secondary Discharge Diagnosis Chronic Problems: Chronic Problems (Last Reviewed 03/31/19 @ 12:51 by Emelyn Santoyo) Hyperlipidemia (Chronic) Protein calorie malnutrition (Chronic) Periodic limb movement disorder (PLMD) (Chronic) Essential hypertension (Chronic) Gastroesophageal reflux disease (Chronic) Major depression (Chronic) Sarcoidosis (Chronic) Fatigue (Chronic) Vitamin D deficiency (Chronic) Cigarette nicotine dependence (Chronic) Prediabetes (Chronic) Onychomycosis (Chronic) Alopecia (Chronic) Skin rash (Chronic) Anxiety (Chronic) Fatty liver disease, nonalcoholic (Chronic) Peripheral edema (Chronic) Stage 1 mild COPD by GOLD classification (Chronic) Benign essential HTN (Chronic) Morbid obesity (Chronic) Tobacco user (Chronic) Obstructive sleep apnea (Chronic) COPD (chronic obstructive pulmonary disease) (Chronic) Nephrolithiasis (Chronic) Noted history of recent stent placement. Hospital Course and Treatment Imaging Results: Clinical Impression(s) from Imaging Studies Chest X-Ray 10/31/19 15:42 IMPRESSION: Questionable findings in the lungs, refer to confirmatory CT to evaluate for possible acute viral pneumonia. Electronically Signed: Kushal De Leon, at 17:58 EDT Tel , Service support , Abdomen/Pelvis CT 10/31/19 15:43 IMPRESSION: 1. No acute findings or change since prior. 2. Left renal fragmented stone burden after lithotripsy. No obstruction. Electronically Signed: Kushal De Leon at 18:25 EDT Tel , Service support , Chest CT 10/31/19 18:39 IMPRESSION: 1. No acute findings. 2. Moderate emphysema. 3. Moderate coronary artery disease. Electronically Signed: Kushal De Leon at 19:27 EDT Tel , Service support , Lumbar Spine X-Ray 11/01/19 13:24 IMPRESSION: Normal x-ray examination of the lumbar spine. Electronically Signed: Kushal De Leon, at 17:00 EDT Tel , Service support , Chest CTA 11/02/19 00:00 IMPRESSION: Small pericardial effusion. Electronically Signed: Malcolm Quarles, at 12:16 EDT , Service support , Operations: None Procedures: 2-D Echocardiogram Summary of Care Provided: The patient is a 49 year old F with past medical history of COPD, history of recent GI bleed from marginal ulcer status post gastric bypass 3 years who comes to the emergency department multiple symptoms of cough, fever with chills and shortness of breath as well as nausea, vomiting, diarrhea ongoing for about 1 week. Patient had a COVID-19 test done on October 27, 2019 in urgent care that was negative. She presented to the emergency department. Her work-up including chest CT and abdominal CT did not show any acute findings. It showed moderate emphysema. Patient had a COVID-19 test done that was negative. She was found to be febrile in the emergency department, tachycardic and tachypneic. Her TSH was normal. Potassium was low and that was replaced. Patient was managed symptomatically, usually in the ICU and later transferred to the PCU. She did not have any more diarrhea was in the hospital. Shge continued to have persistent tachycardia and hypertension. EKG showed normal sinus rhythm. On the day of admission, patient was managed in the ICU on nicardipine drip for couple of hours. She was subsequently taken off the drip and managed with as needed IV medications as well as oral medication. She was kept on IV pain medications, fluids and IV PPI. Patient was subsequently continued on metoprolol with improvement in her heart rate. Patient has a planned Holter monitor placement to be done in the outpatient on the day of discharge. She was discharged also on metoprolol 25 mg p.o. twice daily as well as hydrochlorothiazide. She will follow-up with her primary care doctor within 1 to 2 weeks and with cardiology as scheduled. Subjective: On the day of discharge, patient was seen and examined. She complains of not sleeping well the night before. Otherwise she feels improved. No more tachycardic on telemetry. Objective: Physical exam: General: Alert, Oriented x3, Cooperative, appears anxious, appeared anxious HEENT: Atraumatic, PERRLA, EOMI, Normocephalic Oral: No Gingival or Mucosal Lesions/ Ulcerations, Dry Mucosa Neck: Supple, No JVD, Negative Carotid Bruits Lungs: Clear to auscultation, No rhonchi, No wheeze, No rales, Diminished Cardiovascular: Regular rate, Regular Rhythm, Normal S1, Normal S2, No murmurs Abdomen: Bowel Sounds Present, Soft, Non Tender, Non-Distended Extremities: No edema, Capillary Refill Less than 3 Seconds Skin: No rashes, No breakdown Musculoskeletal: No Tenderness to Palpation of Joints or Extremities Neurological: Cranial nerves II-XII grossly intact, Deep Tendon Reflexes 2+/4 and Symmetrical, Neuro grossly intact, Motor Exam 5/5 strength throughout Psych/Mental Status: Normal Affect, Appropriate - Physical Exam Vitals/I&O's: Vital Signs Temp Pulse Resp BP Pulse Ox 98.5 F 87 16 162/83 H 100 11/03/19 09:26 11/03/19 09:29 11/03/19 09:26 11/03/19 09:26 11/03/19 09:26 Oxygen Delivery Method Room Air Weight: 59.8 kg Body Mass Index (BMI) 21.7 Intake and Output for Last 24 Hours 11/01/19 11/02/19 11/03/19 23:59 23:59 23:59 Intake Total 2630.00 / 2630.00 3720 / 3720 1393.33 / 1393.33 Output Total 1250 / 1750 2800 / 2800 600 / 600 Balance 1380.00 / 880.00 920 / 920 793.33 / 793.33 Microbiology Past 72 Hours 11/01/19 03:30 Urine, Clean Catch Legionella Antigen - Final 11/01/19 03:30 Urine, Clean Catch Streptococcus pneumoniae Antigen (M - Final 10/31/19 22:21 Mucosa - Nasopharyngeal Respiratory Panel (PCR) - Final Current Medications Acetaminophen (Tylenol) 650 mg PO Q6H PRN PRN PRN Reason: Pain Score 1-10/Temp > 100.7 F Acyclovir (Zovirax) 400 mg PO BID [facility] Last Admin: 11/03/19 09:28 Dose: 400 mg Documented by: Al Hydroxide/Mg Hydroxide (Mylanta Ii) 30 ml PO Q6H PRN PRN PRN Reason: Gastric Burning Budesonide (Pulmicort Aerosol) 0.5 mg INHALATION BID.RT [facility] Last Admin: 11/03/19 07:30 Dose: 0.5 mg Documented by: Cholecalciferol (Vitamin D (25mcg)) 4,000 unit PO DAILY [facility] Last Admin: 11/03/19 09:28 Dose: 4,000 unit Documented by: Diazepam (Valium) 2.5 mg PO 4X/DAY [facility] Last Admin: 11/03/19 09:32 Dose: 2.5 mg Documented by: Docusate Sodium (Colace) 100 mg PO TID PRN PRN PRN Reason: Constipation Last Admin: 11/02/19 21:35 Dose: 100 mg Documented by: Enoxaparin Sodium (Lovenox) 40 mg SC DAILY [facility] Last Admin: 11/03/19 09:29 Dose: 40 mg Documented by: Guaifenesin (Mucinex) 1,200 mg PO BID [facility] Last Admin: 11/03/19 09:28 Dose: 1,200 mg Documented by: Hydralazine HCl (Apresoline Iv) 10 mg IV Q4H PRN PRN PRN Reason: SBP more than 180 mmHg Last Admin: 11/02/19 04:33 Dose: 10 mg Documented by: Hydrochlorothiazide (Hctz) 25 mg PO DAILY [facility] Last Admin: 11/03/19 09:29 Dose: 25 mg Documented by: Sodium Chloride () 250 mls @ 15 mls/hr IV .[id number] PRN PRN Reason: Saline Flush Sodium Chloride () 250 mls @ 15 mls/hr IV .[id number] PRN PRN Reason: Additional IVPB Infusion Sodium Chloride () 1,000 mls @ 100 mls/hr IV .Q10H [facility] Last Admin: 11/03/19 03:52 Dose: 100 mls/hr Documented by: Ipratropium [place] (Atrovent) 0.5 mg INHALATION Q6HWA.RT [facility] Last Admin: 11/03/19 07:30 Dose: 0.5 mg Documented by: Metoprolol Tartrate (Lopressor (Beta Chago)) 25 mg PO BID [facility] Last Admin: 11/03/19 09:29 Dose: 25 mg Documented by: Nitroglycerin (Nitrostat) 0.4 mg SUBLINGUAL Q5M PRN PRN Reason: CARDIAC/CHEST PAIN Nutritional Formula (Lactose Free) (Ensure Clear) 120 ml PO 4X/DAY [facility] Last Admin: 11/03/19 09:29 Dose: 120 ml Documented by: Oxycodone HCl (Oxyir) 5 mg PO Q4H PRN PRN PRN Reason: Pain Score 4-5/10 Last Admin: 11/03/19 07:28 Dose: 5 mg Documented by: Pantoprazole Sodium (Protonix) 40 mg PO BID [facility] Last Admin: 11/03/19 09:28 Dose: 40 mg Documented by: Prochlorperazine Edisylate (Compazine Iv) 5 mg IV Q4H PRN PRN PRN Reason: Breakthrough nausea/vomiting Last Admin: 11/03/19 10:08 Dose: 5 mg Documented by: Sodium Chloride () 10 - 40 ml IV UD PRN PRN Reason: SALINE FLUSH Last Admin: 11/01/19 21:59 Dose: 10 ml Documented by: Sucralfate (Carafate) 1 gm PO 1HR_ACHS [facility] Last Admin: 11/03/19 06:24 Dose: 1 gm Documented by: Discharge Diet: Low fat/ Low Cholesterol, 2000 mg Sodium Diet Discharge Activity: Return to Normal Activity Home Medications: Medications to take at Discharge Acyclovir 400 mg PO BID 05/23/18 biotin 10 mg tablet 10 mg PO DAILY 12/22/18 calcium citrate 250 mg PO BID 12/22/18 docusate sodium 100 mg capsule 100 mg PO TID PRN cap 12/22/18 hytxfjds-kali-nasju acid 200 mcg-herbal no.293 37.5 mg chewable tablet 4 tab PO DAILY tab 12/22/18 polyethylene glycol 3350 17 gram/dose oral powder 17 g PO PRN PRN 12/22/18 Ondansetron [Zofran Odt] 8 mg PO Q6H PRN PRN 01/12/19 traMADol [Ultram] 1 - 2 tab PO Q8H PRN 02/14/19 Cholecalciferol (Vitamin D3) [Vitamin D3] 4,000 unit PO DAILY 03/21/19 Diazepam [Valium] 2.5 mg PO 4X/DAY 10/29/19 Pantoprazole Sodium [Protonix] 40 mg PO BID 10/29/19 Sucralfate [Carafate] 1 gm PO 4X/DAY 10/29/19 Acetaminophen [Tylenol Tablet] 650 mg PO Q6H PRN PRN tab 11/03/19 Ensure Clear 120 ml PO 4X/DAY 30 Days #120 liquid 11/03/19 Guaifenesin [Mucinex] 1,200 mg PO BID 5 Days #10 tab 11/03/19 Hydrochlorothiazide [Hctz] 25 mg PO DAILY 30 Days #30 tab 11/03/19 Metoprolol Tartrate [Lopressor (beta chago)] 25 mg PO BID 30 Days #60 tab 11/03/19 Following Prescriptions Were Given to Patient: Ensure Clear 120 ml PO 4X/DAY 30 Days #120 liquid Transmission Status: Received by [facility]30 Hydrochlorothiazide [Hctz] 25 mg PO DAILY 30 Days #30 tab Transmission Status: Received by [facility]30 Metoprolol Tartrate [Lopressor (beta chago)] 25 mg PO BID 30 Days #60 tab Transmission Status: Received by [facility]30 Guaifenesin [Mucinex] 1,200 mg PO BID 5 Days #10 tab Transmission Status: Received by [facility]30 Primary Care Physician: Amari Renae DO [Primary Care Provider] - Please follow up with your Primary Care Physician in: within 1-2 weeks Please Follow Up With: Rosendo Raman MD When: as scheduled Please Follow Up With: Rosendo Raman MD When: as scheduled Please Follow Up With: Shayan Robertson MD Disposition: Home Minutes spent on discharge:: 40 Patient Condition:: Stable Medical Necessity - Tobacco Use Smoking Status: Former smoker Tobacco Use: Non-smoker Meaningful Use Info Meaningful Use Diagnoses (Choose all that apply): None applicable Inpatient E&M: [id number] [facility]
--- NOTE | 2019-11-04 15:22 | CASEMGMT ---
ROSALIO EGAN Discharge F/U Phone Call Lace: 12 Strata: 3 Discharge date: 11/03/2019 Call date: 11/04/2019 Call time: 1523 Admission dx: Possible COVID 19 Pt states doing 'better' and no pain since discharge. Pt states is unsure if she should still take her blood pressure med as she has lost weight since her bariatric surgery but she states she will discuss this with her PCP at her f/u appt. Pt states no further questions regarding discharge instructions/medications. Pt states did have f/u with bariatric surgeon today and he plans to do another scope soon. Pt states no suggestions for [facility] at this time and states 'You all were great!' Pt voices no further questions/concerns/needs at this time. SStaten ROSALIO EGAN
== END 2019-11-03 11:53 | disposition home or self-care (01) | DRG 201 ==
LOC: ED 18:05 → ICU 22:51 → PCU 11-02 07:59
PROVIDERS: Admitting Provider Internal Medicine; Emergency Provider Emergency Medicine; PCP Family Medicine; Referring Provider Internal Medicine; Visit Provider Internal Medicine
DX: R00.0 Tachycardia, unspecified (principal); A08.4 Viral intestinal infection, unspecified; E87.6 Hypokalemia; J44.9 Chronic obstructive pulmonary disease, unspecified; I10 Essential (primary) hypertension; E78.5 Hyperlipidemia, unspecified; I25.10 Atherosclerotic heart disease of native coronary artery without angina pectoris; K21.9 Gastro-esophageal reflux disease without esophagitis; E43 Unspecified severe protein-calorie malnutrition; G47.61 Periodic limb movement disorder; Z68.21 Body mass index [BMI] 21.0-21.9, adult; F17.210 Nicotine dependence, cigarettes, uncomplicated; E55.9 Vitamin D deficiency, unspecified; G47.33 Obstructive sleep apnea (adult) (pediatric); G89.29 Other chronic pain; F41.9 Anxiety disorder, unspecified; Z98.84 Bariatric surgery status; F32.9 Major depressive disorder, single episode, unspecified; Z79.899 Other long term (current) drug therapy
CPT/HCPCS: 36415; 71045; 71250; 71275; 72100; 74176; 80048; 80053; 81001; 82550; 83605; 83615; 83690; 83735; 84145; 84443; 84484; 85025; 85379; 85384; 85610; 86140; 87040; 87449; 87633; 87635; 93005; 93306; 94640; 94667; 94668; 94799; 96361; 96372; 96374; 96375; 99251; 99284; 99285; J7030; J7050; Q9957; Q9967; A4216; G0463; J2405; U0003

== ENCOUNTER → 2019-11-03 12:43 | Outpatient (CLI) | payer MEDICAID, SELFPAY ==
[2019-05-21 15:20] VITALS: BMI 21.7
[2019-10-31 21:37] VITALS: BMI 21.7
== END ==
PROVIDERS: PCP Family Medicine; Referring Provider Family Medicine; Visit Provider Family Medicine
DX: R00.1 Bradycardia, unspecified (principal)
CPT/HCPCS: 93225; 93226

== ENCOUNTER → 2019-12-11 09:46 | Outpatient (CLI) | payer MEDICAID, SELFPAY ==
[2019-05-21 15:20] VITALS: BMI 21.7
[2019-10-31 21:37] VITALS: BMI 21.7
[2019-12-11 12:16] LABS: Absolute Lymphocyte Count 1.06 X10^3/uL (0.83-4.51); Absolute Neutrophil Count 3.4 X10^3/uL (2.0-7.7); Basophil# 0.04 X10^3/uL; Basophil% 0.8 % (0-1); Eosinophils% 5.8 % (0-5); Hematocrit 39.3 % (37-47); Hemoglobin 12.3 g/dL (12.0-15.0); Lymphocyte # 1.06 X10^3/ul (4.0); Lymphocyte % 20.5 % (19-41); Mean Corp Hgb Conc 31.3 g/dL (32-36); Mean Corpuscular Hgb 29.1 pg (27.0-32.0); Mean Corpuscular Volume 92.9 fL (81-99); Monocyte# 0.31 X10^3/uL; NRBC Flagged by Analyzer 0 % (0-5); Neutrophil # 3.44 X10^3/uL (2.7-7.7); Neutrophil % 66.7 % (47-70); Platelet Count 277 K/mm3 (150-450); RBC Distribution Width CV 13.7 % (11.6-14.6); RBC Distribution Width SD 47.1 fl (35.1-43.9); Red Blood Count 4.23 M/mm3 (4.2-5.4); White Blood Count 5.2 K/mm3 (4.4-11.0)
[2019-12-11 13:17] LABS: ALB/GLOB Ratio 0.9 RATIO (0.9-2.4); AST(SGOT) 16 U/L (15-37); Alanine Aminotransfer ALT/SGPT 23 U/L (13-56); Albumin, Serum 3.5 g/dL (3.2-5.0); Alkaline Phosphatase 84 U/L (45-117); Anion Gap 4 (5-15); BUN 9 mg/dL (7-18); Calcium,Total 8.9 mg/dL (8.5-10.1); Chloride 105 mmol/L (98-107); Creatinine, Serum 0.56 mg/dL (0.55-1.02); EST Glomerular Filtration Rate 122 mL/min (>60); Est Glom Filt Rate - Afr Amer 147 mL/min (>60); Ferritin 9 ng/mL (8-252); Globulin 3.7 g/dL (2.2-4.2); Glucose 59 mg/dL (74-106); Iron 52 ug/dL (50-170); Magnesium 2.2 mg/dL (1.6-2.6); Protein, Total 7.2 g/dL (6.4-8.2); Sodium Level 139 mmol/L (136-145)
[2019-12-11 14:22] LABS: Vitamin B12 699 pg/mL (211-911); Vitamin D,25 Hydroxy 42.4 ng/mL
[2019-12-21 11:31] LABS: Cotinine Screen Blood 2.4 ng/mL (.); Nicotine Blood <1.0 ng/mL (.); Zinc, WHOLE BLOOD 574 ug/dL (440-860)
== END ==
PROVIDERS: PCP Family Medicine; Visit Provider Registered Nurse Nephrology
DX: K28.9 Gastrojejunal ulcer, unspecified as acute or chronic, without hemorrhage or perforation (principal); D64.9 Anemia, unspecified; E61.7 Deficiency of multiple nutrient elements; E55.9 Vitamin D deficiency, unspecified; E53.9 Vitamin B deficiency, unspecified; E61.1 Iron deficiency; K90.9 Intestinal malabsorption, unspecified
CPT/HCPCS: 36415; 80053; 80323; 82306; 82607; 82728; 82746; 83036; 83540; 83735; 84630; 85025

== ENCOUNTER → 2020-02-09 17:00 | Outpatient (CLI) | payer MEDICAID, SELFPAY ==
[2019-12-11 16:10] VITALS: BMI 21.9
--- NOTE | 2020-02-09 16:52 | BI_ITS ---
MAMMOGRAPHY - BILATERAL SCREENING REASON FOR EXAM: Female, 49 years old. Routine annual screening examination. PERTINENT HISTORY: Non-contributory. TECHNIQUE: Digital bilateral breast eli (3D mammographic acquisition) in the CC and MLO projections. 2-D mediolateral oblique (MLO) and craniocaudad (CC) views of both breasts were obtained. CAD: Full Field Digital Mammography with Computer Added Detection was performed. COMPARISON: Comparison is made with prior study dated 02/07/2019 and 05/20/2013. FINDINGS: Breast Composition: There are scattered areas of fibroglandular density. There are no dominant masses or suspicious calcifications. No other significant abnormalities are identified. There has been no significant change since the prior study. BI/SCREEN MAMM (CAD) W/ELI BILAT IMPRESSION: Stable bilateral screening mammogram. Yearly follow-up mammogram recommended. (A) ASSESSMENT CATEGORY: BIRADS Category 1: Negative. A letter regarding these results will be sent to the patient by the facility within 30 days. Approximately 10% of breast cancers are not detected by mammography. A normal mammogram should not delay biopsy of a clinically suspicious abnormality. [id number] Electronically Signed: Malcolm Quarles, at 8:51 EST , Service support ,
== END ==
PROVIDERS: PCP Family Medicine; Referring Provider Family Medicine; Visit Provider Family Medicine
DX: Z12.31 Encounter for screening mammogram for malignant neoplasm of breast (principal)
CPT/HCPCS: 77063; 77067

== ENCOUNTER → 2020-03-02 | Outpatient (CLI) | payer MEDICAID, SELFPAY ==
[2019-12-11 16:10] VITALS: BMI 21.9
[2020-03-08 13:28] LABS: HPV APTIMA, High Risk Positive (Negative); HPV Reflexed? YES, CHARGE PATIENT
== END | disposition home or self-care (01) ==
LOC: LABSPEC 13:43
PROVIDERS: PCP Family Medicine; Visit Provider Obstetrics & Gynecology
DX: Z12.4 Encounter for screening for malignant neoplasm of cervix (principal)
CPT/HCPCS: 87624; 88175; G0145

== ENCOUNTER → 2020-03-22 | Outpatient (CLI) | payer MEDICAID, SELFPAY ==
[2019-12-11 16:10] VITALS: BMI 21.9
--- NOTE | 2020-03-22 | IMM_PTH ---
PATIENT: TRI MACEDO LOC: [facility] U#:[id number] AGE/SX: 49/F ROOM: RE03/22/[address]: Dr. Jaime Ge MD : 1970 BED: DIS: 03/22/2020 SPEC #: [id number] RECD: 03/23/20 13:50 STATUS: POOJA REQ #: [id number] ELIZABETH: 03/22/20 00:[address]: Jaime Ge DEPT: IMMUNOHISTOCHEMISTRY RECD BY: Summer Wong ENTERED: 03/23/20 13:51 SP TYPE: IMMUNO OTHR DR: Dr. Amari Renae DO Tissues: A - Uterine cervix, NOS Procedures: p16 (initial) KI-67 (add) PHYSICIAN & INSTITUTION [place] [id number] SPECIMEN INFORMATION: Tissue Source: A - Cervical biopsy, four quad Clinical Info: Positive HPV Specimen Number: [id number] CPT code: 22004, 36870 METHODOLOGY: Deparaffinized sections of prefer/formalin-fixed tissue or PAP/DQ stained slides are incubated with monoclonal/polyclonal antibodies/oligonucleotide probes. Localization is made via biotin free immunoperoxidase method. Appropriate controls are performed and reacted as expected. Results on target cell population are indicated in the following table: RESULTS: ANTIBODY / CLONE RESULT Block A P16 (E6H4) positive, minimal patchy staining Ki-67 (30-9) positive, low These tests were developed and their performance characteristics determined by [facility]. They may not have been cleared or approved by the U.S. Food and Drug Administration. The FDA has determined that such clearance or approval is not necessary. The above immunohistochemical/dualISH markers are ordered and reviewed by the Pathologist. INTERPRETATION: A. Cervix, four quad biopsy: Focal mild squamous dysplasia. SJ:manjit 03/24/2020
--- NOTE | 2020-03-22 11:30 | CER_PTH ---
PATIENT: TRI MACEDO LOC: [facility] U#:[id number] AGE/SX: 49/F ROOM: RE03/22/[address]: Dr. Jaime Ge MD : 1970 BED: DIS: 03/22/2020 SPEC #: [id number] RECD: 03/22/20 12:22 STATUS: POOJA REPablito #: [id number] ELIZABETH: 03/22/20 11:[address]: Jaime Ge DEPT: SURGICAL PATHOLOGY RECD BY: Renetta Merchant ENTERED: 03/22/20 12:47 SP TYPE: CERV OTHR DR: Dr. Amari Renae DO Tissues: A - Uterine cervix, NOS B - Endocervical Procedures: Surgery Specimen Level IV HEADER OPERATION: Colposcopy PRE-OP DIAGNOSIS: Positive HPV TISSUE SUBMITTED: A - Cervical biopsy four quad, B - ECC MICROSCOPIC DIAGNOSIS A. Cervix, four quadrant, biopsy: Mild squamous dysplasia with HPV changes (LGSIL and JOSHUA I). Mild acute and chronic inflammation. See comment. B. ECC: Fragments of benign ecto- and endocervical epithelium, blood and mucous, negative for dysplasia. SAY:manjit 03/23/2020 COMMENT A. Immunohistochemistry ([id number]) for surrogate HPV marker (p16) supports the above diagnosis. This case has been reviewed in consultation with Dr. Magallanes who concurs with the above diagnosis. MICROSCOPIC DESCRIPTION Slides are reviewed. GROSS DESCRIPTION A - Received in fixative is one container labeled with the patient's name and designated cervical biopsy four quadrant. The specimen consists of multiple irregular fragments of light amos soft tissue that in aggregate measure 0.6 x 0.5 x 0.1 cm. The specimen is totally submitted in one cassette. B - Received in fixative is one container labeled with the patient's name and designated ECC. The specimen consists of multiple irregular fragments of amos mucoid tissue that in aggregate measure 1.5 x 1 x 0.1 cm. The specimen is totally submitted in one cassette. / SAY:manjit 03/22/20 TC:3 CPT: 44534 x2
== END | disposition home or self-care (01) ==
PROVIDERS: PCP Family Medicine; Visit Provider Obstetrics & Gynecology
DX: N87.0 Mild cervical dysplasia (principal)
CPT/HCPCS: 88305; 88341; 88342

== ENCOUNTER → 2020-04-20 13:31 | Outpatient (CLI) | payer MEDICAID, SELFPAY ==
[2019-12-11 16:10] VITALS: BMI 21.9
--- NOTE | 2020-04-20 13:59 | EKG12_ITS ---
Test Reason : PRE OP Blood Pressure : / mmHG Vent. Rate : 050 BPM Atrial Rate : 050 BPM P-R Int : 162 ms QRS Dur : 086 ms QT Int : 418 ms P-R-T Axes : 040 034 033 degrees QTc Int : 381 ms Sinus bradycardia Otherwise normal ECG Confirmed by ESME ZEPEDA, ANISHA ([id number]), fashion editor JILLIAN KURTZ ([id number]) on 04/21/2020 1:53:48 PM Referred By: Sherley Garcia Confirmed By:ANISHA VICTORIA MD
--- NOTE | 2020-04-20 14:00 | RAD_ITS ---
STUDY: X-RAY CHEST REASON FOR EXAM: Female, 49 years old. PRE OP BARIATRIC SURGERY REVISION, NO CURRENT CHEST COMPLAINTS TECHNIQUE: PA and lateral views of the chest. COMPARISON: Comparison is made with prior examination dated 10/31/2019. FINDINGS: The lungs are clear and expanded. There is no demonstrated pleural abnormality. Normal size heart. Normal mediastinum and harlan. Normal visualized pulmonary arteries. Normal visualized aortic arch and descending thoracic aorta. There are mild degenerative changes of the visualized thoracic spine. Normal visualized ribs, clavicles, and shoulders. There is no demonstrated abnormality of the visualized soft tissue structures of the upper abdomen. RAD/Chest PA and Lateral IMPRESSION: Normal x-ray examination of the chest. Electronically Signed: Malcolm Quarles MD at 15:44 EST , Service support ,
[2020-04-20 14:20] LABS: Hematocrit 35.6 % (37-47); Hemoglobin 11.2 g/dL (12.0-15.0); Mean Corp Hgb Conc 31.5 g/dL (32-36); Mean Corpuscular Hgb 26.9 pg (27.0-32.0); Mean Corpuscular Volume 85.6 fL (81-99); Mean Platelet Vol. 10.1 fl (6.2-12.0); Platelet Count 257 K/mm3 (150-450); RBC Distribution Width CV 14.6 % (11.6-14.6); Red Blood Count 4.16 M/mm3 (4.2-5.4); White Blood Count 5.6 K/mm3 (4.4-11.0)
[2020-04-20 14:41] LABS: Albumin, Serum 3.5 g/dL (3.2-5.0); Anion Gap 5 (5-15); BUN 11 mg/dL (7-18); BUN/Creat Ratio 14.7 RATIO (10-20); Calcium,Total 8.7 mg/dL (8.5-10.1); Chloride 105 mmol/L (98-107); Creatinine, Serum 0.75 mg/dL (0.55-1.02); EST Glomerular Filtration Rate 88 mL/min (>60); Est Glom Filt Rate - Afr Amer 106 mL/min (>60); Glucose 130 mg/dL (74-106); Potassium 4.1 mmol/L (3.5-5.1); Sodium Level 138 mmol/L (136-145)
[2020-04-20 14:59] LABS: Hemoglobin A1c 5.1 % (3.8-5.6)
[2020-04-26 09:26] LABS: Cotinine Screen Blood 5.3 ng/mL (.); Nicotine Blood <1.0 ng/mL (.)
== END ==
PROVIDERS: PCP Family Medicine; Referring Provider Registered Nurse Nephrology; Visit Provider Registered Nurse Nephrology
DX: Z01.89 Encounter for other specified special examinations (principal); Z01.818 Encounter for other preprocedural examination; Z11.59 Encounter for screening for other viral diseases; G47.33 Obstructive sleep apnea (adult) (pediatric); R53.83 Other fatigue; I10 Essential (primary) hypertension; E13.69 Other specified diabetes mellitus with other specified complication
CPT/HCPCS: 36415; 71046; 80048; 80323; 82040; 83036; 85027; 93005

== ENCOUNTER → 2020-09-10 11:41 | Outpatient (CLI) | payer MEDICAID, SELFPAY ==
[2019-12-11 16:10] VITALS: BMI 21.9
[2020-09-10 12:00] LABS: Absolute Lymphocyte Count 1.38 X10^3/uL (0.83-4.51); Absolute Neutrophil Count 3.5 X10^3/uL (2.0-7.7); Basophil# 0.04 X10^3/uL; Basophil% 0.7 % (0-1); Eosinophil# 0.34 X10^3/uL; Eosinophils% 5.9 % (0-5); Hematocrit 37.3 % (37-47); Hemoglobin 11.6 g/dL (12.0-15.0); Lymphocyte # 1.38 X10^3/ul (0.83-4.51); Lymphocyte % 24.1 % (19-41); Mean Corp Hgb Conc 31.1 g/dL (32-36); Mean Corpuscular Hgb 26.5 pg (27.0-32.0); Mean Corpuscular Volume 85.2 fL (81-99); Mean Platelet Vol. 10.4 fl (6.2-12.0); Monocyte# 0.42 X10^3/uL; Monocyte% 7.3 % (0-10); NRBC Flagged by Analyzer 0 % (0-5); Neutrophil % 61.1 % (47-70); Platelet Count 236 K/mm3 (150-450); RBC Distribution Width CV 15.5 % (11.6-14.6); Red Blood Count 4.38 M/mm3 (4.2-5.4); White Blood Count 5.7 K/mm3 (4.4-11.0)
[2020-09-10 12:18] LABS: Ferritin 7 ng/mL (8-252); Iron 36 ug/dL (50-170)
[2020-09-12 15:39] LABS: Vitamin B12 483 pg/mL (211-911)
== END ==
PROVIDERS: PCP Family Medicine; Referring Provider Family Medicine; Visit Provider Family Medicine
DX: D64.9 Anemia, unspecified (principal)
CPT/HCPCS: 36415; 82607; 82728; 83540; 85025

== ENCOUNTER → 2020-10-12 07:53 | Outpatient (CLI) | payer MEDICAID, SELFPAY ==
[2019-12-11 16:10] VITALS: BMI 21.9
[2020-10-12 07:58] VITALS: BP 119/60; PULSE 49; RESP 16; TEMP 36.3; O2SAT 100; BMI 27.4
[2020-10-12] MEDS: 0.9% NaCl IVPB Med Flush (250 mL) 15 ML IV (08:11)
[2020-10-12] MEDS: 0.9% NaCl Peripheral Flush Adult/Peds IV (08:12)
[2020-10-12 09:02] VITALS: BP 123/71; PULSE 50; RESP 14; TEMP 36.6; O2SAT 100
== END ==
PROVIDERS: PCP Family Medicine; Referring Provider Family Medicine; Visit Provider Family Medicine
DX: D50.9 Iron deficiency anemia, unspecified (principal)
CPT/HCPCS: 96365; J1756; J7050; A4216

== ENCOUNTER → 2020-10-19 08:00 | Outpatient (CLI) | payer MEDICAID, SELFPAY ==
[2020-10-12 07:58] VITALS: BMI 27.4
[2020-10-19 08:10] VITALS: BP 145/39; PULSE 54; RESP 16; TEMP 36.1; O2SAT 100; BMI 27.4
[2020-10-19] MEDS: 0.9% NaCl IVPB Med Flush (250 mL) 15 ML IV (08:11)
[2020-10-19] MEDS: 0.9% NaCl Peripheral Flush Adult/Peds IV (08:15)
[2020-10-19 08:58] VITALS: BP 134/69; PULSE 54; RESP 16; O2SAT 100
== END ==
PROVIDERS: PCP Family Medicine; Referring Provider Family Medicine; Visit Provider Family Medicine
DX: D50.9 Iron deficiency anemia, unspecified (principal)
CPT/HCPCS: 96365; J1756; J7050; A4216

== ENCOUNTER → 2020-10-26 07:54 | Outpatient (CLI) | payer MEDICAID, SELFPAY ==
[2020-10-12 07:58] VITALS: BMI 27.4
[2020-10-26 08:02] VITALS: BP 115/72; PULSE 53; RESP 16; TEMP 36.2; O2SAT 98
[2020-10-26] MEDS: 0.9% NaCl Peripheral Flush Adult/Peds IV (08:04)
[2020-10-26] MEDS: 0.9% NaCl IVPB Med Flush (250 mL) 15 ML IV (08:04)
[2020-10-26 08:54] VITALS: BP 125/76; PULSE 48
== END ==
PROVIDERS: PCP Family Medicine; Referring Provider Family Medicine; Visit Provider Family Medicine
DX: D50.9 Iron deficiency anemia, unspecified (principal)
CPT/HCPCS: 96365; J1756; J7050; A4216

== ENCOUNTER → 2020-11-02 07:59 | Outpatient (CLI) | payer MEDICAID, SELFPAY ==
[2020-10-12 07:58] VITALS: BMI 27.4
[2020-11-02 08:10] VITALS: BP 151/89; PULSE 72; RESP 16; TEMP 36.4; O2SAT 100
[2020-11-02] MEDS: 0.9% NaCl Peripheral Flush Adult/Peds IV (08:14)
[2020-11-02] MEDS: 0.9% NaCl IVPB Med Flush (250 mL) 15 ML IV (08:14)
== END ==
PROVIDERS: PCP Family Medicine; Referring Provider Family Medicine; Visit Provider Family Medicine
DX: D50.9 Iron deficiency anemia, unspecified (principal)
CPT/HCPCS: 96365; J1756; J7050; A4216

== ENCOUNTER → 2020-11-09 08:02 | Outpatient (CLI) | payer MEDICAID, SELFPAY ==
[2020-10-12 07:58] VITALS: BMI 27.4
[2020-11-09 08:15] VITALS: BP 130/80; PULSE 63; RESP 16; TEMP 36.3; O2SAT 98; BMI 28.2
[2020-11-09] MEDS: 0.9% NaCl Peripheral Flush Adult/Peds IV (08:21)
[2020-11-09] MEDS: 0.9% NaCl IVPB Med Flush (250 mL) 15 ML IV (08:22)
[2020-11-09 09:01] VITALS: BP 146/71; PULSE 61; RESP 16; TEMP 36.4; O2SAT 100
== END ==
PROVIDERS: PCP Family Medicine; Referring Provider Family Medicine; Visit Provider Family Medicine
DX: D50.9 Iron deficiency anemia, unspecified (principal)
CPT/HCPCS: 96365; J1756; J7050; A4216

== ENCOUNTER → 2021-01-05 | Outpatient (CLI) | payer MEDICAID, SELFPAY | END | disposition home or self-care (01) | LOC: LABSPEC 15:06 | PROVIDERS: PCP Family Medicine; Visit Provider Family Medicine | DX: Z20.828 Contact with and (suspected) exposure to other viral communicable diseases (principal) | CPT/HCPCS: 87635; U0005; U0003 ==

== ENCOUNTER 2021-05-05 12:47 | Outpatient (CLI) | payer MEDICAID, SELFPAY ==
--- NOTE | 2021-05-05 12:50 | BI_ITS ---
MAMMOGRAPHY - BILATERAL SCREENING REASON FOR EXAM: Female, 50 years old. Routine annual screening examination. PERTINENT HISTORY: Non-contributory. TECHNIQUE: Digital bilateral breast eli (3D mammographic acquisition) in the CC and MLO projections. 2-D mediolateral oblique (MLO) and craniocaudad (CC) views of both breasts were obtained. CAD: Full Field Digital Mammography with Computer Added Detection was performed. COMPARISON: Comparison is made with prior study dated 02/09/2020 and 02/07/2019. FINDINGS: Breast Composition: There are scattered areas of fibroglandular density. There are no dominant masses or suspicious calcifications. No other significant abnormalities are identified. There has been no significant change since the prior study. BI/SCRN MAMM (CAD)W/ELI BILAT IMPRESSION: Stable bilateral screening mammogram. Yearly follow-up mammogram recommended. (A) ASSESSMENT CATEGORY: BIRADS Category 1: Negative. A letter regarding these results will be sent to the patient by the facility within 30 days. Approximately 10% of breast cancers are not detected by mammography. A normal mammogram should not delay biopsy of a clinically suspicious abnormality. [id number] Electronically Signed: Malcolm Quarles MD at 13:24 EST ,
== END 2021-05-05 23:59 | disposition home or self-care (01) ==
LOC: OPBI 12:48
PROVIDERS: PCP Family Medicine; Visit Provider Family Medicine
DX: Z12.31 Encounter for screening mammogram for malignant neoplasm of breast (principal)
CPT/HCPCS: 77063; 77067

== ENCOUNTER 2021-05-11 00:50 | Emergency (ER) | payer MEDICAID, SELFPAY ==
[2021-05-11 00:51] VITALS: BP 110/76; PULSE 69; RESP 18; TEMP 36.4; O2SAT 99; BMI 32.3
[2021-05-11] MEDS: Ondansetron 4 MG/2 ML Vial IV (01:33)
[2021-05-11] MEDS: Morphine 4 MG/ML Syringe IV (01:33)
[2021-05-11 01:38] LABS: Absolute Lymphocyte Count 1.02 X10^3/uL (0.83-4.51); Absolute Neutrophil Count 6.5 X10^3/uL (2.0-7.7); Basophil# 0.03 X10^3/uL; Basophil% 0.3 % (0-1); Eosinophil# 0.37 X10^3/uL; Eosinophils% 4.3 % (0-5); Hematocrit 40.9 % (37-47); Hemoglobin 13.8 g/dL (12.0-15.0); Lymphocyte # 1.02 X10^3/ul (0.83-4.51); Lymphocyte % 11.8 % (19-41); Mean Corp Hgb Conc 33.7 g/dL (32-36); Mean Corpuscular Hgb 31.7 pg (27.0-32.0); Mean Platelet Vol. 10.3 fl (6.2-12.0); Monocyte# 0.75 X10^3/uL; Monocyte% 8.7 % (0-10); NRBC Flagged by Analyzer 0 % (0-5); Neutrophil # 6.48 X10^3/uL (2.7-7.7); Neutrophil % 74.7 % (47-70); Platelet Count 199 K/mm3 (150-450); RBC Distribution Width SD 44.8 fl (35.1-43.9); Red Blood Count 4.35 M/mm3 (4.2-5.4); White Blood Count 8.7 K/mm3 (4.4-11.0)
[2021-05-11 01:48] LABS: Anion Gap 4 (5-15); BUN 16 mg/dL (7-18); BUN/Creat Ratio 16.9 RATIO (10-20); Chloride 105 mmol/L (98-107); Creatinine, Serum 0.95 mg/dL (0.55-1.02); EST Glomerular Filtration Rate 66 mL/min (>60); Est Glom Filt Rate - Afr Amer 80 mL/min (>60); Estimated Creatinine Clearance 67.06 ml/min; Glucose 90 mg/dL (74-106); Potassium 3.8 mmol/L (3.5-5.1); Sodium Level 136 mmol/L (136-145)
[2021-05-11 01:53] LABS: Lactic Acid 0.6 mmol/L (0.4-1.9)
[2021-05-11 02:02] LABS: Color, Urine Yellow (Yellow); Glucose, Dipstick Normal (Normal); Ketone-Dipstick Negative (Negative); Leukocyte Esterase-Dipstick 500 /ul (Negative); Nitrite-Dipstick Negative (Negative); Occult Blood-Urine 10 /ul (Negative); Protein-Dipstick 30 mg/dl (Negative); Specific Gravity, Urine 1.025 (1.002-1.030); Urine Clarity Clear (Clear); Urine Urobilinogen 1 mg/dl (Normal)
[2021-05-11 02:03] LABS: Urine Bilirubin Dipstick 1 mg/dL (Negative)
[2021-05-11 02:31] LABS: Bacteria 1+ /hpf (None Seen); Mucous, Urine 2+ /hpf (<or=2+); Red Blood Cells-Urine 0-5 SEEN /hpf (0-5); Squamous Epithelial Cells - UA 5-10 SEEN /hpf (5-10); White Blood Cells 10-25 SEEN /hpf (0-5)
--- NOTE | 2021-05-11 03:17 | EX.ED.DYSGE1 ---
HPI History of Present Illness Chief Complaint: Cellulitis Narrative Narrative: Patient is a 50-year-old female who states that she takes doxycycline daily secondary to hidradenitis suppurativa. She states that she was recently diagnosed with a urinary tract infection as well and placed on Macrobid and then transition to Bactrim. Patient states that over the past 3 to 4 days she has noticed some bilateral lower leg pain which has now led to some redness. She denies any fevers or chills or trauma but states that she is concerned she is developing cellulitis and therefore comes in for evaluation [facility] Medical History (Updated 05/11/21 @ 03:[address] Santo Gardner, DO) Alopecia Anxiety Benign essential HTN Chest pain Cigarette nicotine dependence COPD (chronic obstructive pulmonary disease) Dysfunctional uterine bleeding Essential hypertension Fatigue Fatty liver disease, nonalcoholic Gastroesophageal reflux disease Major depression Morbid obesity Nephrolithiasis Obstructive sleep apnea Onychomycosis Peripheral edema Prediabetes Sarcoidosis Skin rash Stage 1 mild COPD by GOLD classification Tobacco user Vitamin D deficiency Home Medications acyclovir 400 mg PO BID 05/23/18 [History Last Taken 10/30/19 18:00] biotin 10 mg tablet 10 mg PO DAILY 12/22/18 [History Last Taken 10/28/19 06:00] calcium citrate 250 mg PO BID 12/22/18 [History Last Taken 10/30/19 18:00] docusate sodium 100 mg capsule 100 mg PO TID PRN cap 12/22/18 [History Last Taken 10/30/19 21:00] vuvvbpvc-hfbq-xtqfn acid 200 mcg-herbal no.293 37.5 mg chewable tablet 4 tab PO DAILY tab 12/22/18 [History Last Taken 10/28/19 06:00] polyethylene glycol 3350 17 gram/dose oral powder 17 g PO PRN PRN 12/22/18 [History Last Taken 07/08/19] ondansetron 8 mg PO Q6H PRN PRN 01/12/19 [History Last Taken 10/31/19 14:30] tramadol 1 - 2 tab PO Q8H PRN 02/14/19 [History Last Taken 10/31/19 15:00] cholecalciferol (vitamin D3) 4,000 unit PO DAILY 03/21/19 [History Last Taken 10/28/19 06:00] diazepam 10 mg PO DAILY PRN 10/29/19 [History Last Taken 10/31/19 06:00] pantoprazole 40 mg PO BID 10/29/19 [History Last Taken 10/31/19 09:00] sucralfate 1 gm PO 4X/DAY 10/29/19 [History Last Taken 10/31/19 15:00] acetaminophen 650 mg PO Q6H PRN PRN tab 11/03/19 [Rx Last Taken Unknown] doxycycline hyclate 150 mg PO BID 10/12/20 [History Last Taken Unknown] cephalexin 500 mg PO TID 7 Days #21 cap 05/11/21 [Rx Last Taken Unknown] oxycodone-acetaminophen [Percocet] 1 tab PO Q6H PRN 3 Days #12 tab 05/11/21 [Rx Last Taken Unknown] Allergy/AdvReac Type Severity Reaction Status Date / Time latex Allergy Hives Verified 05/11/21 00:56 povidone-iodine Allergy Rash Verified 05/11/21 00:56 [From Betadine] Family History Father Hypertension Heart disease Diabetes CVA (cerebral vascular accident) Blood clotting disorder Pneumonia Grandfather Cancer Prostate Brother Diabetes Sister Asthma Sister Depression Anxiety Surgical History H/O: hysterectomy History of carpal tunnel release of both wrists History of gastric bypass History of lithotripsy Previous section Social History (Updated 03/31/19 @ 15:[address] Shayan Robertson MD) Smoking Status: Current every day smoker tobacco type: cigarettes second hand exposure: Yes alcohol intake: current alcohol intake frequency: holidays/special occasions only Alcohol type: wine substance use type: does not use caffeine: Yes (3/day) what type of physical activity do you participate in: none ROS ROS ED Constitutional Constitutional ED: Denies chills or fever(s) ENT ENT ED: Denies sore throat Cardiovascular Cardiovascular: Denies chest pain Respiratory/Chest Respiratory/Chest: Reports cough; Denies dyspnea Gastrointestinal Gastrointestinal: Denies abdominal pain, diarrhea, nausea or vomiting Genitourinary Genitourinary ED: Reports dysuria Musculoskeletal Musculoskeletal: Reports myalgias Integumentary Reports rash Neurologic Neurologic: Denies headache(s) Hematologic/Lymphatic Hematologic/Lymphatic: Denies easy bleeding or easy bruising EXAM Physical Exam Const Vital Signs: 05/11/21 00:51 05/11/21 03:38 Temperature 97.6 F L Temperature Source Oral Pulse Rate 69 71 Respiratory Rate 18 18 Blood Pressure 110/76 108/60 Blood Pressure Mean 87 Pulse Ox 99 98 Oxygen Delivery Method Room Air Positive well nourished and well developed General Appearance ED: well developed Eyes PERRL and EOMs intact bilaterally Neck supple Resp normal respiratory effort Resp Narrative: Breath sounds are diminished throughout with diffuse expiratory wheeze and rhonchi in the bases consistent with history of COPD Cardio regular rate and regular rhythm GI normal to inspection, nondistended, normoactive bowel sounds, non-tender, non-distended and no masses Auscultation: normoactive bowel sounds Palpation: soft Extremity Extremity Narrative: Patient has asymmetric erythema to the bilateral distal thirds of the small. The erythema encompasses approximately three fourths of the circumference of the lower leg bilaterally. There is asymmetric warmth noted as well. No abscess formation. However there are also noted early petechial changes. No lymphangitic streaking. No involvement of the palms or soles Neuro oriented x3 and CN's II-XII intact bilaterally Sensorium / Orientation: alert Motor Exam: strength 5/5 throughout Psych mental status grossly normal Skin Skin Narrative: Soft tissue changes to the bilateral lower legs as documented above MDM MDM MDM Narrative Medical decision making narrative: Patient presented to the ER afebrile and normotensive. She had erythema to bilateral lower legs which is atypical for cellulitis and DVT. Moreover there was no asymmetric swelling and no calf tenderness so I felt no need for a venous duplex. With the patient's report of being on doxycycline daily for hidradenitis and currently being on Bactrim there is concern she is failing outpatient treatment. Secondary to this elected perform basic laboratory studies with blood cultures. Patient's white count and lactic acid are normal she has no left shift. The urine shows just mild bacteria with contamination. At this time as she is afebrile and normotensive with no leukocytosis left shift or lactic acidosis and the erythema is bilaterally present with some petechiae I feel this is most likely related to a drug reaction causing HSP versus true cellulitis. I will have her stop the Bactrim as this is most likely the offending agent and transition her to Keflex as this will take only cover the skin and urine if this is atypical cellulitis. However at this time as she does not have laboratory or vital sign derangement I do not feel she needs placed in the hospital for failure of outpatient therapy and therefore will be discharged at this time. Lab Data Attestation: I reviewed the patient's lab results. Labs: Laboratory Results - last 24 hr 05/11/21 05/11/21 05/11/21 01:05 01:05 01:05 WBC 8.7 RBC 4.35 Hgb 13.8 Hct 40.9 MCV 94.0 MCH 31.7 MCHC 33.7 RDW Std Deviation 44.8 H RDW Coeff of Donis 13.0 Plt Count 199 MPV 10.3 Immature Gran % (Auto) 0.200 Neut % (Auto) 74.7 H Lymph % (Auto) 11.8 L Hartley % (Auto) 8.7 Eos % (Auto) 4.3 Baso % (Auto) 0.3 Absolute Neuts (auto) 6.5 Absolute Lymphs (auto) 1.02 Nucleated RBC % 0 Sodium 136 Potassium 3.8 Chloride 105 Carbon Dioxide 27.0 Anion Gap 4 L BUN 16 Creatinine 0.95 Estim Creat Clear Calc 67.06 Est GFR (MDRD) Af Amer 80 Est GFR (MDRD) Non-Af 66 BUN/Creatinine Ratio 16.9 Glucose 90 Lactic Acid 0.6 Calcium 9.0 Urine Color Urine Clarity Urine pH Ur Specific Diana Urine Protein Urine Glucose (UA) Urine Ketones Urine Occult Blood Urine Nitrite Urine Bilirubin Urine Urobilinogen Ur Leukocyte Esterase Urine RBC Urine WBC Ur Squamous Epith Cells Urine Bacteria Urine Mucus 05/11/21 01:52 WBC RBC Hgb Hct MCV MCH MCHC RDW Std Deviation RDW Coeff of Donis Plt Count MPV Immature Gran % (Auto) Neut % (Auto) Lymph % (Auto) Hartley % (Auto) Eos % (Auto) Baso % (Auto) Absolute Neuts (auto) Absolute Lymphs (auto) Nucleated RBC % Sodium Potassium Chloride Carbon Dioxide Anion Gap BUN Creatinine Estim Creat Clear Calc Est GFR (MDRD) Af Amer Est GFR (MDRD) Non-Af BUN/Creatinine Ratio Glucose Lactic Acid Calcium Urine Color Yellow Urine Clarity Clear Urine pH 5.0 Ur Specific Diana 1.025 Urine Protein 30 H Urine Glucose (UA) Normal Urine Ketones Negative Urine Occult Blood 10 H Urine Nitrite Negative Urine Bilirubin 1 H Urine Urobilinogen 1 H Ur Leukocyte Esterase 500 H Urine RBC 0-5 SEEN Urine WBC 10-25 SEEN Ur Squamous Epith Cells 5-10 SEEN Urine Bacteria 1+ Urine Mucus 2+ Discharge Plan Triage Chief Complaint: Cellulitis ED Provider: Santo Gardner Dx/Rx/DC Orders Clinical Impression: Cellulitis Instructions: ED Cellulitis, ED Henoch-Ahmet?nlein Purpura Prescriptions: New cephalexin 500 mg capsule 500 mg PO TID 7 Days Qty: 21 RF: 0 oxycodone-acetaminophen [Percocet] 5-325 mg tablet 1 tab PO Q6H PRN (Reason: pain) 3 Days Qty: 12 RF: 0 No Action docusate sodium [Colace] 100 mg capsule 100 mg PO TID PRN (Reason: Constipation) RF: 0 calcium citrate 250 mg calcium tablet 250 mg PO BID RF: 0 biotin 10 mg tablet 10 mg PO DAILY RF: 0 polyethylene glycol 3350 [Miralax] 17 gram/dose powder 17 g PO PRN PRN (Reason: Constipation) RF: 0 Alive Women's Gummy Vitamin 200 mcg- 37.5 mg tablet,chewable 4 tab PO DAILY RF: 0 acyclovir 400 tablet 400 mg PO BID RF: 0 ondansetron 4 MG tablet 8 mg PO Q6H PRN PRN (Reason: Nausea) RF: 0 tramadol 50 MG tablet 1 - 2 tab PO Q8H PRN (Reason: Pain Or Fever) RF: 0 cholecalciferol (vitamin D3) 2,000 UNIT tablet 4,000 unit PO DAILY RF: 0 sucralfate 1 GM tablet 1 gm PO 4X/DAY RF: 0 pantoprazole 40 MG tablet 40 mg PO BID RF: 0 diazepam 5 MG tablet 10 mg PO DAILY PRN (Reason: Anxiety) RF: 0 acetaminophen 325 MG tablet 650 mg PO Q6H PRN PRN (Reason: Pain Score 1-10/Temp > 100.7 F) RF: 0 doxycycline hyclate 150 mg Tablet 150 mg PO BID RF: 0 Primary Care Provider: Amari Renae Referrals: Amari Renae DO [Primary Care Provider] - Activity Restrictions/Additional Instructions: Please stop the Bactrim as I have concern that the leg redness and pain is related to an adverse medication reaction. Please also stop your tramadol while you are on the Percocet for the next few days for increased pain control. Start the Keflex as directed to make sure you are covered still for UTI and return to the ER should you have any further concerns. Disposition Disposition: Home, Self Care Discharge Date/Time: 05/11/21 03:38
[2021-05-11 03:38] VITALS: BP 108/60; PULSE 71; RESP 18; O2SAT 98
== END 2021-05-11 03:38 | disposition home or self-care (01) ==
PROVIDERS: Emergency Provider Emergency Medicine; PCP Family Medicine; Visit Provider Emergency Medicine
DX: L03.115 Cellulitis of right lower limb (principal); J44.9 Chronic obstructive pulmonary disease, unspecified; E66.01 Morbid (severe) obesity due to excess calories; L03.116 Cellulitis of left lower limb; N39.0 Urinary tract infection, site not specified; I10 Essential (primary) hypertension; L73.2 Hidradenitis suppurativa; F41.9 Anxiety disorder, unspecified; K76.0 Fatty (change of) liver, not elsewhere classified; K21.9 Gastro-esophageal reflux disease without esophagitis; F32.A Depression, unspecified; G47.33 Obstructive sleep apnea (adult) (pediatric); Z87.442 Personal history of urinary calculi; E55.9 Vitamin D deficiency, unspecified; Z79.899 Other long term (current) drug therapy; F17.210 Nicotine dependence, cigarettes, uncomplicated; Z68.32 Body mass index [BMI] 32.0-32.9, adult
CPT/HCPCS: 80048; 81001; 83605; 85025; 87040; 96365; 96366; 96375; 99283; J7050; A4216; J2405

== ENCOUNTER 2021-05-14 20:20 | Emergency (ER) | payer MEDICAID, SELFPAY ==
[2021-05-14 20:21] VITALS: BP 124/100; PULSE 73; RESP 16; TEMP 36.4; O2SAT 100; BMI 32.3
[2021-05-14 21:25] LABS: Absolute Lymphocyte Count 1.33 X10^3/uL (0.83-4.51); Absolute Neutrophil Count 3.9 X10^3/uL (2.0-7.7); Basophil# 0.03 X10^3/uL; Basophil% 0.5 % (0-1); Eosinophil# 0.32 X10^3/uL; Eosinophils% 5.3 % (0-5); Hematocrit 42.3 % (37-47); Hemoglobin 14.2 g/dL (12.0-15.0); Lymphocyte # 1.33 X10^3/ul (0.83-4.51); Mean Corp Hgb Conc 33.6 g/dL (32-36); Mean Corpuscular Hgb 30.7 pg (27.0-32.0); Mean Corpuscular Volume 91.6 fL (81-99); Mean Platelet Vol. 12.1 fl (6.2-12.0); Monocyte# 0.41 X10^3/uL; Monocyte% 6.8 % (0-10); NRBC Flagged by Analyzer 0 % (0-5); Neutrophil # 3.94 X10^3/uL (2.7-7.7); Neutrophil % 65.1 % (47-70); POSITIVE COUNT YES; RBC Distribution Width CV 13.1 % (11.6-14.6); RBC Distribution Width SD 43.8 fl (35.1-43.9); Red Blood Count 4.62 M/mm3 (4.2-5.4); White Blood Count 6.1 K/mm3 (4.4-11.0)
[2021-05-14 21:39] LABS: Anion Gap 2 (5-15); BUN 13 mg/dL (7-18); BUN/Creat Ratio 20.7 RATIO (10-20); Calcium,Total 8.7 mg/dL (8.5-10.1); Chloride 106 mmol/L (98-107); Creatinine, Serum 0.63 mg/dL (0.55-1.02); EST Glomerular Filtration Rate 107 mL/min (>60); Est Glom Filt Rate - Afr Amer 129 mL/min (>60); Estimated Creatinine Clearance 101.12 ml/min; Glucose 84 mg/dL (74-106); Potassium 5.2 mmol/L (3.5-5.1); Sodium Level 137 mmol/L (136-145)
[2021-05-14 21:44] LABS: Differential Indicated SCAN CRITERIA MET
[2021-05-14 21:46] LABS: Differential Comment SCANNED; Platelet Estimate ADEQUATE (ADEQ)
[2021-05-14 21:48] LABS: BNP,B-Type NATRIURETIC PEPTIDE 8.3 pg/mL (0-100)
--- NOTE | 2021-05-14 22:04 | EDS_ITS ---
HPI History of Present Illness Chief Complaint: Edema Informant: patient Narrative Narrative: Patient seen here 2 days ago for pain swelling redness in both legs at the same time that has been there for for 5 days. Hurts worse to push on, hurts worse to walk a little, better when leaving it alone. She was on sulfamethoxazole/trimethoprim, she was advised to discontinue it and has since been on cephalexin. She states it is no different but she has only been taking the medications for 1.5-2 days. She denies any new symptoms. She states it is not worse, just not better. She has not seen her PCP yet for this, but it has been the weekend which is why she presents today. She denies any fevers or chills. She has some chronic dyspnea with exertion that is no different, feels like her COPD. No orthopnea. No history of heart problems that she knows of. She denies any obvious reason to have redness or infection in these areas. She states that started on both sides simultaneously. She also has a couple of small red spots/rash on her inner thighs that are asymptomatic that she just noticed. There are maybe 4 or 5 lesions total between both of her thighs. [facility] Medical History Alopecia Anxiety Benign essential HTN Chest pain Cigarette nicotine dependence COPD (chronic obstructive pulmonary disease) Dysfunctional uterine bleeding Essential hypertension Fatigue Fatty liver disease, nonalcoholic Gastroesophageal reflux disease Major depression Morbid obesity Nephrolithiasis Obstructive sleep apnea Onychomycosis Peripheral edema Prediabetes Sarcoidosis Skin rash Stage 1 mild COPD by GOLD classification Tobacco user Vitamin D deficiency Home Medications acyclovir 400 mg PO BID 05/23/18 [History Last Taken 10/30/19 18:00] biotin 10 mg tablet 10 mg PO DAILY 12/22/18 [History Last Taken 10/28/19 06:00] calcium citrate 250 mg PO BID 12/22/18 [History Last Taken 10/30/19 18:00] docusate sodium 100 mg capsule 100 mg PO TID PRN cap 12/22/18 [History Last Taken 10/30/19 21:00] pnuafhdn-nskp-qwmca acid 200 mcg-herbal no.293 37.5 mg chewable tablet 4 tab PO DAILY tab 12/22/18 [History Last Taken 10/28/19 06:00] polyethylene glycol 3350 17 gram/dose oral powder 17 g PO PRN PRN 12/22/18 [History Last Taken 07/08/19] ondansetron 8 mg PO Q6H PRN PRN 01/12/19 [History Last Taken 10/31/19 14:30] tramadol 1 - 2 tab PO Q8H PRN 02/14/19 [History Last Taken 10/31/19 15:00] cholecalciferol (vitamin D3) 4,000 unit PO DAILY 03/21/19 [History Last Taken 10/28/19 06:00] diazepam 10 mg PO DAILY PRN 10/29/19 [History Last Taken 10/31/19 06:00] pantoprazole 40 mg PO BID 10/29/19 [History Last Taken 10/31/19 09:00] sucralfate 1 gm PO 4X/DAY 10/29/19 [History Last Taken 10/31/19 15:00] acetaminophen 650 mg PO Q6H PRN PRN tab 11/03/19 [Rx Last Taken Unknown] doxycycline hyclate 150 mg PO BID 10/12/20 [History Last Taken Unknown] cephalexin 500 mg PO TID 7 Days #21 cap 05/11/21 [Rx Last Taken Unknown] oxycodone-acetaminophen [Percocet] 1 tab PO Q6H PRN 3 Days #12 tab 05/11/21 [Rx Last Taken Unknown] furosemide 20 mg PO BID #14 tab 05/14/21 [Rx Last Taken Unknown] potassium chloride [Klor-Con M20] 20 meq PO DAILY #14 tablet 05/14/21 [Rx Last Taken Unknown] Allergy/AdvReac Type Severity Reaction Status Date / Time latex Allergy Hives Verified 05/14/21 20:23 povidone-iodine Allergy Rash Verified 05/14/21 20:23 [From Betadine] Family History Father Hypertension Heart disease Diabetes CVA (cerebral vascular accident) Blood clotting disorder Pneumonia Grandfather Cancer Prostate Brother Diabetes Sister Asthma Sister Depression Anxiety Surgical History H/O: hysterectomy History of carpal tunnel release of both wrists History of gastric bypass History of lithotripsy Previous section Social History Smoking Status: Current every day smoker tobacco type: cigarettes second hand exposure: Yes alcohol intake: current alcohol intake frequency: holidays/special occasions only Alcohol type: wine substance use type: does not use caffeine: Yes (3/day) what type of physical activity do you participate in: none ROS ROS ED Constitutional Constitutional ED: Denies chills or fever(s) Cardiovascular Cardiovascular: Reports pedal edema; Denies chest pain Respiratory/Chest Respiratory/Chest: Reports other Details: Chronic and stable dyspnea with exertion Musculoskeletal Musculoskeletal: Reports extremity pain; Denies neck pain Integumentary Denies Abrasions, rash or wounds Neurologic Neurologic: Denies paresthesias or weakness EXAM Physical Exam Const Vital Signs: 05/14/21 20:21 Temperature 97.5 F L Temperature Source Temporal Pulse Rate 73 Respiratory Rate 16 Blood Pressure 124/100 H Blood Pressure Mean 108 Pulse Ox 100 Oxygen Delivery Method Room Air Positive well nourished and well developed General Appearance ED: well developed and NAD Neck full ROM and supple Back/Spine normal ROM and normal to inspection Extremity full ROM Extremity Narrative: Tender and shiny bilateral almost symmetric erythema with some mild induration on parts of the medial lower leg/calf, and symmetric edema almost to the knees. No lymphangitis. No signs of an abscess or nidus. Neuro oriented x3, no focal motor deficits and no sensory deficits noted Sensorium / Orientation: alert Psych mental status grossly normal and thought process normal Skin no wounds Skin Narrative: See above, erythema both lower legs, stocking glove distribution in approximately 5 cm band from distal-proximal. No lymphangitis. No abscess. No fluctuance. All compartments soft and nondistended. Full range of motion ankle and knee. 4 or 5 total very small subcentimeter red spots that are not raised, nontender, but do not boris and look unlike true petechiae. No inguinal lymphadenopathy. MDM MDM MDM Narrative Medical decision making narrative: I repeated the patient's labs, her white blood count went from 8 down to 6 and her BNP is only 8. Her potassium is a little elevated but there was hemolysis and it was just barely elevated I do not see the reason to repeat this. It was normal couple days ago. I reassured the patient, I agree that the appearance of this is consistent with cellulitis, however she has no reason to have infection in both legs at same time. I agree with stopping the Bactrim, that may have been causing the other rash that I am seeing at one particular spot in time and it may be resolving as a result of discontinuing the Bactrim, and I agree with continuing the cephalexin until finished to cover her bases but I will also prescribe her a diuretic furosemide in addition to some potassium until she can follow-up with her doctor. She is in agreement with this plan. Lab Data Attestation: I reviewed the patient's lab results. Labs: Laboratory Results - last 24 hr 05/14/21 05/14/21 05/14/21 21:05 21:05 21:05 WBC 6.1 RBC 4.62 Hgb 14.2 Hct 42.3 MCV 91.6 MCH 30.7 MCHC 33.6 RDW Std Deviation 43.8 RDW Coeff of Donis 13.1 Plt Count MPV 12.1 H Immature Gran % (Auto) 0.300 Neut % (Auto) 65.1 Lymph % (Auto) 22.0 Humphreys % (Auto) 6.8 Eos % (Auto) 5.3 H Baso % (Auto) 0.5 Absolute Neuts (auto) 3.9 Absolute Lymphs (auto) 1.33 Nucleated RBC % 0 Differential Comment SCANNED Platelet Estimate ADEQUATE Sodium 137 Potassium 5.2 H Chloride 106 Carbon Dioxide 29.0 Anion Gap 2 L BUN 13 Creatinine 0.63 Estim Creat Clear Calc 101.12 Est GFR (MDRD) Af Amer 129 Est GFR (MDRD) Non-Af 107 BUN/Creatinine Ratio 20.7 H Glucose 84 Calcium 8.7 B-Natriuretic Peptide 8.3 Discharge Plan Triage Chief Complaint: Edema ED Provider: Jose Farias Dx/Rx/DC Orders Clinical Impression: Bilateral lower extremity edema, Cellulitis Instructions: ED Peripheral Edema, Bilateral Prescriptions: New furosemide 20 mg tablet 20 mg PO BID Qty: 14 RF: 0 potassium chloride [Klor-Con M20] 20 mEq tablet,ER particles/crystals 20 meq PO DAILY Qty: 14 RF: 0 No Action docusate sodium [Colace] 100 mg capsule 100 mg PO TID PRN (Reason: Constipation) RF: 0 calcium citrate 250 mg calcium tablet 250 mg PO BID RF: 0 biotin 10 mg tablet 10 mg PO DAILY RF: 0 polyethylene glycol 3350 [Miralax] 17 gram/dose powder 17 g PO PRN PRN (Reason: Constipation) RF: 0 Alive Women's Gummy Vitamin 200 mcg- 37.5 mg tablet,chewable 4 tab PO DAILY RF: 0 acyclovir 400 tablet 400 mg PO BID RF: 0 ondansetron 4 MG tablet 8 mg PO Q6H PRN PRN (Reason: Nausea) RF: 0 tramadol 50 MG tablet 1 - 2 tab PO Q8H PRN (Reason: Pain Or Fever) RF: 0 cholecalciferol (vitamin D3) 2,000 UNIT tablet 4,000 unit PO DAILY RF: 0 sucralfate 1 GM tablet 1 gm PO 4X/DAY RF: 0 pantoprazole 40 MG tablet 40 mg PO BID RF: 0 diazepam 5 MG tablet 10 mg PO DAILY PRN (Reason: Anxiety) RF: 0 acetaminophen 325 MG tablet 650 mg PO Q6H PRN PRN (Reason: Pain Score 1-10/Temp > 100.7 F) RF: 0 doxycycline hyclate 150 mg Tablet 150 mg PO BID RF: 0 cephalexin 500 mg capsule 500 mg PO TID 7 Days Qty: 21 RF: 0 oxycodone-acetaminophen [Percocet] 5-325 mg tablet 1 tab PO Q6H PRN (Reason: pain) 3 Days Qty: 12 RF: 0 Primary Care Provider: Amari Renae Referrals: Amari Renae DO [Primary Care Provider] - 3-5 Days if not improving Disposition Disposition: Home, Self Care
== END 2021-05-14 22:15 | disposition home or self-care (01) ==
PROVIDERS: Emergency Provider Emergency Medicine; PCP Family Medicine; Visit Provider Emergency Medicine
DX: L03.115 Cellulitis of right lower limb (principal); J44.9 Chronic obstructive pulmonary disease, unspecified; E66.01 Morbid (severe) obesity due to excess calories; R60.0 Localized edema; I10 Essential (primary) hypertension; L03.116 Cellulitis of left lower limb; F41.9 Anxiety disorder, unspecified; K76.0 Fatty (change of) liver, not elsewhere classified; F32.A Depression, unspecified; E55.9 Vitamin D deficiency, unspecified; K21.9 Gastro-esophageal reflux disease without esophagitis; Z87.442 Personal history of urinary calculi; Z79.899 Other long term (current) drug therapy; F17.210 Nicotine dependence, cigarettes, uncomplicated; Z68.32 Body mass index [BMI] 32.0-32.9, adult
CPT/HCPCS: 80048; 83880; 85025; 99282

== ENCOUNTER 2021-06-07 08:47 | Emergency (ER) | payer MEDICAID, SELFPAY ==
[2021-06-07 08:48] VITALS: BP 129/64; PULSE 55; RESP 16; TEMP 36.6; O2SAT 99; BMI 30.4
--- NOTE | 2021-06-07 09:06 | CT_ITS ---
STUDY: CT ABDOMEN AND PELVIS WITH CONTRAST REASON FOR EXAM: Female, 51 years old. Pain, Nausea and vomiting RADIATION DOSAGE (If Supplied By Facility): CTDIvol = ( 34.06 ) mGy, DLP = ( 959.85 ) mGycm TECHNIQUE: Transaxial images were obtained from the dome of the diaphragm to the symphysis pubis without oral contrast. IV 100mL Isovue-370 was administered. Sagittal and coronal images were reconstructed. Individualized dose optimization techniques were used for this CT. COMPARISON: Comparison is made with prior examination dated 10/31/2019 FINDINGS: The visualized lung bases are unremarkable. The visualized portions of the heart are within normal limits. There is decreased attenuation of the liver consistent with steatosis. Mild distention of the gallbladder Normal spleen. Normal pancreas. Normal bilateral adrenal glands. 5.3 cm x 5.2 cm cyst in the mid lower pole of the right kidney. 2 small adjacent nonobstructive calculi are seen in the upper pole calyx of the left kidney. The patient is status post subtotal gastrectomy. Normal small intestine. Normal colon. The appendix is visualized and appears normal. There is scattered atherosclerotic calcification of the abdominal aorta, without a demonstrated aneurysm. Normal inferior vena cava. Normal retroperitoneum. Normal urinary bladder. Normal abdominal wall. There are degenerative changes of the visualized lumbar spine. CT/Abdomen/Pelvis W IV Cont ONLY IMPRESSION: Stable right renal cysts. Stable nonobstructive left intrarenal calculi. Fatty infiltration of the liver. Status post gastric bypass surgery. Electronically Signed: Malcolm Quarles MD at 10:21 EDT ,
--- NOTE | 2021-06-07 09:07 | ED.VIS.GI ---
HPI HPI - GI History of Present Illness Chief Complaint: Nausea/Vomiting Narrative Narrative: Patient with past history of previous gastric bypass surgery presents with nausea, and vomiting with diffuse abdominal pain that began early this morning. She states yesterday she did not feel well and slept all day. She had sick contact in her relative who had gastroenteritis type symptoms. She states that she had nausea and vomited at least 5 times today without any blood in her emesis. No dysuria or hematuria. No problems with bowel movements. Last normal bowel movement was yesterday. She has diffuse pain throughout her abdomen. It is somewhat in the left lower quadrant but also other areas. No exacerbating or alleviating factors. [facility] Medical History Alopecia Anxiety Benign essential HTN Chest pain Cigarette nicotine dependence COPD (chronic obstructive pulmonary disease) Dysfunctional uterine bleeding Essential hypertension Fatigue Fatty liver disease, nonalcoholic Gastroesophageal reflux disease Major depression Morbid obesity Nephrolithiasis Obstructive sleep apnea Onychomycosis Peripheral edema Prediabetes Sarcoidosis Skin rash Stage 1 mild COPD by GOLD classification Tobacco user Vitamin D deficiency Home Medications acyclovir 400 mg PO BID 05/23/18 [History Last Taken 10/30/19 18:00] biotin 10 mg tablet 10 mg PO DAILY 12/22/18 [History Last Taken 10/28/19 06:00] calcium citrate 250 mg PO BID 12/22/18 [History Last Taken 10/30/19 18:00] docusate sodium 100 mg capsule 100 mg PO TID PRN cap 12/22/18 [History Last Taken 10/30/19 21:00] zjypiotx-occe-jjgpp acid 200 mcg-herbal no.293 37.5 mg chewable tablet 4 tab PO DAILY tab 12/22/18 [History Last Taken 10/28/19 06:00] polyethylene glycol 3350 17 gram/dose oral powder 17 g PO PRN PRN 12/22/18 [History Last Taken 07/08/19] ondansetron 8 mg PO Q6H PRN PRN 01/12/19 [History Last Taken 10/31/19 14:30] tramadol 1 - 2 tab PO Q8H PRN 02/14/19 [History Last Taken 10/31/19 15:00] cholecalciferol (vitamin D3) 4,000 unit PO DAILY 01/18/20 [History Last Taken 10/28/19 06:00] diazepam 10 mg PO DAILY PRN 10/29/19 [History Last Taken 10/31/19 06:00] pantoprazole 40 mg PO BID 10/29/19 [History Last Taken 10/31/19 09:00] sucralfate 1 gm PO 4X/DAY 10/29/19 [History Last Taken 10/31/19 15:00] acetaminophen 650 mg PO Q6H PRN PRN tab 11/03/19 [Rx Last Taken Unknown] doxycycline hyclate 150 mg PO BID 10/12/20 [History Last Taken Unknown] cephalexin 500 mg PO TID 7 Days #21 cap 05/11/21 [Rx Last Taken Unknown] oxycodone-acetaminophen [Percocet] 1 tab PO Q6H PRN 3 Days #12 tab 05/11/21 [Rx Last Taken Unknown] furosemide 20 mg PO BID #14 tab 05/14/21 [Rx Last Taken Unknown] potassium chloride [Klor-Con M20] 20 meq PO DAILY #14 tablet 05/14/21 [Rx Last Taken Unknown] ondansetron 8 mg PO Q8H PRN #14 tab 06/07/21 [Rx Last Taken Unknown] Allergy/AdvReac Type Severity Reaction Status Date / Time latex Allergy Hives Verified 06/07/21 08:49 povidone-iodine Allergy Rash Verified 06/07/21 08:49 [From Betadine] Family History Father Hypertension Heart disease Diabetes CVA (cerebral vascular accident) Blood clotting disorder Pneumonia Grandfather Cancer Prostate Brother Diabetes Sister Asthma Sister Depression Anxiety Surgical History H/O: hysterectomy History of carpal tunnel release of both wrists History of gastric bypass History of lithotripsy Previous section Social History Smoking Status: Current every day smoker tobacco type: cigarettes second hand exposure: Yes alcohol intake: current alcohol intake frequency: holidays/special occasions only Alcohol type: wine substance use type: does not use caffeine: Yes (3/day) what type of physical activity do you participate in: none ROS ROS ED ROS Narrative Constitutional: No fever, no chills. HEENT: No sore throat. No neck pain. No loss of vision. No rhinorrhea. Cardiovascular: No chest pain. No palpitations. No pedal edema. Respiratory: No cough, no shortness of breath. Abdominal: Left lower quadrant to diffuse abdominal pain. Positive nausea. 5 episodes of nonbloody vomiting. No problems with bowel movements, no diarrhea. Genitourinary: No dysuria. No hematuria. Decreased urination. Musculoskeletal: No myalgias. No arthralgias. Neurologic: No headaches. No dizziness. No lightheadedness. Skin: No rash. No change in color. Psychiatric: No depression. No anxiety. EXAM Physical Exam Narrative Exam Narrative: Afebrile. Vital signs noted. HEENT: Normocephalic. Atraumatic. PERRL, EOMI. Neck soft and supple. No point tenderness or step off. Tacky to dry mucous membranes. Cardiovascular: Regular rate and rhythm with intermittent bradycardia. No murmurs, rubs, or gallops appreciated. Respiratory: No tachypnea. Lungs clear to auscultation bilaterally. Gastrointestinal: Abdomen soft, minimal diffuse, with normoactive bowel sounds. No rebound or guarding. Neurological: Awake. Alert. Nonfocal, nonlateralizing. Skin: No rash. Normal color. No pallor. Musculoskeletal: No pedal edema. Full range of motion extremities. Const Vital Signs: 06/07/21 08:48 Temperature 97.9 F Temperature Source Temporal Pulse Rate 55 L Respiratory Rate 16 Blood Pressure 129/64 H Blood Pressure Mean 85 Pulse Ox 99 Oxygen Delivery Method Room Air MDM MDM MDM Narrative Medical decision making narrative: Comprehensive work-up was pursued. In this patient with previous gastric bypass surgery, there is also concern for obstruction. Will obtain CBC, CMP, and lipase for nausea and vomiting. I do feel CT imaging is indicated to rule out small bowel obstruction. She was administered normal saline 1 L intravenously along with morphine and ondansetron intravenously. She has normal white count of 9.7, hemoglobin slightly hemoconcentrated at 15.7, normal platelet count of 267. Potassium slightly low at 3.4. Serum test is negative. Lipase normal at 83. CT of the abdomen and pelvis shows no acute process. She was given an additional dose of ondansetron and her IV fluids bolused, and she was also given Bentyl 20 mg intramuscularly. At this point in time, with a negative CT and essentially negative work-up, I will check her urine for ketones, but I feel that she could be discharged safely home with follow-up with a prescription for ondansetron. Her urinalysis shows no evidence of infection and only a small amount of ketones. Disposition is discharged home in stable condition. Lab Data Attestation: I reviewed the patient's lab results. Labs: Laboratory Results - last 24 hr 06/07/21 06/07/21 06/07/21 09:05 09:05 09:33 WBC 9.7 RBC 5.09 Hgb 15.7 H Hct 44.6 MCV 87.6 MCH 30.8 MCHC 35.2 RDW Std Deviation 41.4 RDW Coeff of Donis 12.8 Plt Count 267 MPV 10.3 Immature Gran % (Auto) 0.300 Neut % (Auto) 67.2 Lymph % (Auto) 22.9 Chase % (Auto) 5.4 Eos % (Auto) 3.8 Baso % (Auto) 0.4 Absolute Neuts (auto) 6.5 Absolute Lymphs (auto) 2.21 Nucleated RBC % 0 Sodium 139 Potassium 3.4 L Chloride 109 H Carbon Dioxide 22.0 Anion Gap 8 BUN 8 Creatinine 0.86 Estim Creat Clear Calc 76.10 Est GFR (MDRD) Af Amer 90 Est GFR (MDRD) Non-Af 75 BUN/Creatinine Ratio 9.4 L Glucose 147 H Calcium 9.6 Total Bilirubin 0.60 AST 19 ALT 19 Alkaline Phosphatase 115 Total Protein 8.2 Albumin 4.0 Globulin 4.2 Albumin/Globulin Ratio 1.0 Lipase 83 Serum , Qual NEGATIVE Urine Color Urine Clarity Urine pH Ur Specific [place] Urine Protein Urine Glucose (UA) Urine Ketones Urine Occult Blood Urine Nitrite Urine Bilirubin Urine Urobilinogen Ur Leukocyte Esterase Urine RBC Urine WBC Ur Squamous Epith Cells Urine Bacteria Urine Mucus 06/07/21 10:45 WBC RBC Hgb Hct MCV MCH MCHC RDW Std Deviation RDW Coeff of Donis Plt Count MPV Immature Gran % (Auto) Neut % (Auto) Lymph % (Auto) Chase % (Auto) Eos % (Auto) Baso % (Auto) Absolute Neuts (auto) Absolute Lymphs (auto) Nucleated RBC % Sodium Potassium Chloride Carbon Dioxide Anion Gap BUN Creatinine Estim Creat Clear Calc Est GFR (MDRD) Af Amer Est GFR (MDRD) Non-Af BUN/Creatinine Ratio Glucose Calcium Total Bilirubin AST ALT Alkaline Phosphatase Total Protein Albumin Globulin Albumin/Globulin Ratio Lipase Serum , Qual Urine Color Yellow Urine Clarity Sl. Cloudy Urine pH 9.0 Ur Specific [place] 1.015 Urine Protein Negative Urine Glucose (UA) Normal Urine Ketones 50 H Urine Occult Blood Negative Urine Nitrite Negative Urine Bilirubin Negative Urine Urobilinogen Normal Ur Leukocyte Esterase Negative Urine RBC 0 SEEN Urine WBC 0 SEEN Ur Squamous Epith Cells 0 SEEN Urine Bacteria 0 SEEN Urine Mucus 0 SEEN Radiography Diagnostic Testing: Clinical Impression(s) from Imaging Studies Abdomen/Pelvis CT 06/07/21 09:06 IMPRESSION: Stable right renal cysts. Stable nonobstructive left intrarenal calculi. Fatty infiltration of the liver. Status post gastric bypass surgery. Electronically Signed: Malcolm Quarles MD at 10:21 EDT , Discharge Plan Triage Chief Complaint: Nausea/Vomiting ED Provider: Fernandez Riley Dx/Rx/DC Orders Clinical Impression: Nausea & vomiting, Abdominal pain Instructions: ED Abdominal Pain Unkn Cause Fem, ED Diet for Vomiting or ..., ED Vomiting (Adult) Prescriptions: New ondansetron 8 mg tablet,disintegrating 8 mg PO Q8H PRN (Reason: nausea and vomiting) Qty: 14 RF: 0 No Action docusate sodium [Colace] 100 mg capsule 100 mg PO TID PRN (Reason: Constipation) RF: 0 calcium citrate 250 mg calcium tablet 250 mg PO BID RF: 0 biotin 10 mg tablet 10 mg PO DAILY RF: 0 polyethylene glycol 3350 [Miralax] 17 gram/dose powder 17 g PO PRN PRN (Reason: Constipation) RF: 0 Alive Women's Gummy Vitamin 200 mcg- 37.5 mg tablet,chewable 4 tab PO DAILY RF: 0 acyclovir 400 tablet 400 mg PO BID RF: 0 ondansetron 4 MG tablet 8 mg PO Q6H PRN PRN (Reason: Nausea) RF: 0 tramadol 50 MG tablet 1 - 2 tab PO Q8H PRN (Reason: Pain Or Fever) RF: 0 cholecalciferol (vitamin D3) 2,000 UNIT tablet 4,000 unit PO DAILY RF: 0 sucralfate 1 GM tablet 1 gm PO 4X/DAY RF: 0 pantoprazole 40 MG tablet 40 mg PO BID RF: 0 diazepam 5 MG tablet 10 mg PO DAILY PRN (Reason: Anxiety) RF: 0 acetaminophen 325 MG tablet 650 mg PO Q6H PRN PRN (Reason: Pain Score 1-10/Temp > 100.7 F) RF: 0 doxycycline hyclate 150 mg Tablet 150 mg PO BID RF: 0 cephalexin 500 mg capsule 500 mg PO TID 7 Days Qty: 21 RF: 0 oxycodone-acetaminophen [Percocet] 5-325 mg tablet 1 tab PO Q6H PRN (Reason: pain) 3 Days Qty: 12 RF: 0 furosemide 20 mg tablet 20 mg PO BID Qty: 14 RF: 0 potassium chloride [Klor-Con M20] 20 mEq tablet,ER particles/crystals 20 meq PO DAILY Qty: 14 RF: 0 Primary Care Provider: Amari Renae Referrals: Amari Renae DO [Primary Care Provider] - 3-5 Days if not improving Disposition Disposition: Home, Self Care
[2021-06-07 09:14] LABS: Absolute Lymphocyte Count 2.21 X10^3/uL (0.83-4.51); Absolute Neutrophil Count 6.5 X10^3/uL (2.0-7.7); Basophil# 0.04 X10^3/uL; Basophil% 0.4 % (0-1); Eosinophil# 0.37 X10^3/uL; Eosinophils% 3.8 % (0-5); Hematocrit 44.6 % (37-47); Hemoglobin 15.7 g/dL (12.0-15.0); Lymphocyte # 2.21 X10^3/ul (0.83-4.51); Lymphocyte % 22.9 % (19-41); Mean Corp Hgb Conc 35.2 g/dL (32-36); Mean Corpuscular Hgb 30.8 pg (27.0-32.0); Mean Corpuscular Volume 87.6 fL (81-99); Mean Platelet Vol. 10.3 fl (6.2-12.0); Monocyte# 0.52 X10^3/uL; Monocyte% 5.4 % (0-10); NRBC Flagged by Analyzer 0 % (0-5); Neutrophil # 6.48 X10^3/uL (2.7-7.7); Neutrophil % 67.2 % (47-70); Platelet Count 267 K/mm3 (150-450); RBC Distribution Width CV 12.8 % (11.6-14.6); RBC Distribution Width SD 41.4 fl (35.1-43.9); Red Blood Count 5.09 M/mm3 (4.2-5.4); White Blood Count 9.7 K/mm3 (4.4-11.0)
[2021-06-07] MEDS: 0.9% Normal Saline 1,000 ML 1000 ML IV (09:15)
[2021-06-07] MEDS: Ondansetron 4 MG/2 ML Vial IV ×2 (09:15→10:51)
[2021-06-07] MEDS: Morphine 4 MG/ML Syringe IV (09:15)
[2021-06-07 09:32] LABS: AST(SGOT) 19 U/L (15-37); Alanine Aminotransfer ALT/SGPT 19 U/L (13-56); Alkaline Phosphatase 115 U/L (45-117); Anion Gap 8 (5-15); BUN 8 mg/dL (7-18); BUN/Creat Ratio 9.4 RATIO (10-20); Calcium,Total 9.6 mg/dL (8.5-10.1); Chloride 109 mmol/L (98-107); Creatinine, Serum 0.86 mg/dL (0.55-1.02); EST Glomerular Filtration Rate 75 mL/min (>60); Est Glom Filt Rate - Afr Amer 90 mL/min (>60); Globulin 4.2 g/dL (2.2-4.2); Glucose 147 mg/dL (74-106); Lipase 83 U/L (73-393); Potassium 3.4 mmol/L (3.5-5.1); Protein, Total 8.2 g/dL (6.4-8.2); Sodium Level 139 mmol/L (136-145)
[2021-06-07 09:59] LABS: Internal QC Validated? YES +Cl - CLEAR BKGD; Pregnancy, Serum, hCG Quali. NEGATIVE Negative
[2021-06-07] MEDS: Dicyclomine 20 MG/2 ML Vial IM (10:51)
[2021-06-07 10:57] LABS: Bacteria 0 SEEN /hpf (None Seen); Mucous, Urine 0 SEEN /hpf (<or=2+); Red Blood Cells-Urine 0 SEEN /hpf (0-5); Squamous Epithelial Cells - UA 0 SEEN /hpf (5-10); White Blood Cells 0 SEEN /hpf (0-5)
[2021-06-07 11:01] LABS: Color, Urine Yellow (Yellow); Glucose, Dipstick Normal (Normal); Ketone-Dipstick 50 mg/dl (Negative); Leukocyte Esterase-Dipstick Negative /ul (Negative); Nitrite-Dipstick Negative (Negative); Occult Blood-Urine Negative /ul (Negative); Protein-Dipstick Negative (Negative); Specific Gravity, Urine 1.015 (1.002-1.030); Urine Bilirubin Dipstick Negative (Negative); Urine Clarity Sl. Cloudy (Clear); Urine Urobilinogen Normal (Normal)
[2021-06-07 12:26] VITALS: BP 157/68; PULSE 52; RESP 16; O2SAT 98
== END 2021-06-07 12:27 | disposition home or self-care (01) ==
PROVIDERS: Emergency Provider Emergency Medicine; PCP Family Medicine; Visit Provider Emergency Medicine
DX: R10.84 Generalized abdominal pain (principal); J44.9 Chronic obstructive pulmonary disease, unspecified; R11.2 Nausea with vomiting, unspecified; I10 Essential (primary) hypertension; Z98.84 Bariatric surgery status; K76.0 Fatty (change of) liver, not elsewhere classified; F41.9 Anxiety disorder, unspecified; F32.A Depression, unspecified; Z87.442 Personal history of urinary calculi; G47.33 Obstructive sleep apnea (adult) (pediatric); E55.9 Vitamin D deficiency, unspecified; Z79.899 Other long term (current) drug therapy; F17.210 Nicotine dependence, cigarettes, uncomplicated
CPT/HCPCS: 36415; 74177; 80053; 81001; 83690; 84703; 85025; 96361; 96372; 96374; 96375; 96376; 99282; Q9967; J2405

== ENCOUNTER → 2021-07-11 | Outpatient (CLI) | payer MEDICAID, SELFPAY ==
[2021-07-12 21:07] LABS: Chlamydia By Nucleic Acid AMP Negative (Negative)
[2021-07-12 21:22] LABS: Gonococcus By Nucleic Acid AMP Negative (Negative)
[2021-07-17 13:50] LABS: HPV APTIMA, High Risk Negative (Negative)
[2021-07-17 14:24] LABS: HPV Reflexed? YES, CHARGE PATIENT
== END | disposition home or self-care (01) ==
PROVIDERS: PCP Family Medicine; Visit Provider Obstetrics & Gynecology
DX: Z11.3 Encounter for screening for infections with a predominantly sexual mode of transmission (principal); Z12.4 Encounter for screening for malignant neoplasm of cervix
CPT/HCPCS: 87491; 87591; 87624; 88175; G0145

== ENCOUNTER → 2021-10-26 | Outpatient (CLI) | payer MEDICAID, SELFPAY ==
[2021-10-26 16:28] LABS: Absolute Lymphocyte Count 1.98 X10^3/uL (0.83-4.51); Absolute Neutrophil Count 5.2 X10^3/uL (2.0-7.7); Basophil# 0.03 X10^3/uL; Basophil% 0.4 % (0-1); Eosinophil# 0.24 X10^3/uL; Hematocrit 43.8 % (37-47); Hemoglobin 14.4 g/dL (12.0-15.0); Lymphocyte # 1.98 X10^3/ul (0.83-4.51); Lymphocyte % 24.9 % (19-41); Mean Corp Hgb Conc 32.9 g/dL (32-36); Mean Corpuscular Hgb 30.8 pg (27.0-32.0); Mean Corpuscular Volume 93.6 fL (81-99); Mean Platelet Vol. 10.5 fl (6.2-12.0); Monocyte# 0.52 X10^3/uL; Monocyte% 6.5 % (0-10); NRBC Flagged by Analyzer 0 % (0-5); Neutrophil # 5.17 X10^3/uL (2.7-7.7); Neutrophil % 64.9 % (47-70); Platelet Count 212 K/mm3 (150-450); RBC Distribution Width CV 12.6 % (11.6-14.6); RBC Distribution Width SD 43.2 fl (35.1-43.9); Red Blood Count 4.68 M/mm3 (4.2-5.4)
[2021-10-26 17:14] LABS: Ferritin 18 ng/mL (8-252); Iron 56 ug/dL (50-170)
[2021-10-26 17:15] LABS: Vitamin B12 366 pg/mL (211-911)
[2021-10-28 07:33] LABS: HSV 1 IgG < 0.91 index (0.00-0.90); HSV 2 IgG 6.79 index (0.00-0.90)
== END | disposition home or self-care (01) ==
LOC: LAB 15:14
PROVIDERS: PCP Family Medicine; Referring Provider Family Medicine; Visit Provider Family Medicine
DX: D64.9 Anemia, unspecified (principal); Z98.84 Bariatric surgery status; N94.9 Unspecified condition associated with female genital organs and menstrual cycle
CPT/HCPCS: 36415; 82607; 82728; 83540; 85025; 86695; 86696

== ENCOUNTER 2021-11-10 07:19 | Day surgery (SDC) | payer MEDICAID, SELFPAY ==
[2021-11-10] VITALS (7 sets, daily range): BP systolic 103–138; BP diastolic 60–88; PULSE 52–63; RESP 16; TEMP 36.2–37.1; O2SAT 100; BMI 29.9
[2021-11-10] MEDS: Lactated Ringers 1,000 ML 15 ML IV (07:35)
--- NOTE | 2021-11-10 08:16 | HP.PCM_ITS ---
History and Physical Date of Admission: 11/10/21 Intake Vital Signs ? 06/08/2207:48 11/08/2208:21 Height 5 ft 7 in 5 ft 6 in Weight: 194 lb 0.108 oz 186 lb BMI 30.4 29.9 BP 129/64 H 108/69 Blood Pressure Location ? Rt brachial Position ? Sitting Respiration 16 16 Pulse 55 L 73 Pulse Source ? Monitor Temp 97.9 F 97.5 F L Temp Source Temporal Temporal Pulse Oximetry (%) 99 98 Oxygen Delivery Method ? room air Intake Visit Reasons:?EGD/C-Scope Seen TC 2019 Chief Complaint: EGD/ Colonoscopy consult Records Management Director Required: No Is patient in pain?: No Allergies latex Allergy (Verified 11/08/21 09:22) Hivespovidone-iodine [From Betadine] Allergy (Verified 11/08/21 09:22) Rash Medications acyclovir 400 mg tablet 400 mg PO BID anti viral 05/23/18 [History Confirmed 06/07/21] biotin 10 mg tablet 10 mg PO DAILY supplement 12/22/18 [History Confirmed 06/07/21] calcium citrate 250 mg PO BID supplement 12/22/18 [History Confirmed 06/07/21] docusate sodium 100 mg capsule (Colace) 100 mg PO TID PRN Constipation 12/22/18 [History Confirmed 06/07/21] fcmnibox-ingq-iadgi acid 200 mcg-herbal no.293 37.5 mg chewable tablet (Alive Women's Gummy Vitamin) 4 tab PO DAILY vitamin 12/22/18 [History Confirmed 06/07/21] polyethylene glycol 3350 17 gram/dose oral powder (Miralax) 17 g PO PRN PRN Constipation 12/22/18 [History Confirmed 06/07/21] ondansetron 4 mg disintegrating tablet 8 mg PO Q6H PRN PRN Nausea 01/12/19 [History Confirmed 06/07/21] tramadol 50 mg tablet 1 - 2 tab PO Q8H PRN Pain Or Fever 02/14/19 [History Confirmed 06/07/21] cholecalciferol (vitamin D3) 50 mcg (2,000 unit) tablet 4,000 unit PO DAILY vitamin 03/21/19 [History Confirmed 06/07/21] diazepam 5 mg tablet 10 mg PO DAILY PRN Anxiety 10/29/19 [History Confirmed 06/07/21] pantoprazole 40 mg tablet,delayed release 40 mg PO BID reflux 10/29/19 [History Confirmed 06/07/21] sucralfate 1 gram tablet 1 gm PO 4X/DAY GI 10/29/19 [History Confirmed 06/07/21] acetaminophen 325 mg tablet 650 mg PO Q6H PRN PRN Pain Score 1-10/Temp > 100.7 F 11/03/19 [Rx Confirmed 06/07/21] doxycycline hyclate 150 mg tablet 150 mg PO BID 10/12/20 [History Confirmed 06/07/21] oxycodone-acetaminophen 5 mg-325 mg tablet (Percocet) 1 tab PO Q6H PRN pain 3 days #12 tabs 05/11/21 [Rx Confirmed 06/07/21] furosemide 20 mg tablet 20 mg PO BID #14 tabs 05/14/21 [Rx Confirmed 06/07/21] potassium chloride 20 mEq tablet,extended release(part/cryst) (Klor-Con M) 20 meq PO DAILY #14 TABLETS 05/14/21 [Rx Confirmed 06/07/21] ondansetron 8 mg disintegrating tablet 8 mg PO Q8H PRN nausea and vomiting #14 tabs 06/07/21 [Rx] PFSH Medical History? Alopecia Anxiety Benign essential HTN Chest pain Cigarette nicotine dependence COPD (chronic obstructive pulmonary disease) Dysfunctional uterine bleeding Essential hypertension Fatigue Fatty liver disease, nonalcoholic Gastroesophageal reflux disease Major depression Morbid obesity Nephrolithiasis Obstructive sleep apnea Onychomycosis Peripheral edema Prediabetes Sarcoidosis Skin rash Stage 1 mild COPD by GOLD classification Tobacco user Vitamin D deficiency Surgical History? H/O: hysterectomy History of carpal tunnel release of both wrists History of gastric bypass History of lithotripsy Previous section Family History? Father?? Hypertension Heart disease Diabetes CVA (cerebral vascular accident) Blood clotting disorder PneumoniaGrandfather Cancer ?? ? ProstateBrother DiabetesSister AsthmaSister Depression Anxiety Social History? Smoking Status:? Current every day smoker tobacco type: cigarettes second hand exposure:? Yes alcohol intake:? current alcohol intake frequency: holidays/special occasions only Alcohol type: wine substance use type:? does not use caffeine:? Yes (3/day) what type of physical activity do you participate in:? none HPI HPI HPI: Patient is a 51-year-old female here for screening colonoscopy.? Patient denies any family history of colon cancer in her immediate family.? She has no blood in the stool or lower abdominal pain.? She is still experiencing epigastric pain but was found to have marginal ulcers a year ago. ROS General General: Yes weight change and fatigue; No appetite, colon cancer, breast cancer or weakness HEENT HEENT: No difficulty swallowing, eye injury, eye surgery, swollen glands or hoarseness Endo Endocrine: No thyroid disease, diabetes mellitus, thyroid cancer, Hair loss, heat intolerance or cold intolerance Skin Skin: No rash or changing moles Breast Breast: No left breast lump, right breast lump, nipple discharge, breast pain, abnormal mammogram, abnormal US or breast enlargement Musc Musculoskeletal: Yes back problems; No arthritis, rheumatoid arthritis, gout or joint pain Cardio Cardiovascular: Yes high blood pressure; No murmur, pacemaker, heart disease, atrial fibrillation, heart attack, heart stent, palpitations, shortness of breat with exertion or chest pain Psych Psychiatric: Yes depression and anxiety; No hearing voices Resp Respiratory: No shortness of breath, No sleep apnea, No cough, Yes COPD, No asthma, No emphysema and No wheezing Gastro Gastrointestinal: Yes abdominal pain, Yes nausea or vomiting, No diarrhea, No constipation, No blood in stool, Yes acid reflux, No hemorrhoids, Yes ulcers, No gallbladder problem and No black,tarry stools Ander Hematologic: No blood thinners, No blood disorders, No bleeding, No anemia and No blood clots Neuro Neurologic: No system reviewed and no additional complaints, except as documented, No as per HPI, No abnormal gait, No abnormal hearing, No abnormal movements, No abnormal speech, No behavioral changes, No burning sensations, No confusion, No convulsions, No disequilibrium, No dizziness, No localized weakness, No frequent falls, No headache(s), No lack of coordination, No loss of vision, No memory loss, No numbness, No other visual disturbances, No radicular pain, No restless legs, No sensory deficit, No syncope, No tingling, No tremor(s), No weakness and No other Exam Const General: cooperative Orientation: alert and oriented x3 HENMT Head: normal to inspection Neck Neck: normal visual inspection and full ROM Chest Chest palpation & inspection: normal inspection of the chest Resp Effort & Inspection: normal respiratory effort Auscultation: clear to auscultation bilaterally Cardio Rate: regular rate Rhythm: regular rhythm GI Inspection: non-distended Palpation: soft and nontender Skin General: no rashes or lesions noted Neuro General: patient alert and patient oriented x3 Extrem General: full ROM Psych Appearance: grossly normal Mental Status: mental status grossly normal Assessment and Plan Assessment and Plan (1) Screen for colon cancer: ?Status:?Acute ?Plan: The patient requires screening colonoscopy as she has never had one.? The patient also has epigastric pain but she has known marginal ulcers and continues to smoke.? I recommended continue with PPI but I do not believe an EGD would be of much utility.? I will move forward with screening colonoscopy. I explained endoscopy in detail to the patient.? I explained the risks including but not limited to stroke or heart attack with anesthesia, perforation of the GI tract, bleeding, infection.? I explained that any of these could necessitate further emergency surgery.? The patient understands and all questions were answered sufficiently.? The patient wishes to proceed with procedure. Manuel Schuster MD Pager: [facility] [address] [place] [address], [address] [place] [address] Office: I have re-examined the patient. There are no clinical changes since date of exam.
--- NOTE | 2021-11-10 08:42 | OP.COLON_ITS ---
Patient Name: Venessa Cohen Procedure Date: 11/10/2021 8:18 AM Date of : 1970 Age: 51 Procedure: Colonoscopy Indications: Screening for colorectal malignant neoplasm Providers: Manuel Schuster MD Referring MD: Amari Renae Medicines: Monitored Anesthesia Care Patient Profile: This is a 51 year old female. Refer to note in patient chart for documentation of history and physical. Last Colonoscopy: none. The patient's first colonoscopy is today. Complications: No immediate complications. Procedure: Pre-Anesthesia Assessment: - Prior to the procedure, a History and Physical was performed, and patient medications and allergies were reviewed. The patient's tolerance of previous anesthesia was also reviewed. The risks and benefits of the procedure and the sedation options and risks were discussed with the patient. All questions were answered, and informed consent was obtained. Prior Anticoagulants: The patient has taken no previous anticoagulant or antiplatelet agents. After reviewing the risks and benefits, the patient was deemed in satisfactory condition to undergo the procedure. After I obtained informed consent, the scope was passed under direct vision. Throughout the procedure, the patient's blood pressure, pulse, and oxygen saturations were monitored continuously. The colonoscope was introduced through the anus and advanced to the cecum, identified by appendiceal orifice and ileocecal valve. The colonoscopy was performed without difficulty. The patient tolerated the procedure well. The quality of the bowel preparation was good. Scope In: 8:30:38 AM Scope Withdrawal Time 0 hours 6 minutes 2 seconds Scope Out: 8:39:42 AM Total Procedure Duration Time 0 hours 9 minutes 4 seconds Findings: The entire examined colon appeared normal on direct and retroflexion views. Impression: - The entire examined colon is normal on direct and retroflexion views. - No specimens collected. Recommendation: - Discharge patient to home. - Resume previous diet. - Continue present medications. - Repeat colonoscopy in 10 years for screening purposes. Procedure Code(s): --- Professional --- 04352, Colonoscopy, flexible; diagnostic, including collection of specimen(s) by brushing or washing, when performed (separate procedure) Diagnosis Code(s): --- Professional --- Z12.11, Encounter for screening for malignant neoplasm of colon CPT copyright 2017 [employer]. All rights reserved. The codes documented in this report are preliminary and upon label coder review may be revised to meet current compliance requirements. Manuel Schuster MD 11/10/2021 8:42:26 AM This report has been signed electronically. Number of Addenda: 0 Note Initiated On: 11/10/2021 8:18 AM
--- NOTE | 2021-11-10 08:43 | OP.CCLET_ITS ---
11/10/2021 Amari Renae [address] [place] [address] Re : Colonoscopy procedure for [facility] Dear Dr. Renae This procedure was performed on Wednesday, November 10, 2021. My impressions and recommendations are as follows: Impressions : - The entire examined colon is normal on direct and retroflexion views. - No specimens collected. Recommendations : - Discharge patient to home. - Resume previous diet. - Continue present medications. - Repeat colonoscopy in 10 years for screening purposes. My findings are described in the full procedure note, which is enclosed. If I can be of further assistance, please feel free to contact me at Doctor phone number(s): , Work: . Sincerely, Manuel Schuster MD 11/10/2021 8:42:26 AM This report has been signed electronically.
== END 2021-11-10 09:28 | disposition home or self-care (01) ==
LOC: EN 07:19 → AC 07:20
PROVIDERS: PCP Family Medicine; Referring Provider Family Medicine; Visit Provider Surgery
PROC: 0DJD8ZZ Inspection of Lower Intestinal Tract, Via Natural or Artificial Opening Endoscopic (ICD-10-PCS; CPT 45378; principal; 2021-11-10 08:25)
DX: Z12.11 Encounter for screening for malignant neoplasm of colon (principal); J44.9 Chronic obstructive pulmonary disease, unspecified; E66.01 Morbid (severe) obesity due to excess calories; F41.9 Anxiety disorder, unspecified; I10 Essential (primary) hypertension; K76.0 Fatty (change of) liver, not elsewhere classified; K21.9 Gastro-esophageal reflux disease without esophagitis; F32.A Depression, unspecified; Z87.442 Personal history of urinary calculi; G47.33 Obstructive sleep apnea (adult) (pediatric); D86.9 Sarcoidosis, unspecified; E55.9 Vitamin D deficiency, unspecified; Z79.899 Other long term (current) drug therapy; Z98.84 Bariatric surgery status; F17.210 Nicotine dependence, cigarettes, uncomplicated; Z68.30 Body mass index [BMI] 30.0-30.9, adult
CPT/HCPCS: 45378; J7120; J2405

== ENCOUNTER 2021-12-06 08:44 | Emergency (ER) | payer MEDICAID, SELFPAY ==
[2021-12-06 08:45] VITALS: BP 160/84; PULSE 64; RESP 20; TEMP 36.6; O2SAT 100; BMI 30.7
--- NOTE | 2021-12-06 09:20 | ED.VIS.GI ---
HPI HPI - GI History of Present Illness Chief Complaint: Abd Pain Narrative Narrative: 51-year-old female presenting with epigastric pain, nausea, vomiting. She states that this started last evening. She states she has seen some blood and clots in her emesis. She is also had some black stool since last evening. Patient reports that she has a history of gastric bypass and chronic gastric ulcers since then. She has GERD as well. The patient states that her surgery was done by Dr. Julián Fontana. This was in 2018. Patient reports that she was at [facility] for consult for skin removal surgery status post gastric bypass. She was symptom-free then. She states she ate some potato chips on the way home and that is only thing she ate yesterday. Last night she began vomiting. She states she has not had any fever or chills. Denies urinary complaints. She is not anticoagulated. She took Zofran at home but states this did not help. She also has Protonix and Carafate at home which she could not take because she was vomiting. [facility] Medical History Alopecia Anxiety Back pain Benign essential HTN Chest pain Chest pain Cigarette nicotine dependence COPD (chronic obstructive pulmonary disease) COPD exacerbation Dysfunctional uterine bleeding Easy bruising Essential hypertension Fatigue Fatty liver disease, nonalcoholic Gastroesophageal reflux disease History of echocardiogram History of edema History of GI bleed History of Holter monitoring History of ulceration Hypertension Leg cramps Low iron Major depression Marijuana use Migraine headache Morbid obesity Nephrolithiasis Obstructive sleep apnea Onychomycosis Peripheral edema Prediabetes Sarcoidosis Sarcoidosis Skin rash Smoker Stage 1 mild COPD by GOLD classification Syncope Tobacco user Vitamin D deficiency Home Medications acyclovir 400 mg tablet 400 mg PO BID anti viral 05/23/18 [History Last Taken 10/30/19 18:00] biotin 10 mg tablet 10 mg PO DAILY supplement 12/22/18 [History Last Taken 10/28/19 06:00] calcium citrate 250 mg PO BID supplement 12/22/18 [History Last Taken 10/30/19 18:00] docusate sodium 100 mg capsule (Colace) 100 mg PO TID PRN Constipation 12/22/18 [History Last Taken 10/30/19 21:00] oxpahuxm-dbgw-lkwjj acid 200 mcg-herbal no.293 37.5 mg chewable tablet (Alive Women's Gummy Vitamin) 4 tab PO DAILY vitamin 12/22/18 [History Last Taken 10/28/19 06:00] polyethylene glycol 3350 17 gram/dose oral powder (Miralax) 17 g PO PRN PRN Constipation 12/22/18 [History Last Taken 07/08/19] ondansetron 4 mg disintegrating tablet 8 mg PO Q6H PRN PRN Nausea 01/12/19 [History Last Taken 10/31/19 14:30] tramadol 50 mg tablet 1 - 2 tab PO Q8H PRN Pain Or Fever 02/14/19 [History Last Taken 10/31/19 15:00] cholecalciferol (vitamin D3) 50 mcg (2,000 unit) tablet 4,000 unit PO DAILY vitamin 03/21/19 [History Last Taken 10/28/19 06:00] diazepam 5 mg tablet 10 mg PO DAILY PRN Anxiety 10/29/19 [History Last Taken 10/31/19 06:00] pantoprazole 40 mg tablet,delayed release 40 mg PO BID reflux 10/29/19 [History Last Taken 10/31/19 09:00] acetaminophen 325 mg tablet 650 mg PO Q6H PRN PRN Pain Score 1-10/Temp > 100.7 F 11/03/19 [Rx Last Taken Unknown] doxycycline hyclate 150 mg tablet 150 mg PO BID 10/12/20 [History Last Taken Unknown] potassium chloride 20 mEq tablet,extended release(part/cryst) (Klor-Con M) 20 meq PO DAILY #14 TABLETS 05/14/21 [Rx Last Taken Unknown] hydroxyzine HCl 50 mg tablet 50 mg PO BID PRN Anxiety 11/09/21 [History Last Taken Unknown] sucralfate 100 mg/mL oral suspension (Carafate) 10 ml PO 4X/DAY 11/09/21 [History Last Taken Unknown] promethazine 12.5 mg rectal suppository 12.5 mg DE TID PRN nausea and vomiting #12 ea 12/06/21 [Rx Last Taken Unknown] Allergy/AdvReac Type Severity Reaction Status Date / Time latex Allergy Hives Verified 12/06/21 08:47 povidone-iodine Allergy Rash Verified 12/06/21 08:47 [From Betadine] Family History Father Hypertension Heart disease Diabetes CVA (cerebral vascular accident) Blood clotting disorder Pneumonia Grandfather Cancer Prostate Brother Diabetes Sister Asthma Sister Depression Anxiety Surgical History H/O: hysterectomy History of carpal tunnel release of both wrists History of esophagogastroduodenoscopy (EGD) History of gastric bypass History of lithotripsy Hx of tubal ligation Previous section Social History Smoking Status: Current every day smoker tobacco type: cigarettes second hand exposure: Yes alcohol intake: current alcohol intake frequency: holidays/special occasions only Alcohol type: wine substance use type: does not use caffeine: Yes (3/day) what type of physical activity do you participate in: none ROS ROS ED Review of Systems ROS Unobtainable: Denies due to encephalopathy Constitutional Constitutional ED: Denies chills, fever(s) or subjective ENT ENT ED: Denies rhinorrhea or sore throat Cardiovascular Cardiovascular: Denies chest pain or palpitations Respiratory/Chest Respiratory/Chest: Denies cough or dyspnea Gastrointestinal Gastrointestinal: Reports abdominal pain, melena, nausea, vomiting and other Details: Hematemesis Genitourinary Genitourinary ED: Denies dysuria or hematuria Musculoskeletal Musculoskeletal: Denies arthralgias or back pain Integumentary Denies abscess Neurologic Neurologic: Denies headache(s) or paresthesias Psychiatric Psychiatric: Denies anxiety or depression Endocrine Endocrinology: Denies polydipsia or polyphagia EXAM Physical Exam Const Vital Signs: 12/06/21 08:45 12/06/21 12:24 Temperature 98 F 98.2 F Temperature Source Temporal Oral Pulse Rate 64 71 Respiratory Rate 20 H 15 Blood Pressure 160/84 H 139/84 H Blood Pressure Mean 109 102 Pulse Ox 100 98 Oxygen Delivery Method Room Air Room Air Positive well nourished General Appearance ED: Negative for pallor HEENT Reports TM's clear normocephalic and atraumatic Tympanic Membrane ED: Yes TM's clear Eyes PERRL and EOMs intact bilaterally Resp normal respiratory effort and clear to auscultation bilaterally Auscultation: Negative for rales, rhonchi or wheezes Cardio regular rate and regular rhythm GI Palpation: soft and tender epigastric; Negative for guarding or rigid Back/Spine no CVA tenderness Neuro CN's II-XII intact bilaterally and moves all extremities Sensorium / Orientation: alert Motor Exam: strength 5/5 throughout Psych mental status grossly normal Skin General Skin Exam: Negative for jaundice or pallor MDM MDM MDM Narrative Medical decision making narrative: 51-year-old female with history of gastric bypass presenting with nausea/vomiting. She reports she had some blood in her emesis. She states it was small amounts of blood and then flecks of blood in her emesis. She states that there was some clots. She also states she started having melena last night. She is not on any blood thinners. She reports that she was at [facility] yesterday for a consult to have excess skin removed status post gastric bypass but was symptom-free at that time. She reports that on the way home she had some potato chips and has anything since and has had this nausea and vomiting since last evening. Dr. Fontana reportedly did her gastric bypass. On arrival her vital signs are stable. She is actually hypertensive. Her pulse is 64. She is 100% on room air. She has some epigastric pain on examination. Her abdomen is soft otherwise. Patient given morphine and Reglan as she states that the Zofran did not help her earlier. She is given IV Protonix. Blood work is obtained. Review of her medical record shows that she had a colonoscopy performed 11/10/[address] Schuster which was normal. She has had upper endoscopies at [facility] where she sees her surgeon. She states she does have stomach ulcers. Patient was treated with morphine and Reglan initially. While awaiting her CT scan she did have more pain and was given another 4 mg of morphine. Her CBC shows a white blood count of 7.9, hemoglobin of 15.1, hematocrit 44.5. Of note her hemoglobin is higher than it was last month. Her renal function and electrolytes are normal. She does not have an elevated BUN. Glucose slightly elevated 149 without anion gap. LFTs are within normal limits. Lipase is normal. I obtained a CT abdomen pelvis with p.o. and IV contrast and the patient tolerated this well. She has not had any repeat vomiting while she is here. She has been reevaluated 3 times and has not been vomiting at all. CT of the abdomen pelvis was negative for any acute findings. Patient counseled of this. She is given rectal Phenergan at home and she has Zofran. He is counseled to continue her Protonix. 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 She is to follow-up with Dr. Fontana at [facility]. Return precautions discussed. Impression: 1. Letty-Urbina tear 2. Nausea/vomiting 3. Epigastric pain Lab Data Labs: Laboratory Results - last 24 hr 12/06/21 12/06/21 09:49 09:49 WBC 7.9 RBC 4.85 Hgb 15.1 H Hct 44.5 MCV 91.8 MCH 31.1 MCHC 33.9 RDW Std Deviation 45.4 H RDW Coeff of Donis 13.4 Plt Count 190 MPV 10.1 Immature Gran % (Auto) 0.300 Neut % (Auto) 90.0 H Lymph % (Auto) 7.6 L [place] % (Auto) 2.0 Eos % (Auto) 0.0 Baso % (Auto) 0.1 Absolute Neuts (auto) 7.1 Absolute Lymphs (auto) 0.60 L Nucleated RBC % 0 Platelet Estimate ADEQUATE RBC Morphology NORM C+C Sodium 137 Potassium 3.9 Chloride 107 Carbon Dioxide 20.0 L Anion Gap 10 BUN 10 Creatinine 0.71 Estim Creat Clear Calc 88.74 Est GFR (MDRD) Af Amer 112 Est GFR (MDRD) Non-Af 92 BUN/Creatinine Ratio 14.1 Glucose 149 H Calcium 9.6 Total Bilirubin 0.70 AST 23 ALT 26 Alkaline Phosphatase 116 Total Protein 8.1 Albumin 3.8 Globulin 4.3 H Albumin/Globulin Ratio 0.9 Lipase 43 L Radiography Diagnostic Testing: Clinical Impression(s) from Imaging Studies Abdomen/Pelvis CT 12/06/21 10:02 IMPRESSION: Fatty infiltration of the liver. Mildly distended gallbladder lumen. Stable right renal cyst. Stable nonobstructive left intrarenal calculi. Electronically Signed: Malcolm Quarles MD at 12:18 EDT , Discharge Plan Triage Chief Complaint: Abd Pain Other Complaint: Nausea/Vomiting ED Provider: Jose Luis Joshi Dx/Rx/DC Orders Instructions: Letty-Urbina Tear, ED Vomiting (Adult) Prescriptions: New promethazine 12.5 mg suppository 12.5 mg DE TID PRN (Reason: nausea and vomiting) Qty: 12 0RF Rx Instructions: do not give 3rd daily dose after evening meal or within 4hr before bed No Action docusate sodium [Colace] 100 mg capsule 100 mg PO TID PRN (Reason: Constipation) calcium citrate 250 mg calcium tablet 250 mg PO BID biotin 10 mg tablet 10 mg PO DAILY polyethylene glycol 3350 [Miralax] 17 gram/dose powder 17 g PO PRN PRN (Reason: Constipation) Alive Women's Gummy Vitamin 200 mcg- 37.5 mg tablet,chewable 4 tab PO DAILY acyclovir 400 tablet 400 mg PO BID ondansetron 4 MG tablet 8 mg PO Q6H PRN PRN (Reason: Nausea) tramadol 50 MG tablet 1 - 2 tab PO Q8H PRN (Reason: Pain Or Fever) cholecalciferol (vitamin D3) 2,000 UNIT tablet 4,000 unit PO DAILY pantoprazole 40 MG tablet 40 mg PO BID diazepam 5 MG tablet 10 mg PO DAILY PRN (Reason: Anxiety) acetaminophen 325 MG tablet 650 mg PO Q6H PRN PRN (Reason: Pain Score 1-10/Temp > 100.7 F) 0RF doxycycline hyclate 150 mg Tablet 150 mg PO BID potassium chloride [Klor-Con M20] 20 mEq tablet,ER particles/crystals 20 meq PO DAILY Qty: 14 0RF sucralfate [Carafate] 100 mg/mL Suspension 10 ml PO 4X/DAY hydroxyzine HCl 50 mg Tablet 50 mg PO BID PRN (Reason: Anxiety) Primary Care Provider: Amari Renae Referrals: Amari Renae DO [Primary Care Provider] - Disposition Disposition: Home, Self Care
[2021-12-06] MEDS: 0.9% Normal Saline 1,000 ML 1000 ML IV (09:23)
[2021-12-06] MEDS: Morphine 4 MG/ML Syringe IV ×2 (09:23→10:24)
[2021-12-06] MEDS: Metoclopramide 10 MG/2 ML Vial IV (09:23)
[2021-12-06 09:55] LABS: Absolute Neutrophil Count 7.1 X10^3/uL (2.0-7.7); Basophil# 0.01 X10^3/uL; Basophil% 0.1 % (0-1); Hematocrit 44.5 % (37-47); Hemoglobin 15.1 g/dL (12.0-15.0); Lymphocyte % 7.6 % (19-41); Mean Corp Hgb Conc 33.9 g/dL (32-36); Mean Corpuscular Hgb 31.1 pg (27.0-32.0); Mean Corpuscular Volume 91.8 fL (81-99); Mean Platelet Vol. 10.1 fl (6.2-12.0); Monocyte# 0.16 X10^3/uL; NRBC Flagged by Analyzer 0 % (0-5); Neutrophil # 7.09 X10^3/uL (2.7-7.7); POSITIVE DIFFERENTIAL YES; Platelet Count 190 K/mm3 (150-450); RBC Distribution Width CV 13.4 % (11.6-14.6); RBC Distribution Width SD 45.4 fl (35.1-43.9); Red Blood Count 4.85 M/mm3 (4.2-5.4); White Blood Count 7.9 K/mm3 (4.4-11.0)
--- NOTE | 2021-12-06 10:02 | CT_ITS ---
STUDY: CT ABDOMEN AND PELVIS WITH CONTRAST REASON FOR EXAM: Female, 51 years old. Epigastric pain. Vomiting blood. Black stool. History of prior gastric bypass surgery. RADIATION DOSAGE (If Supplied By Facility): CTDIvol = ( 17.87 ) mGy, DLP = ( 813.07 ) mGycm TECHNIQUE: Transaxial images were obtained from the dome of the diaphragm to the symphysis pubis without oral contrast. IV 100mL Isovue-300 was administered. Sagittal and coronal images were reconstructed. Individualized dose optimization techniques were used for this CT. COMPARISON: Comparison is made with prior examination of 06/07/2021. FINDINGS: The visualized lung bases are unremarkable. The visualized portions of the heart are within normal limits. There is decreased attenuation of the liver consistent with steatosis. Mildly distended gallbladder lumen. Normal spleen. Normal pancreas. Normal bilateral adrenal glands. Stable 5.1cm x 5.6 m cyst in the mid lower pole of the right kidney. Multiple nonobstructive left intrarenal calculi. The largest calculus measures 1 cm and is in the posterior upper pole calyx of the right kidney. Postsurgical changes seen in the stomach in keeping with the history of prior gastric bypass surgery. Normal small intestine. Normal colon. The appendix is visualized and appears normal. There is scattered atherosclerotic calcification of the abdominal aorta, without a demonstrated aneurysm. Normal inferior vena cava. Normal retroperitoneum. Normal urinary bladder. Normal abdominal wall. There are degenerative changes of the visualized lumbar spine. This is worse at the L5-S1 level. CT/Abdomen/Pelvis WITH Contrast IMPRESSION: Fatty infiltration of the liver. Mildly distended gallbladder lumen. Stable right renal cyst. Stable nonobstructive left intrarenal calculi. Electronically Signed: Malcolm Quarles MD at 12:18 EDT ,
[2021-12-06 10:08] LABS: Differential Indicated SCAN CRITERIA MET
[2021-12-06 10:16] LABS: ALB/GLOB Ratio 0.9 RATIO (0.9-2.4); AST(SGOT) 23 U/L (15-37); Alanine Aminotransfer ALT/SGPT 26 U/L (13-56); Albumin, Serum 3.8 g/dL (3.2-5.0); Alkaline Phosphatase 116 U/L (45-117); Anion Gap 10 (5-15); BUN 10 mg/dL (7-18); BUN/Creat Ratio 14.1 RATIO (10-20); Calcium,Total 9.6 mg/dL (8.5-10.1); Chloride 107 mmol/L (98-107); Creatinine, Serum 0.71 mg/dL (0.55-1.02); EST Glomerular Filtration Rate 92 mL/min (>60); Est Glom Filt Rate - Afr Amer 112 mL/min (>60); Estimated Creatinine Clearance 88.74 ml/min; Globulin 4.3 g/dL (2.2-4.2); Glucose 149 mg/dL (74-106); Lipase 43 U/L (73-393); Potassium 3.9 mmol/L (3.5-5.1); Protein, Total 8.1 g/dL (6.4-8.2); Sodium Level 137 mmol/L (136-145)
[2021-12-06 10:26] LABS: Platelet Estimate ADEQUATE (ADEQ); Red Cell Morphology NORM C+C NORMAL (NORM C&C)
[2021-12-06 12:24] VITALS: BP 139/84; PULSE 71; RESP 15; TEMP 36.8; O2SAT 98
[2021-12-06 13:23] VITALS: BP 125/77; PULSE 82; RESP 15; O2SAT 98
== END 2021-12-06 13:24 | disposition home or self-care (01) ==
PROVIDERS: Emergency Provider Student in an Organized Health Care Education/Training Program; PCP Family Medicine; Visit Provider Student in an Organized Health Care Education/Training Program
DX: R11.2 Nausea with vomiting, unspecified (principal); J44.9 Chronic obstructive pulmonary disease, unspecified; R73.9 Hyperglycemia, unspecified; Z77.22 Contact with and (suspected) exposure to environmental tobacco smoke (acute) (chronic); K22.6 Gastro-esophageal laceration-hemorrhage syndrome; I10 Essential (primary) hypertension; R10.13 Epigastric pain
CPT/HCPCS: 36415; 74177; 80053; 83690; 85025; 87811; 96361; 96365; 96366; 96375; 99282; J7030; Q9967; A4216

== ENCOUNTER 2022-02-18 00:01 | Emergency (ER) | payer MEDICAID, SELFPAY ==
[2022-02-18 00:03] VITALS: BP 137/71; PULSE 70; RESP 18; TEMP 35.6; O2SAT 99; BMI 29.0
[2022-02-18 00:05] VITALS: BP 137/71; PULSE 70; RESP 18; TEMP 35.6; O2SAT 99
--- NOTE | 2022-02-18 00:43 | EDS_ITS ---
HPI History of Present Illness Chief Complaint: Back Informant: patient Onset/Context/Timing Onset: Weeks Context: Gradual Onset Timing: Waxes and wanes Quality: Aching and Throbbing Location: - (Right lumbar paraspinal) Current Severity: Moderate Maximum Severity: Severe Narrative Narrative: Patient presents secondary to left low back pain wrapping around to the groin and thigh. Patient states has had pain for 2 weeks but it got significantly worse of the last 2 days. She is been trying [id number] medications without improvement. She denies any fall or injury. No prior back injections or surgeries. Pain wraps around her hip and into the anterior mid thigh, but does not shoot the whole way down her leg. No probs without a bladder control. No fever or chills. [facility] Medical History Alopecia Anxiety Back pain Benign essential HTN Chest pain Chest pain Cigarette nicotine dependence COPD (chronic obstructive pulmonary disease) COPD exacerbation Dysfunctional uterine bleeding Easy bruising Essential hypertension Fatigue Fatty liver disease, nonalcoholic Gastroesophageal reflux disease History of echocardiogram History of edema History of GI bleed History of Holter monitoring History of ulceration Hypertension Leg cramps Low iron Major depression Marijuana use Migraine headache Morbid obesity Nephrolithiasis Obstructive sleep apnea Onychomycosis Peripheral edema Prediabetes Sarcoidosis Sarcoidosis Skin rash Smoker Stage 1 mild COPD by GOLD classification Syncope Tobacco user Vitamin D deficiency Home Medications acyclovir 400 mg tablet 400 mg PO BID anti viral 05/23/18 [History Last Taken 10/30/19 18:00] biotin 10 mg tablet 10 mg PO DAILY supplement 12/22/18 [History Last Taken 10/28/19 06:00] calcium citrate 250 mg PO BID supplement 12/22/18 [History Last Taken 10/30/19 18:00] docusate sodium 100 mg capsule (Colace) 100 mg PO TID PRN Constipation 12/22/18 [History Last Taken 10/30/19 21:00] hntizfoc-zcxt-hwxar acid 200 mcg-herbal no.293 37.5 mg chewable tablet (Alive Women's Gummy Vitamin) 4 tab PO DAILY vitamin 12/22/18 [History Last Taken 10/28/19 06:00] polyethylene glycol 3350 17 gram/dose oral powder (Miralax) 17 g PO PRN PRN Constipation 12/22/18 [History Last Taken 07/08/19] ondansetron 4 mg disintegrating tablet 8 mg PO Q6H PRN PRN Nausea 01/12/19 [History Last Taken 10/31/19 14:30] tramadol 50 mg tablet 1 - 2 tab PO Q8H PRN Pain Or Fever 02/14/19 [History Last Taken 10/31/19 15:00] cholecalciferol (vitamin D3) 50 mcg (2,000 unit) tablet 4,000 unit PO DAILY vitamin 03/21/19 [History Last Taken 10/28/19 06:00] diazepam 5 mg tablet 10 mg PO DAILY PRN Anxiety 10/29/19 [History Last Taken 10/31/19 06:00] pantoprazole 40 mg tablet,delayed release 40 mg PO BID reflux 10/29/19 [History Last Taken 10/31/19 09:00] acetaminophen 325 mg tablet 650 mg PO Q6H PRN PRN Pain Score 1-10/Temp > 100.7 F 11/03/19 [Rx Last Taken Unknown] doxycycline hyclate 150 mg tablet 150 mg PO BID 10/12/20 [History Last Taken Unknown] potassium chloride 20 mEq tablet,extended release(part/cryst) (Klor-Con M) 20 meq PO DAILY #14 TABLETS 05/14/21 [Rx Last Taken Unknown] hydroxyzine HCl 50 mg tablet 50 mg PO BID PRN Anxiety 11/09/21 [History Last Taken Unknown] sucralfate 100 mg/mL oral suspension (Carafate) 10 ml PO 4X/DAY 11/09/21 [History Last Taken Unknown] promethazine 12.5 mg rectal suppository 12.5 mg CA TID PRN nausea and vomiting #12 ea 12/06/21 [Rx Last Taken Unknown] cyclobenzaprine 10 mg tablet 10 mg PO BID PRN muscle spasm #10 tabs 02/18/22 [Rx Last Taken Unknown] hydrocodone-acetaminophen 5-325mg 5mg-325mg 1 tab PO Q6H PRN pain 3 days #10 tabs 02/18/22 [Rx Last Taken Unknown] Allergy/AdvReac Type Severity Reaction Status Date / Time latex Allergy Hives Verified 12/06/21 08:47 povidone-iodine Allergy Rash Verified 12/06/21 08:47 [From Betadine] Family History Father Hypertension Heart disease Diabetes CVA (cerebral vascular accident) Blood clotting disorder Pneumonia Grandfather Cancer Prostate Brother Diabetes Sister Asthma Sister Depression Anxiety Surgical History H/O: hysterectomy History of carpal tunnel release of both wrists History of esophagogastroduodenoscopy (EGD) History of gastric bypass History of lithotripsy Hx of tubal ligation Previous section Social History Smoking Status: Current every day smoker tobacco type: cigarettes second hand exposure: Yes alcohol intake: current alcohol intake frequency: holidays/special occasions only Alcohol type: wine substance use type: does not use caffeine: Yes (3/day) what type of physical activity do you participate in: none ROS ROS ED Constitutional Constitutional ED: Denies chills or fever(s) Eyes Eyes: Denies change in vision or discharge from eye(s) ENT ENT ED: Denies discharge from eye(s), rhinorrhea or sore throat Cardiovascular Cardiovascular: Denies chest pain or palpitations Respiratory/Chest Respiratory/Chest: Denies cough or dyspnea Gastrointestinal Gastrointestinal: Denies abdominal pain, diarrhea, nausea or vomiting Genitourinary Genitourinary ED: Denies difficulty urinating, dysuria or hematuria Musculoskeletal Musculoskeletal: Reports back pain and extremity pain Integumentary Denies Abrasions or rash Neurologic Neurologic: Denies headache(s), paresthesias or weakness Allergic/Immunologic Allergic/Immunologic ED: Denies lip swelling or urticaria EXAM Physical Exam Const Vital Signs: 02/18/22 00:03 02/18/22 00:05 Temperature 96.0 F L 96.0 F L Temperature Source Temporal Temporal Pulse Rate 70 70 Respiratory Rate 18 18 Blood Pressure 137/71 H 137/71 H Blood Pressure Mean 93 93 Pulse Ox 99 99 Oxygen Delivery Method Room Air Room Air Positive well nourished and well developed General Appearance ED: well developed HEENT Reports normocephalic and head/scalp atraumatic Eyes PERRL and EOMs intact bilaterally Neck supple Chest Wall inspection of chest normal and palpation of chest normal Resp normal respiratory effort and clear to auscultation bilaterally Cardio regular rate and regular rhythm GI normal to inspection, nondistended, normoactive bowel sounds and no masses Palpation: soft Back/Spine Back/Spine Narrative: Reproducible tenderness in the left low lumbar paraspinal region. No focal midline tenderness. No erythema or skin changes. Extremity normal to inspection Neuro oriented x3 and no sensory deficits noted Neuro Narrative: Patient standing at bedside. Able to raise onto heels and toes. Sensorium / Orientation: alert Motor Exam: strength 5/5 throughout Psych mental status grossly normal Skin no rashes or lesions noted MDM MDM MDM Narrative Medical decision making narrative: Patient given IM morphine here for pain control. Prescriptions for Flexeril and Woodland given. Return instructions provided. Discharge Plan Triage Chief Complaint: Back ED Provider: Tiffanie Alcazar Dx/Rx/DC Orders Clinical Impression: Lumbar spine strain, Lumbar radiculopathy Instructions: ED Back Pain (Acute or Chronic) Prescriptions: New hydrocodone-acetaminophen 5-325 mg tablet 1 tab PO Q6H PRN (Reason: pain) 3 Days Qty: 10 0RF cyclobenzaprine 10 mg tablet 10 mg PO BID PRN (Reason: muscle spasm) Qty: 10 0RF No Action docusate sodium [Colace] 100 mg capsule 100 mg PO TID PRN (Reason: Constipation) calcium citrate 250 mg calcium tablet 250 mg PO BID biotin 10 mg tablet 10 mg PO DAILY polyethylene glycol 3350 [Miralax] 17 gram/dose powder 17 g PO PRN PRN (Reason: Constipation) Alive Women's Gummy Vitamin 200 mcg- 37.5 mg tablet,chewable 4 tab PO DAILY acyclovir 400 tablet 400 mg PO BID ondansetron 4 MG tablet 8 mg PO Q6H PRN PRN (Reason: Nausea) tramadol 50 MG tablet 1 - 2 tab PO Q8H PRN (Reason: Pain Or Fever) cholecalciferol (vitamin D3) 2,000 UNIT tablet 4,000 unit PO DAILY pantoprazole 40 MG tablet 40 mg PO BID diazepam 5 MG tablet 10 mg PO DAILY PRN (Reason: Anxiety) acetaminophen 325 MG tablet 650 mg PO Q6H PRN PRN (Reason: Pain Score 1-10/Temp > 100.7 F) 0RF doxycycline hyclate 150 mg Tablet 150 mg PO BID potassium chloride [Klor-Con M20] 20 mEq tablet,ER particles/crystals 20 meq PO DAILY Qty: 14 0RF sucralfate [Carafate] 100 mg/mL Suspension 10 ml PO 4X/DAY hydroxyzine HCl 50 mg Tablet 50 mg PO BID PRN (Reason: Anxiety) promethazine 12.5 mg suppository 12.5 mg CA TID PRN (Reason: nausea and vomiting) Qty: 12 0RF Rx Instructions: do not give 3rd daily dose after evening meal or within 4hr before bed Primary Care Provider: Amari Renae Referrals: Amari Renae, [Primary Care Provider] - 1 Week Activity Restrictions/Additional Instructions: You can take [place] in place of your tramadol. Please do not take these 2 medications together. Disposition Disposition: Home, Self Care Discharge Date/Time: 02/18/22 01:41
[2022-02-18] MEDS: morphine 10 MG/ML Syringe IM (01:04)
== END 2022-02-18 01:41 | disposition home or self-care (01) ==
PROVIDERS: Emergency Provider Emergency Medicine; PCP Family Medicine; Visit Provider Emergency Medicine
DX: S39.012A Strain of muscle, fascia and tendon of lower back, initial encounter (principal); J44.9 Chronic obstructive pulmonary disease, unspecified; M54.16 Radiculopathy, lumbar region; M25.552 Pain in left hip; I10 Essential (primary) hypertension; G47.33 Obstructive sleep apnea (adult) (pediatric); F17.210 Nicotine dependence, cigarettes, uncomplicated; Z79.899 Other long term (current) drug therapy
CPT/HCPCS: 96372; 99282

== ENCOUNTER → 2022-05-10 | Outpatient (CLI) | payer MEDICAID, SELFPAY ==
--- NOTE | 2022-05-10 07:45 | BI_ITS ---
MAMMOGRAPHY - BILATERAL SCREENING REASON FOR EXAM: Female, 51 years old. Routine annual screening examination. PERTINENT HISTORY: Non-contributory. TECHNIQUE: Digital bilateral breast eli (3D mammographic acquisition) in the CC and MLO projections. 2-D mediolateral oblique (MLO) and craniocaudad (CC) views of both breasts were obtained. CAD: Full Field Digital Mammography with Computer Added Detection was performed. COMPARISON: Comparison is made with prior study of May 05, 2021 and February 09, 2020. FINDINGS: Breast Composition: There are scattered areas of fibroglandular density. There are no dominant masses or suspicious calcifications. No other significant abnormalities are identified. There has been no significant change since the prior study. BI/SCRN MAMM (CAD)W/ELI BILAT IMPRESSION: Stable bilateral screening mammogram. Yearly follow-up mammogram recommended. (A) ASSESSMENT CATEGORY: BIRADS Category 1: Negative. A letter regarding these results will be sent to the patient by the facility within 30 days. Approximately 10% of breast cancers are not detected by mammography. A normal mammogram should not delay biopsy of a clinically suspicious abnormality. [id number] Electronically Signed: Malcolm Quarles MD at 9:39 EST ,
== END | disposition home or self-care (01) ==
LOC: OPBI 07:43
PROVIDERS: PCP Family Medicine; Referring Provider Family Medicine; Visit Provider Family Medicine
DX: Z12.31 Encounter for screening mammogram for malignant neoplasm of breast (principal)
CPT/HCPCS: 77063; 77067

== ENCOUNTER 2022-05-28 18:12 | Emergency (ER) | payer MEDICAID, SELFPAY ==
[2022-05-28 18:13] VITALS: BP 143/78; PULSE 89; RESP 16; TEMP 36.5; O2SAT 98; BMI 35.6
--- NOTE | 2022-05-28 18:34 | CT_ITS ---
EXAM: CT HEAD WITHOUT INTRAVENOUS CONTRAST CLINICAL INDICATION: new onset sz TECHNIQUE: Multiple axial images were obtained of the head without intravenous contrast. This CT exam was performed using one or more of the following dose reduction techniques: automated exposure control, adjustment of the mA and/or kV according to patient size, and/or use of iterative reconstruction technique. This report was created using [employer] report generation technology. COMPARISON: None. FINDINGS: BRAIN AND EXTRA-AXIAL SPACES: Unremarkable. No intra- or extra-axial hemorrhage. No evidence of acute infarct. No intracranial mass or mass effect. There is preservation of the grullon/white matter interface. Posterior fossa structures are unremarkable. Ventricles are appropriate for age. No hydrocephalus. Basal cisterns are patent. BONES/JOINTS: Unremarkable. No discrete lytic or blastic abnormalities. SINUSES: Unremarkable as visualized. Clear. MASTOID AIR CELLS: Unremarkable. Clear. ORBITS: Visualized globes, extraocular muscles, optic nerves and retrobulbar fat appear unremarkable. CT/Brain/Head without Contrast IMPRESSION: Negative head/brain CT without intravenous contrast. Electronically Signed: Hima Titus MD at 19:56 EDT ,
[2022-05-28 18:53] LABS: Absolute Lymphocyte Count 2.59 X10^3/uL (0.83-4.51); Basophil# 0.05 X10^3/uL; Basophil% 0.6 % (0-1); Eosinophil# 0.31 X10^3/uL; Eosinophils% 3.5 % (0-5); Hematocrit 39.5 % (37-47); Hemoglobin 12.6 g/dL (12.0-15.0); Lymphocyte # 2.59 X10^3/ul (0.83-4.51); Lymphocyte % 29.6 % (19-41); Mean Corp Hgb Conc 31.9 g/dL (32-36); Mean Corpuscular Volume 90.8 fL (81-99); Monocyte% 9.1 % (0-10); NRBC Flagged by Analyzer 0 % (0-5); Neutrophil # 4.99 X10^3/uL (2.7-7.7); Platelet Count 259 K/mm3 (150-450); RBC Distribution Width CV 13.4 % (11.6-14.6); RBC Distribution Width SD 45.3 fl (35.1-43.9); Red Blood Count 4.35 M/mm3 (4.2-5.4); White Blood Count 8.8 K/mm3 (4.4-11.0)
--- NOTE | 2022-05-28 19:07 | EX.ED.DYSGE1 ---
HPI History of Present Illness Chief Complaint: Hypoglycemia Detail of Chief Complaint: Generalized tonic-clonic seizure with incontinence and hypoglycemia Informant: patient, spouse/S.O. and EMS Onset/Context/Timing Onset: Hours Context: Sudden Onset Timing: Intermittent Quality: Generalized tonic-clonic Location: Shopping Current Severity: Gone Maximum Severity: Severe Worsened by: Hypoglycemia Relieved by: Spontaneously stopped. Treated with D50 per EMS Associated Symptoms Associated Symptoms: Incontinence of urine Narrative Narrative: Patient is a 52-year-old woman status post gastric bypass surgery. She did not have much to eat today. She is not a diabetic. She has gained weight recently per patient and family. She denies fever, chills night sweats. She denies ocular, visual or auditory symptoms. She denies cardiac or respiratory symptoms. She had no vomiting. There was no incontinence of stool. There was incontinence of urine. Patient has no recall. There is no history of seizures as a child or family history of seizures. Prior similar symptoms: No Recent Illness/Hospitalization: No PFSH PFSH Medical History Alopecia Anxiety Back pain Benign essential HTN Chest pain Chest pain Cigarette nicotine dependence COPD (chronic obstructive pulmonary disease) COPD exacerbation Dysfunctional uterine bleeding Easy bruising Essential hypertension Fatigue Fatty liver disease, nonalcoholic Gastroesophageal reflux disease History of echocardiogram History of edema History of GI bleed History of Holter monitoring History of ulceration Hypertension Leg cramps Low iron Major depression Marijuana use Migraine headache Morbid obesity Nephrolithiasis Obstructive sleep apnea Onychomycosis Peripheral edema Prediabetes Sarcoidosis Sarcoidosis Skin rash Smoker Stage 1 mild COPD by GOLD classification Syncope Tobacco user Vitamin D deficiency Home Medications acyclovir 400 mg tablet 400 mg PO BID anti viral 05/23/18 [History Last Taken 10/30/19 18:00] biotin 10 mg tablet 10 mg PO DAILY supplement 12/22/18 [History Last Taken 10/28/19 06:00] calcium citrate 250 mg PO BID supplement 12/22/18 [History Last Taken 10/30/19 18:00] docusate sodium 100 mg capsule (Colace) 100 mg PO TID PRN Constipation 12/22/18 [History Last Taken 10/30/19 21:00] gaggohii-ytqv-hjdou acid 200 mcg-herbal no.293 37.5 mg chewable tablet (Alive Women's Gummy Vitamin) 4 tab PO DAILY vitamin 12/22/18 [History Last Taken 10/28/19 06:00] polyethylene glycol 3350 17 gram/dose oral powder (Miralax) 17 g PO PRN PRN Constipation 12/22/18 [History Last Taken 07/08/19] ondansetron 4 mg disintegrating tablet 8 mg PO Q6H PRN PRN Nausea 01/12/19 [History Last Taken 10/31/19 14:30] tramadol 50 mg tablet 1 - 2 tab PO Q8H PRN Pain Or Fever 02/14/19 [History Last Taken 10/31/19 15:00] cholecalciferol (vitamin D3) 50 mcg (2,000 unit) tablet 4,000 unit PO DAILY vitamin 03/21/19 [History Last Taken 10/28/19 06:00] diazepam 5 mg tablet 10 mg PO DAILY PRN Anxiety 10/29/19 [History Last Taken 10/31/19 06:00] pantoprazole 40 mg tablet,delayed release 40 mg PO BID reflux 10/29/19 [History Last Taken 10/31/19 09:00] acetaminophen 325 mg tablet 650 mg PO Q6H PRN PRN Pain Score 1-10/Temp > 100.7 F 11/03/19 [Rx Last Taken Unknown] doxycycline hyclate 150 mg tablet 150 mg PO BID 10/12/20 [History Last Taken Unknown] potassium chloride 20 mEq tablet,extended release(part/cryst) (Klor-Con M) 20 meq PO DAILY #14 TABLETS 05/14/21 [Rx Last Taken Unknown] hydroxyzine HCl 50 mg tablet 50 mg PO BID PRN Anxiety 11/09/21 [History Last Taken Unknown] sucralfate 100 mg/mL oral suspension (Carafate) 10 ml PO 4X/DAY 11/09/21 [History Last Taken Unknown] promethazine 12.5 mg rectal suppository 12.5 mg NH TID PRN nausea and vomiting #12 ea 12/06/21 [Rx Last Taken Unknown] cyclobenzaprine 10 mg tablet 10 mg PO BID PRN muscle spasm #10 tabs 02/18/22 [Rx Last Taken Unknown] hydrocodone-acetaminophen 5-325mg 5mg-325mg 1 tab PO Q6H PRN pain 3 days #10 tabs 02/18/22 [Rx Last Taken Unknown] Allergy/AdvReac Type Severity Reaction Status Date / Time latex Allergy Hives Verified 05/28/22 18:13 povidone-iodine Allergy Rash Verified 05/28/22 18:13 [From Betadine] Family History Father Hypertension Heart disease Diabetes CVA (cerebral vascular accident) Blood clotting disorder Pneumonia Grandfather Cancer Prostate Brother Diabetes Sister Asthma Sister Depression Anxiety Surgical History H/O: hysterectomy History of carpal tunnel release of both wrists History of esophagogastroduodenoscopy (EGD) History of gastric bypass History of lithotripsy Hx of tubal ligation Previous section Social History (Updated 05/28/22 @ 19:[address] Dao Garcia MD) household members: spouse Smoking Status: Current every day smoker tobacco type: cigarettes second hand exposure: Yes alcohol intake: current alcohol intake frequency: holidays/special occasions only Alcohol type: wine substance use type: does not use caffeine: Yes (3/day) what type of physical activity do you participate in: none ROS ROS ED Constitutional Constitutional ED: Reports other Details: Weight gain ; Denies chills, fever(s), subjective, sweats or weight loss Eyes Eyes: Denies blurry vision, change in vision or diplopia ENT ENT ED: Denies ear pain, rhinorrhea or sore throat Cardiovascular Cardiovascular: Denies chest pain, palpitations or racing heartbeat Respiratory/Chest Respiratory/Chest: Denies cough, dyspnea or dyspnea on exertion Gastrointestinal Gastrointestinal: Denies abdominal pain, constipation, melena, nausea or vomiting Genitourinary Genitourinary ED: Denies dysuria, hematuria or urinary frequency Musculoskeletal Musculoskeletal: Denies arthralgias, back pain, myalgias or neck pain Integumentary Denies Abrasions or rash Neurologic Neurologic: Reports other Details: Detailed in the HPI narrative ; Denies headache(s), paresthesias or weakness Psychiatric Psychiatric: Denies anxiety or depression Hematologic/Lymphatic Hematologic/Lymphatic: Reports systems reviewed and no addt'l complaints, except as documented; Denies easy bleeding or easy bruising EXAM Physical Exam Const Vital Signs: 05/28/22 18:13 05/28/22 18:20 Temperature 97.7 F L Temperature Source Temporal Pulse Rate 89 Respiratory Rate 16 Respiratory Effort Normal Non-Labored Respiratory Pattern Normal Blood Pressure 143/78 H Blood Pressure Mean 99 Pulse Ox 98 Oxygen Delivery Method Room Air Positive well nourished, well developed and obese General Appearance ED: well developed and NAD; Negative for cyanotic, diaphoretic or pallor Nutritional Appearance: obese HEENT Reports moist mucous membranes HEENT Narrative: Head is atraumatic normocephalic. There is no clinical findings of basilar skull fracture. There is no septal deviation or hematoma noted. There is no dental trauma. Eyes PERRL and EOMs intact bilaterally Eyes Narrative: There is no nystagmus. General Eye ED: Negative for pale conjunctiva or scleral icterus Neck no lymphadenopathy, supple and no JVD Resp normal respiratory effort and clear to auscultation bilaterally Cardio regular rate, regular rhythm, S1 normal heart sound, S2 normal heart sound and no murmurs GI normal to inspection, nondistended, normoactive bowel sounds, non-tender, non-distended and no masses; Negative for hepatosplenomegaly Palpation: soft Back/Spine no CVA tenderness Cervical Spine: Negative for cervical spine tenderness Thoracic Spine / Upper Back: Negative for thoracic spinal tenderness Lumbar Spine / Lower Back: Negative for lumbar spinal tenderness Extremity normal to inspection General Extremety ED: Negative for edema or tenderness General Extremity: Negative for edema Neuro oriented x3, CN's II-XII intact bilaterally and no sensory deficits noted Neuro Narrative: There is no dysmetria. Sensorium / Orientation: alert Motor Exam: strength 5/5 throughout Psych mental status grossly normal Skin no rashes or lesions noted, no wounds and skin turgor normal General Skin Exam: Negative for elasticity normal, jaundice or pallor MDM MDM MDM Narrative Medical decision making narrative: Is no concern for head trauma since caught her and laid her on the floor. He states she had generalized tonic-clonic seizure with incontinence. She is postictal. She was hypoglycemic. She has no history of diabetes. We will need to evaluate prior records determine she has any liver problems or history of problems with glycogen storage. Will obtain CBC to assess white count differential. BMP to evaluate renal function and electrolytes. CT was obtained since this is a new onset seizure. Suspect the new onset seizure was due to hypoglycemia. With her not complaining of headache no meningeal findings doubt subarachnoid hemorrhage. Records authored by Dr. Brand brothusama for malignancy screening i.e. colonoscopy was reviewed. This was performed November 2021. Patient had no complications. Outpatient records from neurology were reviewed. Patient was diagnosed with obstructive sleep apnea June [address] Atkinson. She was admitted November 21 for COPD. That admission record was reviewed. History & Record Review Additional record(s) reviewed:: Prior inpatient record, Prior outpatient record, Prior ED visit and Prior labs Lab Data Attestation: I reviewed the patient's lab results. Lab results narrative: CBC is unremarkable. Cortisol level is unremarkable. Labs: Laboratory Results - last 24 hr 05/28/22 05/28/22 05/28/22 18:25 18:25 18:25 WBC 8.8 RBC 4.35 Hgb 12.6 Hct 39.5 MCV 90.8 MCH 29.0 MCHC 31.9 L RDW Std Deviation 45.3 H RDW Coeff of Donis 13.4 Plt Count 259 MPV 10.0 Immature Gran % (Auto) 0.200 Neut % (Auto) 57.0 Lymph % (Auto) 29.6 Teton % (Auto) 9.1 Eos % (Auto) 3.5 Baso % (Auto) 0.6 Absolute Neuts (auto) 5.0 Absolute Lymphs (auto) 2.59 Nucleated RBC % 0 Sodium 140 Potassium 3.6 Chloride 109 H Carbon Dioxide 21.0 Anion Gap 10 BUN 12 Creatinine 1.15 H Estim Creat Clear Calc 54.18 Est GFR (MDRD) Af Amer 64 Est GFR (MDRD) Non-Af 53 L BUN/Creatinine Ratio 10.4 Glucose 37 L* Calcium 8.5 Total Bilirubin 0.20 Direct Bilirubin 0.11 AST 24 ALT 27 Alkaline Phosphatase 120 H Total Protein 7.6 Albumin 3.8 Globulin 3.8 Cortisol POC Glucose 05/28/22 05/28/22 18:49 19:07 WBC RBC Hgb Hct MCV MCH MCHC RDW Std Deviation RDW Coeff of Donis Plt Count MPV Immature Gran % (Auto) Neut % (Auto) Lymph % (Auto) Teton % (Auto) Eos % (Auto) Baso % (Auto) Absolute Neuts (auto) Absolute Lymphs (auto) Nucleated RBC % Sodium Potassium Chloride Carbon Dioxide Anion Gap BUN Creatinine Estim Creat Clear Calc Est GFR (MDRD) Af Amer Est GFR (MDRD) Non-Af BUN/Creatinine Ratio Glucose Calcium Total Bilirubin Direct Bilirubin AST ALT Alkaline Phosphatase Total Protein Albumin Globulin Cortisol 19.80 POC Glucose 61 L Radiography Diagnostic Testing: Clinical Impression(s) from Imaging Studies Brain CT 05/28/22 18:34 IMPRESSION: Negative head/brain CT without intravenous contrast. Electronically Signed: Hima Titus MD at 19:56 EDT , Treatment and Re-Evaluation :: I was informed at 2010 that patient is complaining of headache. 4 mg of morphine was ordered. Suspect this is due to her seizure. Discharge Plan Triage Chief Complaint: Hypoglycemia Other Complaint: Seizure ED Provider: Dao Garcia Dx/Rx/DC Orders Clinical Impression: Hypoglycemia, Fatty liver disease, nonalcoholic, Essential hypertension, Obstructive sleep apnea, Hyperlipidemia, Stage 1 mild COPD by GOLD classification, Generalized tonic-clonic seizure, Headache Instructions: ED Hypoglycemia, Nondiabetic, ED Seizure New Onset Unknown ... Prescriptions: No Action docusate sodium [Colace] 100 mg capsule 100 mg PO TID PRN (Reason: Constipation) calcium citrate 250 mg calcium tablet 250 mg PO BID biotin 10 mg tablet 10 mg PO DAILY polyethylene glycol 3350 [Miralax] 17 gram/dose powder 17 g PO PRN PRN (Reason: Constipation) Alive Women's Gummy Vitamin 200 mcg- 37.5 mg tablet,chewable 4 tab PO DAILY acyclovir 400 tablet 400 mg PO BID ondansetron 4 MG tablet 8 mg PO Q6H PRN PRN (Reason: Nausea) tramadol 50 MG tablet 1 - 2 tab PO Q8H PRN (Reason: Pain Or Fever) cholecalciferol (vitamin D3) 2,000 UNIT tablet 4,000 unit PO DAILY pantoprazole 40 MG tablet 40 mg PO BID diazepam 5 MG tablet 10 mg PO DAILY PRN (Reason: Anxiety) acetaminophen 325 MG tablet 650 mg PO Q6H PRN PRN (Reason: Pain Score 1-10/Temp > 100.7 F) 0RF doxycycline hyclate 150 mg Tablet 150 mg PO BID potassium chloride [Klor-Con M20] 20 mEq tablet,ER particles/crystals 20 meq PO DAILY Qty: 14 0RF sucralfate [Carafate] 100 mg/mL Suspension 10 ml PO 4X/DAY hydroxyzine HCl 50 mg Tablet 50 mg PO BID PRN (Reason: Anxiety) promethazine 12.5 mg suppository 12.5 mg NH TID PRN (Reason: nausea and vomiting) Qty: 12 0RF Rx Instructions: do not give 3rd daily dose after evening meal or within 4hr before bed hydrocodone-acetaminophen 5-325 mg tablet 1 tab PO Q6H PRN (Reason: pain) 3 Days Qty: 10 0RF cyclobenzaprine 10 mg tablet 10 mg PO BID PRN (Reason: muscle spasm) Qty: 10 0RF Primary Care Provider: Amari Renae Referrals: Amari Renae DO [Primary Care Provider] - 2 Days Disposition Disposition: Home, Self Care
[2022-05-28 19:12] VITALS: RESP 18
[2022-05-28 19:16] LABS: Anion Gap 10 (5-15); BUN 12 mg/dL (7-18); BUN/Creat Ratio 10.4 RATIO (10-20); Calcium,Total 8.5 mg/dL (8.5-10.1); Chloride 109 mmol/L (98-107); Creatinine, Serum 1.15 mg/dL (0.55-1.02); EST Glomerular Filtration Rate 53 mL/min (>60); Est Glom Filt Rate - Afr Amer 64 mL/min (>60); Estimated Creatinine Clearance 54.18 ml/min; Glucose 37 mg/dL (74-106); Potassium 3.6 mmol/L (3.5-5.1); Sodium Level 140 mmol/L (136-145)
[2022-05-28 19:26] LABS: Bedside Glucose 61 mg/dL (74-106)
--- NOTE | 2022-05-28 19:31 | ED.RN ---
PT GIVEN SANDWICH AND ORANGE JUICE AT THIS TIME.
[2022-05-28 20:02] LABS: AST(SGOT) 24 U/L (15-37); Alanine Aminotransfer ALT/SGPT 27 U/L (13-56); Albumin, Serum 3.8 g/dL (3.2-5.0); Alkaline Phosphatase 120 U/L (45-117); Bilirubin, Direct 0.11 mg/dL (0.00-0.30); Globulin 3.8 g/dL (2.2-4.2); Protein, Total 7.6 g/dL (6.4-8.2)
[2022-05-28 20:12] VITALS: RESP 16
== END 2022-05-28 21:19 | disposition home or self-care (01) ==
PROVIDERS: Emergency Provider Emergency Medicine; PCP Family Medicine; Visit Provider Emergency Medicine
DX: E16.2 Hypoglycemia, unspecified (principal); J44.9 Chronic obstructive pulmonary disease, unspecified; G40.409 Other generalized epilepsy and epileptic syndromes, not intractable, without status epilepticus; G47.33 Obstructive sleep apnea (adult) (pediatric); I10 Essential (primary) hypertension; E78.5 Hyperlipidemia, unspecified; E66.9 Obesity, unspecified; F17.210 Nicotine dependence, cigarettes, uncomplicated; R51.9 Headache, unspecified; Z68.35 Body mass index [BMI] 35.0-35.9, adult; Z79.899 Other long term (current) drug therapy
CPT/HCPCS: 70450; 80048; 80076; 82533; 82962; 85025; 99285

== ENCOUNTER → 2022-05-30 | Outpatient (CLI) | payer MEDICAID, SELFPAY ==
[2022-05-30 12:44] LABS: Insulin 5.1 mU/L (2.6-37.6)
[2022-05-30 12:58] LABS: Glucose 79 mg/dL (74-106); Thyroid Stim Hormone (TSH) 1.59 uIU/mL (0.358-3.74)
[2022-05-30 13:24] LABS: Hemoglobin A1c 5.2 % (3.8-5.6)
[2022-05-31 13:06] LABS: C-Peptide 2.7 ng/mL (1.1-4.4)
== END | disposition home or self-care (01) ==
PROVIDERS: PCP Family Medicine; Referring Provider Family Medicine; Visit Provider Family Medicine
DX: E16.2 Hypoglycemia, unspecified (principal)
CPT/HCPCS: 36415; 82947; 83036; 83525; 84443; 84681

== ENCOUNTER → 2023-01-14 | Outpatient (CLI) | payer MEDICAID, SELFPAY ==
[2023-01-14 17:56] LABS: Absolute Lymphocyte Count 1.43 X10^3/uL (0.83-4.51); Absolute Neutrophil Count 6.4 X10^3/uL (2.0-7.7); Basophil# 0.05 X10^3/uL; Basophil% 0.6 % (0-1); Eosinophil# 0.15 X10^3/uL; Eosinophils% 1.8 % (0-5); Hematocrit 41.9 % (37-47); Hemoglobin 13.2 g/dL (12.0-15.0); Lymphocyte # 1.43 X10^3/ul (0.83-4.51); Lymphocyte % 16.8 % (19-41); Mean Corp Hgb Conc 31.5 g/dL (32-36); Mean Corpuscular Hgb 27.7 pg (27.0-32.0); Mean Corpuscular Volume 87.8 fL (81-99); Mean Platelet Vol. 10.8 fl (6.2-12.0); Monocyte# 0.46 X10^3/uL; Monocyte% 5.4 % (0-10); NRBC Flagged by Analyzer 0 % (0-5); Neutrophil # 6.39 X10^3/uL (2.7-7.7); Platelet Count 244 K/mm3 (150-450); RBC Distribution Width CV 15.2 % (11.6-14.6); RBC Distribution Width SD 49.3 fl (35.1-43.9); Red Blood Count 4.77 M/mm3 (4.2-5.4); White Blood Count 8.5 K/mm3 (4.4-11.0)
[2023-01-14 18:18] LABS: Ferritin 8 ng/mL (8-252); Iron 33 ug/dL (50-170)
[2023-01-14 18:23] LABS: Vitamin B12 432 pg/mL (211-911); Vitamin D,25 Hydroxy 44.1 ng/mL
== END | disposition home or self-care (01) ==
LOC: BFHLAB 16:16
PROVIDERS: PCP Family Medicine; Visit Provider Family Medicine
DX: R53.83 Other fatigue (principal); Z98.84 Bariatric surgery status
CPT/HCPCS: 36415; 82306; 82607; 82728; 83540; 85025

== ENCOUNTER 2023-09-16 14:36 | Emergency (ER) | payer MEDICAID, SELFPAY ==
[2023-09-16 14:37] VITALS: BP 142/90; PULSE 87; RESP 18; TEMP 35.5; O2SAT 98; BMI 31.1
== END 2023-09-16 17:20 | disposition left against medical advice (07) ==
LOC: ED 17:25
PROVIDERS: PCP Family Medicine
DX: Z00.00 Encounter for general adult medical examination without abnormal findings (principal)

== ENCOUNTER → 2023-10-23 | Outpatient (CLI) | payer MEDICAID, SELFPAY ==
[2023-10-23 09:42] LABS: Basophil# 0.03 X10^3/uL; Basophil% 0.4 % (0-1); Eosinophil# 0.25 X10^3/uL; Eosinophils% 3.4 % (0-5); Hematocrit 40.7 % (37-47); Hemoglobin 13.3 g/dL (12.0-15.0); Lymphocyte % 21.8 % (19-41); Mean Corp Hgb Conc 32.7 g/dL (32-36); Mean Corpuscular Hgb 27.9 pg (27.0-32.0); Mean Corpuscular Volume 85.5 fL (81-99); Mean Platelet Vol. 10.1 fl (6.2-12.0); Monocyte# 0.48 X10^3/uL; Monocyte% 6.5 % (0-10); NRBC Flagged by Analyzer 0 % (0-5); Neutrophil # 4.95 X10^3/uL (2.7-7.7); Neutrophil % 67.5 % (47-70); Platelet Count 251 K/mm3 (150-450); RBC Distribution Width CV 15.8 % (11.6-14.6); RBC Distribution Width SD 49.5 fl (35.1-43.9); Red Blood Count 4.76 M/mm3 (4.2-5.4); White Blood Count 7.3 K/mm3 (4.4-11.0)
[2023-10-23 10:10] LABS: Vitamin B12 371 pg/mL (211-911); Vitamin D,25 Hydroxy 31.6 ng/mL
[2023-10-23 10:11] LABS: ALB/GLOB Ratio 0.9 RATIO (0.9-2.4); AST(SGOT) 16 U/L (15-37); Alanine Aminotransfer ALT/SGPT 18 U/L (13-56); Albumin, Serum 3.5 g/dL (3.2-5.0); Alkaline Phosphatase 113 U/L (45-117); Anion Gap 6 (5-15); BUN 9 mg/dL (7-18); BUN/Creat Ratio 11.8 RATIO (10-20); Calcium,Total 9.2 mg/dL (8.5-10.1); Chloride 107 mmol/L (98-107); Cholesterol 156 mg/dL (200); Creatinine, Serum 0.76 mg/dL (0.55-1.02); EST Glomerular Filtration Rate 85 mL/min (>60); Est Glom Filt Rate - Afr Amer 103 mL/min (>60); Ferritin 10 ng/mL (8-252); Globulin 3.7 g/dL (2.2-4.2); Glucose 83 mg/dL (74-106); High Density Lipoprotein 77 mg/dL; Iron 48 ug/dL (50-170); Potassium 4.2 mmol/L (3.5-5.1); Protein, Total 7.2 g/dL (6.4-8.2); Sodium Level 138 mmol/L (136-145); Triglycerides 66 mg/dL; Very Low Density Lipoprotein 13 mg/dL (5-40)
== END | disposition home or self-care (01) ==
LOC: LAB 08:50
PROVIDERS: PCP Family Medicine; Referring Provider Family Medicine; Visit Provider Family Medicine
DX: Z00.00 Encounter for general adult medical examination without abnormal findings (principal); Z98.84 Bariatric surgery status; E55.9 Vitamin D deficiency, unspecified; D50.9 Iron deficiency anemia, unspecified
CPT/HCPCS: 36415; 80053; 80061; 82306; 82607; 82728; 83540; 85025

== ENCOUNTER → 2023-10-24 | Outpatient (CLI) | payer MEDICAID, SELFPAY ==
--- NOTE | 2023-10-24 13:06 | BI_ITS ---
MAMMOGRAPHY - BILATERAL SCREENING REASON FOR EXAM: Female, 53 years old. Routine annual screening examination. PERTINENT HISTORY: Non-contributory. TECHNIQUE: Digital bilateral breast eli (3D mammographic acquisition) in the CC and MLO projections. 2-D mediolateral oblique (MLO) and craniocaudad (CC) views of both breasts were obtained. CAD: Full Field Digital Mammography with Computer Added Detection was performed. COMPARISON: Comparison is made with prior study dated May 10, 2022 and May 05, 2021. FINDINGS: Breast Composition: The breasts are almost entirely fatty. There are no dominant masses or suspicious calcifications. No other significant abnormalities are identified. There has been no significant change since the prior study. BI/SCRN MAMM (CAD)W/ELI BILAT IMPRESSION: Stable bilateral screening mammogram. Yearly follow-up mammogram recommended. (A) ASSESSMENT CATEGORY: BIRADS Category 1: Negative. A letter regarding these results will be sent to the patient by the facility within 30 days. Approximately 10% of breast cancers are not detected by mammography. A normal mammogram should not delay biopsy of a clinically suspicious abnormality. [id number] Electronically Signed: Malcolm Quarles MD at 14:08 EDT ,
== END | disposition home or self-care (01) ==
LOC: OPBI 13:05
PROVIDERS: PCP Family Medicine; Referring Provider Family Medicine; Visit Provider Family Medicine
DX: Z12.31 Encounter for screening mammogram for malignant neoplasm of breast (principal)
CPT/HCPCS: 77063; 77067

== ENCOUNTER → 2024-05-20 | Outpatient (CLI) | payer MEDICAID, SELFPAY ==
--- NOTE | 2024-05-20 14:48 | RAD_ITS ---
PROCEDURE: ANKLE MIN 3 VIEWS (RADANK), 05/20/2024 REASON FOR EXAM: ANKLE INJURY TECHNIQUE: AP, lateral, and oblique views of the RIGHT ankle were obtained. COMPARISON: None FINDINGS: Fracture/dislocation: None visible. Joint space(s): Preserved. Soft tissues: Punctate calcification along the lateral aspect of the distal fibular metadiaphysis may be vascular. Foreign bodies: None visible. Bone mineralization: Suspect demineralization. Other: None. RAD/Ankle min 3 Views IMPRESSION: 1. Suspected demineralization without visible acute displaced fracture. 2. Additional description as above. Reading Location: [id number]
== END | disposition home or self-care (01) ==
LOC: MTRAD 14:48
PROVIDERS: PCP Family Medicine; Referring Provider Physician Assistant; Visit Provider Physician Assistant
DX: S99.919A Unspecified injury of unspecified ankle, initial encounter (principal)
CPT/HCPCS: 73610

== ENCOUNTER → 2024-09-03 | Outpatient (CLI) | payer MEDICAID, SELFPAY ==
[2024-09-03 18:43] LABS: AST(SGOT) 22 U/L (<=31); Alanine Aminotransfer ALT/SGPT 18 U/L (<=34); Albumin, Serum 4.0 g/dL (3.5-5.0); Alkaline Phosphatase 81 U/L (35-104); Anion Gap 12 (5-15); BUN 13 mg/dL (4-19); BUN/Creat Ratio 16.5 RATIO (10-20); Calcium,Total 9.1 mg/dL (7.6-11.0); Carbon Dioxide 21.7 mmol/L (21.0-32.0); Chloride 106 mmol/L (98-108); Ferritin 22 ng/mL (22-378); Globulin 2.9 g/dL (2.2-4.2); Glucose 79 mg/dL (70-99); Potassium 4.0 mmol/L (3.3-5.1); Vitamin B12 245 pg/mL (180-914); Vitamin D,25 Hydroxy 39.0 ng/mL (30-100)
[2024-09-03 18:53] LABS: Hematocrit 39.3 % (37-47); Hemoglobin 12.8 g/dL (12.0-15.0); Immature Granulocytes Count 0.010 X10^3/uL (0.0-0.0); Mean Corp Hgb Conc 32.6 g/dL (32-36); Mean Corpuscular Volume 88.7 fL (81-99); Mean Platelet Vol. 10.2 fl (6.2-12.0); NRBC Flagged by Analyzer 0 % (0-5); Platelet Count 264 K/mm3 (150-450); RBC Distribution Width CV 16.0 % (11.6-14.6); RBC Distribution Width SD 52.4 fl (35.1-43.9); Red Blood Count 4.43 M/mm3 (4.2-5.4); White Blood Count 7.0 K/mm3 (4.4-11.0)
[2024-09-03 18:59] LABS: Iron 89 ug/dL (50-170)
== END | disposition home or self-care (01) ==
LOC: BFHLAB 15:24
PROVIDERS: PCP Family Medicine; Visit Provider Family Medicine
DX: D50.9 Iron deficiency anemia, unspecified (principal); E53.8 Deficiency of other specified B group vitamins; E55.9 Vitamin D deficiency, unspecified; Z51.81 Encounter for therapeutic drug level monitoring
CPT/HCPCS: 36415; 80053; 82306; 82607; 82728; 83540; 85025

== ENCOUNTER 2024-09-27 20:28 | Emergency (ER) | payer MEDICAID, SELFPAY ==
[2024-09-27 20:29] VITALS: BP 117/78; PULSE 75; RESP 20; TEMP 36.4; O2SAT 99; BMI 28.0
--- NOTE | 2024-09-27 20:38 | EKG12_ITS ---
Test Reason : DYSRHYTHMIA Blood Pressure : */* mmHG Vent. Rate : 49 BPM Atrial Rate : 49 BPM P-R Int : 184 ms QRS Dur : 92 ms QT Int : 470 ms P-R-T Axes : 50 27 38 degrees QTcB Int : 424 ms Sinus bradycardia Otherwise normal ECG Confirmed by SANTIAGO ZEPEDA, FRANKLYN ([id number]), newspaper or periodical editor JERMAINE WORELY ([id number]) on 09/28/2024 1:02:52 PM Referred By: Confirmed By: FRANKLYN HENDERSON MD
[2024-09-27 21:13] LABS: Hematocrit 38.1 % (37-47); Hemoglobin 12.5 g/dL (12.0-15.0); Immature Granulocytes Count 0.020 X10^3/uL (0.0-0.0); Mean Corp Hgb Conc 32.8 g/dL (32-36); Mean Corpuscular Volume 87.4 fL (81-99); Mean Platelet Vol. 10.2 fl (6.2-12.0); NRBC Flagged by Analyzer 0 % (0-5); Platelet Count 248 K/mm3 (150-450); RBC Distribution Width CV 15.8 % (11.6-14.6); RBC Distribution Width SD 50.6 fl (35.1-43.9); Red Blood Count 4.36 M/mm3 (4.2-5.4); White Blood Count 6.2 K/mm3 (4.4-11.0)
[2024-09-27] MEDS: 0.9% Normal Saline (1000mL) 1,000 ML 1000 ML IV (21:13)
[2024-09-27 21:14] VITALS: BP 132/79; BP 137/92; BP 141/94; PULSE 49; PULSE 55; PULSE 57
--- NOTE | 2024-09-27 21:37 | EX.ED.DYSGE1 ---
HPI History of Present Illness Chief Complaint: General Illness Detail of Chief Complaint: Fatigue, unresponsive Informant: patient and EMS Onset/Context/Timing Onset: Today Context: Sudden Onset Timing: Intermittent Quality: Detailed HPI narrative Location: Presents from home Current Severity: Gone Maximum Severity: Patient has no recall what occurred Worsened by: Unknown Relieved by: Not applicable/unknown Associated Symptoms Associated Symptoms: Amnestic Narrative Narrative: Patient is a 54-year-old woman. She has history of a single seizure 3 years ago. She is on no anticonvulsant. Patient states she did not feel well and fatigued. She walked her bedroom. She does not recall anything until she woke up because squad was there. She denies headache. Denies double vision blurred vision loss of vision. Eyes clark ears decreased hearing. Denies rhinorrhea, congestion, postnasal drainage sore throat. She denies difficulty swallowing. She denies change in voice. She denies chest pain, pressure, tightness or heaviness. She denies shortness of breath or difficulty breathing. She denies pain with breathing. She denies wheezing. She denies cough. She denies abdominal pain, nausea, vomiting or diarrhea. She denies dysuria, frequency, urgency or hematuria. She denies paresthesia, anesthesia or motor weakness in her extremities. She denies trouble with balance or coordination. Prior similar symptoms: No Recent Illness/Hospitalization: No [facility] Medical History Cellulitis of right ankle Hx of gastric ulcer Marijuana use Low iron Easy bruising Back pain Migraine headache Syncope History of ulceration History of GI bleed Smoker Sarcoidosis Leg cramps History of edema Hypertension History of Holter monitoring History of echocardiogram Chest pain COPD exacerbation Essential hypertension Gastroesophageal reflux disease Major depression Sarcoidosis Fatigue Vitamin D deficiency Cigarette nicotine dependence Prediabetes Dysfunctional uterine bleeding Onychomycosis Chest pain Alopecia Skin rash Anxiety Fatty liver disease, nonalcoholic Peripheral edema Stage 1 mild COPD by GOLD classification Nephrolithiasis COPD (chronic obstructive pulmonary disease) Obstructive sleep apnea Tobacco user Morbid obesity Benign essential HTN Home Medications ?Medication ?Instructions ?Recorded ?Last Taken ?Type acyclovir 400 mg tablet 400 mg PO BID anti viral 05/23/18 10/30/19 18:00 History pantoprazole 40 mg tablet,delayed 40 mg PO BID reflux 08/27/20 08/29/20 09:00 History release doxycycline hyclate 150 mg tablet 150 mg PO BID 10/12/20 Unknown History bupropion HCl 150 mg tablet,12 hr 150 mg PO BID 05/20/24 Unknown History sustained-release buspirone 15 mg tablet 15 mg PO BID 05/20/24 Unknown History hydroxyzine pamoate 50 mg capsule 50 mg PO QDAY PRN anxiety 05/20/24 Unknown History citalopram 20 mg tablet 10 - 20 mg PO QHS 09/27/24 Unknown History gabapentin 300 mg capsule 300 mg PO TID PRN PRN pain 09/27/24 Unknown History tramadol 50 mg tablet 50 mg PO TID PRN PRN pain 09/27/24 Unknown History Allergy/AdvReac Type Severity Reaction Status Date / Time latex Allergy Hives Verified 09/27/24 20:28 povidone-iodine (From Allergy Rash Verified 09/27/24 20:28 Betadine) Family History Father Hypertension Heart disease Diabetes CVA (cerebral vascular accident) Blood clotting disorder Pneumonia Grandfather Cancer Prostate Brother Diabetes Sister Asthma Sister Depression Anxiety Surgical History History of esophagogastroduodenoscopy (EGD) Hx of tubal ligation History of gastric bypass H/O: hysterectomy History of lithotripsy Previous section History of carpal tunnel release of both wrists Social History household members: children Smoking Status: Current every day smoker tobacco type: cigarettes second hand exposure: Yes alcohol intake: current alcohol intake frequency: holidays/special occasions only Alcohol type: wine substance use type: does not use caffeine: Yes (3/day) what type of physical activity do you participate in: none ROS ROS ED Constitutional Constitutional ED: Denies chills, fever(s), subjective, sweats or weight loss Eyes Eyes: Denies blurry vision, change in vision or diplopia ENT ENT ED: Denies ear pain, rhinorrhea or sore throat Cardiovascular Cardiovascular: Denies chest pain, palpitations or racing heartbeat Respiratory/Chest Respiratory/Chest: Denies cough, dyspnea or dyspnea on exertion Gastrointestinal Gastrointestinal: Denies abdominal pain, diarrhea, melena or vomiting Genitourinary Genitourinary ED: Denies dysuria, hematuria or urinary frequency Musculoskeletal Musculoskeletal: Denies arthralgias, myalgias or neck pain Integumentary Denies abscess, Abrasions or rash Neurologic Neurologic: Reports weakness; Denies headache(s) or paresthesias Psychiatric Psychiatric: Denies anxiety or depression Endocrine Endocrinology: Denies cold intolerance or heat intolerance Hematologic/Lymphatic Hematologic/Lymphatic: Reports systems reviewed and no addt'l complaints, except as documented EXAM Physical Exam Const Vital Signs: 09/27/24 20:29 09/27/24 21:14 Temperature 97.6 F L Temperature Source Oral Pulse Rate 75 Pulse Rate [Lying] 49 L Pulse Rate [Sitting (for 1 minute prior to obtaining)] 55 L Pulse Rate [Standing (for 1 minute prior to obtaining)] 57 L Respiratory Rate 20 H Blood Pressure 117/78 Blood Pressure [Lying] 132/79 H Blood Pressure [Sitting (for 1 minute prior to obtaining)] 141/94 H Blood Pressure [Standing (for 1 minute prior to obtaining)] 137/92 H Blood Pressure Mean 91 Blood Pressure Mean [Lying] 96 Blood Pressure Mean [Sitting (for 1 minute prior to obtaining)] 109 Blood Pressure Mean [Standing (for 1 minute prior to obtaining)] 107 Pulse Ox 99 Positive well nourished and well developed Constitutional Narrative: Orthostatic vital signs were negative. General Appearance ED: well developed and NAD; Negative for pallor HEENT HEENT Narrative: Head is atraumatic and normocephalic. Ears normal. Nares patent without discharge. Posterior pharynx is normal. Uvula is midline. There is no deviation of tongue with protrusion. Eyes PERRL and EOMs intact bilaterally General Eye ED: Negative for pale conjunctiva or scleral icterus Neck no lymphadenopathy, supple and no JVD Resp normal respiratory effort and clear to auscultation bilaterally Cardio regular rate, regular rhythm, S1 normal heart sound, S2 normal heart sound and no murmurs GI normal to inspection, nondistended, normoactive bowel sounds, non-tender, non-distended and no masses; Negative for hepatosplenomegaly Back/Spine no CVA tenderness Extremity normal to inspection General Extremety ED: Negative for edema or tenderness General Extremity: Negative for edema Neuro oriented x3, CN's II-XII intact bilaterally and no sensory deficits noted Neuro Narrative: There is no clonus Babinski. There is no dysmetria. Sensorium / Orientation: alert Motor Exam: strength 5/5 throughout Psych mental status grossly normal Skin no rashes or lesions noted, no wounds and skin turgor normal General Skin Exam: Negative for jaundice or pallor MDM MDM MDM Narrative Medical decision making narrative: Patient had episode where she was unresponsive. History is limited because she has no recall. There was no witnessed seizure. There was no incontinence of urine or stool. She denies biting her tongue or having a headache. Will obtain CBC to assess H&H and white count. BMP to assess electrolytes, CO2 anion gap and renal function. Lactate was obtained as well. If she did have a seizure 1 would expect her lactic to be up and she would have an anion gap. Since she has a nonfocal neurologic exam with no neurosymptoms imaging was not obtained. History & Record Review Additional record(s) reviewed:: Prior outpatient record (She was seen by Dr. Collin Atkinson in June 2014 for obstructive sleep apnea. She had an outpatient colonoscopy by Dr. Schuster.) and Prior ED visit (Last ER visit was May 2022. She was seen by me at that time. She was seen for generalized tonic-clonic seizure and incontinence with hypoglycemia. Patient was hypoglycemic today per squad. She was treated for her hypoglycemia.) Lab Data Attestation: I reviewed the patient's lab results. Lab results narrative: CBC is unremarkable. Lactate is normal. Glucose is 111. Basic metabolic panel is pending. Labs: Laboratory Results - last 24 hr 09/27/24 09/27/24 20:32 20:59 WBC 6.2 RBC 4.36 Hgb 12.5 Hct 38.1 MCV 87.4 MCH 28.7 MCHC 32.8 RDW Std Deviation 50.6 H RDW Coeff of Donis 15.8 H Plt Count 248 MPV 10.2 Immature Gran % (Auto) 0.300 Neut % (Auto) 57.2 Lymph % (Auto) 30.4 Crockett % (Auto) 8.7 Eos % (Auto) 2.9 Baso % (Auto) 0.5 Absolute Neuts (auto) 3.6 Absolute Lymphs (auto) 1.89 Nucleated RBC % 0 Sodium Cancelled Potassium Cancelled Chloride Cancelled Carbon Dioxide Cancelled Anion Gap Cancelled BUN Cancelled Creatinine Cancelled Estim Creat Clear Calc Cancelled Est GFR (MDRD) Non-Af Cancelled BUN/Creatinine Ratio Cancelled Glucose Cancelled Lactic Acid 1.5 Calcium Cancelled POC Glucose 111 H Treatment and Re-Evaluation :: Patient had similar presentation when I saw her May 2022. Since she had seizure with hypoglycemia and hypoglycemia and altered mental status we will have her follow-up with Dr. Jensen for outpatient workup. Suspect her altered sensation/level of consciousness possible seizure was due to hypoglycemia again. Discharge Plan Triage Chief Complaint: General Illness ED Provider: Dao Garcia Dx/Rx/DC Orders Clinical Impression: Hypoglycemia, Fatty liver disease, nonalcoholic, COPD (chronic obstructive pulmonary disease), Change in level of consciousness, Overweight (BMI 25.0-29.9) Instructions: ED Hypoglycemia, Nondiabetic Prescriptions: No Action bupropion HCl 150 mg tablet sustained-release 12 hr 150 mg PO BID hydroxyzine pamoate 50 mg capsule 50 mg PO QDAY PRN (Reason: anxiety) buspirone 15 mg tablet 15 mg PO BID acyclovir 400 tablet 400 mg PO BID pantoprazole 40 MG tablet 40 mg PO BID doxycycline hyclate 150 mg Tablet 150 mg PO BID tramadol 50 mg tablet 50 mg PO TID PRN PRN (Reason: pain) citalopram 20 mg tablet 10 - 20 mg PO QHS gabapentin 300 mg capsule 300 mg PO TID PRN PRN (Reason: pain) Primary Care Provider: Amari Renae Referrals: Amari Renae DO [Primary Care Provider] - Nnamdi Jensen MD [Med Staff - Courtesy Staff] - 3-5 Days Print Language: Thai Disposition Disposition: Home, Self Care
[2024-09-27 22:28] VITALS: BP 131/79; PULSE 59; RESP 16; TEMP 36.6; O2SAT 99
[2024-09-27 22:51] LABS: Anion Gap 9 (5-15); BUN 12 mg/dL (4-19); BUN/Creat Ratio 19.8 RATIO (10-20); Calcium,Total 8.4 mg/dL (7.6-11.0); Carbon Dioxide 24.3 mmol/L (21.0-32.0); Chloride 110 mmol/L (98-108); Estimated Creatinine Clearance 112.91 ml/min (50-250); Glucose 78 mg/dL (70-99); Potassium 3.7 mmol/L (3.3-5.1)
== END 2024-09-27 22:37 | disposition home or self-care (01) ==
PROVIDERS: Emergency Provider Emergency Medicine; PCP Family Medicine; Visit Provider Emergency Medicine
DX: R41.82 Altered mental status, unspecified (principal); J44.9 Chronic obstructive pulmonary disease, unspecified; E16.2 Hypoglycemia, unspecified; E66.3 Overweight; F17.210 Nicotine dependence, cigarettes, uncomplicated; K76.0 Fatty (change of) liver, not elsewhere classified; I10 Essential (primary) hypertension; Z68.25 Body mass index [BMI] 25.0-25.9, adult; K21.9 Gastro-esophageal reflux disease without esophagitis; F41.9 Anxiety disorder, unspecified; F32.A Depression, unspecified; Z79.899 Other long term (current) drug therapy; Z98.51 Tubal ligation status; Z90.710 Acquired absence of both cervix and uterus; R53.83 Other fatigue
CPT/HCPCS: 36415; 80048; 82962; 83605; 85025; 93005; 96360; 99285; A4216

== ENCOUNTER → 2024-12-15 | Outpatient (CLI) | payer MEDICAID, SELFPAY ==
[2024-12-21 16:09] LABS: Age Gdln ACOG Testing 30-65 (.); HPV APTIMA, High Risk Negative (Negative)
== END | disposition home or self-care (01) ==
LOC: LABSPEC 12-16 12:25
PROVIDERS: PCP Family Medicine; Referring Provider Nurse Practitioner Family; Visit Provider Nurse Practitioner Family
DX: Z12.4 Encounter for screening for malignant neoplasm of cervix (principal)
CPT/HCPCS: 87624; 88175; G0145

== ENCOUNTER → 2024-12-29 | Outpatient (CLI) | payer MEDICAID, SELFPAY ==
--- NOTE | 2024-12-29 15:49 | BI_ITS ---
EXAM: SCRN MAMM (CAD)W/ELI BILAT DATE: 12/29/2024 CLINICAL HISTORY: F, Age 54 y/o , SCREENING No family history. TECHNIQUE: Procedure Code: [id number] Modality: MG Procedure: SCRN MAMM (CAD)W/ELI BILAT COMPARISON: Prior exam(s) dated October 24, 2023.. FINDINGS: TISSUE DENSITY: The breasts are almost entirely fatty. Bilateral Breast Mammographic Findings: No significant masses, calcifications or other abnormalities are identified. No suspicious masses, areas of developing architectural distortion, or suspicious calcifications. There has been no significant interval change. BI/SCRN MAMM (CAD)W/ELI BILAT IMPRESSION: Stable bilateral screening mammogram. OVERALL FINAL ASSESSMENT BI-RADS 1: NEGATIVE. RECOMMENDATION: Routine annual follow-up in 1 Year Additional Recommendation none A letter with findings and recommendations will be mailed to the patient. Reading Location: [facility]
== END | disposition home or self-care (01) ==
LOC: OPBI 15:48
PROVIDERS: PCP Family Medicine; Referring Provider Family Medicine; Visit Provider Family Medicine
DX: Z12.31 Encounter for screening mammogram for malignant neoplasm of breast (principal)
CPT/HCPCS: 77063; 77067